=== PATIENT | male | born 1965 | race Caucasian/White ===

== ENCOUNTER → 2019-12-05 15:41 | Outpatient (BNVA) | payer OTHER, SELFPAY | PROVIDERS: Family Provider Family Medicine; PCP Family Medicine; Visit Provider Nurse Practitioner Psychiatric/Mental Health | DX: F33.1 Major depressive disorder, recurrent, moderate (principal); F41.1 Generalized anxiety disorder; F17.210 Nicotine dependence, cigarettes, uncomplicated | CPT/HCPCS: 99213 ==

== ENCOUNTER → 2020-03-27 08:19 | Outpatient (BNVA) | payer OTHER, SELFPAY | PROVIDERS: Family Provider Family Medicine; PCP Family Medicine; Visit Provider Nurse Practitioner Psychiatric/Mental Health | DX: F33.1 Major depressive disorder, recurrent, moderate (principal); F41.1 Generalized anxiety disorder; F17.210 Nicotine dependence, cigarettes, uncomplicated; F33.42 Major depressive disorder, recurrent, in full remission | CPT/HCPCS: 99213 ==

== ENCOUNTER 2020-12-08 23:12 | Emergency (ER) | payer MEDICARE, SELFPAY ==
[2020-12-08 23:14] VITALS: BP 204/105; PULSE 100; RESP 22; TEMP 36.8; O2SAT 95; BMI 35.9
--- NOTE | 2020-12-08 23:15 | XR_ITS ---
WS: [id number] Portable AP upright chest, 12/08/2020 Clinical Data: cp Comparison: PA and lateral chest, 07/13/2018. Findings: No nodules, masses or effusions are seen. The heart is normal. The pulmonary vascularity is not increased. No pneumonia or pneumothorax is seen. The aortic arch and descending aorta are minima lly tortuous. The left diaphragm is slightly elevated. Monitor leads are on the chest wall. XR/XR chest 1V portable [id number] Impression: Atherosclerosis.
--- NOTE | 2020-12-08 23:15 | ECG_ITS ---
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 Measurements Intervals [place] Rate: 97 P: 65 [place]: 211 QRS: -36 QRSD: 94 T: 63 QT: 353 QTc: 450 Interpretive Statements SINUS RHYTHM WITH FIRST DEGREE AV BLOCK LEFT AXIS DEVIATION [QRS AXIS < -30] POSSIBLE ANTERIOR MYOCARDIAL INFARCTION , OF INDETERMINATE AGE Compared to ECG 07/13/2018 10:16:34 First degree AV block now present Left-axis deviation now present Myocardial infarct finding now present Left anterior fascicular block no longer present Electronically Signed On 12-09-2020 19:20:18 PASSENGER LOCOMOTIVE ENGINEER by Liya Jaffe M.D. [id number]
--- NOTE | 2020-12-08 23:19 | W.ED.CHESTPA ---
HPI - Chest Pain General: Chief Complaint: Chest Pain Stated Complaint: CP Time Seen by Provider: 12/08/20 23:16 Source: patient Mode of arrival: ambulatory Limitations: no limitations History of Present Illness: HPI narrative: 55-year-old male has a history of coronary artery disease along with high blood pressure and high cholesterol is a smoker. States he started having a pressure type pain in the center of his chest at 930 tonight. He states it is been constant initially is an 8 and he took nitro at home and it did improve his pain to a 4 currently. He denies any worsening improving factors. Denies any shortness of breath. Denies any nausea or vomiting. MD complaint: chest pain Associated symptoms: Deny abdominal pain, dyspnea, fever(s), nausea or vomiting Review of Systems Const: Denies: fever(s), chills, body aches or change in appetite Eyes: Denies: blurry vision or eye discomfort ENMT: Denies: throat pain or dental pain Card: Reports: chest pain Resp: Denies: dyspnea GI: Denies: abdominal pain, nausea, vomiting or diarrhea : Denies: dysuria Musc: Denies: neck pain or back pain Skin/Breast: Denies: rash Neuro: Denies: headache(s) Psych: Denies: depression Mathieu/Lymph: Denies: easy bruising All/Imm: Denies: urticaria PFSH ED PFSH: Medical History ASHD (arteriosclerotic heart disease) Generalized anxiety disorder Major depressive disorder, recurrent episode, moderate with anxious distress Nicotine dependence, cigarettes, uncomplicated Family History Father Myocardial infarct Grandmother Myocardial infarct Family/Other Myocardial infarct Other CAD (coronary artery disease) Social History Smoking and tobacco status: current every day smoker cigarettes Packs smoked per day: 1 and smokeless tobacco Smokeless tobacco user: chewing tobacco Smokeless tobacco details: 1 can 2- 3 days Quit status (tobacco): considering quitting Second hand smoke exposure: Yes Smoking risk assessment/counseling performed?: No Physical Exam Const: COMMON NORMALS: no acute distress, patient oriented x3 and healthy appearing HENMT: COMMON NORMALS: normocephalic and atraumatic HEAD & SCALP: normocephalic and atraumatic Eye: COMMON NORMALS: Equal, round and reactive pupils present and EOMs intact bilaterally PUPIL: Yes Equal, round and reactive pupils present Neck/C-Spine: COMMON NORMALS: full ROM and supple Chest: COMMONS NORMALS: normal inspection of the chest and normal palpation of entire chest wall Resp: COMMON NORMALS: normal respiratory effort, No retractions, No use of accessory muscles and clear to auscultation bilaterally AUSCULTATION: clear to auscultation bilaterally Cardio: COMMON NORMALS: regular rate, regular rhythm and No murmurs present (Cardio) RATE: regular rate RHYTHM: regular rhythm GI: COMMON NORMALS: Normal to inspection, nondistended, normoactive bowel sounds present, Soft to palpation, non-tender and no masses PALPATION: Yes Soft to palpation Extremity: COMMON NORMALS: normal to inspection and full ROM Neuro: COMMON NORMALS: patient oriented x3, moves all extremities and no focal motor deficits Psych: COMMON NORMALS: mental status grossly normal, Normal thought process present and cooperative THOUGHT PROCESS: Normal thought process present Skin: COMMON NORMALS: no rashes or lesions noted and no wounds GENERAL SKIN EXAM: no rashes or lesions noted Course Vital Signs: Vital signs: Vital Signs Temperature 98.2 F 12/08/20 23:14 Pulse Rate 87 12/09/20 02:42 Respiratory Rate 16 12/09/20 02:42 Blood Pressure 146/71 12/09/20 02:42 Pulse Oximetry 96 12/09/20 02:42 MDM - Chest Pain MDM Narrative: Medical decision making narrative: Patient presents here with Carlos presents with chest pain. Patient's initial and repeat troponin are negative. I did offer him admission but he states he feels much improved and does not like staying hospitals and refused. He is to follow-up with Dr. Mendoza in 3 to 7 days and return to ER if he has any return of his pain. He understands agrees the plan. Has no signs of aortic dissection or pulmonary embolism Lab Data: Labs: Lab Results 12/08/20 12/08/20 12/08/20 Range/Units 23:20 23:20 23:20 WBC 5.8 (4.0-10.0) 10^3/ uL RBC 5.13 (4.1-5.3) 10^6/u L Hgb 16.2 (11.7-16.6) g/dL Hct 48.2 (42.0-52.0) % MCV 94.0 (80-94) fL MCH 31.6 (28.0-34.0) pg MCHC 33.6 (30.0-36.0) g/dL RDW 12.8 (12.1-15.1) % Plt Count 186 (130-400) 10^3/c mm MPV 10.3 (7.4-10.4) fL Neut % (Auto) 50.9 % Lymph % (Auto) 36.0 % [place] % (Auto) 6.7 % Eos % (Auto) 4.0 % Baso % (Auto) 1.7 % Neut # (Auto) 2.95 (1.8-7.7) 10^3/u L Lymph # (Auto) 2.1 (0.8-4.8) 10^3/u L [place] # (Auto) 0.4 (0.2-0.9) 10^3/u L Eos # (Auto) 0.2 (0.0-0.8) 10^3/u L Baso # (Auto) 0.1 (0.0-0.1) 10^3/u L Nucleated RBC % (a uto) 0 % Nucleated RBCs # 0.0 /100WBC Sodium 137 (136-145) mmol/L Potassium 4.5 (3.5-5.1) mmol/L Chloride 99 (98-107) mmol/L Carbon Dioxide 23 (22-29) mmol/L Anion Gap 19.5 H (5-19) BUN 5 L (6-20) mg/dL Creatinine 0.7 (0.7-1.2) mg/dL GFR Calculation 116.2 (90-130) mL/min Glucose 350 H (65-115) mg/dL Calculated Osmolal ity 295 (285-295) mOsm/k g Calcium 9.1 (8.5-10.5) mg/dL Total Bilirubin 0.2 (0.15-1.2) mg/dL AST 5 (0-40) U/L ALT < 5 (0-41) U/L Alkaline Phosphata se 109 (40-130) IU/L Troponin T Baselin e 11 (0-15) ng/L Troponin T 120 Min ely shoshone (0-15) ng/L Delta Troponin T (0-10) ABS# Total Protein 7.1 (6.6-8.7) g/dL Albumin 4.1 (3.5-5.2) g/dL Globulin 3.0 (1.3-4.6) g/dL 12/09/20 Range/Units 01:05 WBC (4.0-10.0) 10^3/ uL RBC (4.1-5.3) 10^6/u L Hgb (11.7-16.6) g/dL Hct (42.0-52.0) % MCV (80-94) fL MCH (28.0-34.0) pg MCHC (30.0-36.0) g/dL RDW (12.1-15.1) % Plt Count (130-400) 10^3/c mm MPV (7.4-10.4) fL Neut % (Auto) % Lymph % (Auto) % [place] % (Auto) % Eos % (Auto) % Baso % (Auto) % Neut # (Auto) (1.8-7.7) 10^3/u L Lymph # (Auto) (0.8-4.8) 10^3/u L [place] # (Auto) (0.2-0.9) 10^3/u L Eos # (Auto) (0.0-0.8) 10^3/u L Baso # (Auto) (0.0-0.1) 10^3/u L Nucleated RBC % (a uto) % Nucleated RBCs # /100WBC Sodium (136-145) mmol/L Potassium (3.5-5.1) mmol/L Chloride (98-107) mmol/L Carbon Dioxide (22-29) mmol/L Anion Gap (5-19) BUN (6-20) mg/dL Creatinine (0.7-1.2) mg/dL GFR Calculation (90-130) mL/min Glucose (65-115) mg/dL Calculated Osmolal ity (285-295) mOsm/k g Calcium (8.5-10.5) mg/dL Total Bilirubin (0.15-1.2) mg/dL AST (0-40) U/L ALT (0-41) U/L Alkaline Phosphata se (40-130) IU/L Troponin T Baselin e (0-15) ng/L Troponin T 120 Min ely [place] 20.22 H (0-15) ng/L Delta Troponin T 9.22 (0-10) ABS# Total Protein (6.6-8.7) g/dL Albumin (3.5-5.2) g/dL Globulin (1.3-4.6) g/dL Imaging Data^: CXR: Attestation: I personally reviewed and interpreted this imaging study as follows: My impression: no acute abnormality No acute abnormality EKG Data^: EKG 1: Attestation: I personally reviewed and interpreted this EKG as follows: EKG interpretation date: 12/08/20 EKG interpretation time: 23:17 Interpretation: nsr hr [address] or t wave abnormalities qrs 94 qtc 408 EKG 2: Attestation: I personally reviewed and interpreted this EKG as follows: EKG interpretation date: 12/09/20 EKG interpretation time: 01:56 Interpretation: nsr hr [address] or t wave abnormalities qrs 98 qtc 399 Discharge Plan Discharge Patient Disposition: Home Clinical Impression: Chest pain Qualifiers: Chest pain type: unspecified Qualified Code(s): R07.9 - Chest pain, unspecified Condition: Stable Prescriptions: No Action melatonin [Melatin] 3 mg tablet 3 mg PO .HS PRN (Reason: sleep) RF: 0 cyproheptadine 4 mg tablet 4 mg PO DAILY PRNRF: 0 metformin 1,000 mg tablet extended release 24hr 1,000 mg PO BID RF: 0 pantoprazole [Protonix] 40 mg tablet,delayed release (DR/EC) 40 mg PO QAM RF: 0 clopidogrel [Plavix] 75 mg tablet 75 mg PO DAILY RF: 0 omega-3 fatty acids [Fish Oil Concentrate] 1,000 mg capsule 1,000 mg PO DAILY RF: 0 pregabalin [Lyrica] 150 mg capsule 150 mg PO QID RF: 0 aspirin [Adult Aspirin Regimen] 81 mg tablet,delayed release (DR/EC) 81 mg PO .AM RF: 0 lisinopril [Zestril] 40 mg tablet 40 mg PO DAILY RF: 0 Antacid Calcium 215 mg calcium (500 mg) tablet,chewable 215 mg PO DAILY RF: 0 B complex with V-shelvuuyo-In Tablet PO DAILY RF: 0 celecoxib [Celebrex] 200 mg capsule 200 mg PO BID RF: 0 carvedilol 25 mg tablet 37.5 mg PO BID 90 Days Qty: 270 RF: 3 amlodipine [Norvasc] 5 mg tablet 5 mg PO BID 90 Days Qty: 180 RF: 3 ezetimibe [Zetia] 10 mg tablet 10 mg PO DAILY Qty: 90 RF: 3 nitroglycerin [Nitrostat] 0.4 mg tablet, sublingual 0.4 mg sublingual Q5M PRN (Reason: chest pain) Qty: 100 RF: 3 isosorbide mononitrate 30 mg tablet extended release 24 hr 30 mg PO DAILY Qty: 30 RF: 6 duloxetine [Cymbalta] 60 mg capsule,delayed release(DR/EC) 60 mg PO .AM Qty: 90 RF: 2 Discharge Orders: Discharge ED (Routine); Ordered 12/09/20 Ordered By: Judy Aggarwal Referrals: Paulina Webb MD [Physician] - 4-7 days Enrique Avila MD [Primary Care Provider] - Discharge Diet: Advance as tolerated Discharge Activity: Resume usual activity Patient Instructions: Chest Pain (ED) Coding Level of Care Code ED Mold Sander for Sarag Fwd Exam Comprehensive
[2020-12-08 23:28] LABS: Basophils # 0.1 10^3/uL (0.0-0.1); Basophils % 1.7 %; Eosinophils # 0.2 10^3/uL (0.0-0.8); Hematocrit 48.2 % (42.0-52.0); Hemoglobin 16.2 g/dL (11.7-16.6); Lymphocytes # 2.1 10^3/uL (0.8-4.8); Mean Corpuscular HGB Conc 33.6 g/dL (30.0-36.0); Mean Corpuscular Hemoglobin 31.6 pg (28.0-34.0); Mean Platelet Volume 10.3 fL (7.4-10.4); Monocytes # 0.4 10^3/uL (0.2-0.9); Monocytes % 6.7 %; Neutrophils # 2.95 10^3/uL (1.8-7.7); Neutrophils % 50.9 %; Nucleated Red Blood Cells % 0 %; Platelet Count 186 10^3/cmm (130-400); Red Blood Count 5.13 10^6/uL (4.1-5.3); Red Cell Distribution Width 12.8 % (12.1-15.1); White Blood Count 5.8 10^3/uL (4.0-10.0)
[2020-12-08] MEDS: aspirin 81 mg Chew Tablet 324 MG PO (23:31)
[2020-12-08] MEDS: nitroglycerin 0.4 mg sublingual Tablet SUBLINGUAL (23:31)
[2020-12-08 23:34] VITALS: BP 202/104; PULSE 101; RESP 18; O2SAT 93
[2020-12-08 23:49] LABS: Albumin Level 4.1 g/dL (3.5-5.2); Alkaline Phosphatase 109 IU/L (40-130); Blood Urea Nitrogen 5 mg/dL (6-20); Calcium 9.1 mg/dL (8.5-10.5); Carbon Dioxide 23 mmol/L (22-29); Chloride 99 mmol/L (98-107); Glomerular Filtration Rate 116.2 mL/min (90-130); Glucose 350 mg/dL (65-115); Osmolality Calculated 295 mOsm/kg (285-295); Sodium 137 mmol/L (136-145); Total Bilirubin 0.2 mg/dL (0.15-1.2); Total Protein 7.1 g/dL (6.6-8.7)
[2020-12-08 23:51] LABS: Troponin(5th) Baseline 11 ng/L (0-15)
[2020-12-09 00:03] LABS: Alanine Aminotransferase < 5 U/L (0-41); Aspartate Amino Transferase 5 U/L (0-40)
[2020-12-09 00:06] LABS: Anion Gap 19.5 (5-19); Potassium 4.5 mmol/L (3.5-5.1)
[2020-12-09] MEDS: ondansetron 2 mg/ML SDV 2 mL 4 MG IVP (00:49)
[2020-12-09] MEDS: morphine 4 mg/mL SDV 1 mL IVP (00:50)
--- NOTE | 2020-12-09 01:15 | ECG_ITS ---
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 Measurements Intervals [place] Rate: 90 P: 64 [place]: 217 QRS: -40 QRSD: 98 T: 60 QT: 351 QTc: 431 Interpretive Statements SINUS RHYTHM WITH FIRST DEGREE AV BLOCK LEFT AXIS DEVIATION [QRS AXIS < -30] POSSIBLE ANTERIOR MYOCARDIAL INFARCTION , OF INDETERMINATE AGE [30 ms Q WAVE IN V3/V4, OR R < 0.2 mV IN V4] Compared to ECG 12/08/2020 23:17:37 No significant changes Electronically Signed On 12-09-2020 19:23:43 PRECINCT CAPTAIN by Liya Jaffe M.D. [id number]
[2020-12-09 01:35] LABS: Troponin 5 2HR 20.22 ng/L (0-15); Troponin 5 2HR Delta 9.22 ABS# (0-10)
[2020-12-09 02:42] VITALS: BP 146/71; PULSE 87; RESP 16; O2SAT 96
--- NOTE | 2020-12-09 09:52 | DCPLANNER ---
software engineering project manager had message to schedule a follow up appointment for patient with [facility]. software engineering project manager called [facility], spoke with Nesha, gave clinic patients information. A follow up appointment was scheduled for Monday, December 09, 2020 at 2:[address] Webb, clinic will call patient with appointment information.
--- NOTE | 2020-12-18 14:43 | DCPLANNER ---
Patient had a follow up appointment scheduled for 12.09.20 with [facility] - patient did attend appointment.
== END 2020-12-09 02:43 | disposition home or self-care (01) ==
PROVIDERS: Emergency Provider Emergency Medicine; PCP Family Medicine
DX: R07.9 Chest pain, unspecified (principal); Z79.82 Long term (current) use of aspirin; Z79.02 Long term (current) use of antithrombotics/antiplatelets; Z79.84 Long term (current) use of oral hypoglycemic drugs; F17.210 Nicotine dependence, cigarettes, uncomplicated
CPT/HCPCS: 12345; 36415; 71045; 80053; 84484; 85025; 93005; 96374; 96375; 99282; 99284; J2270; J2405

== ENCOUNTER 2020-12-18 11:18 | Outpatient (CLI) | payer MEDICARE, SELFPAY ==
[2020-12-18 11:48] LABS: Basophils # 0.1 10^3/uL (0.0-0.1); Basophils % 1.3 %; Eosinophils # 0.2 10^3/uL (0.0-0.8); Eosinophils % 3.2 %; Hematocrit 44.7 % (42.0-52.0); Hemoglobin 14.8 g/dL (11.7-16.6); Lymphocytes # 2.2 10^3/uL (0.8-4.8); Lymphocytes % 31.5 %; Mean Corpuscular HGB Conc 33.1 g/dL (30.0-36.0); Mean Corpuscular Hemoglobin 30.9 pg (28.0-34.0); Mean Corpuscular Volume 93.3 fL (80-94); Monocytes # 0.3 10^3/uL (0.2-0.9); Monocytes % 4.5 %; Neutrophils # 4.19 10^3/uL (1.8-7.7); Neutrophils % 59.2 %; Nucleated Red Blood Cells % 0 %; Platelet Count 182 10^3/cmm (130-400); Red Blood Count 4.79 10^6/uL (4.1-5.3); Red Cell Distribution Width 12.4 % (12.1-15.1); White Blood Count 7.1 10^3/uL (4.0-10.0)
[2020-12-18 12:05] LABS: Blood Urea Nitrogen 14 mg/dL (6-20); Calcium 9.2 mg/dL (8.5-10.5); Carbon Dioxide 28 mmol/L (22-29); Chloride 95 mmol/L (98-107); Glucose 296 mg/dL (65-115); Osmolality Calculated 285 mOsm/kg (285-295); Sodium 132 mmol/L (136-145)
== END 2020-12-18 11:19 | disposition home or self-care (01) ==
PROVIDERS: PCP Family Medicine; Visit Provider Internal Medicine Cardiovascular Disease
DX: R07.9 Chest pain, unspecified (principal); I25.10 Atherosclerotic heart disease of native coronary artery without angina pectoris
CPT/HCPCS: 36415; 80048; 85025; 87635

== ENCOUNTER 2020-12-22 06:01 | Day surgery (SDC) | payer MEDICARE, SELFPAY ==
[2020-12-22] VITALS (29 sets, daily range): BP systolic 100–164; BP diastolic 59–84; PULSE 67–84; RESP 3–30; TEMP 36.3–36.7; O2SAT 90–96; BMI 35.9
--- NOTE | 2020-12-22 | XACV_ITS ---
Ht: 178 cm Wt: 113 kg BSA: 2.41 m2 Gender: Male : 1965 Any Known Allergies: Other Exam Priority: Routine Procedure(s): Procedure Description: Diagnostic procedure Procedure Description: Left Heart Catheterization Procedure Description: Left ventriculography Procedure Description: Coronary Angiography Diagnostic Findings * RCA has 0% stenosis. * LM: Severe 90% stenosis, KACI: 3 flow. * pLAD: Severe 80% stenosis, KACI: 3 flow. * dLAD: Mild 40% stenosis, KACI: 3 flow. * 1st Diag: Severe 90% stenosis, KACI: 3 flow. * 1st Diag: Severe 80% stenosis, KACI: 3 flow. * pCIRC: Severe 90% stenosis, KACI: 3 flow. * Coronary angiography shows right dominance. Conclusions 1. There is severe coronary artery disease with three vessel disease. 2. All abel are normal. 3. Normal left ventricular systolic function. Ejection fraction of 60%. 4. Indication for left heart cath: 5. Worsening of chest pain along with shortness of breath 6. highly suspicious for angina.. Recommendations * 1-Return to ICU for close monitoring and routine PCI care 2-Continue IV heparin drip as per ACS protocol 3-No Plavix for possible CABG 4-Statin with LDL goal of 70 mg/dl, aspirin 81 mg p.o. daily for life long 5-CT surgery consults for CABG 6-Optimal medical management for MT 7-Follow up with Dr. Webb in four weeks and establish care with primary care physician. Diagnostic RX Recommendation: CABG LV EDP: 6 mmHg Ventriculography Ejection Fraction: 60.0 % Left Ventriculography Findings: * Normal LV size and function, EF 60%. Pressures Phase:Rest AO : 185 / 108 ( 142 ) @ 1:45:00 AM 189 / 108 ( 146 ) @ 1:46:00 AM 212 / 135 ( 169 ) @ 1:53:00 AM 210 / 112 ( 155 ) @ 1:57:00 AM 257 / 115 ( 160 ) @ 2:13:00 AM 237 / 115 ( 137 ) @ 2:13:00 AM LV : 252 / -13 / @ 2:11:00 AM -139 / -139 / @ 2:13:00 AM 247 / 6 / @ 2:13:00 AM 249 / 1 / @ 2:13:00 AM Valves Phase:DefaultPhase AV : 0.0 @ 8:22:20 AM AV Mean Gradient: 0.0 @ 8:22:20 AM 0.0 @ 8:22:20 AM Clinical Evaluation EBL: 5mL-10mL Procedural Details Procedure Consent Obtained. Pre-Procedure Time Out. Identified patient by full name and date of as verbalized by the patient/guarantor. Does the consent match the physician's order: Yes. Accurate & Complete Informed Consent: Yes. Inpatient/Outpatient History & Physical on Chart: Yes. If H&P is completed, is and addenduem needed: N/A; If yes, is the addendum complete: N/A. Visualize and Verify Site with Patient/Guarantor: N/A. Relevant Radiology Images available: Yes. Pre-op teaching completed and patient verbalized understanding. The risks, benefits, and alternatives of sedation and/or procedure were discussed by physician. The patient agrees to continue. Procedure started. Correct patient, site and procedure confirmed by cath team. PERRLA. Strong, equal hand supervisor bindery bilaterally. Lungs clear x 5 lobes. IV Site on Arrival: 20 gauge in the right anticubital. IV Fluids: 0.9% NaCl at KVO. 0 mL infused prior to director of labor relations. Pre Procedural Pulses: bilateral dorsalis pedis was 1+. Pre Procedural Pulses: bilateral posterior tibial was 1+. Pre Procedural Pulses: bilateral radial was 3+. Oxygen started at 2liters/min via nasal canula. right groin was prepped with chloroprep then draped in the usual sterile fashion. right radial was prepped with chloroprep then draped in the usual sterile fashion. Physician notified. Baseline sample Acquired. HR: 70 BPM. Equipment: 6F - Radial. Cardiac Cath Pack. ACIST Manifold Kit Model BT 2000. Heparinized Saline (2 units/mL), 1000 mL bag. Physician arrived. Physician scrubbed in. Immediate Pre-Procedure Time Out. Correct Patient: Yes; Correct Procedure: Yes; Correct Site: Yes; Correct Patient Position: Yes; Correct Supplies: Yes; Dried Flammable Prep: Yes; Blood Products Available: No;. Lidocaine 1% infiltrated to the right radial. Arterial access obtained. A 5 sammarinese TIG catheter in over wire. Error in hemo. Using peripheral cuff pressure. Multiple views taken of left coronary artery. Catheter redirected to the RCA. Catheter out. A 5 sammarinese JR4 catheter in over wire. Multiple views taken of right coronary artery. Catheter out. A 5 sammarinese 3DRC catheter in over wire. Multiple views taken of right coronary artery. Catheter out. 6 sammarinese AL 0.75 guide catheter was inserted over the wire. Multiple views taken of right coronary artery. Guide catheter out. A 5 sammarinese Angled Pig catheter in over wire. EDP Sample taken: LV 252/-14,31; HR: 73 BPM; SpO2: 95%. LV gram performed in COLLINS @ 10 mL/second for a total of 30 mL. EDP Sample taken: LV 247/6,37; HR: 72 BPM; SpO2: 95%. Pullback taken: LV 249/1,34; AO 257/115(160); Mean: 0mmHg, Peak to Peak: 0mmHg, SEP: 20sec/min; HR: 76 BPM; SpO2: 95%. Catheter out. A TR Band was successful obtaining hemostatsis at the Right Radial artery insertion site. TR band placed. Hemostasis obtained. Post Procedure: Pulses reassessed and unchanged. PERRLA. Strong, equal hand supervisor bindery bilaterally. No VTE prophylaxis required. Fluoro: 14:06. Contrast type used: Omnipaque 300 mgI/mL, 500 mL bottle. [id number]. Complications: none. Estimated blood loss: 5mL-10mL. Procedure completed. Patient transferred by wheelchair to 1st floor. Medication's Wasted: Nitro = 29.8 mg. Medication's Wasted: Lidocaine 1% = 18 mL. Medication's Wasted: Heparin = 1000 units. Medication's Wasted: Other = fentanyl 50 mcg. Total IV fluids: 93.5 mL. Post-op diagnosis: severe multivessel CAD with left main. [facility] Clinical Fraility Score: 3: Managing Well. Optical Scientist Indications: Stable Known CAD. Optical Scientist Indications: New Onset Angina. Chest Pain Symptom Assessment: Typical Angina Symptoms. Cardiovascular Instability: No,. Vital chart was stopped. Access Site Site: Right Radial artery Sheath Size: 6 Fr Hemostasis Method: TR Band Hemostasis Success: Successful Procedure Medications Start: 7:11 AM Stop: 7:11 AM Medication: Fentanyl Amount: 50 mcg Route: I.V. Start: 7:33 AM Stop: 7:33 AM Medication: Versed Amount: 1 mg Start: 7:41 AM Stop: 7:41 AM Medication: Nitrogylcerin Amount: 200 mcg Route: I.A. Start: 7:42 AM Stop: 7:42 AM Medication: Versed Amount: 1 mg Route: I.V. Start: 7:43 AM Stop: 7:43 AM Medication: Heparin Amount: 5000 units Route: I.V. I, the attending physician, have reviewed and verified all procedure medications. Yes, all medications given per verbal order History/Risk Factors Hypertension: Yes Dyslipidemia: Yes Tobacco Use: Current/Recent(w/in 1 year) Prior Interventions PCI: Yes Report Signatures Finalized by Paulina Webb MD on 12/28/2020 12:50 PM
[2020-12-22] MEDS: diphenhydrAMINE 50 mg Capsule PO (06:33)
--- NOTE | 2020-12-22 07:06 | W.PM.OPSUD ---
Surgery/Procedure H&P Update DATE OF PROCEDURE: December 22, 2020 DATE H&P PERFORMED: 12/09/20 H&P UPDATE INFORMATION: I have reviewed H&P completed within last 30 days, I have examined patient prior to procedure and No changes to prior documentation PREOP DIAGNOSIS: Unstable angina, shortness of breath PLANNED PROCEDURE: Operation Date: 12/22/20 07:00 Proposed Procedures p left Cardiac Catheterization 77656 I25.10(Left) - Paulina Webb MD PATIENT REASSESSED PRIOR TO SEDATION, WITH NO CHANGE NOTED: Yes PHYSICAL EXAM: alert and clear to auscultation bilaterally AIRWAY EVAL/ANESTHESIA PLAN: ASA II, Risks, benefits & alternatives of sedation and/or procedure discussed and Patient agrees to continue as planned
--- NOTE | 2020-12-22 08:25 | USCV_ITS ---
Carlos Bender Age: 55 Gender: M : 1965 Exam Date: 12/22/2020 09:50 Ordering Phys: Paulina Webb MD Technologist: Jefferson Marcano Exam Location: [facility] – [place] Indication: CAD POST CATH BP: 122 / 71 HR: 64 Rhythm: Sinus Technical Quality: Fair MEASUREMENTS (Male / Female) Normal Values 2D ECHO LV Diastolic Diameter PLAX 4.7 cm 4.2 - 5.9 / 3.9 - 5.3 cm LV Systolic Diameter PLAX 3.5 cm IVS Diastolic Thickness 1.3 cm 0.6 - 1.0 / 0.6 - 0.9 cm IVS Systolic Thickness 1.8 cm LVPW Diastolic Thickness 1.4 cm 0.6 - 1.0 / 0.6 - 0.9 cm LVPW Systolic Thickness 1.8 cm LVOT Diameter 2.1 cm LV Ejection Fraction 2D Teich 40.7 % LV Ejection Fraction MOD 2C 71.4 % LV Ejection Fraction 2C AL 71.8 % LA Diameter 4.3 cm LA Width 3.7 cm LA Height 4.8 cm RA Width 4.1 cm RA Height 5.2 cm Aorta at Sinotubular Diameter 2.8 cm M-MODE LV Diastolic Diameter MM 5.3 cm 4.2 - 5.9 / 3.9 - 5.3 cm LV Systolic Diameter MM 3.6 cm LV Ejection Fraction MM Teich 61.4 % IVS Diastolic Thickness MM 1.3 cm 0.6 - 1.0 / 0.6 - 0.9 cm IVS Systolic Thickness MM 1.7 cm LVPW Diastolic Thickness MM 1.2 cm 0.6 - 1.0 / 0.6 - 0.9 cm LVPW Systolic Thickness MM 1.9 cm RV Diastolic Diameter MM 2.2 cm Aortic Annulus Diameter 3.6 cm LA Ao Ratio MM 1.2 MV E Point Septal Separation 0.5 cm DOPPLER AV Peak Velocity 155.3 cm/s LVOT Peak Velocity 89.0 cm/s AV Area Cont Eq vti 2.1 cm squared AV Area Cont Eq pk 2.0 cm squared MV Area PHT 5.0 cm squared Mitral E to A Ratio 1.4 MV E' Velocity 49.0 cm/s Mitral E to MV E' Ratio 14.7 Mitral E to LV E' Lateral Ratio 11.7 Mitral E to LV E' Septal Ratio 20.0 TR Peak Velocity 187.0 cm/s TR Peak Gradient 14.0 mmHg TV Peak E Velocity 111.0 cm/s Right Atrial Pressure 3.0 mmHg Pulmonary Artery Systolic Pressu 17.0 mmHg PV Peak Velocity 97.0 cm/s FINDINGS Left Ventricle Normal left ventricular cavity size. Normal left ventricular systolic function. No regional wall motion abnormalities. Left ventricular ejection fraction is estimated at 61 %. Normal diastolic function. Right Ventricle Right Atrium Moderately increased right atrial size. Left Atrium The left atrium is normal in size. Mitral Valve Mildly thickened mitral valve. No mitral valve stenosis. Mild mitral valve regurgitation. Aortic Valve Moderate aortic valve calcification. No aortic valve stenosis. Trace aortic valve regurgitation. Tricuspid Valve Structurally normal tricuspid valve without significant stenosis or regurgitation. Pulmonary artery systolic pressure is normal. Pulmonic Valve Structurally normal pulmonic valve without significant stenosis. There is no pulmonic regurgitation. Pericardium Normal pericardium without effusion. Aorta Normal ascending aorta dimension. CONCLUSIONS 1-Normal left ventricular cavity size. Normal left ventricular systolic function. No regional wall motion abnormalities. Left ventricular ejection fraction is estimated at 61 %. Normal diastolic function. 2-Moderately increased right atrial size. 3-Moderate aortic valve calcification. No aortic valve stenosis. Trace aortic valve regurgitation. 4-Mildly thickened mitral valve. No mitral valve stenosis. Mild mitral valve regurgitation. 5-There is no pericardial effusion. 6-Pulmonary artery systolic pressure is within normal limits. 7-When compared to the prior echocardiogram dated 15 January 2016 there appeared to be mild mitral valve regurgitation now. Paulina Webb MD (Electronically Signed) Final Date: 23 December 2020 19:05 S
--- NOTE | 2020-12-22 11:03 | PC.NURSE ---
Dr self at bedside for discussion of plan of care with patient and family
--- NOTE | 2020-12-22 14:55 | PC.NURSE ---
1400 TR band removed at this time per protocol patient tolerated well no bleeding or hematoma noted
== END 2020-12-22 15:55 | disposition home or self-care (01) ==
LOC: CCL 06:08 → CSU 08:31
PROVIDERS: PCP Family Medicine; Visit Provider Internal Medicine Cardiovascular Disease
DX: I25.110 Atherosclerotic heart disease of native coronary artery with unstable angina pectoris (principal); F41.9 Anxiety disorder, unspecified; F17.210 Nicotine dependence, cigarettes, uncomplicated; I10 Essential (primary) hypertension; Z79.82 Long term (current) use of aspirin
CPT/HCPCS: 12345; 36415; 93306; 93452; C1769; C1887; C1894; J1644; J2250; J3010; J3490; Q0163; Q9967

== ENCOUNTER → 2021-01-06 11:40 | Outpatient (BNVA) | payer MEDICARE, SELFPAY | PROVIDERS: PCP Family Medicine; Visit Provider Thoracic Surgery (Cardiothoracic Vascular Surgery) | DX: Z01.812 Encounter for preprocedural laboratory examination (principal); I25.10 Atherosclerotic heart disease of native coronary artery without angina pectoris | CPT/HCPCS: 87635 ==

== ENCOUNTER 2021-01-13 08:34 | Outpatient (CLI) | payer MEDICARE, SELFPAY ==
--- NOTE | 2021-01-13 09:31 | PFTS_ITS ---
Date of Study:01/13/21 Date of Dictation: 01/13/2021 MECHANICS: Forced vital capacity (FVC) is normal. Forced expiratory volume in one second (FEV1) is normal. Post BD FEV1 84% FEV1/FVC is normal. No significant response to bronchodilators noted.. FLOW VOLUME LOOP: Normal . LUNG VOLUMES: Total lung capacity (TLC) is normal. Residual volume (RV) is significantly increased suggestive of air trapping. DIFFUSING CAPACITY FOR CARBON MONOXIDE: Normal . INTERPRETATION: The pulmonary function tests are normal. Low normal FVC and FEV1 normalized after bronchodilator. Normal gas transfer. Lung volumes showing significant air trapping. Please correlate clinically. MTDD
--- NOTE | 2021-01-13 11:00 | USCV_ITS ---
Carlos Bender Age: 55 Gender: M : 1965 Exam Date: 01/13/2021 09:50 Ordering Phys: Graeme Juarez MD (And[email or web address] [place] Technologist: Fabiana Villanueva Exam Location: [facility] [place] Indication: ATHEROSCLEROTIC HEART DISEASE RIGHT LEFT LOWER EXTREMITY Diameter Diameter (cm) (cm) 0.49 High Thigh 0.40 0.32 Mid Thigh 0.35 0.31 Above Knee 0.34 0.33 Below Knee 0.31 0.33 Mid Calf 0.35 0.35 Ankle 0.41 RIGHT LEFT UPPER EXTREMITY The Upper Extremity section is not evaluated at this time Findings The veins are found to be easily compressible. No evidence of thrombosis Conclusions Normal caliber patent veins bilaterally with no evidence of thrombosis The venous segments measured 0.31 to 0.[address] Lily Manzano MD [facility] (Electronically Signed) Final Date: 13 January 2021 13:01 S
== END 2021-01-13 08:35 | disposition home or self-care (01) ==
LOC: RT 08:43
PROVIDERS: PCP Family Medicine; Visit Provider Thoracic Surgery (Cardiothoracic Vascular Surgery)
DX: I25.10 Atherosclerotic heart disease of native coronary artery without angina pectoris (principal)
CPT/HCPCS: 93970; 94060; 94726; 94729; J7611

== ENCOUNTER → 2021-01-27 12:39 | Outpatient (BNVA) | payer MEDICARE, SELFPAY | PROVIDERS: PCP Family Medicine; Visit Provider Thoracic Surgery (Cardiothoracic Vascular Surgery) | DX: I25.10 Atherosclerotic heart disease of native coronary artery without angina pectoris (principal) | CPT/HCPCS: 87635 ==

== ENCOUNTER 2021-02-01 09:00 | Outpatient (CLI) | payer MEDICARE, SELFPAY ==
--- NOTE | 2021-02-01 12:25 | SUR.PREOP ---
Case was canceled for 02/01/21 per Kendra (Dr Juarez's office).
== END 2021-02-01 09:01 | disposition home or self-care (01) ==
LOC: OPS 02-08 14:33
PROVIDERS: PCP Family Medicine; Visit Provider Thoracic Surgery (Cardiothoracic Vascular Surgery)
DX: Z53.9 Procedure and treatment not carried out, unspecified reason (principal)
CPT/HCPCS: 36415

== ENCOUNTER 2021-02-15 06:00 | Day surgery (SDC) | payer MEDICARE, SELFPAY ==
[2021-02-16 01:38] LABS: Glucose Point of Care 180 mg/dL (70-110)
== END 2021-02-15 06:01 | disposition home or self-care (01) ==
LOC: OR 01-27 10:09
PROVIDERS: PCP Family Medicine; Visit Provider Thoracic Surgery (Cardiothoracic Vascular Surgery)
DX: Z01.818 Encounter for other preprocedural examination (principal)
CPT/HCPCS: 36416; 82962

== ENCOUNTER 2021-02-15 17:22 | Inpatient (IN) | payer MEDICARE, SELFPAY ==
[2021-01-27 10:51] VITALS: BMI 35.9
[2021-01-27 11:45] LABS: Add Urine Microscopic? YES; Bilirubin Urine Neg (Negative); Blood Urine Neg (Negative); Glucose Urine UA 4+ (Normal); Ketones Urine Negative (Negative); Leukocyte Esterase Urine Negative (Negative); Nitrate Urine Negative (Negative); Protein Urine 2+ (Negative); Urine Appearance Clear (CLEAR); Urine Color Yellow (Yellow); Urobilinogen Urine Norm (Negative); pH Urine 6 (5-7)
--- NOTE | 2021-01-27 11:47 | ANES.PREANE2 ---
Pre-Anesthetic Assessment Pre-Anesthetic Assessment: Height/Weight: Height 1.78 m Weight 113.398 kg Preop Diagnosis: Severe coronary artery disease Proposed Procedure: Operation Date: 02/01/21 07:00 Proposed Procedures p CABG I25.10(Not Applicable) - Graeme Juarez MD Familial anesthetic complications: None Social: Social History: Alcohol (3 beers a day) and Tobacco Exam: Pre-Anes Outpt Exam: alert, oriented x 3, clear to auscultation bilaterally and regular rate & rhythm Airway: Cervical ROM: WNL MP: 3 Dentition: False CV/HEM: CV/HEM: Angina (Unstable), CAD and HTN Comments: CONCLUSIONS 1-Normal left ventricular cavity size. Normal left ventricular systolic function. No regional wall motion abnormalities. Left ventricular ejection fraction is estimated at 61 %. Normal diastolic function. 2-Moderately increased right atrial size. 3-Moderate aortic valve calcification. No aortic valve stenosis. Trace aortic valve regurgitation. 4-Mildly thickened mitral valve. No mitral valve stenosis. Mild mitral valve regurgitation. 5-There is no pericardial effusion. 6-Pulmonary artery systolic pressure is within normal limits. 7-When compared to the prior echocardiogram dated 15 January 2016 there appeared to be mild mitral valve regurgitation now. Cath Conclusions 1. There is severe coronary artery disease with three vessel disease. 2. All abel are normal. 3. Normal left ventricular systolic function. Ejection fraction of 60%. 4. Indication for left heart cath: 5. Worsening of chest pain along with shortness of breath 6. highly suspicious for angina.. Metabolic: Metabolic: DM Anesthetic Plan: ASA status: 4 Anesthesia: General Other: A line, central line, PAC, KADE Risk of > 500 ml blood loss (7ml/kg in children): Yes, adequate IV access and fluids planned PFS Anesthesia PFSH: Medical History (Updated 01/01/21 @ 14:05 by Graeme Juarez MD) ASHD (arteriosclerotic heart disease) Generalized anxiety disorder HTN (hypertension) with goal to be determined Left main coronary artery disease Major depressive disorder, recurrent episode, moderate with anxious distress Nicotine dependence, cigarettes, uncomplicated Family History Father Myocardial infarct Grandmother Myocardial infarct Family/Other Myocardial infarct Other CAD (coronary artery disease) Social History Smoking and tobacco status: current every day smoker cigarettes Packs smoked per day: 1 and smokeless tobacco Smokeless tobacco user: chewing tobacco Smokeless tobacco details: 1 can 2- 3 days Quit status (tobacco): considering quitting Second hand smoke exposure: Yes Smoking risk assessment/counseling performed?: No Alcohol intake: never Data Anesthesia Other Labs: Laboratory Results - last 48 hr 01/27/21 11:10 Urine Color Yellow Urine Appearance Clear Urine pH 6 Ur Specific [place] 1.010 Urine Protein 2+ H Urine Glucose (UA) 4+ H Urine Ketones Negative Urine Blood Neg Urine Nitrate Negative Urine Bilirubin Neg Urine Urobilinogen Norm Ur Leukocyte Esterase Negative Amorphous Sediment Not Reportable Cardiac Studies: No Data to Display
[2021-01-27 12:00] LABS: Add Urine Culture? No; Bacteria Urine TRACE /hpf; RBC Urine 0-4 /hpf (0-2)
[2021-01-27 12:30] LABS: Basophils # 0.1 10^3/uL (0.0-0.1); Basophils % 1.1 %; Eosinophils # 0.2 10^3/uL (0.0-0.8); Eosinophils % 3.4 %; Hematocrit 39.5 % (42.0-52.0); Hemoglobin 12.9 g/dL (11.7-16.6); Lymphocytes # 1.3 10^3/uL (0.8-4.8); Lymphocytes % 23.9 %; Mean Corpuscular HGB Conc 32.7 g/dL (30.0-36.0); Mean Corpuscular Hemoglobin 30.4 pg (28.0-34.0); Mean Corpuscular Volume 93.2 fL (80-94); Mean Platelet Volume 10.7 fL (7.4-10.4); Monocytes # 0.2 10^3/uL (0.2-0.9); Monocytes % 4.5 %; Neutrophils # 3.39 10^3/uL (1.8-7.7); Neutrophils % 64.3 %; Nucleated Red Blood Cells % 0 %; Platelet Count 181 10^3/cmm (130-400); Red Blood Count 4.24 10^6/uL (4.1-5.3); Red Cell Distribution Width 13.2 % (12.1-15.1); White Blood Count 5.3 10^3/uL (4.0-10.0)
[2021-01-27 12:32] LABS: INR 0.85 (0.8-1.2)
[2021-01-27 12:33] LABS: Partial Thromboplastin Time 26.1 SECONDS (23.9-36.7)
[2021-01-27 13:01] LABS: Alanine Aminotransferase 34 U/L (0-41); Albumin Level 3.8 g/dL (3.5-5.2); Alkaline Phosphatase 91 IU/L (40-130); Aspartate Amino Transferase 21 U/L (0-40); Blood Urea Nitrogen 12 mg/dL (6-20); Calcium 8.7 mg/dL (8.5-10.5); Carbon Dioxide 26 mmol/L (22-29); Chloride 97 mmol/L (98-107); Globulin 2.9 g/dL (1.3-4.6); Glucose 359 mg/dL (65-115); Osmolality Calculated 288 mOsm/kg (285-295); Sodium 132 mmol/L (136-145); Thyroid Stimulating Hormone 1.36 uIU/mL (0.27-4.20); Total Bilirubin 0.2 mg/dL (0.15-1.2); Total Protein 6.7 g/dL (6.6-8.7)
[2021-01-27 13:33] LABS: Anion Gap 14.4 (5-19); Potassium 5.4 mmol/L (3.5-5.1)
[2021-01-27 15:58] LABS: Free T4 Free Thyroxine 1.13 ng/dL (0.82-1.77)
[2021-02-10 10:38] LABS: Basophils # 0.1 10^3/uL (0.0-0.1); Basophils % 1.3 %; Eosinophils # 0.2 10^3/uL (0.0-0.8); Eosinophils % 3.4 %; Hematocrit 42.9 % (42.0-52.0); Hemoglobin 14.4 g/dL (11.7-16.6); Lymphocytes # 2.1 10^3/uL (0.8-4.8); Lymphocytes % 35.8 %; Mean Corpuscular HGB Conc 33.6 g/dL (30.0-36.0); Mean Corpuscular Hemoglobin 31.6 pg (28.0-34.0); Mean Corpuscular Volume 94.3 fL (80-94); Mean Platelet Volume 10.4 fL (7.4-10.4); Monocytes # 0.4 10^3/uL (0.2-0.9); Monocytes % 6.7 %; Neutrophils # 3.11 10^3/uL (1.8-7.7); Neutrophils % 52.5 %; Nucleated Red Blood Cells % 0 %; Platelet Count 177 10^3/cmm (130-400); Red Blood Count 4.55 10^6/uL (4.1-5.3); Red Cell Distribution Width 13.2 % (12.1-15.1); White Blood Count 5.9 10^3/uL (4.0-10.0)
[2021-02-10 10:50] LABS: INR 0.89 (0.8-1.2)
[2021-02-10 10:51] LABS: Partial Thromboplastin Time 27.9 SECONDS (23.9-36.7)
[2021-02-10 11:00] LABS: Albumin Level 3.8 g/dL (3.5-5.2); Alkaline Phosphatase 86 IU/L (40-130); Blood Urea Nitrogen 10 mg/dL (6-20); Carbon Dioxide 25 mmol/L (22-29); Free T4 Free Thyroxine 0.99 ng/dL (0.82-1.77); Globulin 3.1 g/dL (1.3-4.6); Glomerular Filtration Rate 99.6 mL/min (90-130); Total Bilirubin 0.2 mg/dL (0.15-1.2); Total Protein 6.9 g/dL (6.6-8.7)
[2021-02-10 11:17] LABS: Protein Urine 1+ (Negative); Specific Gravity, Urine 1.005 (1.005-1.030); Urine Appearance Clear (CLEAR); Urine Color Straw (Yellow); pH Urine 6 (5-7)
[2021-02-10 11:18] LABS: Add Urine Microscopic? YES; Bilirubin Urine Neg (Negative); Blood Urine Neg (Negative); Glucose Urine UA 4+ (Normal); Ketones Urine Negative (Negative); Leukocyte Esterase Urine Negative (Negative); Nitrate Urine Negative (Negative); Urobilinogen Urine Norm (Negative)
[2021-02-10 11:18] LABS: Chloride 93 mmol/L (98-107); Sodium 130 mmol/L (136-145)
[2021-02-10 11:21] LABS: Anion Gap 16.8 (5-19); Glucose 340 mg/dL (65-115); Osmolality Calculated 282 mOsm/kg (285-295); Potassium 4.8 mmol/L (3.5-5.1)
[2021-02-10 11:25] LABS: Add Urine Culture? No; Bacteria Urine TRACE /hpf; RBC Urine 0-4 /hpf (0-2)
[2021-02-10 11:31] LABS: Alanine Aminotransferase < 5 U/L (0-41); Aspartate Amino Transferase 5 U/L (0-40)
[2021-02-15] VITALS (42 sets, daily range): BP systolic 83–154; BP diastolic 39–76; PULSE 75–86; RESP 12–23; TEMP 36.2–38.7; O2SAT 91–933
[2021-02-15 05:37] LABS: Glucose Point of Care 371 mg/dL (70-110)
[2021-02-15] MEDS: insulin regular-human 100 units/1 mL 10 UNIT IVP (05:44)
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
[2021-02-15] MEDS: sodium chloride 0.9% 1,000 ML 30 ML IV (06:07)
[2021-02-15 06:14] LABS: Glucose Point of Care 336 mg/dL (70-110)
[2021-02-15 06:30] LABS: Glucose Point of Care 329 mg/dL (70-110)
[2021-02-15] MEDS: cefUROXime 1,500 MG in sodium chloride 0.9% (plus) 50 ML 100 MG IV ×2 (07:45→14:45)
[2021-02-15] MEDS: vancomycin 1,000 MG SDV 3000 MG IRRIGATION (08:13)
--- NOTE | 2021-02-15 10:06 | SUR.OPER ---
VEIN SOLUTION TO STERILE FIELD: IN 1000ML LACTATED RINGERS HEPARIN 1750 UNITS SODIUM BICARBONATE 0.7 MEQ VERAPAMIL 17.5 MG NITROGLYCERIN 10 MG NOTIFIED DEMETRIO OF START OF PROCEDURE AND PROGRESS
--- NOTE | 2021-02-15 11:33 | SUR.OPER ---
NOTIFIED ICU AND PATIENT'S SPOUSE OF ON BYPASS AT 1125
--- NOTE | 2021-02-15 15:01 | SUR.OPER ---
OFF BYPASS AT 1410. ICU AND SPOUSE NOTIFIED.
--- NOTE | 2021-02-15 16:27 | P.OP_ITS ---
Operative Report Date of procedure: February 15, 2021 Pre-op Diagnosis: Severe coronary artery disease, left main coronary artery stenosis Post-op diagnosis: same Procedure Done: 1. Coronary artery bypass grafting x3 (1 artery and 2 veins) ut ilizing in situ left internal mammary artery to left anterior descending artery, reverse saphenous vein graft aorta to the diagonal artery, reverse saphenous vein graft aorta to the obtuse marginal branch of circumflex artery. #2. Endoscopic saphenous vein harvesting of the greater saphenous vein from the right and left thighs Pathology: none sent Surgeon: Graeme Juarez Anesthesia: General Findings: Left internal mammary artery carried good flow. Saphenous vein was of average quality. OMB was a good target. LAD and diagonal arteries had diffuse disease throughout their courses. Condition: stable Disposition: ICU Brief History: Mr. Bender is a 55-year-old gentleman scheduled for elective admission and planned CABG today with a prior history of left heart catheterization in January [address] Webb revealing left main coronary artery stenosis distally of 90% along with 80% proximal LAD disease and 90% proximal circumflex artery disease. He has a prior history for known coronary artery disease and prior stenting to the LAD in 2016. He underwent careful outpatient preoperative evaluation. Details the risk of surgery carefully and frankly discussed. He has increased risk related to diabetes mellitus, obesity, and continued tobacco abuse of at least a pack a day. He also was noted to have rather diffuse disease distal to his proximal stenoses. He and his wish to proceed with plans for CABG. Procedure: Details and risks of the surgery were carefully and frankly explained to Mr. Bender and his . Particular risks of this surgery carefully reviewed with them included the possibility of , stroke, heart attack, major bleeding, infection, pneumonia, pain, organ failure, failure to benefit, early c losure of the bypass grafts, prolonged hospital stay and subsequent need for further procedures. Increased risks for complications secondary to diabetes mellitus, obesity, substantial tobacco use, and diffuse disease were carefully reviewed. Mr. Bender stated understanding of these increased risks. All questions were answered and appropriate consents were reviewed and signed. Preoperative education for the patient and the family included both written and video materials. He and his wished to proceed with plans for attempted surgical revascularization for severe coronary artery disease. PROCEDURE: Preoperative evaluation was obtained from our Anesthesia colleagues and adequate IVs were confirmed. The patient was then taken to the Operating Room Suite where general anesthesia was induced. Appropriate invasive monitoring lines were placed, including large bore peripheral IVs, central line, [place]-Michael catheter, Cyr catheter and associated monitoring leads. After careful positioning on the Operating Room table, the patient was subsequently sterilely prepped and draped. Saphenous vein was harvested by endoscopic technique from the right and left thighs. Branches were secured with ligature and clips and the vein was extracted from the tunnel without tension. It was then flushed with a Heparin and albumin solution and prepared for grafting. Vein harvest sites were irrigated, platelet poor plasma infused into the tunnel and port sites closed with 3-0 and 4-0 Vicryl Plus suture. Simultaneously with vein harvesting, a median sternotomy was created utilizing a #10 scalpel blade with hemostasis controlled with cautery. After reaching the sternal table, the sternum was divided with a reciprocating saw. Bleeding was controlled with cautery and judicious use of bone wax. Following this, the left chest wall was elevated with a Rultract retractor. The left internal mammary artery was dissected free with branches being secured with clips and cautery. The distal end was left intact. After harvesting of the mammary artery, a left pleural chest tube was then placed. The left chest wall was then lowered and moistened antibiotic-soaked laparotomy pads were placed in the wound, followed by an Ankeney retractor. The sternum was then and the pericardium opened and secured with stay sutures. After inspection, 2-0 pledgeted Ethibond sutures were placed at cannulation sites, at which time the patient was fully heparinized. Following this, the left internal mammary artery was taken down from its distal attachment, flushed with Papaverine solution, prepared for g rafting and brisk flow confirmed. A soft bulldog was applied distally. Next, the heart was cannulated with a 22-Kinyarwanda aortic cannula, two-stage venous cannula and aortic root vent. He was subsequently placed on cardiopulmonary bypass and cooled systemically to 34 degrees. Aortic cross-clamp was then carefully placed and 4 degree Celsius cold blood cardioplegia was administered through the aortic root in antegrade fashion. Prompt diastolic arrest was obtained. Left ventricular decompression was confirmed. The heart was cooled systemically with iced saline with an insulation pad in place to protect the phrenic nerve. Throughout the cross-clamp period, at 20-30 minute intervals, antegrade blood cardioplegia was administered to maintain asystole. We then inspected the cardiac surface and coronary anatomy. There was substantial adipose tissue across much of the epicardial surface. Inspection revealed the OMB being quite lateral. The specimen was opened up at 2 mm in size. Vein was anastomosed in a end-to-side fashion to this vessel with running 7-0 Prolene suture and 2 a 4 mm aortotomy with 5-0 Prolene suture. Next, a rather diffusely diseased diagonal vessel was isolated and opened up in its mid distal one third. This vessel was proximally 1.5 mm in size. Vein was anastomosed distally with running 7-0 Prolene suture and this vein was then anastomosed in a end-to-side fashion to the pedro of the OMB graft utilizing running 7-0 Prolene suture. This was performed to allow for appropriate lie of the proximal aspect of the graft given the substantial adipose tissue overla pping the proximal ascending aorta. With the rewarming phase of bypass continuing, the left internal mammary artery was brought through a left anterior pericardial window into the field. The LAD was opened up in its mid one-third and was approximately 1.5 mm in the proximal and mid body tapering down to 1 mm distally. This vessel had diffuse disease through most of its course. The MARVIN was then anastomosed to the LAD with a running 7-0 Prolene suture. It should be noted that all distal coronary anastomoses were performed over the appropriate size coronary shunt which was removed prior to securing the distal suture line. Following this, aortic cross- clamp was released and de-airing maneuvers were performed through the aortic root vent, as well as being confirmed by transesophageal echocardiography. Dobutamine at 3 mcg per kilogram per minute was administered with good chronotropic and inotropic affect. One episode of cardioversion was required with subsequent pacing in DDD mode. After adequate recovery from the cross- clamp period and confirmation of cardiac stability, Mr. Bender was weaned from bypass without difficulty. Venous cannula was removed. Heparin was reversed with Protamine and confirmed by measurement of activated clotting time. The heart was then decannulated and cannulation sites were oversewn as required. Pacing wires were placed and brought through the skin and secured. Radiopaque marker was placed on the vein grafts at the level of aorta. Two mediastinal drains were placed and connected to Pleur-evac suction. The wound was carefully irrigated and hemostasis was confirmed. Ankeney retractor was removed and sponge and needle count was correct. The sternum was then reapproximated very carefully with interrupted #7 stainless steel wire with Surgicel strips used beneath the sternal table. Fascia was closed with #1 Vicryl suture with the next layers being closed with 2-0 and 3-0 suture. The skin was reapproximated carefully in a subcuticular manner. Sterile dressings were applied, followed by a vacuum-assisted dressing. He was carefully removed from the operating room table and transferred to the Intensive Care Unit. His counseled as to the details of the procedure.
--- NOTE | 2021-02-15 16:34 | XR_ITS ---
WS: [id number] Exam: XR chest 1V portable [id number] Date/Time of Exam: 02/15/2021 4:35 PM Reason For Exam: POST OP OPEN HEART Comparison 12/08/2020. An endotracheal tube is in place ending about 4 cm above the gifty in good position. There is infilt rate in the left lung with volume loss. The right lung is generally clear. The heart is enlarged but unchanged in size. A right IJ catheter is noted and may extend into the right ventricle. Signs of med allan sternotomy and CABG surgery. No pneumothorax. Small left pleural effusion. An enteric tube enters the fundus of the stomach. The side-port of the tube is probably near the GE junction. XR/XR chest 1V portable [id number] IMPRESSION: 1. Diffuse infiltrate in the left lung with volume loss and probable small left pleural effusion. 2. ET tube in satisfactory position. 3. An enteric tube enters the fundus of the stomach. The side-port of the tube is probably near the GE junction. The tube could be advanced another 4 to 5 cm for optimal position. 4. Cardiac enlargement with signs of recent CABG surgery. Additional findings a s above.
--- NOTE | 2021-02-15 16:56 | ECG_ITS ---
[facility] Test Date: 2021-02-15 Pat Name: Carlos Bender Department: Room: ICU12 Gender: Male Steward/Stewardess Lounge: : 1965 Requested By: Graeme Juarez Order Number: [id number] Femi MD: Liya Jaffe M.D. Measurements Intervals [place] Rate: 82 P: 40 CO: 217 QRS: -43 QRSD: 101 T: 25 QT: 364 QTc: 428 Interpretive Statements SINUS RHYTHM WITH FIRST DEGREE AV BLOCK MARKED LEFT AXIS DEVIATION [QRS AXIS < -30] PATTERN CONSISTENT WITH PULMONARY DISEASE Compared to ECG 12/09/2020 01:56:09 Myocardial infarct finding no longer present Electronically Signed On 02-15-2021 19:14:11 CDT by Liya Jaffe M.D. [id number]
[2021-02-15] MEDS: fentaNYL 50 mcg/mL INJ 2mL IVP ×2 (17:26→20:01)
[2021-02-15] MEDS: propofol 1,000 MG/100 ML INJ 3.4 MG IV (17:27)
[2021-02-15 17:41] LABS: ABG PCO2 44.5 mmHg (35-45); ABG PH Result 7.36 (7.35-7.45); Alveolar-Arterial Oxygen Gradi 72.6 mmHg (5-10); Arterial Blood Gas Hematocrit 33.1 % (42-52); Base Excess ABG -0.8 mmol/L (-2.0-2.0); Blood Gas Allen Test Pos; Blood Gas Sample Site Radial, right; Blood Gas Sample Type Arterial; Blood Gas Tidal Volume 0.55; Carboxyhemoglobin 1.2 %THgb (0.4-20.1); HCO3 ABG 24.9 mmol/L (22-26); HGB O2 Sat 93.2 % (95-100); Ionized Calcium Level - ABG 1.1 mmol/L (1.1-1.4); Methemoglobin 1.5 % (0.4-1.5); Oxygen Device VENT; Oxygen Saturation ABG 95.8; PO2 ABG 95.9 mmHg (80.0-100.0); Potassium Level - ABG 5.2 mmol/L (3.5-5.0); Total Hemoglobin 10.8 g/dL (14-18)
[2021-02-15 17:49] LABS: Basophils # 0.1 10^3/uL (0.0-0.1); Basophils % 0.8 %; Eosinophils # 0.1 10^3/uL (0.0-0.8); Hematocrit 32.1 % (42.0-52.0); Hemoglobin 10.5 g/dL (11.7-16.6); Lymphocytes # 1.1 10^3/uL (0.8-4.8); Lymphocytes % 18.4 %; Mean Corpuscular HGB Conc 32.7 g/dL (30.0-36.0); Mean Corpuscular Hemoglobin 31.3 pg (28.0-34.0); Mean Corpuscular Volume 95.5 fL (80-94); Mean Platelet Volume 10.4 fL (7.4-10.4); Monocytes # 0.5 10^3/uL (0.2-0.9); Monocytes % 8.8 %; Nucleated Red Blood Cells % 0 %; Platelet Count 120 10^3/cmm (130-400); Red Blood Count 3.36 10^6/uL (4.1-5.3); Red Cell Distribution Width 13.9 % (12.1-15.1); White Blood Count 6.1 10^3/uL (4.0-10.0)
--- NOTE | 2021-02-15 18:00 | PC.NURSE ---
pt here from OR with OR team mchugh to gravity, chest tubes to anterior chest, wound vac noted to sternum, sophia noted to the right wrist, central line and cordis to right IJ, peripheral lines noted to left arm
[2021-02-15 18:05] LABS: INR 1.24 (0.8-1.2)
[2021-02-15 18:06] LABS: Partial Thromboplastin Time 28.5 SECONDS (23.9-36.7)
[2021-02-15 18:17] LABS: Anion Gap 9.3 (5-19); Blood Urea Nitrogen 11 mg/dL (6-20); Calcium 7.2 mg/dL (8.5-10.5); Carbon Dioxide 24 mmol/L (22-29); Chloride 109 mmol/L (98-107); Creatinine Clr Calc Pharmacy 102.7807; Glucose 170 mg/dL (65-115); Magnesium 2.7 mg/dL (1.7-2.3); Osmolality Calculated 287 mOsm/kg (285-295); Potassium 5.3 mmol/L (3.5-5.1); Sodium 137 mmol/L (136-145)
--- NOTE | 2021-02-15 18:58 | ANE.PACU2 ---
Inpatient post-anesthesia follow up: Airway intact: No Vital signs: Temperature 97.2 F Pulse Rate 82 Respiratory Rate 14 Blood Pressure 118/55 Pulse Oximetry 933 Oxygen Delivery Me thod Mechanical Ventila tion Oxygen Flow Rate Fraction of Inspir ed Oxygen 60 Hydration adequate: Yes Nausea and vomiting: No Pain level: 1 Mental status: Altered
[2021-02-15] MEDS: propofol 1,000 MG/100 ML INJ 34 MG IV ×2 (19:40→22:47)
[2021-02-15] MEDS: sodium chloride 0.9% 1,000 ML 75 ML IV (20:15)
[2021-02-15] MEDS: chlorhexidine gluconate 0.12% Btl 473 mL 15 ML MUCOUS MEM (20:16)
[2021-02-15] MEDS: mupirocin oint 22 gm 1 APPLIC NASAL (20:16)
[2021-02-15 20:18] LABS: Basophils # 0.1 10^3/uL (0.0-0.1); Basophils % 0.8 %; Eosinophils # 0.1 10^3/uL (0.0-0.8); Eosinophils % 1.3 %; Hematocrit 32.1 % (42.0-52.0); Hemoglobin 10.5 g/dL (11.7-16.6); Mean Corpuscular HGB Conc 32.7 g/dL (30.0-36.0); Mean Corpuscular Hemoglobin 31.3 pg (28.0-34.0); Mean Corpuscular Volume 95.5 fL (80-94); Mean Platelet Volume 10.5 fL (7.4-10.4); Monocytes # 0.4 10^3/uL (0.2-0.9); Neutrophils # 4.46 10^3/uL (1.8-7.7); Neutrophils % 73.1 %; Nucleated Red Blood Cells % 0 %; Platelet Count 122 10^3/cmm (130-400); Red Blood Count 3.36 10^6/uL (4.1-5.3); Red Cell Distribution Width 14.1 % (12.1-15.1); White Blood Count 6.1 10^3/uL (4.0-10.0)
[2021-02-15 20:46] LABS: Anion Gap 10.1 (5-19); Blood Urea Nitrogen 12 mg/dL (6-20); Calcium 7.1 mg/dL (8.5-10.5); Carbon Dioxide 24 mmol/L (22-29); Chloride 109 mmol/L (98-107); Glucose 175 mg/dL (65-115); Magnesium 2.8 mg/dL (1.7-2.3); Osmolality Calculated 290 mOsm/kg (285-295); Potassium 5.1 mmol/L (3.5-5.1); Sodium 138 mmol/L (136-145)
[2021-02-15] MEDS: aspirin 81 mg Chew Tablet PO (20:54)
--- NOTE | 2021-02-15 22:03 | P.CONIM_ITS ---
Providers/Reason For Consult Consulting Physican/Specialty*: Cardiology Reason for Consult*: Status post CABG Attending Physician: Graeme Juarez MD Primary Care Provider: Enrique Avila MD History of Present Illness History of Present Illness Carlos Bender is a 55 year old male past medical history significant for coronary artery disease with history of percutaneous intervention recently for worsening of shortness of breath and angina underwent left heart cath noted to have multivessel coronary artery disease. He was referred to Dr. Juarez, today he underwent coronary artery bypass surgery. Currently he is sedated on the vent and stable vital woods. Review of Systems Const: Denies: fever(s), chills, change in appetite, change in weight, fatigue or night sweats Eyes: Denies: change in vision or blurry vision ENMT: Denies: odynophagia or hoarseness Card: Reports: chest pain and dyspnea on exertion; Denies: palpitations, irregular heart rhythm or edema Resp: Reports: productive cough (Early in the morning which clears); Denies: dyspnea GI: Denies: abdominal pain, nausea, vomiting, dysphagia, heartburn or change in bowel habits : Denies: difficulty urinating, dysuria, urinary frequency, urinary urgency or urinary hesitancy Musc: Reports: back pain and joint pain; Denies: extremity pain or extremity swelling Skin/Breast: Denies: rash Neuro: Denies: headache(s), numbness in extremities, weakness in extremities or sensory changes Psych: Denies: anxiety, depression or change in appetite Endo: Denies: polyuria, polydipsia or cold intolerance Mathieu/Lymph: Denies: easy bruising, easy bleeding, petechiae or enlarged lymph nodes Meds/Allergies Home Medications and Allergies Home Medications Medication Instructions Recorded Confirmed Last Taken Type aspirin 81 mg tablet,delayed 81 mg PO .AM tab 12/05/19 01/27/21 02/09/21 History release calcium carbonate 215 mg calcium 215 mg PO DAILY tab 12/05/19 02/15/21 12/22/20 05:30 History (500 mg) chewable tablet celecoxib 200 mg capsule 200 mg PO BID 12/05/19 02/15/21 02/14/21 History melatonin 3 mg tablet 3 mg PO .HS PRN tab 12/05/19 02/15/21 02/14/21 History metformin 1,000 mg tablet,extended 1,000 mg PO BID 12/05/19 02/15/21 02/13/21 History release 24hr amlodipine 5 mg tablet 5 mg PO BID 90 Days #180 tab 03/16/20 02/15/21 02/15/21 Rx ezetimibe 10 mg tablet 10 mg PO DAILY #90 tab 04/13/20 02/15/21 02/14/21 Rx duloxetine 60 mg capsule,delayed 60 mg PO .AM #90 cap 10/26/20 02/15/21 02/14/21 Rx release nitroglycerin 0.4 mg sublingual 0.4 mg SUBLINGUAL Q5M PRN #100 each 12/09/20 02/10/21 02/01/21 Rx tablet pantoprazole 40 mg tablet,delayed 40 mg PO BID tab 12/09/20 02/15/21 02/14/21 History release pregabalin 150 mg capsule 300 mg PO BID cap 12/09/20 02/15/21 02/14/21 History Flomax 0.4 mg PO DAILY 12/21/20 02/15/21 02/14/21 History carvedilol 25 mg PO BID 12/21/20 02/15/21 02/15/21 04:30 History glyburide 2.5 mg PO DAILY 12/21/20 02/15/21 02/13/21 History clopidogrel 75 mg tablet 75 mg PO DAILY #90 tab 12/29/20 01/27/21 02/09/21 Rx isosorbide mononitrate 30 mg 30 mg PO DAILY #30 tab 02/09/21 02/15/21 02/15/21 04:30 Rx tablet,extended release 24 hr Allergies Allergy/AdvReac Type Severity Reaction Status Date / Time codeine Allergy Unknown Verified 02/10/21 09:32 gabapentin Allergy Unknown Verified 02/10/21 09:32 Current Medications Current Medications Generic Name Dose Route Start Last Admin Trade Name Freq PRN Reason Stop Dose Admin Chlorhexidine Gluconate 15 ml 01/27/21 18:00 02/15/21 20:16 Chlorhexidine Gluconate 0.12% Btl 473 Ml MUCOUS MEM 1 applic BID SOTO Administration Chlorhexidine Gluconate 15 ml 02/10/21 18:00 02/15/21 19:29 Chlorhexidine Gluconate 0.12% Btl 473 Ml MUCOUS MEM Not Given BID SOTO Chlorhexidine Gluconate 15 ml 02/15/21 18:00 02/15/21 20:17 Chlorhexidine Gluconate 0.12% Btl 473 Ml MUCOUS MEM Not Given BID SOTO Fentanyl 50 mcg 02/15/21 16:56 02/15/21 20:01 Fentanyl 50 Mcg/Ml Inj 2ml IVP 50 mcg Q1H PRN Administration SEVERE PAIN Sodium Chloride 1,000 mls @ 75 mls/hr 02/15/21 16:56 02/15/21 20:15 Sodium Chloride 0.9% IV 75 mls/hr .[id number] SOTO Administration Propofol 1,000 mg in 100 mls @ 0 mls/hr 02/15/21 16:56 02/15/21 19:40 Diprivan IV 50 mcg/kg/min .Q0M SOTO 34 mls/hr Administration Protocol Per Protocol Mupirocin 1 applic 01/27/21 18:00 02/15/21 20:16 Mupirocin Oint 22 Gm NASAL 1 applic BID SOTO Administration Mupirocin 1 applic 02/10/21 18:00 02/15/21 20:16 Mupirocin Oint 22 Gm NASAL Not Given BID SOTO PFSH Acute PFSH: Medical History ASHD (arteriosclerotic heart disease) Generalized anxiety disorder HTN (hypertension) with goal to be determined Left main coronary artery disease Major depressive disorder, recurrent episode, moderate with anxious distress Nicotine dependence, cigarettes, uncomplicated Family History Father Myocardial infarct Grandmother Myocardial infarct Family/Other Myocardial infarct Other CAD (coronary artery disease) Social History Smoking and tobacco status: current every day smoker cigarettes Packs smoked per day: 1 and smokeless tobacco Smokeless tobacco user: chewing tobacco Smokeless tobacco details: 1 can 2- 3 days Quit status (tobacco): considering quitting Second hand smoke exposure: Yes Smoking risk assessment/counseling performed?: No Alcohol intake: never Dietary Habits: Current diet type/program: regular Vitals/I&O/Wt Last Vital Signs Temp 97.2 F L 02/15/21 05:17 Pulse 84 02/15/21 21:30 Resp 16 02/15/21 21:30 BP 122/63 02/15/21 21:30 Pulse Ox 93 02/15/21 21:30 02/15/21 02/15/21 02/15/21 06:59 14:59 22:59 Intake Total 140 / 140 2132.527 / 2272.527 Output Total 2713 / 2713 Balance 140 / 140 -580.473 / -440.473 Physical Exam Narrative: EXAM NARRATIVE: GENERAL: Patient is intubated and sedated NECK: No jugular vein distension. HEENT: No cyanosis. No icterus. No pallor. HEART: Regular S1 and S2. No murmur, rub or gallop. LUNGS: Decreased breath sound bilaterally. ABDOMEN: Soft, nontender and nondistended. Positive bowel sounds. No guarding, rebound or tenderness. CENTRAL NERVOUS SYSTEM: Sedated therefore cannot assess EXTREMITIES: Lower extremities with 1+ edema bilaterally. Urinary Catheter Management^: Cyr: Cath Placed During This Visit: yes Urinary Catheter Date of Insertion: 02/15/21 Urinary Catheter Time of Insertion: 07:25 A&P Assessment and plan (1) Left main coronary artery disease: Status post CABG day 1. Continue as per surgery. Status: Acute (2) HTN (hypertension) with goal to be determined: Stable. Continue to monitor Status: Acute Consult Attestations Medical Necessity Statement: Patient require continuation hospitalization for above defined care Coding Level of Care Code New Pt Acute Veterinary Dentist for Chg Fwd Patient Type New Medical Decision Making Moderate Complexity Diagnoses Left main coronary artery disease I25.10 HTN (hypertension) with goal to be determined I10
[2021-02-16] VITALS (96 sets, daily range): BP systolic 90–152; BP diastolic 51–83; PULSE 74–91; RESP 13–34; TEMP 36.7–38.8; O2SAT 87–97
--- NOTE | 2021-02-16 00:22 | PC.NURSE ---
Temp Dr. Martin notified of temp 101.8. Orders received for blood culture, UA, IV vancomycin and zosyn pharmacy to dose. Received orders to administer 650mg tylenol.
[2021-02-16 00:48] LABS: Basophils # 0.1 10^3/uL (0.0-0.1); Eosinophils # 0.1 10^3/uL (0.0-0.8); Eosinophils % 1.2 %; Hematocrit 32.6 % (42.0-52.0); Hemoglobin 10.5 g/dL (11.7-16.6); Lymphocytes # 1.5 10^3/uL (0.8-4.8); Lymphocytes % 22.3 %; Mean Corpuscular HGB Conc 32.2 g/dL (30.0-36.0); Mean Corpuscular Hemoglobin 31.3 pg (28.0-34.0); Mean Platelet Volume 10.6 fL (7.4-10.4); Monocytes # 0.5 10^3/uL (0.2-0.9); Neutrophils # 4.53 10^3/uL (1.8-7.7); Neutrophils % 67.1 %; Nucleated Red Blood Cells % 0 %; Platelet Count 134 10^3/cmm (130-400); Red Blood Count 3.36 10^6/uL (4.1-5.3); Red Cell Distribution Width 14.4 % (12.1-15.1); White Blood Count 6.8 10^3/uL (4.0-10.0)
[2021-02-16] MEDS: acetaminophen 325 mg Tablet 650 MG PO (00:48)
[2021-02-16 01:05] LABS: Anion Gap 9.5 (5-19); Blood Urea Nitrogen 13 mg/dL (6-20); Calcium 7.1 mg/dL (8.5-10.5); Carbon Dioxide 24 mmol/L (22-29); Chloride 110 mmol/L (98-107); Glucose 127 mg/dL (65-115); Osmolality Calculated 290 mOsm/kg (285-295); Potassium 4.5 mmol/L (3.5-5.1); Sodium 139 mmol/L (136-145)
--- NOTE | 2021-02-16 01:06 | PC.PHAR ---
Pharmacokinetic dosing service Date: 02/16/21 Time: 99 Objective: Patient: Carlos Bender Floor: ICU-12 Age: 55 yo Serum creatinine: 0.9 mg/dL Height: 70.0 Inches Weight (kg): 113.398 Diagnosis: Relevant medical/social history: Cultures and sensitivities: Other labs: Assessment: IBW (kg): 73.00 Dosing wt(kg): 89.2 Estimated Creatinine clearance (ml/min): 93.5 CRCL method: Cockcroft and Gault using ibw(default). Drug selected: Vancomycin Loading dose (mg): 0 Vd (liters): 80.3 (factor used: 0.9 L/kg) Tyler (hr-1): 0.082 Half life (hrs): 8.45 Recommended dose: 1500 mg Interval: 12 hrs Infusion time (hrs): 1.5 Predicted peak (mcg/mL): 28.1 Predicted trough (mcg/mL): 11.88 Adjusted body weight was selected for vancomycin dosing. To switch back, select the total body weight option above. Renal function is stable [ ] /unstable [ ] Recommendations: Give Vancomycin 1500 mg q 12 hrs with an expected Cpeak of 28.1 mcg/ml and an expected Ctrough of 11.88 mcg/ml Renal dosing of other antibiotics (review renal dosing of other medications and list guidelines here): Thank you for the consult, will continue to follow. Signature: Leann Ibanez [facility]
[2021-02-16] MEDS: vancomycin 1,500 MG/300 ML PIGGYBACK 200 MG IV (01:11)
[2021-02-16 01:12] LABS: Add Urine Microscopic? YES; Bilirubin Urine Neg (Negative); Blood Urine 2+ (Negative); Glucose Urine UA Norm (Normal); Ketones Urine Negative (Negative); Leukocyte Esterase Urine Negative (Negative); Nitrate Urine Negative (Negative); Protein Urine 2+ (Negative); Urine Appearance Clear (CLEAR); Urine Color Yellow (Yellow); Urobilinogen Urine Norm (Negative); WBC Urine 0-4 /hpf (0-5); pH Urine 5 (5-7)
[2021-02-16 01:13] LABS: Amorphous Sediment Urine TRACE /hpf; Bacteria Urine TRACE /hpf; Mucus Urine 1+ /hpf; Squamous Epithelial Cell Urine 0-4 /hpf (0-5)
[2021-02-16 01:14] LABS: Add Urine Culture? No; Hyaline Casts Urine 0-4 /lpf
[2021-02-16] MEDS: propofol 1,000 MG/100 ML INJ 34 MG IV ×3 (01:21→07:32)
[2021-02-16 01:38] LABS: Glucose Point of Care 177 mg/dL (70-110)
[2021-02-16 01:38] LABS: Glucose Point of Care 125 mg/dL (70-110)
[2021-02-16 01:38] LABS: Glucose Point of Care 147 mg/dL (70-110)
[2021-02-16 01:38] LABS: Glucose Point of Care 174 mg/dL (70-110)
[2021-02-16 01:38] LABS: Glucose Point of Care 191 mg/dL (70-110)
[2021-02-16 01:38] LABS: Glucose Point of Care 130 mg/dL (70-110)
[2021-02-16 01:38] LABS: Glucose Point of Care 139 mg/dL (70-110)
[2021-02-16 01:38] LABS: Glucose Point of Care 182 mg/dL (70-110)
[2021-02-16 01:38] LABS: Glucose Point of Care 191 mg/dL (70-110)
[2021-02-16] MEDS: fentaNYL 50 mcg/mL INJ 2mL IVP ×3 (03:13→13:58)
[2021-02-16] MEDS: piperacillin-tazobactam 3.375 GM in sodium chloride 0.9% (plus) 50 ML IV ×3 (04:06→18:13)
[2021-02-16 04:20] LABS: Basophils # 0.1 10^3/uL (0.0-0.1); Basophils % 0.7 %; Eosinophils # 0.1 10^3/uL (0.0-0.8); Eosinophils % 1.6 %; Hematocrit 32.9 % (42.0-52.0); Hemoglobin 10.3 g/dL (11.7-16.6); Lymphocytes # 1.8 10^3/uL (0.8-4.8); Lymphocytes % 26.4 %; Mean Corpuscular HGB Conc 31.3 g/dL (30.0-36.0); Mean Corpuscular Volume 99.1 fL (80-94); Mean Platelet Volume 10.5 fL (7.4-10.4); Monocytes # 0.5 10^3/uL (0.2-0.9); Monocytes % 7.4 %; Neutrophils # 4.31 10^3/uL (1.8-7.7); Neutrophils % 63.5 %; Nucleated Red Blood Cells % 0 %; Platelet Count 122 10^3/cmm (130-400); Red Blood Count 3.32 10^6/uL (4.1-5.3); Red Cell Distribution Width 14.6 % (12.1-15.1); White Blood Count 6.8 10^3/uL (4.0-10.0)
[2021-02-16 04:26] LABS: Anion Gap 13.2 (5-19); Blood Urea Nitrogen 13 mg/dL (6-20); Calcium 6.8 mg/dL (8.5-10.5); Carbon Dioxide 21 mmol/L (22-29); Chloride 111 mmol/L (98-107); Creatinine Clr Calc Pharmacy 102.7807; Glucose 124 mg/dL (65-115); Glucose Fasting 124 mg/dL (74-109); Magnesium 2.6 mg/dL (1.7-2.3); Osmolality Calculated 294 mOsm/kg (285-295); Potassium 4.2 mmol/L (3.5-5.1); Sodium 141 mmol/L (136-145)
[2021-02-16] MEDS: oxyCODONE-APAP 5-325 mg Tablet PO ×3 (04:39→18:12)
[2021-02-16 05:02] LABS: ABG PCO2 39.3 mmHg (35-45); ABG PH Result 7.38 (7.35-7.45); Alveolar-Arterial Oxygen Gradi 21.2 mmHg (5-10); Arterial Blood Gas Hematocrit 33.2 % (42-52); Blood Gas Sample Type Arterial; Blood Gas Tidal Volume 0.55; Carboxyhemoglobin < 0.0 %THgb (0.4-20.1); HGB O2 Sat 92.1 % (95-100); Ionized Calcium Level - ABG 1.1 mmol/L (1.1-1.4); Methemoglobin 1.5 % (0.4-1.5); Oxygen Device VENT; Oxygen Saturation ABG 93.3; PO2 ABG 70.6 mmHg (80.0-100.0); Potassium Level - ABG 3.9 mmol/L (3.5-5.0); Total Hemoglobin 10.8 g/dL (14-18)
[2021-02-16 05:23] LABS: INR 1.13 (0.8-1.2)
[2021-02-16 05:24] LABS: Partial Thromboplastin Time 29.8 SECONDS (23.9-36.7)
--- NOTE | 2021-02-16 06:00 | XR_ITS ---
WS: [id number] Exam: XR chest 1V portable [id number] Date/Time of Exam: 02/16/2021 6:00 AM Reason For Exam: Postop day #1 status post CABG Comparison 02/15/2021. Atelectasis and volume loss of the left lung noted. There is also some plaque atelectatic change in t he mid and lower right lung. No pneumothorax is seen. The heart is enlarged but unchanged in size. ET tube remains in satisfactory position. An enteric tube extends below the diaphragm the tip is not vi sible. Right IJ cardiac catheter in place unchanged in position. XR/XR chest 1V portable [id number] IMPRESSION: 1. Atelectatic change in the left lung has increased somewhat since prior study . There is volume loss. There is also some areas of plaque atelectasis in the m id and lower right lung. 2. Cardiac enlargement unchanged. 3. ET tube remains in good position.
--- NOTE | 2021-02-16 06:00 | ECG_ITS ---
[facility] Test Date: 2021-02-16 Pat Name: Carlos Bender Department: Room: ICU12 Gender: Male Crop Scout: : 1965 Requested By: Graeme Juarez Order Number: [id number] Femi MD: Lily Manzano M.D. Measurements Intervals [place] Rate: 79 P: 33 RI: 213 QRS: -38 QRSD: 101 T: 2 QT: 367 QTc: 423 Interpretive Statements SINUS RHYTHM WITH FIRST DEGREE AV BLOCK MARKED LEFT AXIS DEVIATION [QRS AXIS < -30] PATTERN CONSISTENT WITH PULMONARY DISEASE INTERPRETATION BASED ON A DEFAULT AGE OF 40 YEARS Compared to ECG 02/15/2021 18:16:03 No significant changes Electronically Signed On 02-16-2021 20:21:46 CDT by Lily Manzano M.D. [id number] f
--- NOTE | 2021-02-16 06:02 | PC.NURSE ---
Shift Summary Pt remains intubated. Difficulty weaning on CPAP mode, RR in high 30's. Dr. Martin notified of trials when notified of Tmax of 101.9, orders received to hold off on wean to extubate order.Pt has not responded to nursing commands. Observed furrowing brow, wiggling toes. When weaned down from sedation pt was coughing and gagging against ET tube. This am nurse applied firm nailbed pressure bilaterally with no response by patient. Dobutmaine titrated off at midnight, Nipride titrated off around 3 am. Chest tube output totals mediastinal- 261ml, pleural 175ml. Urine output for shift 1050.
--- NOTE | 2021-02-16 06:16 | PC.NURSE ---
Target Glucose Dr. Martin at bedside. Notified of not following commands and glucose 120's-140's tonight. reports when glucose gets below 150 he acts weird and symptomatic. Pt has been diaphoretic since temp has been down, could be contributing from insulin gtt. Orders received to change low target glucose to 150 and target high to 200. Insulin gtt started over at this time using new target parameters. Plan to consult pulmonary today due to elevated left diaphragm and extubation.
--- NOTE | 2021-02-16 06:36 | P.PN_ITS ---
Subjective Subjective: Interval history: Uneventful night except patient developed fever up to 101.8. Was treated with acetaminophen and cool compresses. Temperature is now normalized. I did draw blood cultures and initiate Zosyn and vancomycin, though this is most probably an inflammatory response to cardiopulmonary bypass. He has been moving spontaneously but not following commands. He became tachypneic with vent weaning. He is noted to have a chronically elevated left hemidiaphragm. He does smoke heavily and smoked at least a pack of cigarettes the day before surgery. He has a long history of tobacco use. He is preop PFTs were adequate however. Chest tube output 575 cc since surgery. Chest x-ray reveals some congestion and elevation of left to be diaphragm. He is cardiac parameters are excellent with a cardiac index of 3.1. Vitals/I&O/Wt Last Vital Signs Temp 97.2 F L 02/15/21 05:17 Pulse 79 02/16/21 06:15 Resp 15 02/16/21 06:15 BP 111/63 02/16/21 06:15 Pulse Ox 93 02/16/21 06:15 02/15/21 02/15/21 02/16/21 14:59 22:59 06:59 Intake Total 140 / 140 2232.527 / 2372.527 609.068 / 2981.595 Output Total 2852 / 2852 979 / 3831 Balance 140 / 140 -619.473 / -479.473 -369.932 / -849.405 Weight last 48 hrs Weight 277 lb 6.4 oz Physical Exam Chest: COMMONS NORMALS: normal inspection of the chest OTHER: Surgical dressings and support lines are in position. Resp: AUSCULTATION: crackles and rales Cardio: COMMON NORMALS: regular rate, regular rhythm, S1 normal heart sound present and No rub (Cardio) RATE: regular rate RHYTHM: regular rhythm HEART SOUNDS: S1 normal heart sound present Extremity: OTHER: 1+ peripheral edema Urinary Catheter Management^: Cyr: Cath Placed During This Visit: yes Urinary Catheter Date of Insertion: 02/15/21 Urinary Catheter Time of Insertion: 07:25 Data : 02/16/21 03:38 02/16/21 03:38 Micro: Microbiology 02/16/21 00:39 Blood Culture - Preliminary Blood SPECIMEN COLLECTED 02/16/21 00:33 Blood Culture - Preliminary Blood SPECIMEN COLLECTED A&P Assessment and plan (1) Status post aorto-coronary artery bypass graft: POD #1. Postop fever now resolved. Poor ventilator weaning. Plan: CBC, BMP, chest x-ray in a.m. Resume tamsulosin. Aspirin 81 mg daily. Will initiate beta-blockade a bit later. I will allow serum glucose to rise up to 200 per recommendation of his who notes that when his serum glucose is less than 150 he becomes quite agitated and confused I will consult our pulmonary critical care colleagues to assist with his ventilator management and oversight of his critical care stay. Status: Acute Attestations Medical Necessity Statement*: POD #1 status post CABG Time Spent in Patient Care: 16 - 35 minutes Coding Level of Care Code Acute Impregnating Machine Operator for Mason Lipscomb Diagnoses Status post aorto-coronary artery bypass graft Z95.1
--- NOTE | 2021-02-16 08:32 | PC.NURSE ---
All lines recalibrated.
--- NOTE | 2021-02-16 08:46 | PC.NURSE ---
Versed and Fentanyl returned to [place] from Pharmacy
[2021-02-16 09:06] LABS: Glucose Point of Care 113 mg/dL (70-110)
[2021-02-16 09:06] LABS: Glucose Point of Care 129 mg/dL (70-110)
[2021-02-16 09:06] LABS: Glucose Point of Care 177 mg/dL (70-110)
[2021-02-16 09:06] LABS: Glucose Point of Care 125 mg/dL (70-110)
[2021-02-16 09:06] LABS: Glucose Point of Care 125 mg/dL (70-110)
[2021-02-16 09:06] LABS: Glucose Point of Care 129 mg/dL (70-110)
[2021-02-16 09:06] LABS: Glucose Point of Care 136 mg/dL (70-110)
[2021-02-16 09:06] LABS: Glucose Point of Care 120 mg/dL (70-110)
[2021-02-16 09:06] LABS: Glucose Point of Care 162 mg/dL (70-110)
[2021-02-16 09:13] LABS: ABG PCO2 38.7 mmHg (35-45); ABG PCO2 39.5 mmHg (35-45); ABG PCO2 41.4 mmHg (35-45); ABG PH Result 7.36 (7.35-7.45); ABG PH Result 7.39 (7.35-7.45); ABG PH Result 7.41 (7.35-7.45); Arterial Blood Gas Hematocrit 36.9 % (42-52); Arterial Blood Gas Hematocrit 37.5 % (42-52); Arterial Blood Gas Hematocrit 37.6 % (42-52); Base Excess ABG -0.3 mmol/L (-2.0-2.0); Base Excess ABG -0.8 mmol/L (-2.0-2.0); Base Excess ABG 0.2 mmol/L (-2.0-2.0); Blood Gas Sample Site Not specified; Blood Gas Sample Type Arterial; Carboxyhemoglobin 2.9 %THgb (0.4-20.1); Carboxyhemoglobin 3.3 %THgb (0.4-20.1); Carboxyhemoglobin 3.6 %THgb (0.4-20.1); Carboxyhemoglobin 4.3 %THgb (0.4-20.1); HCO3 ABG 24.3 mmol/L (22-26); HCO3 ABG 24.7 mmol/L (22-26); HCO3 ABG 24.8 mmol/L (22-26); HCO3 ABG 25.2 mmol/L (22-26); HGB O2 Sat 92.2 % (95-100); HGB O2 Sat 93.7 % (95-100); HGB O2 Sat 94.1 % (95-100); Ionized Calcium Level - ABG 1.1 mmol/L (1.1-1.4); Methemoglobin 0.6 % (0.4-1.5); Methemoglobin 0.7 % (0.4-1.5); Oxygen Saturation ABG 97.3; Oxygen Saturation ABG 97.5; Oxygen Saturation ABG 97.6; Potassium Level - ABG 3.6 mmol/L (3.5-5.0); Potassium Level - ABG 4.2 mmol/L (3.5-5.0); Potassium Level - ABG 4.3 mmol/L (3.5-5.0); Total Hemoglobin 12.2 g/dL (14-18); Total Hemoglobin 12.3 g/dL (14-18)
[2021-02-16] MEDS: aspirin 81 mg Chew Tablet PO (09:15)
[2021-02-16] MEDS: tamsulosin 0.4 mg Capsule PO (09:15)
[2021-02-16] MEDS: chlorhexidine gluconate 0.12% Btl 473 mL 15 ML MUCOUS MEM ×2 (09:16→18:14)
[2021-02-16] MEDS: mupirocin oint 22 gm 1 APPLIC NASAL ×3 (09:16→18:14)
[2021-02-16 09:20] LABS: ABG PCO2 48.2 mmHg (35-45); ABG PH Result 7.36 (7.35-7.45); Arterial Blood Gas Hematocrit 29.7 % (42-52); Blood Gas Sample Site Not specified; Blood Gas Sample Type Arterial; Carboxyhemoglobin 2.7 %THgb (0.4-20.1); HCO3 ABG 26.9 mmol/L (22-26); HGB O2 Sat 94.5 % (95-100); Methemoglobin 0.6 % (0.4-1.5); Oxygen Saturation ABG 97.7; Potassium Level - ABG 4.3 mmol/L (3.5-5.0); Total Hemoglobin 9.7 g/dL (14-18)
[2021-02-16 09:21] LABS: ABG PCO2 45.8 mmHg (35-45); ABG PH Result 7.38 (7.35-7.45); Arterial Blood Gas Hematocrit 29.3 % (42-52); Base Excess ABG 1.5 mmol/L (-2.0-2.0); Blood Gas Sample Site Not specified; Blood Gas Sample Type Arterial; Carboxyhemoglobin 2.8 %THgb (0.4-20.1); HGB O2 Sat 94.4 % (95-100); Methemoglobin 0.6 % (0.4-1.5); Oxygen Saturation ABG 97.8; Potassium Level - ABG 4.5 mmol/L (3.5-5.0); Total Hemoglobin 9.5 g/dL (14-18)
[2021-02-16 09:22] LABS: ABG PCO2 41.8 mmHg (35-45); ABG PH Result 7.41 (7.35-7.45); Arterial Blood Gas Hematocrit 28.7 % (42-52); Base Excess ABG 1.7 mmol/L (-2.0-2.0); Blood Gas Sample Site Not specified; Blood Gas Sample Type Arterial; Carboxyhemoglobin 2.9 %THgb (0.4-20.1); HCO3 ABG 26.5 mmol/L (22-26); HGB O2 Sat 94.3 % (95-100); Methemoglobin 0.9 % (0.4-1.5); Potassium Level - ABG 4.6 mmol/L (3.5-5.0); Total Hemoglobin 9.4 g/dL (14-18)
[2021-02-16 09:23] LABS: ABG PCO2 42.3 mmHg (35-45); ABG PH Result 7.39 (7.35-7.45); Arterial Blood Gas Hematocrit 27.6 % (42-52); Base Excess ABG 0.6 mmol/L (-2.0-2.0); Blood Gas Sample Site Not specified; Blood Gas Sample Type Arterial; Carboxyhemoglobin 2.8 %THgb (0.4-20.1); HCO3 ABG 25.7 mmol/L (22-26); HGB O2 Sat 94.1 % (95-100); Oxygen Saturation ABG 97.9; Potassium Level - ABG 5.5 mmol/L (3.5-5.0)
[2021-02-16 09:24] LABS: ABG PCO2 40.5 mmHg (35-45); Arterial Blood Gas Hematocrit 29.8 % (42-52); Base Excess ABG -0.1 mmol/L (-2.0-2.0); Blood Gas Sample Site Not specified; Blood Gas Sample Type Arterial; Carboxyhemoglobin 2.8 %THgb (0.4-20.1); HCO3 ABG 24.8 mmol/L (22-26); Ionized Calcium Level - ABG 1.2 mmol/L (1.1-1.4); Oxygen Saturation ABG 97.6; Potassium Level - ABG 4.8 mmol/L (3.5-5.0); Total Hemoglobin 9.7 g/dL (14-18)
[2021-02-16 09:25] LABS: ABG PCO2 42.1 mmHg (35-45); ABG PH Result 7.39 (7.35-7.45); Alveolar-Arterial Oxygen Gradi 3.8 mmHg (5-10); Arterial Blood Gas Hematocrit 32.8 % (42-52); Base Excess ABG 0.1 mmol/L (-2.0-2.0); Blood Gas Sample Site Not specified; Blood Gas Sample Type Arterial; Carboxyhemoglobin 2.4 %THgb (0.4-20.1); HCO3 ABG 25.3 mmol/L (22-26); HGB O2 Sat 90.3 % (95-100); Ionized Calcium Level - ABG 1.1 mmol/L (1.1-1.4); Methemoglobin 0.8 % (0.4-1.5); Oxygen Saturation ABG 93.3; PO2 ABG 67.6 mmHg (80.0-100.0); Potassium Level - ABG 4.7 mmol/L (3.5-5.0); Total Hemoglobin 10.7 g/dL (14-18)
--- NOTE | 2021-02-16 09:28 | PC.OT ---
OT NOTE: OT EVALUATION ORDERS RECEIVED. EVALUATION ATTEMPTED. PATIENT IS STILL ON VENT. WILL ATTEMPT AGAIN AT A LATER TIME.
[2021-02-16 09:31] LABS: ABG PCO2 53.4 mmHg (35-45); ABG PH Result 7.32 (7.35-7.45); Arterial Blood Gas Hematocrit 29.4 % (42-52); Base Excess ABG 0.9 mmol/L (-2.0-2.0); Blood Gas Sample Site Not specified; Blood Gas Sample Type Venous; Carboxyhemoglobin 3.7 %THgb (0.4-20.1); HCO3 ABG 27.5 mmol/L (22-26); HGB O2 Sat 72.2 % (95-100); Methemoglobin 0.7 % (0.4-1.5); Oxygen Saturation ABG 75.6; PO2 ABG 39.4 mmHg (80.0-100.0); Potassium Level - ABG 4.2 mmol/L (3.5-5.0); Total Hemoglobin 9.6 g/dL (14-18)
[2021-02-16 09:32] LABS: ABG PCO2 51.8 mmHg (35-45); ABG PH Result 7.32 (7.35-7.45); Arterial Blood Gas Hematocrit 28.9 % (42-52); Base Excess ABG 0.3 mmol/L (-2.0-2.0); Blood Gas Sample Site Not specified; Blood Gas Sample Type Arterial; HCO3 ABG 26.8 mmol/L (22-26); HGB O2 Sat 94.3 % (95-100); Methemoglobin 0.7 % (0.4-1.5); Oxygen Saturation ABG 97.9; Potassium Level - ABG 4.3 mmol/L (3.5-5.0); Total Hemoglobin 9.4 g/dL (14-18)
[2021-02-16] MEDS: sodium chloride 0.9% 1,000 ML 75 ML IV (09:47)
[2021-02-16] MEDS: propofol 1,000 MG/100 ML INJ 20.4 MG IV (10:31)
--- NOTE | 2021-02-16 10:43 | PC.CHAP ---
Pastoral Care Encounter/Spiritual Assessment Type of Contact [] Declined cmo & president visit [] Patient/Family/Request visit [] Outpatient visit [] Follow-up visit [] Physician referral [] Code/Alert [x] Routine visit [] Staff referral [] Actively dying [] Patient sleeping [] Family support [] [] Out of room [] Palliative care [] [x] Receiving care in room [] Pre-surgical visit [] Trauma [] Long length of stay [x] ICU visit [x] Other: heart surgery Relational/Emotional Strength [] Patient feels connected with others/family/visitors/staff [] Distress [] Loneliness/isolation [] Abandonment Spirituality of Patient [] Person of Yajaira [] Attends Hinduism of their Yajaira [] Believes in Prayer [] Reads Bible or Zoroastrian materials [] There are Spiritual issues to be addressed Regional Education Manager Interventions [x] Prayer [] Active listening [] Non-anxious presence [] Spiritual/emotional support [] Crisis/trauma care [] Spiritual counseling [] Bereavement support [] Provided bereavement packet [] Provided Bible/devotional materials [] Provided toy/stuffed animal, coloring book to patient or family member [] Provided Communion [] Anointing/[place] [] Salvation [x] Completed spiritual assessment [] Other: Impact on Illness or Injury [] Angry [] Fearful [] Anxious [] Often cries [] Exhaustion [] Unable to work [] Unable to attend rastafarian [] Unable to walk/stand [] Unable to read [] Unable to drive [] Unable to eat/drink [] Unable to sleep [] Unable to be with family [] Patient intubated [] Other: Summary Time spent with patient
[2021-02-16] MEDS: vancomycin 1,500 MG/300 ML PIGGYBACK 150 MG IV (13:12)
--- NOTE | 2021-02-16 13:27 | PC.NURSE ---
Pt extubated at 12:35
--- NOTE | 2021-02-16 16:36 | PC.NURSE ---
Called and spoke with Michaelle RN in the OR for Dr. Juarez. Pt is moving all extremities and able to follow all commands but has word salad at this time. Has had 100 mcg Fentanyl with in 2 hours, last dose approx 2.5 hours ago. No new orders at this time.
[2021-02-16] MEDS: ondansetron 2 mg/ML SDV 2 mL 4 MG IVP (16:51)
[2021-02-16] MEDS: docusate sodium 100 mg Capsule PO (17:45)
--- NOTE | 2021-02-16 17:57 | P.PN_ITS ---
Subjective Subjective: Interval history: Please note that I examined the patient this morning around 10 PM at that time he was stable and sedated over the vent Vitals/I&O/Wt Last Vital Signs Temp 98.4 F 02/16/21 16:00 Pulse 84 02/16/21 17:30 Resp 28 H 02/16/21 17:30 BP 129/70 02/16/21 17:30 Pulse Ox 92 02/16/21 17:30 02/16/21 02/16/21 02/16/21 06:59 14:59 22:59 Intake Total 609.068 / 2981.595 1253.700 / 1253.700 480 / 1733.700 Output Total 979 / 3831 865 / 865 125 / 990 Balance -369.932 / -849.405 388.700 / 388.700 355 / 743.700 Weight last 48 hrs Weight 277 lb 6.4 oz Physical Exam Narrative: EXAM NARRATIVE: GENERAL: Patient is intubated and sedated NECK: No jugular vein distension. HEENT: No cyanosis. No icterus. No pallor. HEART: Regular S1 and S2. No murmur, rub or gallop. LUNGS: Decreased breath sound bilaterally. ABDOMEN: Soft, nontender and nondistended. Positive bowel sounds. No guarding, rebound or tenderness. CENTRAL NERVOUS SYSTEM: Sedated therefore cannot assess EXTREMITIES: Lower extremities with 1+ edema bilaterally. Urinary Catheter Management^: Cyr: Cath Placed During This Visit: yes Urinary Catheter Date of Insertion: 02/15/21 Urinary Catheter Time of Insertion: 07:25 Data : 02/16/21 03:38 02/16/21 03:38 Micro: Microbiology 02/16/21 00:39 Blood Culture - Preliminary Blood SPECIMEN COLLECTED 02/16/21 00:33 Blood Culture - Preliminary Blood SPECIMEN COLLECTED A&P Assessment and plan (1) Left main coronary artery disease: Surgical day 2 remains sedated sedated intubated starting weaning off trials most likely this evening if remains successful may will be extubated. Continue treatment as per CT surgery Status: Acute (2) HTN (hypertension) with goal to be determined: Stable. Continue to monitor Status: Acute Attestations Medical Necessity Statement*: Patient require continuation hospitalization for above defined care Coding Level of Care Code Established Pt Acute Underwater Roboticist for Sarag Fwd Patient Type Established History Detailed Exam Detailed Medical Decision Making Moderate Complexity Diagnoses Left main coronary artery disease I25.10 HTN (hypertension) with goal to be determined I10
[2021-02-16 18:06] LABS: Glucose Point of Care 199 mg/dL (70-110)
[2021-02-16 18:06] LABS: Glucose Point of Care 211 mg/dL (70-110)
[2021-02-16 18:06] LABS: Glucose Point of Care 187 mg/dL (70-110)
[2021-02-16 18:06] LABS: Glucose Point of Care 269 mg/dL (70-110)
[2021-02-16 18:06] LABS: Glucose Point of Care 190 mg/dL (70-110)
[2021-02-16 18:06] LABS: Glucose Point of Care 191 mg/dL (70-110)
[2021-02-16 18:06] LABS: Glucose Point of Care 208 mg/dL (70-110)
--- NOTE | 2021-02-16 18:49 | PC.NURSE ---
NIHSS done. Pt able to move all extremeties, and read of the papers correctly. DR. Juarez feels that this is Fentanyl related.
[2021-02-16] MEDS: atorvastatin 40 mg Tablet PO (20:43)
[2021-02-16] MEDS: morphine 4 mg/mL SDV 1 mL 2 MG IVP (22:33)
[2021-02-17] VITALS (57 sets, daily range): BP systolic 113–180; BP diastolic 60–106; PULSE 78–96; RESP 16–33; TEMP 36.5–37.1; O2SAT 86–97
[2021-02-17] MEDS: oxyCODONE-APAP 5-325 mg Tablet PO ×4 (00:01→23:50)
[2021-02-17 01:22] LABS: Vancomycin Trough 9.3 ug/mL (10-15)
[2021-02-17] MEDS: vancomycin 1,500 MG/300 ML PIGGYBACK 150 MG IV (01:34)
[2021-02-17 02:37] LABS: Glucose Point of Care 260 mg/dL (70-110)
[2021-02-17 02:37] LABS: Glucose Point of Care 157 mg/dL (70-110)
[2021-02-17 02:37] LABS: Glucose Point of Care 123 mg/dL (70-110)
[2021-02-17 02:37] LABS: Glucose Point of Care 129 mg/dL (70-110)
[2021-02-17 02:37] LABS: Glucose Point of Care 111 mg/dL (70-110)
[2021-02-17 02:37] LABS: Glucose Point of Care 133 mg/dL (70-110)
[2021-02-17 02:37] LABS: Glucose Point of Care 222 mg/dL (70-110)
[2021-02-17 03:55] LABS: Basophils % 0.5 %; Eosinophils # 0.2 10^3/uL (0.0-0.8); Hematocrit 32.5 % (42.0-52.0); Hemoglobin 9.9 g/dL (11.7-16.6); Lymphocytes # 1.7 10^3/uL (0.8-4.8); Lymphocytes % 23.6 %; Mean Corpuscular HGB Conc 30.5 g/dL (30.0-36.0); Mean Corpuscular Hemoglobin 30.8 pg (28.0-34.0); Mean Corpuscular Volume 101.2 fL (80-94); Mean Platelet Volume 10.7 fL (7.4-10.4); Monocytes # 0.7 10^3/uL (0.2-0.9); Neutrophils # 4.61 10^3/uL (1.8-7.7); Neutrophils % 63.2 %; Nucleated Red Blood Cells % 0 %; Platelet Count 118 10^3/cmm (130-400); Red Blood Count 3.21 10^6/uL (4.1-5.3); Red Cell Distribution Width 14.6 % (12.1-15.1); White Blood Count 7.3 10^3/uL (4.0-10.0)
[2021-02-17 04:16] LABS: Anion Gap 10.4 (5-19); Blood Urea Nitrogen 13 mg/dL (6-20); Calcium 6.7 mg/dL (8.5-10.5); Carbon Dioxide 22 mmol/L (22-29); Chloride 108 mmol/L (98-107); Glomerular Filtration Rate 138.9 mL/min (90-130); Glucose 142 mg/dL (65-115); Osmolality Calculated 285 mOsm/kg (285-295); Potassium 4.4 mmol/L (3.5-5.1); Sodium 136 mmol/L (136-145)
[2021-02-17] MEDS: piperacillin-tazobactam 3.375 GM in sodium chloride 0.9% (plus) 50 ML IV (05:21)
--- NOTE | 2021-02-17 06:00 | XR_ITS ---
WS: [id number] Exam: XR chest 1V portable [id number] Date/Time of Exam: 02/17/2021 5:27 AM Reason For Exam: Postop day #2 status post CABG Comparison 02/16/2021. The endotracheal tube and enteric tube have been removed. A left-sided thoracostomy tube is noted. Th e heart is enlarged but unchanged in size. The lungs are fully expanded. Probable left pleural effusi on. Residual plaque atelectasis in the upper left lobe. The right lung is clear. A right IJ catheter is noted and appears to end in the lower one third of the SVC in good position. XR/XR chest 1V portable [id number] IMPRESSION: 1. Chest radiograph showing improvement since prior study with the last atelect asis. 2. A left-sided thoracostomy tube is in place ending in the upper left pleural cavity. ET tube and NG tube been removed.
[2021-02-17 06:49] LABS: Glucose Point of Care 145 mg/dL (70-110)
[2021-02-17 06:49] LABS: Glucose Point of Care 159 mg/dL (70-110)
[2021-02-17 06:49] LABS: Glucose Point of Care 141 mg/dL (70-110)
[2021-02-17 06:49] LABS: Glucose Point of Care 193 mg/dL (70-110)
--- NOTE | 2021-02-17 07:06 | CT_ITS ---
WS: [id number] CT HEAD WITH AND WITHOUT CONTRAST HISTORY: Status post CABG; expressive aphasia TECHNIQUE: Noncontrast 2.5 mm axial images obtained from the vertex to the skull base. Additional jacqueline ging performed at 2.5 mm axial images status post IV contrast. Bone and soft tissue windows are revie wed. All CT scans at [facility] use at least one of these dose optimization techniques: a utomated exposure control; mA and/or kV adjustment per patient size (includes targeted exams where do se is matched to clinical indication); or iterative reconstruction. CONTRAST: Omnipaque 300; 95 mL IV. DLP: 2687.05 mGy.cm COMPARISON: None available. No acute intracranial hemorrhage, edema or midline shift. No enhancing masses. There is mild atrophy but no definite loss of the burton-white matter differentiat ion. Dural venous sinuses are normally enhancing. Moderate atherosclerotic plaque through the intracranial carotid arteries extending into the supracli noid carotid arteries. LEFT MCA is smaller caliber than the RIGHT but no occluding thrombus is identi fied. Paranasal sinuses as visualized: Clear. Mastoid air cells: Clear. Calvarium and scalp: Intact. CT/CT head wo/w con [id number] IMPRESSION: 1. No acute intracranial hemorrhage or edema. 2. No focal area of sulcal effacement to suggest acute infarction at this time . 3. No enhancing masses. 4. Moderate calcified atherosclerotic plaque within the distal intracranial ca rotid arteries.
--- NOTE | 2021-02-17 07:12 | P.PN_ITS ---
Subjective Subjective: Interval history: Mr. Bender is up in chair on rounds this morning. He is responding appropriately with no focal deficits though he does have an intermittent expressive aphasia. Chest tube output approximately 200 cc overnight. Chest x-ray is clearly improved this morning though his left hemidiaphragm remains elevated, which it was preoperatively. No arrhythmias. Vital signs are otherwise stable. Surgical dressings are in place. He is cooperating well with the nurses. He appears to be in good spirits. Pain appears to be under good control. Initial blood cultures were negative to date. Vitals/I&O/Wt Last Vital Signs Temp 98.3 F 02/17/21 06:00 Pulse 85 02/17/21 07:00 Resp 24 H 02/17/21 07:00 BP 156/64 02/17/21 07:00 Pulse Ox 92 02/17/21 06:30 02/16/21 02/17/21 02/17/21 22:59 06:59 14:59 Intake Total 1300 / 2553.700 1400 / 3953.700 Output Total 820 / 1685 865 / 2550 Balance 480 / 868.700 535 / 1403.700 Weight last 48 hrs Weight 279 lb 11.2 oz Weight 277 lb 6.4 oz Physical Exam Chest: COMMONS NORMALS: normal inspection of the chest and normal palpation of entire chest wall OTHER: Surgical dressings and support lines are in place. Resp: COMMON NORMALS: normal respiratory effort, No retractions and No use of accessory muscles EFFORT & INSPECTION: Yes symmetric chest movement OTHER: Somewhat decreased breath sounds on the left, consistent with his elevated hemidiaphragm. Lung miles are clear by review of chest x-ray. Cardiac silhouette is stable. Cardio: COMMON NORMALS: regular rate, regular rhythm and S1 normal heart sound present RATE: regular rate RHYTHM: regular rhythm HEART SOUNDS: S1 normal heart sound present Extremity: OTHER: Still with some peripheral edema, though improving. Urinary Catheter Management^: Cyr: Cath Placed During This Visit: yes Urinary Catheter Date of Insertion: 02/15/21 Urinary Catheter Time of Insertion: 07:25 Data : 02/17/21 03:38 02/17/21 03:38 Micro: Microbiology 02/16/21 00:39 Blood Culture - Preliminary Blood NEGATIVE TO DATE 02/16/21 00:33 Blood Culture - Preliminary Blood NEGATIVE TO DATE A&P Assessment and plan (1) Status post aorto-coronary artery bypass graft: Postop day #2. Making satisfactory progress except some concerns for expressive aphasia Plan: I will DC Cyr catheter, arterial line, and central line. I will schedule for CT scan of the head with and without contrast. Will make appropriate referrals after review of this study, which may include neurology and speech therapy. Greatly appreciate oversight and rounds by Dr. Webb. CBC, BMP, chest x-ray in a.m. Status: Acute Attestations Medical Necessity Statement*: Postop day #2 status post CABG Time Spent in Patient Care: 16 - 35 minutes Coding Level of Care Code Acute Level Vial Grinder for Chg Fwd Diagnoses Status post aorto-coronary artery bypass graft Z95.1
[2021-02-17] MEDS: aspirin 81 mg Chew Tablet PO (08:52)
[2021-02-17] MEDS: tamsulosin 0.4 mg Capsule PO (08:52)
[2021-02-17] MEDS: mupirocin oint 22 gm 1 APPLIC NASAL ×3 (08:53→17:37)
[2021-02-17] MEDS: chlorhexidine gluconate 0.12% Btl 473 mL 15 ML MUCOUS MEM ×2 (08:54→17:37)
--- NOTE | 2021-02-17 09:33 | PC.CHAP ---
Pastoral Care Encounter/Spiritual Assessment Type of Contact [] Declined math coach visit [] Patient/Family/Request visit [] Outpatient visit [] Follow-up visit [] Physician referral [] Code/Alert [x] Routine visit [] Staff referral [] Actively dying [] Patient sleeping [] Family support [] [] Out of room [] Palliative care [] [] Receiving care in room [] Pre-surgical visit [] Trauma [] Long length of stay [x] ICU visit [] Other: Relational/Emotional Strength [] Patient feels connected with others/family/visitors/staff [] Distress [] Loneliness/isolation [] Abandonment Spirituality of Patient [] Person of Yajaira [] Attends Nondenominational of their Yajaira [] Believes in Prayer [] Reads Bible or Yazdanism materials [] There are Spiritual issues to be addressed Warehouse Analyst Interventions [x] Prayer [x] Active listening [x] Non-anxious presence [x] Spiritual/emotional support [] Crisis/trauma care [] Spiritual counseling [] Bereavement support [] Provided bereavement packet [] Provided Bible/devotional materials [] Provided toy/stuffed animal, coloring book to patient or family member [] Provided Communion [] Anointing/[place] [] Salvation [x] Completed spiritual assessment [] Other: Impact on Illness or Injury [] Angry [] Fearful [] Anxious [] Often cries [] Exhaustion [] Unable to work [] Unable to attend latter day [] Unable to walk/stand [] Unable to read [] Unable to drive [] Unable to eat/drink [] Unable to sleep [] Unable to be with family [] Patient intubated [] Other: Summary patient setting up in chair... still seems semi coherent.. Time spent with patient 5 min
[2021-02-17] MEDS: iohexol 300 mg/mL 100 mL Btl IV (09:37)
--- NOTE | 2021-02-17 11:05 | PM.MISC ---
Miscellaneous Note Note: CT scan of the head was completed earlier today. It was normal without any acute findings. I have conferred with my colleague from neurology, Dr. Persaud. No other specific therapies or diagnostic maneuvers are recommended. She would recommend continued expectant follow-up. She did request to see Mr. Bender 2 to 4 weeks after discharge.
[2021-02-17 11:16] LABS: Glucose Point of Care 244 mg/dL (70-110)
--- NOTE | 2021-02-17 16:28 | P.PN_ITS ---
Subjective Subjective: Interval history: Patient is doing well. Denies any complaints of chest pain, shortness of breath or palpitations. Patient is s/p CABG day 2. He had expressive aphasia and CT scan done per CT surgery recs not showing acute abnormalties. Vitals/I&O/Wt Last Vital Signs Temp 98.8 F 02/17/21 15:30 Pulse 85 02/17/21 16:00 Resp 17 02/17/21 16:00 BP 128/86 02/17/21 16:00 Pulse Ox 95 02/17/21 16:00 02/17/21 02/17/21 02/17/21 06:59 14:59 22:59 Intake Total 1400 / 3953.700 1000 / 1000 3250 / 4250 Output Total 865 / 2550 100 / 100 1407 / 1507 Balance 535 / 1403.700 900 / 900 1843 / 2743 Weight last 48 hrs Weight 279 lb 11.2 oz Weight 277 lb 6.4 oz Physical Exam Narrative: EXAM NARRATIVE: GENERAL: Patient is extubated now NECK: No jugular vein distension. HEENT: No cyanosis. No icterus. No pallor. HEART: Regular S1 and S2. No murmur, rub or gallop. LUNGS: Decreased breath sound bilaterally. ABDOMEN: Soft, nontender and nondistended. Positive bowel sounds. No guarding, rebound or tenderness. CENTRAL NERVOUS SYSTEM: Sedated therefore cannot assess EXTREMITIES: Lower extremities with 1+ edema bilaterally. Urinary Catheter Management^: Cyr: Cath Placed During This Visit: yes Urinary Catheter Date of Insertion: 02/15/21 Urinary Catheter Time of Insertion: 07:25 Data : 02/17/21 03:38 02/17/21 03:38 Micro: Microbiology 02/16/21 00:39 Blood Culture - Preliminary Blood NEGATIVE TO DATE 02/16/21 00:33 Blood Culture - Preliminary Blood NEGATIVE TO DATE A&P Assessment and plan (1) Left main coronary artery disease: Post CABGx3 day 2 (patient had MARVIN to LAD/SVG to OM/ SVG to Diagonal) . Extubated now. Patient had expressive aphasia, work up done per CT surgery recommendations. Continue current medications. We will start metorpolol 25mg BID today. Status: Acute (2) HTN (hypertension) with goal to be determined: Elevated today. Will initiate metoprolol 25mg BID today. Also starting Amlodipine 5 mg daily Status: Acute Attestations Medical Necessity Statement*: Care expected to cross 2 midnights Coding Level of Care Code Acute Medical Referral Coordinator for Chg Fwd Diagnoses Left main coronary artery disease I25.10 HTN (hypertension) with goal to be determined I10
[2021-02-17 16:46] LABS: Glucose Point of Care 274 mg/dL (70-110)
[2021-02-17] MEDS: docusate sodium 100 mg Capsule PO (17:36)
--- NOTE | 2021-02-17 17:43 | PC.NURSE ---
Shift summary Pt has done well this shift. Ambulated with PT. Up in chair most of the shift. Chest tubes in place with 95ml of output. Wound vac is in place; reinforced with bioclusive and change of island dressing by OR nurse, intermittent alarm for leak. Pt had Percocet at 1600. O2 is on 3L/NC. Pt still has had some word salad throughout the shift. Pt is able to pass all stroke scale assessment, his name, , where he is at and his 's name. Pt advanced to cardiac diet. Given one colace.
[2021-02-17 20:14] LABS: Glucose Point of Care 317 mg/dL (70-110)
[2021-02-17] MEDS: metoprolol tartrate 25 mg Tablet PO (20:20)
[2021-02-17] MEDS: atorvastatin 40 mg Tablet PO (20:20)
[2021-02-17] MEDS: amlodipine 5 mg Tablet PO (20:20)
[2021-02-18] VITALS (70 sets, daily range): BP systolic 115–207; BP diastolic 67–122; PULSE 68–98; RESP 14–30; TEMP 37.1–37.3; O2SAT 92–97
[2021-02-18] MEDS: fentaNYL 50 mcg/mL INJ 2mL IVP (05:22)
--- NOTE | 2021-02-18 05:32 | PC.NURSE ---
Patient restless at the beginning of shift and reported pain, pain medication given PRN per orders and patient was able to rest. Patient voiding and drinking regularly. Patient currently up in chair beside bed, PRN pain medication given after transferring to chair due to patients pain level. Continue care.
--- NOTE | 2021-02-18 06:10 | PC.NURSE ---
Dr. Juarez beside and assessing patient. Gave verbal orders to increase PRN pain medication Percocet to every 4 hours PRN instead of [address] Juarez also gave orders to consult speech therapy on case. Continue care.
--- NOTE | 2021-02-18 06:14 | PC.NURSE ---
Dr. Juarez also said he would pull chest tubes later this morning when patient lays back down in bed. Continue care.
--- NOTE | 2021-02-18 06:22 | PM.PN ---
Subjective Subjective: Interval history: Low chest tube output overnight.Up in chair on rounds. Nurses report Mr. Bender had an uneventful night. Appreciate oversight of Dr. Ag and review with Dr. Persaud. No swallowing difficulties. Vitals/I&O/Wt Last Vital Signs Temp 97.7 F 02/17/21 22:00 Pulse 91 02/18/21 06:00 Resp 25 H 02/18/21 06:00 BP 157/90 02/18/21 06:00 Pulse Ox 95 02/18/21 06:00 02/17/21 02/17/21 02/18/21 14:59 22:59 06:59 Intake Total 1000 / 1000 3657.76 / 4657.76 300 / 4957.76 Output Total 100 / 100 3027 / 3127 1160 / 4287 Balance 900 / 900 630.76 / 1530.76 -860 / 670.76 Weight last 48 hrs Weight 279 lb 11.2 oz Physical Exam Chest: COMMONS NORMALS: normal inspection of the chest OTHER: Wound VAC dressing in place. Support lines are in position. Resp: COMMON NORMALS: normal respiratory effort, No retractions, No use of accessory muscles and clear to auscultation bilaterally AUSCULTATION: clear to auscultation bilaterally Cardio: COMMON NORMALS: regular rate, regular rhythm, S1 normal heart sound present and No murmurs present (Cardio) RATE: regular rate RHYTHM: regular rhythm HEART SOUNDS: S1 normal heart sound present Extremity: OTHER: Normal lower extremity swelling. Urinary Catheter Management^: Cyr: Cath Placed During This Visit: yes Urinary Catheter Date of Insertion: 02/15/21 Urinary Catheter Time of Insertion: 07:25 Data : 02/17/21 03:38 02/17/21 03:38 A&P Assessment and plan (1) Status post aorto-coronary artery bypass graft: Postop day #3 status post CABG. Metoprolol and amlodipine have been initiated per Dr. Ag. Plan: Speech therapy to assist with evaluation recommendations concerning expressive aphasia I will discontinue his mediastinal and pleural drains once he is back in the bed. CBC, BMP, chest x-ray in a.m. Status: Acute Attestations Medical Necessity Statement*: POD #3 status post CABG Time Spent in Patient Care: less than 15 minutes Coding Level of Care Code Acute Commercial Construction Estimator for Chg Fwd Diagnoses Status post aorto-coronary artery bypass graft Z95.1
[2021-02-18] MEDS: oxyCODONE-APAP 5-325 mg Tablet PO (07:49)
[2021-02-18] MEDS: metoprolol tartrate 25 mg Tablet PO (07:50)
[2021-02-18] MEDS: aspirin 81 mg Chew Tablet PO (07:50)
[2021-02-18] MEDS: amlodipine 5 mg Tablet PO ×2 (07:50→16:52)
[2021-02-18 08:03] LABS: Glucose Point of Care 230 mg/dL (70-110)
[2021-02-18] MEDS: tamsulosin 0.4 mg Capsule PO (08:04)
[2021-02-18] MEDS: mupirocin oint 22 gm 1 APPLIC NASAL ×2 (08:38→17:52)
--- NOTE | 2021-02-18 09:24 | PC.SOCIAL ---
*IMM update* Curriculum Assistant gave patient IMM update. Provided patient with copy of pg 2 of IMM. 02/18/21 @ 0908 Initialed, dated, timed and placed in chart.
[2021-02-18 11:35] LABS: Glucose Point of Care 330 mg/dL (70-110)
[2021-02-18] MEDS: morphine 4 mg/mL SDV 1 mL 2 MG IVP (12:12)
[2021-02-18] MEDS: labetalol 5 mg/mL SDV 20mL 10 MG IVP (13:01)
[2021-02-18] MEDS: metoprolol tartrate 50 mg Tablet PO (14:52)
[2021-02-18] MEDS: hyDRALAzine 20 mg/mL INJ 1 mL 10 MG IVP (14:53)
--- NOTE | 2021-02-18 15:08 | PC.OT ---
OT note: Attempted x3 and pt with PT on first attempt, had BP 184/106 on second attempt, and BP 174/110 on third attempt. Will try again later as able.
--- NOTE | 2021-02-18 16:18 | PM.PN ---
Subjective Subjective: Interval history: Patient has been feeling well. Denies chest pain, shortness of breath or palpitations. Blood pressure is uncontrolled. Vitals/I&O/Wt Last Vital Signs Temp 98.8 F 02/18/21 11:00 Pulse 73 02/18/21 15:30 Resp 18 02/18/21 15:30 BP 154/82 02/18/21 15:30 Pulse Ox 92 02/18/21 15:30 02/18/21 02/18/21 02/18/21 06:59 14:59 22:59 Intake Total 300 / 4957.76 500 / 500 Output Total 1160 / 4287 1700 / 1700 900 / 2600 Balance -860 / 670.76 -1200 / -1200 -900 / -2100 Weight last 48 hrs Weight 279 lb 11.2 oz Physical Exam Narrative: EXAM NARRATIVE: GENERAL: Patient is extubated now NECK: No jugular vein distension. HEENT: No cyanosis. No icterus. No pallor. HEART: Regular S1 and S2. No murmur, rub or gallop. LUNGS: Decreased breath sound bilaterally. ABDOMEN: Soft, nontender and nondistended. Positive bowel sounds. No guarding, rebound or tenderness. CENTRAL NERVOUS SYSTEM: Sedated therefore cannot assess EXTREMITIES: Lower extremities with 1+ edema bilaterally. Urinary Catheter Management^: Cyr: Cath Placed During This Visit: yes Urinary Catheter Date of Insertion: 02/15/21 Urinary Catheter Time of Insertion: 07:25 Data : 02/17/21 03:38 02/17/21 03:38 A&P Assessment and plan (1) Left main coronary artery disease: Post CABGx3 day 3 (patient had MARVIN to LAD/SVG to OM/ SVG to Diagonal). Patient had expressive aphasia, work up done per CT surgery recommendations. Continue aspirin Status: Acute (2) HTN (hypertension) with goal to be determined: Blood pressure is uncontrolled. We have uptitrated amlodipine to 10mg daily, increased metoprolol to 75mg BID and will start Losartan 100mg daily. PRN IV hydralazine if needed Status: Acute Attestations Medical Necessity Statement*: Care expected to cross 2 midnights Coding Level of Care Code Acute Software Engineer Advisor for [facility] Diagnoses Left main coronary artery disease I25.10 HTN (hypertension) with goal to be determined I10
[2021-02-18] MEDS: nitroglycerin drip 50 MG/250 ML PREMIX IV ×2 (16:45→16:48)
[2021-02-18 16:59] LABS: Glucose Point of Care 305 mg/dL (70-110)
[2021-02-18] MEDS: losartan 50 mg Tablet 100 MG PO (17:51)
--- NOTE | 2021-02-18 19:17 | PC.NURSE ---
0845 Dr. Juarez at bedside to remove chest tubes. Discussed patient's blood sugar level and insulin coverage. Reported patient diaphoretic, possible side effect from Percocet. Orders for [place]. Orders to discontinue central line. [address] Juarez to report elevated blood pressure. [address] Juarez to report elevated blood pressure, orders to notify Flight Paramedic. Clarified orders for chest x ray post chest tube removal, states no CXR needed. 1300 PRN labetolol given. 1425 Reported elevated blood to Dr. Ag. Orders for IV hyralazine and po metoprolol. 1635 Dr. Ag at bedside. Orders for Nitro drip, PO Norvasc and losartan.
[2021-02-18 20:04] LABS: Glucose Point of Care 277 mg/dL (70-110)
[2021-02-18] MEDS: HYDROcodone-acetaminophen 5-325 mg Tablet PO (20:10)
[2021-02-18] MEDS: metoprolol tartrate 50 mg Tablet 75 MG PO (20:10)
[2021-02-18] MEDS: atorvastatin 40 mg Tablet PO (20:11)
[2021-02-19] VITALS (97 sets, daily range): BP systolic 100–188; BP diastolic 60–119; PULSE 63–106; RESP 13–30; TEMP 36.6–37.1; O2SAT 90–97; BMI 40.1
[2021-02-19] MEDS: HYDROcodone-acetaminophen 5-325 mg Tablet PO ×2 (00:13→05:57)
[2021-02-19 05:21] LABS: Basophils # 0.1 10^3/uL (0.0-0.1); Basophils % 0.9 %; Eosinophils # 0.3 10^3/uL (0.0-0.8); Hematocrit 34.5 % (42.0-52.0); Hemoglobin 10.7 g/dL (11.7-16.6); Lymphocytes # 1.8 10^3/uL (0.8-4.8); Lymphocytes % 27.2 %; Mean Corpuscular Hemoglobin 30.5 pg (28.0-34.0); Mean Corpuscular Volume 98.3 fL (80-94); Mean Platelet Volume 10.1 fL (7.4-10.4); Monocytes # 0.7 10^3/uL (0.2-0.9); Monocytes % 9.8 %; Neutrophils # 3.79 10^3/uL (1.8-7.7); Neutrophils % 56.1 %; Nucleated Red Blood Cells % 0 %; Platelet Count 174 10^3/cmm (130-400); Red Blood Count 3.51 10^6/uL (4.1-5.3); White Blood Count 6.8 10^3/uL (4.0-10.0)
[2021-02-19 05:37] LABS: Blood Urea Nitrogen 13 mg/dL (6-20); Calcium 8.2 mg/dL (8.5-10.5); Carbon Dioxide 29 mmol/L (22-29); Chloride 101 mmol/L (98-107); Glomerular Filtration Rate 116.2 mL/min (90-130); Glucose 218 mg/dL (65-115); Osmolality Calculated 295 mOsm/kg (285-295); Sodium 139 mmol/L (136-145)
--- NOTE | 2021-02-19 06:00 | XR_ITS ---
WS: [id number] Exam: XR chest 1V portable [id number] Date/Time of Exam: 02/19/2021 6:00 AM Reason For Exam: POD #4 status post CABG Comparison 02/17/2021. The heart is enlarged but unchanged in size. No acute infiltrates are seen. Plaque atelectasis in the upper left lobe. There there may be a left-sided pleural effusion. Signs of previous CABG surgery. L eft-sided chest tube is been removed. Right IJ catheter has also been removed. XR/XR chest 1V portable [id number] IMPRESSION: 1. Cardiac enlargement unchanged. 2. No acute infiltrates. 3. There may be small left pleural effusion
[2021-02-19] MEDS: ondansetron 2 mg/ML SDV 2 mL 4 MG IVP (07:40)
[2021-02-19 07:58] LABS: Glucose Point of Care 244 mg/dL (70-110)
[2021-02-19] MEDS: tamsulosin 0.4 mg Capsule PO (08:36)
[2021-02-19] MEDS: mupirocin oint 22 gm 1 APPLIC NASAL ×2 (08:36→17:23)
[2021-02-19] MEDS: aspirin 81 mg Chew Tablet PO (08:36)
[2021-02-19] MEDS: metoprolol tartrate 50 mg Tablet 75 MG PO (09:20)
[2021-02-19] MEDS: amlodipine 10 mg Tablet PO (09:20)
[2021-02-19] MEDS: losartan 50 mg Tablet 100 MG PO (09:21)
--- NOTE | 2021-02-19 09:54 | P.PN_ITS ---
Subjective Subjective: Interval history: Patient is feeling well. Denies any complaints of chest pain, shortness of breath or palpitations. Blood pressure has improved but still uncontrolled. Vitals/I&O/Wt Last Vital Signs Temp 97.9 F 02/19/21 07:00 Pulse 85 02/19/21 09:31 Resp 18 02/19/21 09:20 BP 131/92 02/19/21 09:21 Pulse Ox 95 02/19/21 09:20 02/18/21 02/19/21 02/19/21 22:59 06:59 14:59 Intake Total 203.325 / 703.325 750 / 1453.325 396.025 / 396.025 Output Total 1850 / 3550 1460 / 5010 Balance -1646.675 / -2846.675 -710 / -3556.675 396.025 / 396.025 Weight last 48 hrs Weight 279 lb 11.2 oz Physical Exam Narrative: EXAM NARRATIVE: GENERAL: Patient is extubated now NECK: No jugular vein distension. HEENT: No cyanosis. No icterus. No pallor. HEART: Regular S1 and S2. No murmur, rub or gallop. LUNGS: Decreased breath sound bilaterally. ABDOMEN: Soft, nontender and nondistended. Positive bowel sounds. No guarding, rebound or tenderness. CENTRAL NERVOUS SYSTEM: Sedated therefore cannot assess EXTREMITIES: Lower extremities with 1+ edema bilaterally. Urinary Catheter Management^: Cyr: Cath Placed During This Visit: yes Urinary Catheter Date of Insertion: 02/15/21 Urinary Catheter Time of Insertion: 07:25 Data : 02/19/21 05:05 02/19/21 05:05 A&P Assessment and plan (1) Left main coronary artery disease: Post CABGx3 day 4 (patient had MARVIN to LAD/SVG to OM/ SVG to Diagonal). Patient had expressive aphasia, work up done per CT surgery recommendations. Continue aspirin Status: Acute (2) HTN (hypertension) with goal to be determined: Blood pressure is still high. Currently on amlodipine 10mg daily, losartan 100mg daily and Metoprolol 75mg BID. We have uptitrated metoprolol to 100mg bid. Patient was put on nitro gtt yesterday and being weaned off now Status: Acute Attestations Medical Necessity Statement*: Care expected to cross 2 midnights. Coding Level of Care Code Acute Disk And Tape Machine Tender for Chg Fwd Diagnoses Left main coronary artery disease I25.10 HTN (hypertension) with goal to be determined I10
[2021-02-19 11:26] LABS: Glucose Point of Care 398 mg/dL (70-110)
[2021-02-19] MEDS: bisacodyl 5 mg Tablet PO (11:26)
--- NOTE | 2021-02-19 15:38 | PM.PN ---
Subjective Subjective: Interval history: Postop day #4 status post CABG x3. Mr. Bender looks very good. He is at baseline. No evidence for any type of expressive aphasia. Tolerating diet well. He is ambulating with ease with our physical therapy department. Vital signs are stable. No arrhythmias. Lab work is normal. Chest x-ray is clear with a slight bit of compressive atelectasis in the left base consistent with a chronically elevated left hemidiaphragm. Sternal wires are well aligned. Vitals/I&O/Wt Last Vital Signs Temp 97.8 F 02/19/21 11:00 Pulse 80 02/19/21 15:06 Resp 22 H 02/19/21 15:06 BP 168/88 02/19/21 14:45 Pulse Ox 94 02/19/21 15:06 02/19/21 02/19/21 02/19/21 06:59 14:59 22:59 Intake Total 750 / 1453.325 703.650 / 703.650 Output Total 1460 / 5010 950 / 950 Balance -710 / -3556.675 -246.350 / -246.350 Weight last 48 hrs Weight 279 lb 11.2 oz Physical Exam Chest: COMMONS NORMALS: normal inspection of the chest OTHER: Wound VAC dressing remains in place. Resp: COMMON NORMALS: normal respiratory effort, No retractions, No use of accessory muscles, clear to auscultation bilaterally and percussion normal AUSCULTATION: clear to auscultation bilaterally PERCUSSION: percussion normal Cardio: COMMON NORMALS: regular rate, regular rhythm, S1 normal heart sound present, No gallops present (Cardio), No murmurs present (Cardio) and No rub (Cardio) RATE: regular rate RHYTHM: regular rhythm HEART SOUNDS: S1 normal heart sound present Extremity: OTHER: Lower extremity edema is almost completely resolved. Urinary Catheter Management^: Cyr: Cath Placed During This Visit: yes Urinary Catheter Date of Insertion: 02/15/21 Urinary Catheter Time of Insertion: 07:25 Data : 02/19/21 05:05 02/19/21 05:05 A&P Assessment and plan (1) Status post aorto-coronary artery bypass graft: Postop day #4 status post CABG x3 Plan: We will write for transfer to intermediate care on the medical/surgical wright, pending appropriate and adequate nursing staff ratios to allow for intermediate care on that wright. Will remove wound VAC dressing tomorrow with plans for shower and discharge on Monday. Status: Acute Attestations Medical Necessity Statement*: Stop day #4 status post CABG Coding Level of Care Code Acute Repairer Maintenance Building for Mason Lipscomb Diagnoses Status post aorto-coronary artery bypass graft Z95.1
[2021-02-19 16:47] LABS: Glucose Point of Care 365 mg/dL (70-110)
[2021-02-19] MEDS: atorvastatin 40 mg Tablet PO (21:03)
[2021-02-19] MEDS: metoprolol tartrate 50 mg Tablet 100 MG PO (21:03)
[2021-02-19] MEDS: hyDRALAzine 20 mg/mL INJ 1 mL 5 MG IVP (21:04)
[2021-02-19 21:12] LABS: Glucose Point of Care 274 mg/dL (70-110)
[2021-02-20] VITALS (45 sets, daily range): BP systolic 121–180; BP diastolic 65–102; PULSE 63–98; RESP 16–30; TEMP 36.5–37.7; O2SAT 90–97
[2021-02-20] MEDS: oxyCODONE-APAP 5-325 mg Tablet PO (03:58)
[2021-02-20 08:43] LABS: Glucose Point of Care 252 mg/dL (70-110)
[2021-02-20] MEDS: metoprolol tartrate 50 mg Tablet 100 MG PO ×2 (08:57→20:47)
[2021-02-20] MEDS: losartan 50 mg Tablet 100 MG PO (08:57)
[2021-02-20] MEDS: amlodipine 10 mg Tablet PO (08:57)
[2021-02-20] MEDS: pantoprazole DR 40 mg Tablet PO (08:57)
[2021-02-20] MEDS: aspirin 81 mg Chew Tablet PO (08:58)
[2021-02-20] MEDS: tamsulosin 0.4 mg Capsule PO (08:58)
[2021-02-20] MEDS: HYDROcodone-acetaminophen 5-325 mg Tablet PO (08:59)
--- NOTE | 2021-02-20 09:11 | PM.PN ---
Subjective Subjective: Interval history: POD #5 status post CABG x3. No complaints. Neurologic status at baseline. Tolerating diet well. Transfer orders written yesterday, though bed availability is still pending. Vitals/I&O/Wt Last Vital Signs Temp 98.4 F 02/20/21 04:00 Pulse 69 02/20/21 06:15 Resp 25 H 02/20/21 06:15 BP 180/85 02/20/21 08:57 Pulse Ox 96 02/20/21 06:15 02/19/21 02/20/21 02/20/21 22:59 06:59 14:59 Intake Total 500 / 1203.650 60 / 1263.650 Output Total 1750 / 2700 600 / 600 Balance -1250 / -1496.350 60 / -1436.350 -600 / -600 Weight last 48 hrs Weight 279 lb 11.2 oz Physical Exam Chest: COMMONS NORMALS: normal inspection of the chest OTHER: Wound VAC dressing removed. Sternotomy incision clean and dry and intact. Sternum stable to palpation. Drain sites well approximated. New dressing applied. Resp: COMMON NORMALS: normal respiratory effort and clear to auscultation bilaterally EFFORT & INSPECTION: Yes able to speak in complete sentences and Yes symmetric chest movement AUSCULTATION: clear to auscultation bilaterally Cardio: COMMON NORMALS: regular rate, regular rhythm, S1 normal heart sound present, No gallops present (Cardio) and No rub (Cardio) RATE: regular rate RHYTHM: regular rhythm HEART SOUNDS: S1 normal heart sound present Extremity: OTHER: Resolving lower extremity edema. Upper extremity edema resolved Urinary Catheter Management^: Cyr: Cath Placed During This Visit: yes Urinary Catheter Date of Insertion: 02/15/21 Urinary Catheter Time of Insertion: 07:25 Data : 02/19/21 05:05 02/19/21 05:05 A&P Assessment and plan (1) Status post aorto-coronary artery bypass graft: Postop day #5 status post CABG x3. Recovering well. Will plan for shower tomorrow. Plan for discharge to home health services tomorrow. Status: Acute Attestations Medical Necessity Statement*: 5 days status post CABG Time Spent in Patient Care: 16 - 35 minutes Coding Level of Care Code Acute Supervisor Shaving And Splitting for Mason Lipscomb Diagnoses Status post aorto-coronary artery bypass graft Z95.1
[2021-02-20] MEDS: hydroCHLOROthiazide 25 mg Tablet PO (10:32)
--- NOTE | 2021-02-20 10:53 | PC.SOCIAL ---
*IMM update* Gave patient IMM update. Provided patient with copy of pg 2 of IMM. Initialed, dated, timed and placed in chart.
--- NOTE | 2021-02-20 11:50 | PC.NURSE ---
Pt and reported that pt has not had a BM since admit. Discussed stool softeners, had already had some er and pt. Will give some laxatives.
[2021-02-20 11:53] LABS: Glucose Point of Care 337 mg/dL (70-110)
--- NOTE | 2021-02-20 12:04 | PC.NURSE ---
Report faxed to [facility].
--- NOTE | 2021-02-20 12:11 | PC.NURSE ---
Report given to [facility]. Pt toget insulin and meds for constipation, and lunch then transfer.
--- NOTE | 2021-02-20 13:00 | PC.NURSE ---
Pt transferred to [facility] [place]. Pt ambulated to new room, 267. SOme shortness of breath noted. Pt stated it was the mask bothering him.. Update of BM, ambulating, lunch, given to [facility].
[2021-02-20 17:04] LABS: Glucose Point of Care 313 mg/dL (70-110)
[2021-02-20] MEDS: mupirocin oint 22 gm 1 APPLIC NASAL (17:33)
[2021-02-20] MEDS: atorvastatin 40 mg Tablet PO (20:48)
[2021-02-20 20:56] LABS: Glucose Point of Care 303 mg/dL (70-110)
[2021-02-21] VITALS (12 sets, daily range): BP systolic 90–182; BP diastolic 61–89; PULSE 73–96; RESP 18–20; TEMP 36.4–37.4; O2SAT 91–92
[2021-02-21 06:34] LABS: Glucose Point of Care 221 mg/dL (70-110)
--- NOTE | 2021-02-21 07:22 | PM.PN ---
Subjective Subjective: Interval history: Patient is overall doing well. However blood pressure has been uncontrolled. Currently on multiple antihypertensive medications including losartan 100mg, HCTZ 25 mg, amlodipine 10mg daily, metoprolol 100mg bid. Vitals/I&O/Wt Last Vital Signs Temp 98.4 F 02/21/21 07:15 Pulse 94 02/21/21 07:15 Resp 18 02/21/21 07:15 BP 182/89 02/21/21 07:15 Pulse Ox 91 02/21/21 07:15 02/20/21 02/21/21 02/21/21 22:59 06:59 14:59 Intake Total 180 / 580 Output Total 1500 / 2900 1100 / 4000 Balance -1500 / -2500 -920 / -3420 Weight last 48 hrs Weight 252 lb 4.8 oz Physical Exam Narrative: EXAM NARRATIVE: GENERAL: Patient is alert and oriented x3 NECK: No jugular vein distension. HEENT: No cyanosis. No icterus. No pallor. HEART: Regular S1 and S2. No murmur, rub or gallop. LUNGS: Decreased breath sound bilaterally. ABDOMEN: Soft, nontender and nondistended. Positive bowel sounds. No guarding, rebound or tenderness. CENTRAL NERVOUS SYSTEM: Sedated therefore cannot assess EXTREMITIES: Lower extremities with 1+ edema bilaterally. Urinary Catheter Management^: Cyr: Cath Placed During This Visit: yes Urinary Catheter Date of Insertion: 02/15/21 Urinary Catheter Time of Insertion: 07:25 Data : 02/19/21 05:05 02/19/21 05:05 Micro: Microbiology 02/16/21 00:39 Blood Culture - Final Blood NO GROWTH AFTER 5 DAYS 02/16/21 00:33 Blood Culture - Final Blood NO GROWTH AFTER 5 DAYS A&P Assessment and plan (1) Left main coronary artery disease: Post CABGx3 day 4 (patient had MARVIN to LAD/SVG to OM/ SVG to Diagonal). Continue aspirin and statin Status: Acute (2) HTN (hypertension) with goal to be determined: Blood pressure is still high. Currently on amlodipine 10mg daily, losartan 100mg daily and Metoprolol 75mg BID. We added HCTZ 25 mg daily yesterday. Will add hydralazine 50mg TID. Will recommend keeping patient in hosptial for 1 more day his blood pressure transiently dropped today Status: Acute Attestations Medical Necessity Statement*: Care expected to cross 2 midnight Coding Level of Care Code Acute Gumming Machine Operator for Chg Fwd Diagnoses Left main coronary artery disease I25.10 HTN (hypertension) with goal to be determined I10
[2021-02-21] MEDS: aspirin 81 mg Chew Tablet PO (07:28)
[2021-02-21] MEDS: tamsulosin 0.4 mg Capsule PO (07:28)
[2021-02-21] MEDS: pantoprazole DR 40 mg Tablet PO (07:28)
[2021-02-21] MEDS: metoprolol tartrate 50 mg Tablet 100 MG PO ×2 (07:29→21:10)
[2021-02-21] MEDS: chlorhexidine gluconate 4% Btl 118 mL 1 APPLIC TOPICAL (07:29)
[2021-02-21] MEDS: losartan 50 mg Tablet 100 MG PO (07:29)
[2021-02-21] MEDS: hydroCHLOROthiazide 25 mg Tablet PO (07:29)
[2021-02-21] MEDS: amlodipine 10 mg Tablet PO (07:29)
[2021-02-21] MEDS: mupirocin oint 22 gm 1 APPLIC NASAL ×2 (07:36→17:34)
[2021-02-21] MEDS: hyDRALAzine 50 mg Tablet PO ×3 (07:36→21:10)
--- NOTE | 2021-02-21 08:40 | PC.NURSE ---
Pt blood pressure 182/89 on morning vital signs. Morning medications given shortly after along with new medication hydralazine. Patient sat up in chair and ate breakfast. About 45 minutes later patient became clammy, felt hot but cool to the touch. Temp was 97.7 axillary HR 74, BP 90/61. Patient stated he felt fine other than being hot. This nurse assisted patient back to bed where he layed down, blood pressure was then 114/71 supine. patient resting in bed at this time, states he feels better call light within reach. will continue to monitor.
--- NOTE | 2021-02-21 09:26 | PM.PN ---
Subjective Subjective: Interval history: Postop day #7 status post CABG x3. Making good progress. Patient known to be hypertensive and hydralazine was added by Dr. Ag. He has recommended patient be observed for 1 more day for medication adjustments for optimization of his blood pressure. There appears to be no other concerns. Vitals/I&O/Wt Last Vital Signs Temp 98.4 F 02/21/21 07:15 Pulse 94 02/21/21 07:15 Resp 18 02/21/21 07:15 BP 120/73 02/21/21 09:13 Pulse Ox 91 02/21/21 07:15 02/20/21 02/21/21 02/21/21 22:59 06:59 14:59 Intake Total 180 / 580 Output Total 1500 / 2900 1100 / 4000 450 / 450 Balance -1500 / -2500 -920 / -3420 -450 / -450 Weight last 48 hrs Weight 252 lb 4.8 oz Physical Exam Resp: COMMON NORMALS: normal respiratory effort, No retractions, No use of accessory muscles, clear to auscultation bilaterally and percussion normal AUSCULTATION: clear to auscultation bilaterally PERCUSSION: percussion normal Cardio: COMMON NORMALS: regular rate, regular rhythm, S1 normal heart sound present and No gallops present (Cardio) RATE: regular rate RHYTHM: regular rhythm HEART SOUNDS: S1 normal heart sound present PERIPHERAL PULSES: radial pulses present positive bilateral 2+ Extremity: COMMON NORMALS: no clubbing, cyanosis or edema Urinary Catheter Management^: Cyr: Cath Placed During This Visit: yes Urinary Catheter Date of Insertion: 02/15/21 Urinary Catheter Time of Insertion: 07:25 Data : 02/19/21 05:05 02/19/21 05:05 Micro: Microbiology 02/16/21 00:39 Blood Culture - Final Blood NO GROWTH AFTER 5 DAYS 02/16/21 00:33 Blood Culture - Final Blood NO GROWTH AFTER 5 DAYS A&P Assessment and plan (1) Status post aorto-coronary artery bypass graft: We will observe Mr. Bender for 1 more day as antihypertensive medication adjustments are underway. Will initiate Betasept shower today. Wounds to be redressed following shower. If confirmed by Dr. Ag, we will tentatively plan for discharge tomorrow. Greatly appreciate his expertise and oversight. Status: Acute Attestations Medical Necessity Statement*: Postop day #7 status post CABG. Hypertension. Time Spent in Patient Care: less than 15 minutes Coding Level of Care Code Acute Candy Supervisor for g Fwd Diagnoses Status post aorto-coronary artery bypass graft Z95.1
[2021-02-21 10:40] LABS: Glucose Point of Care 280 mg/dL (70-110)
[2021-02-21 17:12] LABS: Glucose Point of Care 383 mg/dL (70-110)
[2021-02-21 20:58] LABS: Glucose Point of Care 286 mg/dL (70-110)
[2021-02-21] MEDS: diphenhydrAMINE 25 mg Capsule PO (21:10)
[2021-02-21] MEDS: atorvastatin 40 mg Tablet PO (21:26)
[2021-02-22] VITALS (8 sets, daily range): BP systolic 115–147; BP diastolic 75–83; PULSE 67–87; RESP 17–18; TEMP 36.8–37.1; O2SAT 92–93
[2021-02-22] MEDS: HYDROcodone-acetaminophen 5-325 mg Tablet PO (00:30)
[2021-02-22 06:48] LABS: Glucose Point of Care 288 mg/dL (70-110)
[2021-02-22] MEDS: aspirin 81 mg Chew Tablet PO (08:26)
[2021-02-22] MEDS: tamsulosin 0.4 mg Capsule PO (08:26)
[2021-02-22] MEDS: hyDRALAzine 50 mg Tablet PO (08:26)
[2021-02-22] MEDS: hydroCHLOROthiazide 25 mg Tablet PO (08:26)
[2021-02-22] MEDS: amlodipine 10 mg Tablet PO (08:27)
[2021-02-22] MEDS: metoprolol tartrate 50 mg Tablet 100 MG PO (08:27)
[2021-02-22] MEDS: mupirocin oint 22 gm 1 APPLIC NASAL (08:27)
[2021-02-22] MEDS: losartan 50 mg Tablet 100 MG PO (08:27)
[2021-02-22] MEDS: pantoprazole DR 40 mg Tablet PO (08:27)
[2021-02-22] MEDS: chlorhexidine gluconate 4% Btl 118 mL 1 APPLIC TOPICAL (08:30)
--- NOTE | 2021-02-22 09:33 | P.DS_ITS ---
Discharge Providers Date of Admission: 02/15/21 17:22 Date of Discharge: February 22, 2021 Attending Provider at Admission: Graeme Juarez MD Attending Provider at Discharge: Graeme Juarez MD Primary Care Provider: Enrique Avila MD Diagnoses at Discharge Discharge Diagnosis (1) Left main coronary artery disease: Status: Acute (2) HTN (hypertension) with goal to be determined: Status: Acute Reason for Visit Reason for Visit: cabg Hospital Course Hospital Course Mr. Bender was electively admitted for planned CABG with prior diagnosis of coronary artery disease and severe disease involving an 90% stenosis of the left main, along with significant disease of the LAD and circumflex arteries. He underwent CABG x3 on February 15. Postoperatively he did well without any major occurrences. No substantial arrhythmias. Vital signs remained stable. Chest tube output continue to decrease over 3 days. Extubation was a little delayed several hours related to initial support weaning parameters and now chronically elevated left hemidiaphragm. Once extubated, however, he did quite well and made rapid progress. Incisions remain clean and dry. Sternum is stable. Normal bowel and bladder function have returned. Tolerating diet well. Antihypertensives have been adjusted by Dr. Ag related to some modest hypertension postoperatively. Home health arrangements have been completed. He will be discharged home today in stable condition with scheduled follow-up in my clinic in 1 week. Home health services will be through [facility]. Physical Exam Urinary Catheter Management^: Cyr: Cath Placed During This Visit: yes Urinary Catheter Date of Insertion: 02/15/21 Urinary Catheter Time of Insertion: 07:25 Discharge Data Data Completed and Pending: Completed Studies During Hospitalization Category Date Time Status CT head wo/w con 10570 Routine Cat Scan 02/17/21 07:06 Completed XR chest 1V lydia ble [id number] Routine Exams 02/15/21 16:34 Completed XR chest 1V lydia ble [id number] Routine Exams 02/16/21 06:00 Completed XR chest 1V lydia ble [id number] Routine Exams 02/17/21 06:00 Completed XR chest 1V lydia ble [id number] Routine Exams 02/19/21 06:00 Completed Pending at discharge Category Date Time Status Complete Crossmat ch Routine Lab 02/10/21 09:18 Results Leukocyte Reduced RBC Routine Lab 02/10/21 09:18 Results Type and Screen - Cardiac Routine Lab 01/27/21 11:35 Results Type and Screen - Cardiac Routine Lab 02/10/21 09:18 Results Labs from last 24 hours 02/22/21 02/21/21 02/21/21 06:31 20:56 17:00 POC Glucose 288 H 286 H 383 H 02/21/21 10:24 POC Glucose 280 H Vitals: Last Vital Signs Temp 98.3 F 02/22/21 07:27 Pulse 87 02/22/21 07:27 Resp 17 02/22/21 07:27 BP 137/83 02/22/21 08:27 Pulse Ox 93 02/22/21 07:27 Discharge Plan Discharge Patient Disposition: Home Condition: Stable Prescriptions: New hydrocodone-acetaminophen 5-325 mg Tablet 1 tab PO Q4H PRN (Reason: Moderate To Severe Pain) 14 Days Qty: 30 RF: 0 atorvastatin 40 mg Tablet 40 mg PO BEDTIME Qty: 30 RF: 5 losartan 50 mg Tablet 100 mg PO DAILY Qty: 30 RF: 5 metoprolol tartrate 50 mg Tablet 100 mg PO BID@0900,2100 Qty: 60 RF: 5 hydrochlorothiazide 25 mg Tablet 25 mg PO DAILY Qty: 30 RF: 5 amlodipine 10 mg Tablet 10 mg PO DAILY Qty: 30 RF: 5 hydralazine 50 mg Tablet 50 mg PO TID Qty: 90 RF: 5 Continued melatonin [Melatin] 3 mg tablet 3 mg PO .HS PRN (Reason: sleep) RF: 0 metformin 1,000 mg tablet extended release 24hr 1,000 mg PO BID RF: 0 aspirin [Adult Aspirin Regimen] 81 mg tablet,delayed release (DR/EC) 81 mg PO .AM RF: 0 Antacid Calcium 215 mg calcium (500 mg) tablet,chewable 215 mg PO DAILY RF: 0 celecoxib [Celebrex] 200 mg capsule 200 mg PO BID RF: 0 pantoprazole [Protonix] 40 mg tablet,delayed release (DR/EC) 40 mg PO BID RF: 0 pregabalin [Lyrica] 150 mg capsule 300 mg PO BID RF: 0 nitroglycerin [Nitrostat] 0.4 mg tablet, sublingual 0.4 mg sublingual Q5M PRN (Reason: chest pain) Qty: 100 RF: 3 ezetimibe [Zetia] 10 mg tablet 10 mg PO DAILY Qty: 90 RF: 3 duloxetine [Cymbalta] 60 mg capsule,delayed release(DR/EC) 60 mg PO .AM Qty: 90 RF: 2 clopidogrel [Plavix] 75 mg tablet 75 mg PO DAILY Qty: 90 RF: 3 isosorbide mononitrate 30 mg tablet extended release 24 hr 30 mg PO DAILY Qty: 30 RF: 6 Flomax 0.4 mg tablet 0.4 mg PO DAILY RF: 0 glyburide 2.5 mg tablet 2.5 mg PO DAILY RF: 0 carvedilol 25 mg tablet 25 mg PO BID RF: 0 Discontinued amlodipine [Norvasc] 5 mg tablet 5 mg PO BID 90 Days Qty: 180 RF: 3 Discharge Orders: Discharge Order (Routine); Ordered 02/22/21 Ordered By: Graeme Juarez Referrals: [facility] [Outside] Graeme Juarez MD [Physician] - 1 week Discharge Diet: Diabetic Discharge Activity: Limit activity as instructed Patient Instructions: Coronary Artery Bypass Graft (DC), Left Heart Catheterization (DC), Chronic Hypertension (DC) Activity Restrictions/Additional Instructions: No swimming or tub baths x2 weeks May shower daily with incisions open. Dry thoroughly afterwards. No lifting, pulling, or pushing greater than 5 pounds for the next 6 weeks Use heart pillow with coughing or sneezing Report any increasing pain, redness, swelling, or drainage from incision. Report any fever. Please contact us for any concerns. Discharge Attestations Time Spent in Discharge Care*: less than 30 min Specific Discharge Activities: educating patient, discussing with case mgr/social workers/dc planners, documenting/other paperwork and evaluating patient/reviewing data Status at Discharge: Cognitive status at discharge: cognitively intact , Behavioral status at discharge: cooperative and dependent in ADL's , Overall status at discharge: patient is progressing back to baseline Quality Metrics Clinical Quality Measures During this hospital stay, did patient experience: None Coding Level of Care Code Acute Chg FW DC note Diagnoses Left main coronary artery disease I25.10 HTN (hypertension) with goal to be determined I10
--- NOTE | 2021-02-22 09:50 | PC.SOCIAL ---
IMM Updated Updated pt on Pg 2 IMM. No questions voiced. Provided pt a copy. Signed, dated, & timed copy in chart.
--- NOTE | 2021-02-22 10:14 | P.PN_ITS ---
Subjective Subjective: Interval history: Patient is doing well. No complaints of chest pain, shortness of breath or palpitations. Blood pressure is well controlled Vitals/I&O/Wt Last Vital Signs Temp 98.3 F 02/22/21 07:27 Pulse 87 02/22/21 07:27 Resp 17 02/22/21 07:27 BP 137/83 02/22/21 08:27 Pulse Ox 93 02/22/21 07:27 02/21/21 02/22/21 02/22/21 22:59 06:59 14:59 Intake Total 240 / 480 160 / 640 480 / 480 Output Total 2040 / 2490 425 / 2915 Balance -1800 / -2010 -265 / -2275 480 / 480 Weight last 48 hrs Weight 248 lb 6.4 oz Weight 252 lb 4.8 oz Physical Exam Narrative: EXAM NARRATIVE: GENERAL: Patient is alert and oriented x3 NECK: No jugular vein distension. HEENT: No cyanosis. No icterus. No pallor. HEART: Regular S1 and S2. No murmur, rub or gallop. LUNGS: Decreased breath sound bilaterally. ABDOMEN: Soft, nontender and nondistended. Positive bowel sounds. No guarding, rebound or tenderness. CENTRAL NERVOUS SYSTEM: Sedated therefore cannot assess EXTREMITIES: Lower extremities with 1+ edema bilaterally. Urinary Catheter Management^: Cyr: Cath Placed During This Visit: yes Urinary Catheter Date of Insertion: 02/15/21 Urinary Catheter Time of Insertion: 07:25 Data : 02/19/21 05:05 02/19/21 05:05 A&P Assessment and plan (1) Left main coronary artery disease: Post CABGx3 day 4 (patient had MARVIN to LAD/SVG to OM/ SVG to Diagonal). Continue aspirin and statin Status: Acute (2) HTN (hypertension) with goal to be determined: Blood pressure is controlled now. Currently on amlodipine 10mg daily, losartan 100mg daily, Metoprolol 100 mg BID,HCTZ 25 mg and hydralazine 50mg TID.Patient is stable to be discharged from our standpoint. Patient told to monitor blood pressure 3 times everyday for the first 10 days and send log to Dr Marvin office Status: Acute Attestations Medical Necessity Statement*: Care expected to cross 2 midnights Coding Level of Care Code Acute Mental Health Social Worker for [facility] Fwd Diagnoses Left main coronary artery disease I25.10 HTN (hypertension) with goal to be determined I10
[2021-02-22 11:05] LABS: Glucose Point of Care 380 mg/dL (70-110)
== END 2021-02-22 12:00 | disposition home health service (06) | DRG 236 ==
LOC: ICU 17:23 → MEDSURG 02-20 12:43
PROVIDERS: Admitting Provider Thoracic Surgery (Cardiothoracic Vascular Surgery); PCP Family Medicine; Visit Provider Thoracic Surgery (Cardiothoracic Vascular Surgery)
DX: I25.10 Atherosclerotic heart disease of native coronary artery without angina pectoris (principal); R47.01 Aphasia; I10 Essential (primary) hypertension; R93.89 Abnormal findings on diagnostic imaging of other specified body structures; E11.9 Type 2 diabetes mellitus without complications; I34.0 Nonrheumatic mitral (valve) insufficiency; F17.210 Nicotine dependence, cigarettes, uncomplicated; F17.220 Nicotine dependence, chewing tobacco, uncomplicated; E66.9 Obesity, unspecified; Z68.35 Body mass index [BMI] 35.0-35.9, adult; Z79.82 Long term (current) use of aspirin; Z79.02 Long term (current) use of antithrombotics/antiplatelets; Z79.1 Long term (current) use of non-steroidal anti-inflammatories (NSAID); Z79.84 Long term (current) use of oral hypoglycemic drugs; Z95.5 Presence of coronary angioplasty implant and graft; Z82.49 Family history of ischemic heart disease and other diseases of the circulatory system
CPT/HCPCS: 36415; 36416; 70470; 71045; 80048; 80051; 80076; 80202; 81001; 82330; 82805; 82947; 82962; 83735; 84439; 84443; 85025; 85347; 85610; 85730; 86850; 86900; 86920; 87040; 92523; 92526; 92610; 93005; 94002; 94003; 94640; 94799; 96372; 97110; 97116; 97163; 97167; 97530; 97535; J0171; J0360; J0697; J1250; J1644; J1815; J1940; J2001; J2150; J2250; J2270; J2370; J2405; J2440; J2543; J2704; J2720; J3010; J3370; J3475; J3480; J3490; J7030; J7040; J7050; P9047; Q9967

== ENCOUNTER 2021-03-11 08:22 | Inpatient (IN) | payer MEDICARE, SELFPAY ==
[2021-03-11] VITALS (15 sets, daily range): BP systolic 139–173; BP diastolic 71–103; PULSE 68–84; RESP 18–22; TEMP 36.6–37.2; O2SAT 87–97; BMI 33.7
--- NOTE | 2021-03-11 08:31 | ECG_ITS ---
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
--- NOTE | 2021-03-11 08:31 | XR_ITS ---
WS: [id number] Portable AP upright chest, 03/11/2021 Clinical Data: dyspnea/cough Comparison: Portable chest, 02/19/2021. Findings: There is a patchy opacity over the left diaphragm which may represent consolidation, atelec tasis or effusion. The right lung is clear. The heart is probably enlarged. There are midline sternot rosita sutures and mediastinal clips.. No pneumothorax is present. XR/XR chest 1V portable [id number] Impression: 1. No change in patchy opacity over surface of the left diaphragm. 2. Cardiomegaly.
--- NOTE | 2021-03-11 09:03 | ED_ITS ---
HPI - SOB/Dyspnea General: Chief Complaint: Shortness of Breath/Dyspnea Stated Complaint: LOW O2 LEVELS POST SURGERY Time Seen by Provider: 03/11/21 08:30 History of Present Illness: HPI Narrative: 55-year-old male presents emergency room complaining of shortness of breath. He is approximately 3-1/2 weeks status post coronary artery bypass graft. This was done by Dr. Juarez at our facility. 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 Arrival here he is 87% on room air with a respiratory rate of 22 and he is conversationally dyspneic denies any chest pain he does have orthopnea but has had that ever since the surgery he has slept in an upright position. He denies fever sweats chills no leg swelling or pain. MD elicited complaint: shortness of breath and cough Pertinent past history: congestive heart failure Onset (ago): day(s) Timing: constant Severity: mild Exacerbating factors: lying flat and exertion Relieving factors: oxygen and rest Associated symptoms: Reports chest congestion and cough; Deny abdominal pain, chest pain, diaphoresis, dizziness, extremity pain, fever(s), hemoptysis, lightheadedness, myalgias, nausea, orthopnea, palpitations, paresthesias, polydipsia, polyuria, rash, sense of impending doom, syncope or vomiting Treatment prior to arrival: none Review of Systems Const: Denies: fever(s) or diaphoresis ENMT: Denies: throat pain, ear or mastoid pain, nasal discharge or nasal congestion Card: Denies: chest pain, palpitations, lightheadedness, syncope or orthopnea Resp: Reports: chest congestion; Denies: hemoptysis GI: Denies: abdominal pain, nausea or vomiting : Denies: flank pain, dysuria, urinary frequency or urinary urgency Musc: Denies: extremity pain Skin/Breast: Denies: rash or pruritus Neuro: Denies: dizziness Endo: Denies: polyuria or polydipsia PFS ED PFSH: Medical History ASHD (arteriosclerotic heart disease) Generalized anxiety disorder HTN (hypertension) with goal to be determined Left main coronary artery disease Major depressive disorder, recurrent episode, moderate with anxious distress Nicotine dependence, cigarettes, uncomplicated Surgical History Status post aorto-coronary artery bypass graft Family History Father Myocardial infarct Grandmother Myocardial infarct Family/Other Myocardial infarct Other CAD (coronary artery disease) Social History Smoking and tobacco status: current every day smoker cigarettes Packs smoked per day: 1 and smokeless tobacco Smokeless tobacco user: chewing tobacco Smokeless tobacco details: 1 can 2- 3 days Quit status (tobacco): considering quitting Second hand smoke exposure: Yes Smoking risk assessment/counseling performed?: No Alcohol intake: never Physical Exam Const: GENERAL APPEARANCE: cooperative ORIENTATION/CONSCIOUSNESS: Yes awake, Yes oriented to person, Yes oriented to place and Yes oriented to time HENMT: COMMON NORMALS: normocephalic, atraumatic and hearing grossly normal bilaterally HEAD & SCALP: normocephalic and atraumatic Neck/C-Spine: COMMON NORMALS: no JVD Resp: COMMON NORMALS: normal respiratory effort, No retractions, No use of accessory muscles and clear to auscultation bilaterally AUSCULTATION: clear to auscultation bilaterally Cardio: COMMON NORMALS: no JVD, regular rate, regular rhythm and No murmurs present (Cardio) RATE: regular rate RHYTHM: regular rhythm GI: COMMON NORMALS: Soft to palpation and No hepatosplenomegaly present AUSCULTATION: Yes normoactive bowel sounds PALPATION: Yes Soft to palpation, No Tenderness to palpation present (GI), No Guarding due to palpation present (GI) and Yes No hepatosplenomegaly present Neuro: SENSORIUM/ORIENTATION: Yes oriented to person, Yes oriented to place and Yes oriented to time Skin: COMMON NORMALS: no rashes or lesions noted GENERAL SKIN EXAM: no rashes or lesions noted Course Vital Signs: Vital signs: Vital Signs Temperature 98.1 F 03/12/21 07:19 Pulse Rate 75 03/12/21 07:19 Respiratory Rate 16 03/12/21 07:19 Blood Pressure 145/82 03/12/21 07:19 Pulse Oximetry 94 03/12/21 07:19 MDM - SOB/Dyspnea MDM Narrative: Medical decision making narrative: Hypoxic but easily supported by 2 L nasal cannula. Given Lasix in the ER is also noted of hyper kalemia which we verified by redraw. Was initially treated here. I contacted Dr. Juarez who seen the patient did his surgery 3 weeks ago the patient has a pleural effusion with some compression of the left lower lobe however the effusion is rather small Dr. Hernández did not think it was something that would necessarily need to be tapped Dr. Juarez will follow up on that. Discussed the hospitalist patient's been admitted he is aware that Dr. Juarez has been contacted as well. Lab Data: Labs: Lab Results 03/11/21 03/11/21 03/11/21 Range/Units 08:50 08:50 08:50 WBC 7.9 (4.0-10.0) 10^3/ uL RBC 3.90 L (4.1-5.3) 10^6/u L Hgb 11.9 (11.7-16.6) g/dL Hct 39.4 L (42.0-52.0) % MCV 101.0 H (80-94) fL MCH 30.5 (28.0-34.0) pg MCHC 30.2 (30.0-36.0) g/dL RDW 14.3 (12.1-15.1) % Plt Count 190 (130-400) 10^3/c mm MPV 10.7 H (7.4-10.4) fL Neut % (Auto) 69.6 % Lymph % (Auto) 19.4 % Tift % (Auto) 5.3 % Eos % (Auto) 3.8 % Baso % (Auto) 0.9 % Neut # (Auto) 5.47 (1.8-7.7) 10^3/u L Lymph # (Auto) 1.5 (0.8-4.8) 10^3/u L Tift # (Auto) 0.4 (0.2-0.9) 10^3/u L Eos # (Auto) 0.3 (0.0-0.8) 10^3/u L Baso # (Auto) 0.1 (0.0-0.1) 10^3/u L Nucleated RBC % (a uto) 0 % Nucleated RBCs # 0.0 /100WBC Specimen Type Sample Site ABG pH (7.35-7.45) ABG pCO2 (35-45) mmHg ABG pO2 (80.0-100.0) mmH g ABG HCO3 (22-26) mmol/L ABG O2 Saturation ABG Base Excess (-2.0-2.0) mmol/ L Guicho Test A-a O2 Gradient (5-10) mmHg Hematocrit (42-52) % Hgb O2 Saturation (95-100) % Carboxyhemoglobin (0.4-20.1) %THgb Methemoglobin (0.4-1.5) % Total Hemoglobin (14-18) g/dL Ionized Calcium (1.1-1.4) mmol/L O2 Delivery Device O2 Liters/Min % FiO2 % Social Media Marketing Manager ID Sodium 136 (136-145) mmol/L Potassium 7.0 H* (3.5-5.1) mmol/L Chloride 102 (98-107) mmol/L Carbon Dioxide 24 (22-29) mmol/L Anion Gap 17.0 (5-19) BUN 16 (6-20) mg/dL Creatinine 0.9 (0.7-1.2) mg/dL GFR Calculation 87.0 L (90-130) mL/min Glucose 255 H (65-115) mg/dL Calculated Osmolal ity 292 (285-295) mOsm/k g Calcium 9.0 (8.5-10.5) mg/dL Total Bilirubin 0.4 (0.15-1.2) mg/dL AST 14 (0-40) U/L ALT 14 (0-41) U/L Alkaline Phosphata se 160 H (40-130) IU/L NT-Pro-B Natriuret Pep 2184 H (0-125) pg/mL Total Protein 7.4 (6.6-8.7) g/dL Albumin 3.9 (3.5-5.2) g/dL Globulin 3.5 (1.3-4.6) g/dL Urine Color (Yellow) Urine Appearance (CLEAR) Urine pH (5-7) Ur Specific Gravit y (1.005-1.030) Urine Protein (Negative) Urine Glucose (UA) (Normal) Urine Ketones (Negative) Urine Blood (Negative) Urine Nitrate (Negative) Urine Bilirubin (Negative) Urine Urobilinogen (Negative) mg/dL Ur Leukocyte Rani ase (Negative) Urine RBC (0-2) /hpf Urine WBC (0-5) /hpf Ur Squamous Epith Cells (0-5) /hpf Amorphous Sediment Urine Bacteria (NONE) /hpf Urine Mucus /hpf 03/11/21 03/11/21 03/11/21 Range/Units 09:06 09:24 10:02 WBC (4.0-10.0) 10^3/ uL RBC (4.1-5.3) 10^6/u L Hgb (11.7-16.6) g/dL Hct (42.0-52.0) % MCV (80-94) fL MCH (28.0-34.0) pg MCHC (30.0-36.0) g/dL RDW (12.1-15.1) % Plt Count (130-400) 10^3/c mm MPV (7.4-10.4) fL Neut % (Auto) % Lymph % (Auto) % Tift % (Auto) % Eos % (Auto) % Baso % (Auto) % Neut # (Auto) (1.8-7.7) 10^3/u L Lymph # (Auto) (0.8-4.8) 10^3/u L Tift # (Auto) (0.2-0.9) 10^3/u L Eos # (Auto) (0.0-0.8) 10^3/u L Baso # (Auto) (0.0-0.1) 10^3/u L Nucleated RBC % (a uto) % Nucleated RBCs # /100WBC Specimen Type Arterial Sample Site Radial, left ABG pH 7.36 (7.35-7.45) ABG pCO2 44.1 (35-45) mmHg ABG pO2 65.6 L (80.0-100.0) mmH g ABG HCO3 25.0 (22-26) mmol/L ABG O2 Saturation 92.0 ABG Base Excess -0.6 (-2.0-2.0) mmol/ L Guicho Test Pos A-a O2 Gradient 10.5 H (5-10) mmHg Hematocrit 35.9 L (42-52) % Hgb O2 Saturation 88.3 L (95-100) % Carboxyhemoglobin 3.1 (0.4-20.1) %THgb Methemoglobin 1.0 (0.4-1.5) % Total Hemoglobin 11.7 L (14-18) g/dL Ionized Calcium 1.2 (1.1-1.4) mmol/L O2 Delivery Device Nc O2 Liters/Min 2.0 % FiO2 28.0 % Social Media Marketing Manager ID Cak Sodium 136.0 (136-145) mmol/L Potassium 6.4 H 7.0 H* (3.5-5.1) mmol/L Chloride (98-107) mmol/L Carbon Dioxide (22-29) mmol/L Anion Gap (5-19) BUN (6-20) mg/dL Creatinine (0.7-1.2) mg/dL GFR Calculation (90-130) mL/min Glucose 255.0 H (65-115) mg/dL Calculated Osmolal ity (285-295) mOsm/k g Calcium (8.5-10.5) mg/dL Total Bilirubin (0.15-1.2) mg/dL AST (0-40) U/L ALT (0-41) U/L Alkaline Phosphata se (40-130) IU/L NT-Pro-B Natriuret Pep (0-125) pg/mL Total Protein (6.6-8.7) g/dL Albumin (3.5-5.2) g/dL Globulin (1.3-4.6) g/dL Urine Color Yellow (Yellow) Urine Appearance Clear (CLEAR) Urine pH 6.5 (5-7) Ur Specific Gravit y 1.005 (1.005-1.030) Urine Protein 3+ H (Negative) Urine Glucose (UA) 4+ H (Normal) Urine Ketones 1+ H (Negative) Urine Blood 2+ H (Negative) Urine Nitrate Negative (Negative) Urine Bilirubin Neg (Negative) Urine Urobilinogen Norm (Negative) mg/dL Ur Leukocyte Rani ase Negative (Negative) Urine RBC 0-4 H (0-2) /hpf Urine WBC None (0-5) /hpf Ur Squamous Epith Cells 0-4 H (0-5) /hpf Amorphous Sediment Not Reportable Urine Bacteria Trace (NONE) /hpf Urine Mucus 1+ /hpf Discharge Plan Discharge Patient Disposition: Admitted As Inpatient Admit Provider: Cesario Delarosa Clinical Impression: Hyperkalemia, Congestive heart failure, ASHD (arteriosclerotic heart disease), Status post aorto-coronary artery bypass graft, HTN (hypertension) with goal to be determined, Diabetes Condition: Stable Coding Level of Care Code ED Lighting Fixtures Decorator for Mason Lipscomb
[2021-03-11 09:07] LABS: Basophils # 0.1 10^3/uL (0.0-0.1); Basophils % 0.9 %; Eosinophils # 0.3 10^3/uL (0.0-0.8); Eosinophils % 3.8 %; Hematocrit 39.4 % (42.0-52.0); Hemoglobin 11.9 g/dL (11.7-16.6); Lymphocytes # 1.5 10^3/uL (0.8-4.8); Lymphocytes % 19.4 %; Mean Corpuscular HGB Conc 30.2 g/dL (30.0-36.0); Mean Corpuscular Hemoglobin 30.5 pg (28.0-34.0); Mean Platelet Volume 10.7 fL (7.4-10.4); Monocytes # 0.4 10^3/uL (0.2-0.9); Monocytes % 5.3 %; Neutrophils # 5.47 10^3/uL (1.8-7.7); Neutrophils % 69.6 %; Nucleated Red Blood Cells % 0 %; Platelet Count 190 10^3/cmm (130-400); Red Cell Distribution Width 14.3 % (12.1-15.1); White Blood Count 7.9 10^3/uL (4.0-10.0)
[2021-03-11 09:18] LABS: ABG PCO2 44.1 mmHg (35-45); ABG PH Result 7.36 (7.35-7.45); Alveolar-Arterial Oxygen Gradi 10.5 mmHg (5-10); Arterial Blood Gas Hematocrit 35.9 % (42-52); Base Excess ABG -0.6 mmol/L (-2.0-2.0); Blood Gas Allen Test Pos; Blood Gas Operator Identificat CAK; Blood Gas Sample Site Radial, left; Blood Gas Sample Type Arterial; Carboxyhemoglobin 3.1 %THgb (0.4-20.1); HGB O2 Sat 88.3 % (95-100); Ionized Calcium Level - ABG 1.2 mmol/L (1.1-1.4); Oxygen Device NC; PO2 ABG 65.6 mmHg (80.0-100.0); Potassium Level - ABG 6.4 mmol/L (3.5-5.0); Total Hemoglobin 11.7 g/dL (14-18)
[2021-03-11 09:28] LABS: Alanine Aminotransferase 14 U/L (0-41); Albumin Level 3.9 g/dL (3.5-5.2); Alkaline Phosphatase 160 IU/L (40-130); Aspartate Amino Transferase 14 U/L (0-40); Blood Urea Nitrogen 16 mg/dL (6-20); Carbon Dioxide 24 mmol/L (22-29); Chloride 102 mmol/L (98-107); Globulin 3.5 g/dL (1.3-4.6); Glucose 255 mg/dL (65-115); Osmolality Calculated 292 mOsm/kg (285-295); Sodium 136 mmol/L (136-145); Total Bilirubin 0.4 mg/dL (0.15-1.2); Total Protein 7.4 g/dL (6.6-8.7)
[2021-03-11] MEDS: FUROsemide 10 mg/mL SDV 4mL 40 MG IVP ×2 (09:31→18:28)
[2021-03-11] MEDS: ondansetron 2 mg/ML SDV 2 mL 4 MG IVP (09:31)
[2021-03-11] MEDS: morphine 4 mg/mL SDV 1 mL IVP (09:31)
[2021-03-11 09:33] LABS: NT Pro B Type Natriuretic Pept 2184 pg/mL (0-125)
[2021-03-11 10:02] LABS: Add Urine Culture? No; Add Urine Microscopic? YES; Bacteria Urine TRACE /hpf; Bilirubin Urine Neg (Negative); Blood Urine 2+ (Negative); Glucose Urine UA 4+ (Normal); Ketones Urine 1+ (Negative); Leukocyte Esterase Urine Negative (Negative); Mucus Urine 1+ /hpf; Nitrate Urine Negative (Negative); Protein Urine 3+ (Negative); RBC Urine 0-4 /hpf (0-2); Specific Gravity, Urine 1.005 (1.005-1.030); Squamous Epithelial Cell Urine 0-4 /hpf (0-5); Urine Appearance Clear (CLEAR); Urine Color Yellow (Yellow); Urobilinogen Urine Norm (Negative); pH Urine 6.5 (5-7)
--- NOTE | 2021-03-11 10:18 | CT_ITS ---
WS: [id number] CT CHEST ANGIOGRAPHY WITH REFORMATS HISTORY: dyspnea TECHNIQUE: Contiguous axial images are obtained through the chest during arterial injection of intrav enous contrast. Images are reconstructed to evaluate the pulmonary arteries. MIP imaging also reviewe d. All CT scans at [facility] use at least one of these dose optimization techniques: aut omated exposure control; mA and/or kV adjustment per patient size (includes targeted exams where dose is matched to clinical indication); or iterative reconstruction. CONTRAST: Omnipaque 350; 95 mL IV. DLP: 904.83 mGy.cm COMPARISON: None available. Study is limited by recent surgery. Patient was unable to elevate his arms above his head. Significan t artifact through the thorax. Adequate opacification of the proximal pulmonary arteries. No pulmonary emboli are identified to the lobar and portions of the subsegmental branches. Normal size aorta with mild atherosclerosis. Recent changes of CABG. There is a small amount of soft tissue thickening in the anterior mediastinum which is probably all postsurgical. No collection or abscess. There is a small layering LEFT pleural effusion with LEFT lower lobe atelectasis. Small mediastinal a nd hilar lymph nodes. Some these lymph nodes measure up to 1 cm which are probably reactive. Area of groundglass attenuation in the anterior RIGHT upper lobe is probably an area of pneumonitis. There ar e a few additional scattered opacities throughout the RIGHT lung. No adrenal mass. Stomach is moderately distended with food and air. Increased thoracic kyphosis. CT/CT angio chest PE protcl [id number] IMPRESSION: 1. No pulmonary embolism. 2. Small LEFT pleural effusion with LEFT lower lobe compressive atelectasis. 3. There are a few scattered pulmonary opacifications predominantly throughout the RIGHT lung which may be due to pneumonitis. Recommend follow-up chest CT i n 2-3 months to ensure resolution. 4. Recent CABG. No postsurgical complications are apparent.
[2021-03-11] MEDS: iohexol 350 mg/mL 100 mL Btl IV (10:30)
[2021-03-11] MEDS: insulin regular-human 100 units/1 mL 10 UNIT IVP (10:40)
[2021-03-11] MEDS: sodium polystyrene sulfonate 15 gm/60 mL Btl PO (10:42)
--- NOTE | 2021-03-11 14:24 | PM.HP ---
Providers/Chief Complaint Admitting Physician: Cesario Delarosa MD Primary Care Provider: Enrique Avila MD Chief Complaint: LOW O2 LEVELS POST SURGERY History of Present Illness Carlos Bender is a 55 year old male with past medical history of hypertension diabetes coronary artery disease ( 90% stenosis of the left main, along with significant disease of the LAD and circumflex arteries. status post CABG ( 02/15/21) Coronary artery bypass grafting x3 (1 artery and 2 veins) utilizing in situ left internal mammary artery to left anterior descending artery, reverse saphenous vein graft aorta to the diagonal artery, reverse saphenous vein graft aorta to the obtuse marginal branch of circumflex artery. Came in today with chief complaint of worsening shortness of breath post CABG.shortness of breath is worse on lying down, denies any PND, shortness of breath was worse last night he was desaturating to 80s on room air, apart from the shortness of breath he denies any other complaint, denies any chest pain, palpitation, diaphoresis, nausea , vomiting, headache, fever, cough, sick contacts. Upon arrival in the ER he was worked up for above-mentioned complaint. Pertinent imaging studies: C.T Angio chest with contrast: No pulmonary embolism.Small LEFT pleural effusion with LEFT lower lobe compressive atelectasis. X-ray chest: patchy opacity over the left diaphragm which may represent consolidation, atelectasis or effusion. The right lung is clear. EKG: Sinus rhythm, no ST-T changes. Pertinent labs: WBC:7.9, H&H: 11.9/39, PLT : 190, serum sodium:136, serum potassium:7 , AST:14, ALT:14, ALP: 160, proBNP:2184 troponin: Currently pending Urinalysis: Clean, ABG: pH: 7.36, PCO2:44, PO2: 65, FiO2:28 % ECA medication: Hyperkalemia cocktail: (Kayexalate: 15 GM PO ONCE , calcium gluconate: 2 GM, regular insulin 10 unit, 40 mg IV x1 dose) Review of Systems Const: Denies: fever(s), chills, body aches, change in appetite or diaphoresis Card: Denies: leg pain with exertion Resp: Denies: productive cough, wheezing or pain on inspiration GI: Denies: abdominal pain, nausea, vomiting or diarrhea : Denies: flank pain or difficulty urinating Musc: Denies: back pain, extremity pain or extremity swelling Neuro: Denies: headache(s), difficulty walking or confusion Medications/Allergies Home Medications Medication Instructions Recorded Confirmed Last Taken Type aspirin 81 mg tablet,delayed 81 mg PO DAILY@08 tab 12/05/19 03/11/21 03/10/21 History release celecoxib 200 mg capsule 200 mg PO BID@08,12/05/19 03/11/21 03/10/21 History melatonin 3 mg tablet 3 mg PO BEDTIME PRN tab 12/05/19 03/11/21 02/14/21 History metformin 1,000 mg tablet,extended 1,000 mg PO BID@,12/05/19 03/11/21 03/10/21 History release 24hr nitroglycerin 0.4 mg sublingual 0.4 mg SUBLINGUAL Q5M PRN #100 each 12/09/20 03/11/21 02/01/21 Rx tablet pantoprazole 40 mg tablet,delayed 40 mg PO BID@, tab 12/09/20 03/11/21 03/10/21 History release pregabalin 150 mg capsule 300 mg PO BID@, cap 12/09/20 03/11/21 03/10/21 History glyburide 2.5 mg PO DAILY@08 #0 12/21/20 03/11/21 03/10/21 History tamsulosin 0.4 mg PO DAILY@2200 #0 12/21/20 03/11/21 03/10/21 History hydralazine 50 mg tablet 50 mg PO BID@, tab 03/04/21 03/11/21 03/10/21 History sulfamethoxazole 800 1 tab PO BID #14 tab 03/04/21 03/11/21 03/10/21 Rx mg-trimethoprim 160 mg tablet finishing 03/11/21 Cymbalta 60 mg PO DAILY@03/11/21 03/11/21 03/10/21 History Plavix 75 mg PO DAILY@03/11/21 03/11/21 03/10/21 History Zetia 10 mg PO DAILY@03/11/21 03/11/21 03/10/21 History amlodipine 10 mg PO DAILY@03/11/21 03/11/21 03/10/21 History atorvastatin 40 mg PO BEDTIME@2200 03/11/21 03/11/21 03/10/21 History dulaglutide [Trulicity] 1.5 mg SUBCUT Q7D 03/11/21 03/11/21 03/10/21 History hydrochlorothiazide 25 mg PO DAILY@08 03/11/21 03/11/21 03/10/21 History isosorbide mononitrate 30 mg PO DAILY 03/11/21 03/11/21 Unknown History losartan 100 mg PO DAILY@03/11/21 03/11/21 03/10/21 History metoprolol tartrate 100 mg PO BID@,03/11/21 03/11/21 03/10/21 History Allergies Allergy/AdvReac Type Severity Reaction Status Date / Time codeine Allergy Unknown Verified 03/04/21 11:05 gabapentin Allergy Unknown Verified 03/04/21 11:05 PFSH Acute PFSH: Medical History (Updated 03/11/21 @ 14:54 by Cesario Delarosa MD) ASHD (arteriosclerotic heart disease) Generalized anxiety disorder HTN (hypertension) with goal to be determined Left main coronary artery disease Major depressive disorder, recurrent episode, moderate with anxious distress Nicotine dependence, cigarettes, uncomplicated Surgical History (Updated 03/04/21 @ 11:42 by Graeme Juarez MD) Status post aorto-coronary artery bypass graft Family History Father Myocardial infarct Grandmother Myocardial infarct Family/Other Myocardial infarct Other CAD (coronary artery disease) Social History Smoking and tobacco status: current every day smoker cigarettes Packs smoked per day: 1 and smokeless tobacco Smokeless tobacco user: chewing tobacco Smokeless tobacco details: 1 can 2- 3 days Quit status (tobacco): considering quitting Second hand smoke exposure: Yes Smoking risk assessment/counseling performed?: No Alcohol intake: never Vitals/I&O/Wt Last Vital Signs Temp 98.9 F 03/11/21 14:19 Pulse 80 03/11/21 14:19 Resp 18 03/11/21 14:19 BP 158/86 03/11/21 14:19 Pulse Ox 95 03/11/21 14:19 03/10/21 03/11/21 03/11/21 22:59 06:59 14:59 Intake Total 70 / 70 Balance 70 / 70 Weight last 48 hrs Weight 106.594 kg Physical Exam Const: COMMON NORMALS: patient oriented x3 HENMT: COMMON NORMALS: normocephalic and atraumatic HEAD & SCALP: normocephalic and atraumatic Chest: CHEST: Yes Symmetrical chest wall rise Resp: EFFORT & INSPECTION: Yes symmetric chest movement OTHER: Diminished air entry over left lung field, right-sided air entry is normal, no wheezing, rhonchi or crackles appreciated. Cardio: COMMON NORMALS: regular rate, regular rhythm, S1 normal heart sound present, S2 normal heart sound present, No gallops present (Cardio), No murmurs present (Cardio), No rub (Cardio) and Peripheral pulses 2+ throughout RATE: regular rate RHYTHM: regular rhythm HEART SOUNDS: S1 normal heart sound present and S2 normal heart sound present PERIPHERAL PULSES: Peripheral pulses 2+ throughout GI: COMMON NORMALS: Normal to inspection, nondistended, normoactive bowel sounds present, Soft to palpation, non-tender, No hepatosplenomegaly present and no masses AUSCULTATION: Yes normoactive bowel sounds PALPATION: Yes Soft to palpation and Yes No hepatosplenomegaly present RECTAL EXAM: Yes deferred OTHER: Obese abdomen Extremity: COMMON NORMALS: no clubbing, cyanosis or edema and no pedal edema Neuro: COMMON NORMALS: patient oriented x3 Data : 03/11/21 08:50 03/11/21 10:02 A&P Assessment and plan (1) Heart failure: Decompensated HFpEF Patient presented with worsening shortness of breath, orthopnea, elevated Pro BNP, pleural effusion. Lasix 40 IV q12 h daily Intake output charting Daily weight k>4 ,mg > 2 Status: Acute (2) Hyperkalemia: Likely secondary to medication: Patient is on Bactrim at home, dietary contributions cannot be ruled out. Monitor BMP Status: Acute (3) Status post aorto-coronary artery bypass graft: Status: Acute (4) HTN (hypertension) with goal to be determined: Status: Acute (5) Diabetes: Lantus 10u sc at night LDSSI Monitor fingerstick glucose Status: Acute (6) CAD (coronary artery disease): Status: Acute Additional A&P Information Code Status :Full code DVT PPX: Lovenox [address] [facility] Necessity Statement*: Patient needs to be in hospital for management of decompensated heart failure. Anticipated length of stay greater than 2 midnights. Coding Level of Care Code Acute Chief Human Resources Officer for Mason Lipscomb Diagnoses Heart failure I50.9 Hyperkalemia E87.5 Status post aorto-coronary artery bypass graft Z95.1 HTN (hypertension) with goal to be determined I10 Diabetes E11.9 CAD (coronary artery disease) I25.10
[2021-03-11 15:37] LABS: Troponin(5th) Baseline 28 ng/L (0-15)
[2021-03-11] MEDS: enoxaparin 40 mg/0.4 mL Syringe SUBCUT (15:48)
[2021-03-11] MEDS: sodium chloride 0.9% 1,000 ML 100 ML IV (15:49)
[2021-03-11 16:57] LABS: Glucose Point of Care 161 mg/dL (70-110)
[2021-03-11 17:25] LABS: Troponin 5 2HR 28.83 ng/L (0-15); Troponin 5 2HR Delta 0.83 ABS# (0-10)
[2021-03-11] MEDS: docusate sodium 100 mg Capsule PO (17:39)
--- NOTE | 2021-03-11 18:41 | PC.NURSE ---
Telephone order from Dr. Delarosa for strict I&O. IV fluids discontinued.
[2021-03-11 20:11] LABS: Blood Urea Nitrogen 15 mg/dL (6-20); Calcium 8.8 mg/dL (8.5-10.5); Carbon Dioxide 23 mmol/L (22-29); Chloride 100 mmol/L (98-107); Glucose 182 mg/dL (65-115); Osmolality Calculated 285 mOsm/kg (285-295); Sodium 135 mmol/L (136-145)
[2021-03-11 20:13] LABS: Anion Gap 17.3 (5-19); Potassium 5.3 mmol/L (3.5-5.1); Troponin 5 6HR 28.66 ng/L (0-15); Troponin 5 6HR Delta 0.66 ng/L (0-12)
[2021-03-11 20:28] LABS: Glucose Point of Care 212 mg/dL (70-110)
--- NOTE | 2021-03-11 20:35 | PM.CONSULT ---
Providers/Reason For Consult Consulting Physican/Specialty*: Cardiology Reason for Consult*: Decompensated systolic heart failure Attending Physician: Cesario Delarosa MD Primary Care Provider: Enrique Avila MD History of Present Illness History of Present Illness Carlos Bender is a 55 year old male past medical history significant for recent CABG for multivessel coronary disease, systolic heart failure with moderately depressed LV function was admitted with worsening of shortness of breath PND orthopnea found to be in decompensated systolic heart failure. He was also noted to have pleural effusion mostly secondary to post CABG. Patient was started on IV Lasix upon admission 40 mg twice a day. Since his admission he has put out a fair amount of -1 L of fluid. Overall he is feeling much better and improved. He still is breathing on oxygen and has not been able to lay flat but think that he is progressing and getting better. He denies any chest pain. He denies fever chills nausea vomiting diarrhea. Review of Systems Const: Denies: fever(s), chills, body aches, change in appetite or diaphoresis ENMT: Denies: throat pain, ear or mastoid pain, nasal discharge or nasal congestion Card: Denies: leg pain with exertion Resp: Denies: productive cough, wheezing or pain on inspiration GI: Denies: abdominal pain, nausea, vomiting or diarrhea : Denies: flank pain or difficulty urinating Musc: Denies: back pain, extremity pain or extremity swelling Skin/Breast: Denies: rash or pruritus Neuro: Denies: headache(s), difficulty walking or confusion Endo: Denies: polyuria or polydipsia Meds/Allergies Home Medications and Allergies Home Medications Medication Instructions Recorded Confirmed Last Taken Type aspirin 81 mg tablet,delayed 81 mg PO DAILY@08 tab 12/05/19 03/11/21 03/10/21 History release celecoxib 200 mg capsule 200 mg PO BID@12/05/19 03/11/21 03/10/21 History melatonin 3 mg tablet 3 mg PO BEDTIME PRN tab 12/05/19 03/11/21 02/14/21 History metformin 1,000 mg tablet,extended 1,000 mg PO BID@,12/05/19 03/11/21 03/10/21 History release 24hr nitroglycerin 0.4 mg sublingual 0.4 mg SUBLINGUAL Q5M PRN #100 each 12/09/20 03/11/21 02/01/21 Rx tablet pantoprazole 40 mg tablet,delayed 40 mg PO BID@, tab 12/09/20 03/11/21 03/10/21 History release pregabalin 150 mg capsule 300 mg PO BID@08, cap 12/09/20 03/11/21 03/10/21 History glyburide 2.5 mg PO DAILY@08 #0 12/21/20 03/11/21 03/10/21 History tamsulosin 0.4 mg PO DAILY@2200 #0 12/21/20 03/11/21 03/10/21 History hydralazine 50 mg tablet 50 mg PO BID@, tab 03/04/21 03/11/21 03/10/21 History sulfamethoxazole 800 1 tab PO BID #14 tab 03/04/21 03/11/21 03/10/21 Rx mg-trimethoprim 160 mg tablet finishing 03/11/21 Cymbalta 60 mg PO DAILY@03/11/21 03/11/21 03/10/21 History Plavix 75 mg PO DAILY@03/11/21 03/11/21 03/10/21 History Zetia 10 mg PO DAILY@03/11/21 03/11/21 03/10/21 History amlodipine 10 mg PO DAILY@03/11/21 03/11/21 03/10/21 History atorvastatin 40 mg PO BEDTIME@2200 03/11/21 03/11/21 03/10/21 History dulaglutide [Trulicity] 1.5 mg SUBCUT Q7D 03/11/21 03/11/21 03/10/21 History hydrochlorothiazide 25 mg PO DAILY@03/11/21 03/11/21 03/10/21 History isosorbide mononitrate 30 mg PO DAILY 03/11/21 03/11/21 Unknown History losartan 100 mg PO DAILY@03/11/21 03/11/21 03/10/21 History metoprolol tartrate 100 mg PO BID@,03/11/21 03/11/21 03/10/21 History Allergies Allergy/AdvReac Type Severity Reaction Status Date / Time codeine Allergy Unknown Verified 03/04/21 11:05 gabapentin Allergy Unknown Verified 03/04/21 11:05 Current Medications Current Medications Generic Name Dose Route Start Last Admin Trade Name David PRN Reason Stop Dose Admin Docusate Sodium 100 mg 03/11/21 18:00 03/11/21 17:39 Docusate Sodium 100 Mg Capsule PO 100 mg BID SOTO Administration Enoxaparin Sodium 40 mg 03/11/21 14:15 03/11/21 15:48 Enoxaparin 40 Mg/0.4 Ml Syringe SUBCUT 40 mg Q24H SOTO Administration Furosemide 40 mg 03/11/21 19:00 03/11/21 18:28 Furosemide 10 Mg/Ml Sdv 4ml IVP 40 mg Q12H SOTO Administration Insulin Aspart 0 unit 03/11/21 18:00 03/11/21 17:40 Insulin Aspart 100 Unit/1 Ml SUBCUT 2 unit WM&BEDTIME SOTO Administration Protocol PFSH Acute PFSH: Medical History ASHD (arteriosclerotic heart disease) Generalized anxiety disorder HTN (hypertension) with goal to be determined Left main coronary artery disease Major depressive disorder, recurrent episode, moderate with anxious distress Nicotine dependence, cigarettes, uncomplicated Surgical History Status post aorto-coronary artery bypass graft Family History Father Myocardial infarct Grandmother Myocardial infarct Family/Other Myocardial infarct Other CAD (coronary artery disease) Social History Smoking and tobacco status: current every day smoker cigarettes Packs smoked per day: 1 and smokeless tobacco Smokeless tobacco user: chewing tobacco Smokeless tobacco details: 1 can 2- 3 days Quit status (tobacco): considering quitting Second hand smoke exposure: Yes Smoking risk assessment/counseling performed?: No Alcohol intake: never Dietary Habits: Current diet type/program: regular Vitals/I&O/Wt Last Vital Signs Temp 98.6 F 03/11/21 19:40 Pulse 84 03/11/21 19:40 Resp 18 03/11/21 19:40 BP 149/76 03/11/21 19:40 Pulse Ox 91 03/11/21 19:40 04/03/11/21 03/11/21 06:59 14:59 22:59 Intake Total 769 / 839 Output Total 820 / 820 Balance - Weight last 48 hrs Weight 235 lb Physical Exam Narrative: EXAM NARRATIVE: GENERAL: Patient is alert, awake and oriented x3. NECK: No jugular vein distension. HEENT: No cyanosis. No icterus. No pallor. HEART: Regular S1 and S2. No murmur, rub or gallop. LUNGS: Decreased breath sound on auscultation CENTRAL NERVOUS SYSTEM: Grossly nonfocal. EXTREMITIES: Lower extremities without edema bilaterally. A&P Assessment and plan (1) CAD (coronary artery disease): Stable from a coronary disease perspective. Continue current regimen Status: Acute Qualifiers: Coronary Disease-Associated Artery/Lesion type: [place] artery [place] vs. transplanted heart: [place] heart Associated angina: without angina Qualified Code(s): I25.10 - Atherosclerotic heart disease of [place] coronary artery without angina pectoris (2) HTN (hypertension) with goal to be determined: Well-controlled continue medicine. Status: Acute (3) Congestive heart failure: Continue IV diuresis with 40 mg twice a day of Lasix along with potassium replacement as suggested by medicine. Once euvolemic may be by Monday consider switching patient to 40 mg p.o. Lasix and 20 mg p.o. of potassium chloride before discharge. Patient will be provided heart failure education. Patient has decompensated systolic heart failure. Status: Acute Qualifiers: Heart failure type: systolic Heart failure chronicity: acute on chronic Qualified Code(s): I50.23 - Acute on chronic systolic (congestive) heart failure Consult Attestations Medical Necessity Statement: Patient require continuation hospitalization for above defined care. Coding Level of Care Code New Pt Acute Cnc Machinist for Chg Fwd Patient Type New History Detailed Exam Detailed Medical Decision Making Moderate Complexity Diagnoses CAD (coronary artery disease) I25.10 Coronary Disease-Associated Artery/Lesion type: [place] artery [place] vs. transplanted heart: [place] heart Associated angina: without angina HTN (hypertension) with goal to be determined I10 Congestive heart failure I50.23 Heart failure type: systolic Heart failure chronicity: acute on chronic
[2021-03-11] MEDS: hyDRALAzine 50 mg Tablet PO (21:33)
[2021-03-11] MEDS: tamsulosin 0.4 mg Capsule PO (21:33)
[2021-03-11] MEDS: CELEcoxib 200 mg Capsule PO (21:33)
[2021-03-11] MEDS: pregabalin 150 mg Capsule 300 MG PO (21:33)
[2021-03-11] MEDS: pantoprazole DR 40 mg Tablet PO (21:33)
[2021-03-11] MEDS: atorvastatin 40 mg Tablet PO (21:33)
[2021-03-11] MEDS: metoprolol tartrate 50 mg Tablet 100 MG PO (21:33)
[2021-03-11] MEDS: insulin glargine 100 units/1 mL 10 UNIT SUBCUT (21:34)
[2021-03-12] VITALS (11 sets, daily range): BP systolic 119–151; BP diastolic 71–82; PULSE 69–83; RESP 16–18; TEMP 36.7–37.2; O2SAT 93–96
[2021-03-12] MEDS: FUROsemide 10 mg/mL SDV 4mL 40 MG IVP ×2 (06:02→17:54)
[2021-03-12 06:04] LABS: Basophils # 0.1 10^3/uL (0.0-0.1); Basophils % 1.2 %; Eosinophils # 0.6 10^3/uL (0.0-0.8); Hematocrit 37.8 % (42.0-52.0); Hemoglobin 11.5 g/dL (11.7-16.6); Lymphocytes # 2.2 10^3/uL (0.8-4.8); Lymphocytes % 34.6 %; Mean Corpuscular HGB Conc 30.4 g/dL (30.0-36.0); Mean Corpuscular Hemoglobin 30.4 pg (28.0-34.0); Mean Platelet Volume 10.8 fL (7.4-10.4); Monocytes # 0.4 10^3/uL (0.2-0.9); Monocytes % 6.8 %; Neutrophils % 47.9 %; Nucleated Red Blood Cells % 0 %; Platelet Count 175 10^3/cmm (130-400); Red Blood Count 3.78 10^6/uL (4.1-5.3); White Blood Count 6.5 10^3/uL (4.0-10.0)
[2021-03-12 06:29] LABS: Alanine Aminotransferase 13 U/L (0-41); Albumin Level 3.5 g/dL (3.5-5.2); Alkaline Phosphatase 134 IU/L (40-130); Anion Gap 15.8 (5-19); Aspartate Amino Transferase 12 U/L (0-40); Blood Urea Nitrogen 15 mg/dL (6-20); Calcium 8.7 mg/dL (8.5-10.5); Carbon Dioxide 29 mmol/L (22-29); Chloride 100 mmol/L (98-107); Globulin 3.2 g/dL (1.3-4.6); Glucose 214 mg/dL (65-115); Magnesium 1.8 mg/dL (1.7-2.3); Osmolality Calculated 297 mOsm/kg (285-295); Potassium 4.8 mmol/L (3.5-5.1); Sodium 140 mmol/L (136-145); Total Bilirubin 0.4 mg/dL (0.15-1.2); Total Protein 6.7 g/dL (6.6-8.7)
[2021-03-12 06:29] LABS: Glucose Point of Care 294 mg/dL (70-110)
[2021-03-12] MEDS: losartan 50 mg Tablet 100 MG PO (09:33)
[2021-03-12] MEDS: hydroCHLOROthiazide 25 mg Tablet PO (09:33)
[2021-03-12] MEDS: hyDRALAzine 50 mg Tablet PO ×2 (09:33→21:50)
[2021-03-12] MEDS: aspirin 81 mg EC Tablet PO (09:33)
[2021-03-12] MEDS: ezetimibe 10 mg Tablet PO (09:33)
[2021-03-12] MEDS: metoprolol tartrate 50 mg Tablet 100 MG PO ×2 (09:33→21:50)
[2021-03-12] MEDS: duloxetine 60 mg Capsule PO (09:33)
[2021-03-12] MEDS: pregabalin 150 mg Capsule 300 MG PO ×2 (09:33→21:50)
[2021-03-12] MEDS: clopidogrel 75 mg Tablet PO (09:34)
[2021-03-12] MEDS: CELEcoxib 200 mg Capsule PO ×2 (09:34→21:50)
[2021-03-12] MEDS: pantoprazole DR 40 mg Tablet PO ×2 (09:34→21:50)
[2021-03-12] MEDS: docusate sodium 100 mg Capsule PO ×2 (09:34→17:53)
[2021-03-12] MEDS: amlodipine 10 mg Tablet PO (09:34)
[2021-03-12] MEDS: isosorbide mononitrate ER 30 mg Tablet PO (09:34)
--- NOTE | 2021-03-12 10:41 | PM.PN ---
Vitals/I&O/Wt Last Vital Signs Temp 98.1 F 03/12/21 07:19 Pulse 75 03/12/21 07:19 Resp 16 03/12/21 07:19 BP 145/82 03/12/21 09:33 Pulse Ox 94 03/12/21 07:19 03/11/21 03/12/21 03/12/21 22:59 06:59 14:59 Intake Total 769 / 839 140 / 140 Output Total 1320 / 1320 1425 / 2745 475 / 475 Balance -551 / -481 -1425 / -1906 -335 / -335 Weight last 48 hrs Weight 107.411 kg Weight 106.594 kg Physical Exam Const: COMMON NORMALS: patient oriented x3 HENMT: COMMON NORMALS: normocephalic and atraumatic HEAD & SCALP: normocephalic and atraumatic Chest: CHEST: Yes Symmetrical chest wall rise Resp: EFFORT & INSPECTION: Yes symmetric chest movement OTHER: Diminished air entry over left lung field, right-sided air entry is normal, no wheezing, rhonchi or crackles appreciated. Cardio: COMMON NORMALS: regular rate, regular rhythm, S1 normal heart sound present, S2 normal heart sound present, No gallops present (Cardio), No murmurs present (Cardio), No rub (Cardio) and Peripheral pulses 2+ throughout RATE: regular rate RHYTHM: regular rhythm HEART SOUNDS: S1 normal heart sound present and S2 normal heart sound present PERIPHERAL PULSES: Peripheral pulses 2+ throughout GI: COMMON NORMALS: Normal to inspection, nondistended, normoactive bowel sounds present, Soft to palpation, non-tender, No hepatosplenomegaly present and no masses AUSCULTATION: Yes normoactive bowel sounds PALPATION: Yes Soft to palpation and Yes No hepatosplenomegaly present RECTAL EXAM: Yes deferred OTHER: Obese abdomen Extremity: COMMON NORMALS: no clubbing, cyanosis or edema and no pedal edema Neuro: COMMON NORMALS: patient oriented x3 Data : 03/12/21 05:06 03/12/21 05:06 A&P Assessment and plan (1) Heart failure: Decompensated HFpEF Patient presented with worsening shortness of breath, orthopnea, elevated Pro BNP, pleural effusion. Lasix 40 IV q12 h daily Losartan 100 mg po daily MT 100 MG Q12 H DAILY Intake output charting Daily weight k>4 ,mg > 2 Appreciate Cardiology Rec Status: Acute (2) Hyperkalemia: Resolved Likely secondary to medication: Patient is on Bactrim at home, dietary contributions cannot be ruled out. Monitor BMP Status: Acute (3) Status post aorto-coronary artery bypass graft: Aspirin 81 mg po daily Plavix 75 mg po daily Lipitor 40 mg po daily Imdur 30 mg po daily Status: Acute (4) HTN (hypertension) with goal to be determined: Status: Acute (5) Diabetes: Lantus 15u sc at night LDSSI Monitor fingerstick glucose Status: Acute (6) CAD (coronary artery disease): Status: Acute Additional A&P Information Code Status :Full code DVT PPX: Lovenox 40 mg sc daily Attestations Medical Necessity Statement*: Patient needs to be in hospital for the mangament of heart failure. sob, pleural effusion. Coding Level of Care Code Acute Vice President Talent Management for [employer] Fwd Diagnoses Heart failure I50.9 Hyperkalemia E87.5 Status post aorto-coronary artery bypass graft Z95.1 HTN (hypertension) with goal to be determined I10 Diabetes E11.9 CAD (coronary artery disease) I25.10
[2021-03-12 10:53] LABS: Glucose Point of Care 291 mg/dL (70-110)
--- NOTE | 2021-03-12 11:11 | PC.RESP ---
Smoking Cessation information sent to patient
--- NOTE | 2021-03-12 13:42 | PC.CHAP ---
Pastoral Care Encounter/Spiritual Assessment Type of Contact [] Declined adult and pediatric neurologist visit [] Patient/Family/Request visit [] Outpatient visit [] Follow-up visit [] Physician referral [] Code/Alert [] Routine visit [] Staff referral [] Actively dying [xx] Patient sleeping [] Family support [] [] Out of room [] Palliative care [] [] Receiving care in room [] Pre-surgical visit [] Trauma [] Long length of stay [] ICU visit [] Other: Relational/Emotional Strength [] Patient feels connected with others/family/visitors/staff [] Distress [] Loneliness/isolation [] Abandonment Spirituality of Patient [] Person of Yajaira [] Attends Sikhism of their Yajaira [] Believes in Prayer [] Reads Bible or Jehovah'S Witness materials [] There are Spiritual issues to be addressed Product Builder Interventions [] Prayer [] Active listening [] Non-anxious presence [] Spiritual/emotional support [] Crisis/trauma care [] Spiritual counseling [] Bereavement support [] Provided bereavement packet [] Provided Bible/devotional materials [] Provided toy/stuffed animal, coloring book to patient or family member [] Provided Communion [] Anointing/[place] [] Salvation [] Completed spiritual assessment [] Other: Impact on Illness or Injury [] Angry [] Fearful [] Anxious [] Often cries [] Exhaustion [] Unable to work [] Unable to attend baptist [] Unable to walk/stand [] Unable to read [] Unable to drive [] Unable to eat/drink [] Unable to sleep [] Unable to be with family [] Patient intubated [] Other: Summary Follow up needed Time spent with patient
[2021-03-12] MEDS: enoxaparin 40 mg/0.4 mL Syringe SUBCUT (14:45)
[2021-03-12 16:32] LABS: Glucose Point of Care 220 mg/dL (70-110)
[2021-03-12 21:15] LABS: Glucose Point of Care 337 mg/dL (70-110)
[2021-03-12] MEDS: tamsulosin 0.4 mg Capsule PO (21:49)
[2021-03-12] MEDS: atorvastatin 40 mg Tablet PO (21:50)
[2021-03-12] MEDS: insulin glargine 100 units/1 mL 15 UNIT SUBCUT (21:51)
[2021-03-13] VITALS (8 sets, daily range): BP systolic 103–144; BP diastolic 65–83; PULSE 70–78; RESP 16–18; TEMP 36.5–37.1; O2SAT 86–96; BMI 34.2
[2021-03-13] MEDS: FUROsemide 10 mg/mL SDV 4mL 40 MG IVP (06:18)
[2021-03-13 06:33] LABS: Glucose Point of Care 277 mg/dL (70-110)
[2021-03-13 06:57] LABS: Basophils # 0.1 10^3/uL (0.0-0.1); Basophils % 1.1 %; Eosinophils # 0.6 10^3/uL (0.0-0.8); Eosinophils % 8.9 %; Hematocrit 39.8 % (42.0-52.0); Hemoglobin 12.3 g/dL (11.7-16.6); Lymphocytes # 2.3 10^3/uL (0.8-4.8); Mean Corpuscular HGB Conc 30.9 g/dL (30.0-36.0); Mean Corpuscular Hemoglobin 29.7 pg (28.0-34.0); Mean Corpuscular Volume 96.1 fL (80-94); Mean Platelet Volume 10.5 fL (7.4-10.4); Monocytes # 0.4 10^3/uL (0.2-0.9); Monocytes % 6.5 %; Neutrophils # 3.27 10^3/uL (1.8-7.7); Nucleated Red Blood Cells % 0 %; Platelet Count 203 10^3/cmm (130-400); Red Blood Count 4.14 10^6/uL (4.1-5.3); Red Cell Distribution Width 13.7 % (12.1-15.1); White Blood Count 6.7 10^3/uL (4.0-10.0)
[2021-03-13 07:36] LABS: Alanine Aminotransferase 14 U/L (0-41); Albumin Level 3.5 g/dL (3.5-5.2); Alkaline Phosphatase 128 IU/L (40-130); Anion Gap 12.6 (5-19); Aspartate Amino Transferase 14 U/L (0-40); Blood Urea Nitrogen 23 mg/dL (6-20); Calcium 8.7 mg/dL (8.5-10.5); Carbon Dioxide 30 mmol/L (22-29); Chloride 98 mmol/L (98-107); Glucose 277 mg/dL (65-115); Magnesium 2.1 mg/dL (1.7-2.3); Osmolality Calculated 296 mOsm/kg (285-295); Potassium 4.6 mmol/L (3.5-5.1); Sodium 136 mmol/L (136-145); Total Bilirubin 0.4 mg/dL (0.15-1.2); Total Protein 6.5 g/dL (6.6-8.7)
[2021-03-13] MEDS: hyDRALAzine 50 mg Tablet PO (08:02)
[2021-03-13] MEDS: amlodipine 10 mg Tablet PO (08:02)
[2021-03-13] MEDS: hydroCHLOROthiazide 25 mg Tablet PO (08:03)
[2021-03-13] MEDS: clopidogrel 75 mg Tablet PO (08:04)
[2021-03-13] MEDS: metoprolol tartrate 50 mg Tablet 100 MG PO (08:04)
[2021-03-13] MEDS: aspirin 81 mg EC Tablet PO (08:04)
[2021-03-13] MEDS: CELEcoxib 200 mg Capsule PO (08:04)
[2021-03-13] MEDS: docusate sodium 100 mg Capsule PO (08:04)
[2021-03-13] MEDS: duloxetine 60 mg Capsule PO (08:04)
[2021-03-13] MEDS: isosorbide mononitrate ER 30 mg Tablet PO (08:04)
[2021-03-13] MEDS: pregabalin 150 mg Capsule 300 MG PO (08:04)
[2021-03-13] MEDS: losartan 50 mg Tablet 100 MG PO (08:05)
[2021-03-13] MEDS: ezetimibe 10 mg Tablet PO (08:08)
[2021-03-13] MEDS: pantoprazole DR 40 mg Tablet PO (08:09)
--- NOTE | 2021-03-13 10:15 | PC.CHAP ---
Pastoral Care Encounter/Spiritual Assessment Type of Contact [] Declined data entry processor visit [] Patient/Family/Request visit [] Outpatient visit [x] Follow-up visit [] Physician referral [] Code/Alert [] Routine visit [] Staff referral [] Actively dying [] Patient sleeping [] Family support [] [] Out of room [] Palliative care [] [] Receiving care in room [] Pre-surgical visit [] Trauma [] Long length of stay [] ICU visit [] Other: Relational/Emotional Strength [x] Patient feels connected with others/family/visitors/staff [] Distress [] Loneliness/isolation [] Abandonment Spirituality of Patient [] Person of Yajaira [] Attends Methodist of their Yajaira [] Believes in Prayer [] Reads Bible or Worship materials [x] There are Spiritual issues to be addressed Med Spa Manager Interventions [] Prayer [x] Active listening [x] Non-anxious presence [x] Spiritual/emotional support [] Crisis/trauma care [] Spiritual counseling [] Bereavement support [] Provided bereavement packet [] Provided Bible/devotional materials [] Provided toy/stuffed animal, coloring book to patient or family member [] Provided Communion [] Anointing/[place] [] Salvation [x] Completed spiritual assessment [] Other: Impact on Illness or Injury [] Angry [] Fearful [] Anxious [] Often cries [] Exhaustion [] Unable to work [] Unable to attend temple [] Unable to walk/stand [] Unable to read [] Unable to drive [] Unable to eat/drink [] Unable to sleep [] Unable to be with family [] Patient intubated [] Other: Summary Pt focused on being discharged today. Plans to go visit parents whom he has not seen for awhile. Pt in hospital and Dad has also been in another hospital so Pt plans to reconnect upon discharge. Expecting his son shortly to tack picker to leave hospital. Time spent with patient 5m
[2021-03-13 10:47] LABS: Glucose Point of Care 269 mg/dL (70-110)
--- NOTE | 2021-03-13 11:34 | PM.DCS ---
Discharge Providers Date of Admission: 03/11/21 13:29 Date of Discharge: March 13, 2021 Attending Provider at Admission: Cesario Delarosa MD Attending Provider at Discharge: Cesario Delarosa MD Primary Care Provider: Enrique Avila MD Diagnoses at Discharge Discharge Diagnosis (1) Congestive heart failure: Status: Resolved Qualifiers: Heart failure chronicity: acute on chronic Heart failure type: systolic Qualified Code(s): I50.23 - Acute on chronic systolic (congestive) heart failure (2) CAD (coronary artery disease): Status: Chronic Qualifiers: Associated angina: without angina Coronary Disease-Associated Artery/Lesion type: [place] artery [place] vs. transplanted heart: grindstone heart Qualified Code(s): I25.10 - Atherosclerotic heart disease of [place] coronary artery without angina pectoris (3) HTN (hypertension) with goal to be determined: Status: Chronic Reason for Visit Reason for Visit: LOW O2 LEVELS POST SURGERY Hospital Course Hospital Course Carlos Bender is a 55 year old male with past medical history of hypertension diabetes coronary artery disease ( 90% stenosis of the left main, along with significant disease of the LAD and circumflex arteries. status post CABG ( 02/15/21) Coronary artery bypass grafting x3 (1 artery and 2 veins) utilizing in situ left internal mammary artery to left anterior descending artery, reverse saphenous vein graft aorta to the diagonal artery, reverse saphenous vein graft aorta to the obtuse marginal branch of circumflex artery. Came in today with chief complaint of worsening shortness of breath post CABG.shortness of breath is worse on lying down, denies any PND, shortness of breath was worse last night he was desaturating to 80s on room air, apart from the shortness of breath he denies any other complaint, denies any chest pain, palpitation, diaphoresis, nausea , vomiting, headache, fever, cough, sick contacts. Upon arrival in the ER he was worked up for above-mentioned complaint. Pertinent imaging studies: C.T Angio chest with contrast: No pulmonary embolism.Small LEFT pleural effusion with LEFT lower lobe compressive atelectasis. X-ray chest: patchy opacity over the left diaphragm which may represent consolidation, atelectasis or effusion. The right lung is clear. EKG: Sinus rhythm, no ST-T changes. Pertinent labs: WBC:7.9, H&H: 11.9/39, PLT : 190, serum sodium:136, serum potassium:7 , AST:14, ALT:14, ALP: 160, proBNP:2184 troponin: Currently pending Urinalysis: Clean, ABG: pH: 7.36, PCO2:44, PO2: 65, FiO2:28 % ECA medication: Hyperkalemia cocktail: (Kayexalate: 15 GM PO ONCE , calcium gluconate: 2 GM, regular insulin 10 unit, 40 mg IV x1 dose). He was admitted for the management of Decompensated HFpEF,he was kept on Lasix 40 IV q12 h daily with daily Intake output charting and Daily weight, he responded well to i.v diuresis and at the time of discharge his SOB has resolved.He was discharged on lasix 40 mg po q12 h daily as well as oral pottasium. His hyperkalemia likely 2/2 to medication use was also resolved. He qualified for 3 Ls home oxygen on discharge likely 2/2 to underlying COPD. Patient responded well to the above medical management and is being discharge in stable condition. Bactrim was discontinued. He will follow cardiology as outpatient in a week time. Physical Exam Const: COMMON NORMALS: patient oriented x3 HENMT: COMMON NORMALS: normocephalic and atraumatic HEAD & SCALP: normocephalic and atraumatic Chest: CHEST: Yes Symmetrical chest wall rise Resp: EFFORT & INSPECTION: Yes symmetric chest movement OTHER: Diminished air entry over left lung field, right-sided air entry is normal, no wheezing, rhonchi or crackles appreciated. Cardio: COMMON NORMALS: regular rate, regular rhythm, S1 normal heart sound present, S2 normal heart sound present, No gallops present (Cardio), No murmurs present (Cardio), No rub (Cardio) and Peripheral pulses 2+ throughout RATE: regular rate RHYTHM: regular rhythm HEART SOUNDS: S1 normal heart sound present and S2 normal heart sound present PERIPHERAL PULSES: Peripheral pulses 2+ throughout GI: COMMON NORMALS: Normal to inspection, nondistended, normoactive bowel sounds present, Soft to palpation, non-tender, No hepatosplenomegaly present and no masses AUSCULTATION: Yes normoactive bowel sounds PALPATION: Yes Soft to palpation and Yes No hepatosplenomegaly present RECTAL EXAM: Yes deferred OTHER: Obese abdomen Extremity: COMMON NORMALS: no clubbing, cyanosis or edema and no pedal edema Neuro: COMMON NORMALS: patient oriented x3 Discharge Data Data Completed and Pending: Completed Studies During Hospitalization Category Date Time Status CT angio chest PE protcl [id number] Stat Cat Scan 03/11/21 10:18 Completed XR chest 1V lydia ble [id number] Stat Exams 03/11/21 08:31 Completed Pending at discharge Category Date Time Status Complete Blood Co unt w/Auto AM LABS Lab 03/14/21 04:00 Ordered Comprehensive Met abolic Panel AM LA BS Lab 03/14/21 04:00 Ordered Magnesium AM LABS Lab 03/14/21 04:00 Ordered Labs from last 24 hours 03/13/21 03/13/21 03/13/21 10:24 06:30 06:30 WBC RBC Hgb Hct MCV MCH MCHC RDW Plt Count MPV Neut % (Auto) Lymph % (Auto) [place] % (Auto) Eos % (Auto) Baso % (Auto) Neut # (Auto) Lymph # (Auto) [place] # (Auto) Eos # (Auto) Baso # (Auto) Nucleated RBC % (a uto) Nucleated RBCs # Sodium 136 Potassium 4.6 Chloride 98 Carbon Dioxide 30 H Anion Gap 12.6 BUN 23 H Creatinine 1.1 GFR Calculation 69.0 L Glucose 277 H POC Glucose 269 H 277 H Calculated Osmolal ity 296 H Calcium 8.7 Magnesium 2.1 Total Bilirubin 0.4 AST 14 ALT 14 Alkaline Phosphata se 128 Total Protein 6.5 L Albumin 3.5 Globulin 3.0 03/13/21 03/12/21 03/12/21 06:30 21:13 16:30 WBC 6.7 RBC 4.14 Hgb 12.3 Hct 39.8 L MCV 96.1 H MCH 29.7 MCHC 30.9 RDW 13.7 Plt Count 203 MPV 10.5 H Neut % (Auto) 49.0 Lymph % (Auto) 34.0 [place] % (Auto) 6.5 Eos % (Auto) 8.9 Baso % (Auto) 1.1 Neut # (Auto) 3.27 Lymph # (Auto) 2.3 [place] # (Auto) 0.4 Eos # (Auto) 0.6 Baso # (Auto) 0.1 Nucleated RBC % (a uto) 0 Nucleated RBCs # 0.0 Sodium Potassium Chloride Carbon Dioxide Anion Gap BUN Creatinine GFR Calculation Glucose POC Glucose 337 H 220 H Calculated Osmolal ity Calcium Magnesium Total Bilirubin AST ALT Alkaline Phosphata se Total Protein Albumin Globulin Vitals: Last Vital Signs Temp 97.7 F 03/13/21 08:00 Pulse 75 03/13/21 08:00 Resp 16 03/13/21 08:00 BP 144/82 03/13/21 08:05 Pulse Ox 96 03/13/21 08:00 Discharge Plan Discharge Patient Disposition: Home Condition: Stable Prescriptions: New Lasix 40 mg tablet 40 mg PO BID Qty: 60 RF: 1 potassium chloride 10 mEq capsule, extended release 10 meq PO DAILY Qty: 30 RF: 2 Continued melatonin [Melatin] 3 mg tablet 3 mg PO BEDTIME PRN (Reason: sleep) RF: 0 metformin 1,000 mg tablet extended release 24hr 1,000 mg PO BID@ RF: 0 aspirin [Adult Aspirin Regimen] 81 mg tablet,delayed release (DR/EC) 81 mg PO DAILY@ RF: 0 celecoxib [Celebrex] 200 mg capsule 200 mg PO BID@ RF: 0 pantoprazole [Protonix] 40 mg tablet,delayed release (DR/EC) 40 mg PO BID@ RF: 0 pregabalin [Lyrica] 150 mg capsule 300 mg PO BID@ RF: 0 nitroglycerin [Nitrostat] 0.4 mg tablet, sublingual 0.4 mg sublingual Q5M PRN (Reason: chest pain) Qty: 100 RF: 3 hydralazine 50 mg tablet 50 mg PO BID@ RF: 0 glyburide 2.5 mg Tablet 2.5 mg PO DAILY@ Qty: 0 RF: 0 tamsulosin 0.4 mg Capsule 0.4 mg PO DAILY@2199 Qty: 0 RF: 0 isosorbide mononitrate 30 mg Tablet Extended Release 24 Hr 30 mg PO DAILY RF: 0 Trulicity 1.5 mg/0.5 mL Pen Injector 1.5 mg SUBCUT Q7D RF: 0 losartan 50 mg tablet 100 mg PO DAILY@ RF: 0 atorvastatin 40 mg tablet 40 mg PO BEDTIME@2199 RF: 0 Plavix 75 mg tablet 75 mg PO DAILY@08 RF: 0 amlodipine 10 mg tablet 10 mg PO DAILY@08 RF: 0 metoprolol tartrate 50 mg tablet 100 mg PO BID@08,22 RF: 0 hydrochlorothiazide 25 mg tablet 25 mg PO DAILY@08 RF: 0 Zetia 10 mg tablet 10 mg PO DAILY@08 RF: 0 Cymbalta 60 mg capsule,delayed release(DR/EC) 60 mg PO DAILY@08 RF: 0 Discontinued sulfamethoxazole-trimethoprim [Bactrim DS] 800-160 mg tablet 1 tab PO BID Qty: 14 RF: 0 Discharge Orders: Discharge Order (Routine); Ordered 03/13/21 Ordered By: Liya Jaffe Other Ambulatory Orders: Basic Metabolic Panel (Routine) Timeframe: 1 Week Facility: [facility] - Location: Lab - Main Lab Ordered By: Liya Jaffe DME: Oxygen (Order) Location: None Selected Ordered By: Cesario Delarosa Referrals: [facility] [Outside] Paulina Webb MD [Physician] - 1 week (Please call [facility] Monday to make a follow up appointment with Dr. Webb for 1 week. ) Enrique Avila MD [Primary Care Provider] - 1 month (Please contact Dr. Avila's office Monday morning to make a follow-up appointment for 1 month. ) Discharge Diet: Diabetic Discharge Activity: Resume usual activity Patient Instructions: Furosemide (By mouth), Potassium Chloride (By mouth), Opioid Safety Activity Restrictions/Additional Instructions: Start potassium chloride 10 meq on 03/16/21 Discharge Attestations Time Spent in Discharge Care*: less than 30 min Specific Discharge Activities: educating patient, educating and/or supporting family/caregiver, discussing with pcp/other providers, discussing with case mgr/social workers/dc planners, documenting/other paperwork and evaluating patient/reviewing data Time Spent in Smoking Cessation: 3 to 10 minutes Status at Discharge: Cognitive status at discharge: cognitively intact, Behavioral status at discharge: cooperative and dependent in ADL's, Quality Metrics Clinical Quality Measures During this hospital stay, did patient experience: None Coding Level of Care Code Acute Chg FW DC note Diagnoses Congestive heart failure I50.23 Heart failure chronicity: acute on chronic Heart failure type: systolic CAD (coronary artery disease) I25.10 Associated angina: without angina Coronary Disease-Associated Artery/Lesion type: [place] artery [facility] [place] vs. transplanted heart: grindstone heart HTN (hypertension) with goal to be determined I10
--- NOTE | 2021-03-13 12:12 | PM.PN ---
Subjective Subjective: Interval history: Status post CABG x3 on February 15 secondary to severe CAD including 90% left main stenosis mild disease of the LAD and circumflex. Admitted with decompensated congestive heart failure and was started on 40 mg of Lasix IV twice daily. Length of stay -4.4 L. He would like to be discharged today. Medications: Reviewed: Yes Medication Review Details: Current Medications Acetaminophen (Acetaminophen 325 Mg Tablet) 650 mg PO Q6H PRN PRN Reason: Mild/Mod Pain Or Temp >/= 101 Acetaminophen (Acetaminophen 325 Mg Tablet) 650 mg PO Q6H PRN PRN Reason: Mild/Mod Pain Or Temp >/= 101 Amlodipine Besylate (Amlodipine 10 Mg Tablet) 10 mg PO DAILY@08 [facility] Last Admin: 03/13/21 08:02 Dose: 10 mg Documented by: Aspirin (Aspirin 81 Mg Ec Tablet) 81 mg PO DAILY@ [facility] Last Admin: 03/13/21 08:04 Dose: 81 mg Documented by: Atorvastatin Calcium (Atorvastatin 40 Mg Tablet) 40 mg PO BEDTIME@2199 [facility] Last Admin: 03/12/21 21:50 Dose: 40 mg Documented by: Celecoxib (Celecoxib 200 Mg Capsule) 200 mg PO BID@ [facility] Last Admin: 03/13/21 08:04 Dose: 200 mg Documented by: Clopidogrel Bisulfate (Clopidogrel 75 Mg Tablet) 75 mg PO DAILY@ [facility] Last Admin: 03/13/21 08:04 Dose: 75 mg Documented by: Dextrose (Dextrose 50% Syringe 50 Ml) 25 ml IVP ONCE PRN; Protocol PRN Reason: hypoglycemia protocol Dextrose (Dextrose 50% Syringe 50 Ml) 50 ml IVP PRN PRN; Protocol PRN Reason: hypoglycemia protocol Docusate Sodium (Docusate Sodium 100 Mg Capsule) 100 mg PO BID [facility] Last Admin: 03/13/21 08:04 Dose: 100 mg Documented by: Duloxetine HCl (Duloxetine 60 Mg Capsule) 60 mg PO DAILY@ [facility] Last Admin: 03/13/21 08:04 Dose: 60 mg Documented by: Ezetimibe (Ezetimibe 10 Mg Tablet) 10 mg PO DAILY@08 [facility] Last Admin: 03/13/21 08:08 Dose: 10 mg Documented by: Enoxaparin Sodium (Enoxaparin 40 Mg/0.4 Ml Syringe) 40 mg SUBCUT Q24H [facility] Last Admin: 03/12/21 14:45 Dose: 40 mg Documented by: Furosemide (Furosemide 10 Mg/Ml Sdv 4ml) 40 mg IVP Q12H [facility] Last Admin: 03/13/21 06:18 Dose: 40 mg Documented by: Glucagon (Glucagon 1 Mg/Ml Inj 1 Ml) 1 mg IM ONCE PRN; Protocol PRN Reason: Adult Acute Hypoglycemia Prot. Hydralazine HCl (Hydralazine 50 Mg Tablet) 50 mg PO BID@ [facility] Last Admin: 03/13/21 08:02 Dose: 50 mg Documented by: Hydrochlorothiazide (Hydrochlorothiazide 25 Mg Tablet) 25 mg PO DAILY@08 [facility] Last Admin: 03/13/21 08:03 Dose: 25 mg Documented by: Dextrose (D5w) 500 mls @ 100 mls/hr IV ONCE PRN; Protocol PRN Reason: Adult Acute Hypoglycemia Prot Insulin Aspart (Insulin Aspart 100 Unit/1 Ml) 0 unit SUBCUT WM&BEDTIME [facility]; Protocol Last Admin: 03/13/21 08:01 Dose: 8 unit Documented by: Insulin Glargine (Insulin Glargine 100 Units/1 Ml) 15 unit SUBCUT BEDTIME [facility] Last Admin: 03/12/21 21:51 Dose: 15 unit Documented by: Isosorbide Mononitrate (Isosorbide Mononitrate Er 30 Mg Tablet) 30 mg PO DAILY [facility] Last Admin: 03/13/21 08:04 Dose: 30 mg Documented by: Losartan Potassium (Losartan 50 Mg Tablet) 100 mg PO DAILY@08 [facility] Last Admin: 03/13/21 08:05 Dose: 100 mg Documented by: Metoprolol Tartrate (Metoprolol Tartrate 50 Mg Tablet) 100 mg PO BID@ [facility] Last Admin: 03/13/21 08:04 Dose: 100 mg Documented by: Morphine Sulfate (Morphine 4 Mg/Ml Sdv 1 Ml) 2 mg IVP Q4H PRN PRN Reason: SEVERE PAIN Nitroglycerin (Nitroglycerin 0.4 Mg Sublingual Tablet) 0.4 mg SUBLINGUAL Q5M PRN PRN Reason: chest pain Non-Formulary Medication (Melatonin [Melatin]) 3 mg PO BEDTIME PRN PRN Reason: sleep Ondansetron HCl (Ondansetron 2 Mg/Ml Sdv 2 Ml) 4 mg IVP Q8H PRN PRN Reason: vomiting, or N/V if npo Ondansetron HCl (Ondansetron 2 Mg/Ml Sdv 2 Ml) 4 mg IVP Q6H PRN PRN Reason: NAUSEA AND VOMITING Pantoprazole Sodium (Pantoprazole Dr 40 Mg Tablet) 40 mg PO BID@ [facility] Last Admin: 03/13/21 08:09 Dose: 40 mg Documented by: Pregabalin (Pregabalin 150 Mg Capsule) 300 mg PO BID@ [facility] Last Admin: 03/13/21 08:04 Dose: 300 mg Documented by: Tamsulosin HCl (Tamsulosin 0.4 Mg Capsule) 0.4 mg PO DAILY@2199 [facility] Last Admin: 03/12/21 21:49 Dose: 0.4 mg Documented by: Vitals/I&O/Wt Last Vital Signs Temp 97.7 F 03/13/21 08:00 Pulse 75 03/13/21 08:00 Resp 16 03/13/21 08:00 BP 144/82 03/13/21 08:05 Pulse Ox 96 03/13/21 08:00 03/12/21 03/13/21 03/13/21 22:59 06:59 14:59 Intake Total 860 / 1240 360 / 360 Output Total 500 / 1800 1500 / 3300 800 / 800 Balance 360 / -560 -1500 / -2060 -440 / -440 Weight last 48 hrs Weight 238 lb 6 oz Weight 236 lb 12.8 oz Physical Exam Narrative: EXAM NARRATIVE: GENERAL: Obese man lying in bed in no acute distress HEENT: Pupils equal round reactive to light. No pallor or icterus. NECK: central trachea, No JVD. No carotid bruit. CARDIOVASCULAR SYSTEM: S1-S2 regular. No S3 or S4 present. No murmur rubs or gallops. RESPIRATORY SYSTEM: Decreased breath sound mid to basal lung field. Midline sternotomy incision well approximated. no wheezes rhonchi or rubs heard. No use of accessory muscles. ABDOMEN: Soft, nontender and nondistended. Normal bowel sounds present. EXTREMITIES: No cyanosis or clubbing. No edema. 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 No focal neurological deficits. SKIN: Normal turgor and temperature. No breakdown, rash or nail changes noted. PSYCH: Normal insight and judgment. No suicidal or homicidal ideations. Data : 03/13/21 06:30 04/17/21 06:30 A&P Assessment and plan (1) Congestive heart failure: Patient is eager to go home. May be discharged home -Lasix 40 mg p.o. twice a day and potassium 10 meq daily on discharge. -f/u in 1 week at [facility] with Dr. Webb and BMP in 1 week. - Patient will be provided heart failure education. Status: Acute Qualifiers: Heart failure chronicity: acute on chronic Heart failure type: systolic Qualified Code(s): I50.23 - Acute on chronic systolic (congestive) heart failure (2) CAD (coronary artery disease): S/p CABG x3 in January 2021. -stable from a coronary disease perspective. -Continue current regimen Status: Acute Qualifiers: Coronary Disease-Associated Artery/Lesion type: [place] artery [place] vs. transplanted heart: [place] heart Associated angina: without angina Qualified Code(s): I25.10 - Atherosclerotic heart disease of [place] coronary artery without angina pectoris (3) HTN (hypertension) with goal to be determined: Well-controlled continue medicine. Status: Acute Additional A&P Information Diabetes mellitus type 2 Gastroesophageal reflux disease Dyslipidemia Diabetic neuropathy BPH Attestations Medical Necessity Statement*: Stable to be discharged home from cardiac standpoint Coding Level of Care Code Acute Emergency Management Program Specialist for Chg Fwd Diagnoses Congestive heart failure I50.23 Heart failure chronicity: acute on chronic Heart failure type: systolic CAD (coronary artery disease) I25.10 Coronary Disease-Associated Artery/Lesion type: [place] artery [place] vs. transplanted heart: [place] heart Associated angina: without angina HTN (hypertension) with goal to be determined I10
[2021-03-13] MEDS: enoxaparin 40 mg/0.4 mL Syringe SUBCUT (14:34)
--- NOTE | 2021-03-13 16:03 | PC.NURSE ---
discharge instructions were discussed with the patient with at his side, both verbalized understanding of the instructions. IV was removed tip intact. patient was taken by wheelchair with oxygen accompanied by his to private vehicle.
== END 2021-03-13 16:06 | disposition home or self-care (01) | DRG 292 ==
LOC: ER 13:38 → MEDSURG 13:44
PROVIDERS: Admitting Provider Internal Medicine; Emergency Provider Family Medicine; PCP Family Medicine; Visit Provider Internal Medicine
DX: I11.0 Hypertensive heart disease with heart failure (principal); J98.11 Atelectasis; F33.9 Major depressive disorder, recurrent, unspecified; I50.23 Acute on chronic systolic (congestive) heart failure; E11.42 Type 2 diabetes mellitus with diabetic polyneuropathy; I25.10 Atherosclerotic heart disease of native coronary artery without angina pectoris; Z95.1 Presence of aortocoronary bypass graft; F41.1 Generalized anxiety disorder; F17.210 Nicotine dependence, cigarettes, uncomplicated; F17.220 Nicotine dependence, chewing tobacco, uncomplicated; E87.5 Hyperkalemia; K21.9 Gastro-esophageal reflux disease without esophagitis; E78.5 Hyperlipidemia, unspecified; N40.0 Benign prostatic hyperplasia without lower urinary tract symptoms; Z79.4 Long term (current) use of insulin; Z79.02 Long term (current) use of antithrombotics/antiplatelets
CPT/HCPCS: 36415; 36416; 36600; 71045; 71275; 80048; 80051; 80053; 81001; 82330; 82805; 82962; 83735; 83880; 84132; 84484; 85025; 93005; 96365; 96372; 96375; 99285; J0610; J1650; J1815 ×2; J1940; J2270; J2405; J7030; Q9967

== ENCOUNTER → 2021-06-14 11:03 | Outpatient (BNVA) | payer MEDICARE, SELFPAY | PROVIDERS: PCP Family Medicine; Visit Provider Internal Medicine Cardiovascular Disease | DX: I50.31 Acute diastolic (congestive) heart failure (principal); Z51.81 Encounter for therapeutic drug level monitoring; Z79.899 Other long term (current) drug therapy | CPT/HCPCS: 80048; 80162 ==

== ENCOUNTER → 2021-07-29 15:31 | Outpatient (BNVA) | payer MEDICARE, SELFPAY | PROVIDERS: PCP Family Medicine; Visit Provider Nurse Practitioner Family | DX: I25.10 Atherosclerotic heart disease of native coronary artery without angina pectoris (principal); I50.31 Acute diastolic (congestive) heart failure; R55 Syncope and collapse; R42 Dizziness and giddiness; F17.200 Nicotine dependence, unspecified, uncomplicated | CPT/HCPCS: 80048; 80162 ==

== ENCOUNTER → 2021-08-03 11:42 | Outpatient (BNVA) | payer MEDICARE, SELFPAY | PROVIDERS: PCP Family Medicine; Visit Provider Internal Medicine Cardiovascular Disease | DX: I50.31 Acute diastolic (congestive) heart failure (principal); E87.5 Hyperkalemia; I25.10 Atherosclerotic heart disease of native coronary artery without angina pectoris | CPT/HCPCS: 80048 ==

== ENCOUNTER 2021-08-16 10:49 | Outpatient (CLI) | payer MEDICARE, SELFPAY ==
--- NOTE | 2021-08-16 11:00 | CT_ITS ---
WS: [id number] CT CHEST WITH INTRAVENOUS CONTRAST HISTORY: Follow-up pulmonary opacifications identified on 03/11/2021. TECHNIQUE: Contiguous 5 mm axial imaging performed on the thorax. Coronal and sagittal reformats are submitted. All CT scans at [facility] use at least one of these dose optimization techniques: automated exposure control; mA and/or kV adjustment per patient size (includes targeted exams where dose is matched to clinical indication); or iterative reconstruction. CONTRAST: Omnipaque 300; 95 mL IV. DLP: 1011.33 mGycm COMPARISON: 03/11/2021 Lungs and central airway: Significant improvement in the appearance of both lungs since the prior lulú dy. There is less edema in the opacifications have significantly improved. Persistent atelectasis at the LEFT lung base and a granuloma at the LEFT lung base. There are a few small nodules which are pro bably intrapulmonary lymph nodes along the RIGHT minor fissure. Very vague 6 mm low-attenuation nodul e at the RIGHT lung base. Bronchial wall thickening at the LEFT lower lobe. Pleura: Resolved LEFT pleural effusion. Heart and pericardium: Prior CABG. Heart size remains slightly enlarged. No pericardial effusion. Mediastinum and maulik: Multiple indeterminate lymph nodes seen on the prior study have nearly complete ly resolved. There are a few lymph nodes remaining which are normal size. Vessels: Normal size pulmonary artery. Mild atherosclerosis aorta. Chest wall and lower neck: No soft tissue masses. Upper abdomen: Mild hepatic steatosis. No adrenal mass. Osseous structures: No destructive process. CT/CT chest w con* [id number] IMPRESSION: 1. Significant improvement in the appearance of both lungs since the prior lulú dy. No residual pneumonia. 2. Subsegmental atelectasis persists in the LEFT lower lobe with bronchial wal l thickening. No endobronchial lesions identified. 3. Resolved LEFT pleural effusion. 4. Status post CABG. 5. Improved mediastinal and hilar lymph node burden.
[2021-08-16] MEDS: iohexol 300 mg/mL 100 mL Btl IV (11:30)
== END 2021-08-16 10:50 | disposition home or self-care (01) ==
PROVIDERS: PCP Family Medicine; Visit Provider Thoracic Surgery (Cardiothoracic Vascular Surgery)
DX: R91.8 Other nonspecific abnormal finding of lung field (principal); Z95.1 Presence of aortocoronary bypass graft; J98.11 Atelectasis
CPT/HCPCS: 71260; Q9967

== ENCOUNTER 2022-01-11 14:51 | Outpatient (CLI) | payer MEDICARE, SELFPAY ==
--- NOTE | 2022-01-11 15:02 | CTR_ITS ---
PROCEDURE INFORMATION: Exam: CT Abdomen And Pelvis With Contrast Exam date and time: 01/11/2022 3:02 PM Age: 56 years old Clinical indication: Abdominal pain; Localized; Right upper quadrant (ruq); Prior surgery; Surgery type: Open heart. ; Additional info: Ruq pain TECHNIQUE: Imaging protocol: Computed tomography of the abdomen and pelvis with contrast. The patient was administered oral contrast. Sagittal and coronal reformatted images were created and reviewed. Radiation optimization: All CT scans at this facility use at least one of these dose optimization techniques: automated exposure control; mA and/or kV adjustment per patient size (includes targeted exams where dose is matched to clinical indication); or iterative reconstruction. Contrast material: OMNI 300; Contrast volume: 95 ml; Contrast route: INTRAVENOUS (IV); COMPARISON: 1. US abdomen limited [id number] 08/18/2021 8:[address] chest w con* [id number] 08/16/2021 11:20 AM RADIATION DOSE METRICS: Total DLP (mGy-cm): 1988.14 FINDINGS: Lungs: Visualized lungs are clear. Stable calcified granuloma in the left lower lobe. Pleural spaces: No pleural effusion. Heart: Stable moderate enlargement of the visualized portions of the heart. Stable moderate atherosclerotic calcification in the coronary arteries. Liver: The liver is unremarkable. Gallbladder and bile ducts: The gallbladder is unremarkable. No biliary ductal dilatation. Pancreas: The pancreas is unremarkable. No pancreatic ductal dilatation. Spleen: The spleen is unremarkable. Adrenal glands: The right and left adrenal glands are unremarkable. Kidneys and ureters: The right and left kidneys are unremarkable. The right and left ureters are unremarkable. Stomach and bowel: Increased fecal content in the colon. No acute abnormality in the small bowel. Ingested contents in the stomach. Appendix: Appendix not definitely visualized. No inflammatory changes in the pericecal region however. Intraperitoneal space: No free intraperitoneal air. No ascites. No loculated fluid collections to suggest an abscess. Vasculature: Moderate atherosclerotic changes in the visualized arteries. No evidence for aortic aneurysm or aortic dissection. Hepatic veins, portal veins, splenic vein, and SMV are patent. Lymph nodes: Stable partially calcified mediastinal and left hilar lymph nodes. No lymphadenopathy. No lymphadenopathy. Urinary bladder: Unremarkable as visualized. Reproductive: Unremarkable as visualized. Bones/joints: Stable poststernotomy changes in the chest. Degenerative changes in the spine and hips. Bilateral pars defects at L5. Grade I anterolisthesis of L5 on S1. Mild spinal canal stenosis at L3-L4, L4-L5, and L5-S1. Multilevel foraminal stenosis of varying severity in the visualized spine. Soft tissues: No acute abnormality in the extra-abdominal soft tissues. CT/CT abdomen pelvis w con* [id number] IMPRESSION: 1. Increased fecal content in the colon. 2. Incidental/nonacute findings are listed in the report.
[2022-01-11] MEDS: iohexol 300 mg/mL 100 mL Btl IV (16:51)
[2022-01-11] MEDS: iohexol 300 mg/mL 50 mL Btl PO (16:52)
== END 2022-01-11 14:52 | disposition home or self-care (01) ==
LOC: RAD 14:54
PROVIDERS: PCP Family Medicine; Visit Provider Surgery
DX: R10.11 Right upper quadrant pain (principal)
CPT/HCPCS: 74177

== ENCOUNTER 2022-02-03 06:53 | Day surgery (SDC) | payer MEDICARE, SELFPAY ==
[2022-02-02 15:02] VITALS: BMI 33.7
[2022-02-03] VITALS (8 sets, daily range): BP systolic 137–162; BP diastolic 67–83; PULSE 63–70; RESP 18; TEMP 36.2–37.1; O2SAT 91–98
[2022-02-03 07:47] LABS: Glucose Point of Care 442 mg/dL (70-110)
[2022-02-03] MEDS: insulin regular-human 100 units/1 mL 10 UNIT IVP (07:50)
[2022-02-03] MEDS: sodium chloride 0.9% 1,000 ML 30 ML IV (07:53)
[2022-02-03 08:08] LABS: Alanine Aminotransferase 14 U/L (0-41); Albumin Level 3.9 g/dL (3.5-5.2); Alkaline Phosphatase 96 IU/L (40-130); Anion Gap 16.8 (5-19); Aspartate Amino Transferase 14 U/L (0-40); Blood Urea Nitrogen 20 mg/dL (6-20); Calcium 9.7 mg/dL (8.5-10.5); Carbon Dioxide 25 mmol/L (22-29); Chloride 101 mmol/L (98-107); Globulin 3.2 g/dL (1.3-4.6); Glomerular Filtration Rate 86.7 mL/min (90-130); Glucose 489 mg/dL (65-115); Osmolality Calculated 310 mOsm/kg (285-295); Potassium 4.8 mmol/L (3.5-5.1); Sodium 138 mmol/L (136-145); Total Bilirubin 0.2 mg/dL (0.15-1.2); Total Protein 7.1 g/dL (6.6-8.7)
[2022-02-03 08:16] LABS: Glucose Point of Care 391 mg/dL (70-110)
--- NOTE | 2022-02-03 08:17 | PC.NURSE ---
patient bs 442. notified dr. stephenson an order for 10units of regular insulin ordered and given and 0750. rechecked bs [id number] stephenson no new orders given.
--- NOTE | 2022-02-03 08:28 | ANES.PREANE2 ---
Pre-Anesthetic Assessment Height/Weight: Height 1.78 m Weight 106.594 kg Temp Pulse Resp BP Pulse Ox 98.1 F 70 18 162/83 93 02/03/22 07:27 02/03/22 07:27 02/03/22 07:27 02/03/22 07:27 02/03/22 07:27 Preop Diagnosis: Severe coronary artery disease, left main coronary artery stenosis Operation Date: 02/03/22 08:20 Proposed Procedures p Laparoscopic Cholecystectomy/38024/k80.10/R10.11(Not Applicable) - Martin Foster MD Familial anesthetic complications: None Was Beta Ralph taken within 24 hours: Yes Was Clonidine taken within 24 hours: N/A Last intake: Intake Last Liquid Date 02/03/22 Last Liquid Time 06:00 Last Solid Date 02/02/22 Last Solid Time 21:00 Social Tobacco and No alcohol Exam alert, oriented x 3, clear to auscultation bilaterally and regular rate & rhythm Airway Submandibular: within normal limits Cervical ROM: within normal limits Mallampati: Class II Dentition: false Pulmonary Chronic Obstructive Pulmonary Disease CV/HEM Coronary Artery Disease, Congestive Heart Failure and Hypertension Date of Service: 12/22/20 Procedure(s): CV echo complete* [id number] ?CONCLUSIONS ?1-Normal left ventricular cavity size. Normal left ventricular ?systolic function. No regional wall motion abnormalities. Left ?ventricular ejection fraction is estimated at 61 %. Normal diastolic function. ?2-Moderately increased right atrial size. ?3-Moderate aortic valve calcification. No aortic valve stenosis. Trace aortic valve regurgitation. ?4-Mildly thickened mitral valve. No mitral valve stenosis. Mild mitral valve regurgitation. ?5-There is no pericardial effusion. ?6-Pulmonary artery systolic pressure is within normal limits. ?7-When compared to the prior echocardiogram dated 15 January ?2015 there appeared to be mild mitral valve regurgitation now. ?Paulina Webb MD ? (Electronically Signed) Metabolic Diabetes Mellitus (Very poorly controlled) and Morbid Obesity Hyperkalemia Anesthetic Plan ASA status: 3 Anesthesia: General Risk of > 500 ml blood loss (7ml/kg in children): No Medications/Allergies Home Medications Medication Instructions Recorded Confirmed Last Taken Type aspirin 81 mg tablet,delayed 81 mg PO DAILY@08 tab 12/05/19 02/02/22 02/02/22 History release (Adult Aspirin Regimen) celecoxib 200 mg capsule (Celebrex) 200 mg PO BID@12/05/19 02/03/22 02/03/22 History melatonin 3 mg tablet (Melatin) 3 mg PO BEDTIME PRN tab 12/05/19 02/03/22 02/02/22 History metformin 1,000 mg tablet,extended 1,000 mg PO BID@12/05/19 02/03/22 02/02/22 History release 24hr nitroglycerin 0.4 mg sublingual 0.4 mg SUBLINGUAL Q5M PRN #100 each 12/09/20 02/03/22 02/02/22 Rx tablet (Nitrostat) pantoprazole 40 mg tablet,delayed 40 mg PO BID@ tab 12/09/20 02/03/22 02/02/22 History release (Protonix) pregabalin 150 mg capsule (Lyrica) 300 mg PO BID@ cap 12/09/20 02/03/22 02/02/22 History glyburide 2.5 mg tablet 2.5 mg PO DAILY@08 #0 12/21/20 02/03/22 02/02/22 History tamsulosin 0.4 mg capsule 0.4 mg PO DAILY@2200 #0 12/21/20 02/03/22 02/02/22 History atorvastatin 40 mg tablet 40 mg PO BEDTIME@2200 03/11/21 02/03/22 02/02/22 History clopidogrel 75 mg tablet (Plavix) 75 mg PO DAILY@08 03/11/21 02/02/22 01/31/22 History dulaglutide 1.5 mg/0.5 mL 1.5 mg SUBCUT Q7D 03/11/21 02/03/22 02/02/22 History subcutaneous pen injector (Trulicity) duloxetine 60 mg capsule,delayed 60 mg PO DAILY@08 03/11/21 02/03/22 02/02/22 History release (Cymbalta) ezetimibe 10 mg tablet (Zetia) 10 mg PO DAILY@08 #90 tab 06/17/21 02/03/22 02/02/22 Rx amlodipine 10 mg tablet 10 mg PO DAILY@08 #30 tab 08/09/21 02/03/22 02/02/22 Rx dapagliflozin 5 mg tablet (Farxiga) 5 mg PO DAILY 09/23/21 02/03/22 02/02/22 History omega-3 fatty acids 1,000 mg 1,000 mg PO .HS cap 09/23/21 02/03/22 02/02/22 History capsule (Fish Oil Concentrate) metoprolol tartrate 50 mg tablet 100 mg PO BID@ #120 tab 10/06/21 02/03/22 02/02/22 Rx digoxin 125 mcg (0.125 mg) tablet 125 mcg PO DAILY #30 tab 01/06/22 02/03/22 02/02/22 Rx polyethylene glycol 3350 17 gram 17 g PO BID 02/02/22 02/03/22 02/02/22 History oral powder packet (Miralax) Allergies Allergy/AdvReac Type Severity Reaction Status Date / Time codeine Allergy Unknown Verified 02/03/22 07:10 gabapentin Allergy Unknown Verified 02/03/22 07:10 Current Medications Generic Name Dose Route Start Last Admin Trade Name Freq PRN Reason Stop Dose Admin Sodium Chloride 1,000 mls @ 30 mls/hr 02/03/22 07:15 02/03/22 07:53 Sodium Chloride 0.9% IV 02/04/22 07:14 30 mls/hr .Q24H SOTO Administration PFSH Anesthesia Medical History ASHD (arteriosclerotic heart disease) CAD (coronary artery disease) CHF (congestive heart failure) Congestive heart failure Diabetes Generalized anxiety disorder Heart failure HTN (hypertension) with goal to be determined Hyperkalemia Left main coronary artery disease Major depressive disorder, recurrent episode, moderate with anxious distress Nicotine dependence, cigarettes, uncomplicated Surgical History Status post aorto-coronary artery bypass graft Family History Father Myocardial infarct Grandmother Myocardial infarct Family/Other Myocardial infarct Other CAD (coronary artery disease) Social History Quit status (tobacco): considering quitting Second hand smoke exposure: Yes Smoking risk assessment/counseling performed?: No Alcohol intake: never Data Anesthesia : 02/03/22 07:35 BMP 02/03/22 07:35 Sodium 138 Potassium 4.8 Chloride 101 Carbon Dioxide 25 BUN 20 Creatinine 0.9 Glucose 489 H Calcium 9.7 Liver Function 02/03/22 Range/Units 07:35 Total Bilirubin 0.2 (0.15-1.2) mg/dL Direct Bilirubin 0.20 (0.00-0.30) mg/dL AST 14 (0-40) U/L ALT 14 (0-41) U/L Alkaline Phosphatase 96 (40-130) IU/L Albumin 3.9 (3.5-5.2) g/dL Cardiac Studies: Echocardiogram Ultrasound 12/22/20 Cardiac Event Monitor 07/29/21
--- NOTE | 2022-02-03 09:15 | PM.OP ---
Operative Report Date of procedure: February 03, 2022 Pre-op diagnosis: Preop Diagnosis: Symptomatic cholelithiasis. Post-op diagnosis: Same. Procedure done: Laparoscopic cholecystectomy. Specimens removed/disposition: Gallbladder. Surgeon: General Surgery Martin Foster MD Estimated blood loss: Less than 10 mL. Complications: None. Procedure: The patient was brought to the Operating Room and was placed in a supine position on the Operating Room table. General endotracheal anesthesia was induced. The abdomen was prepped and draped in a sterile fashion. A small vertical incision was carried out in the superior aspect of the umbilicus. Blunt dissection was carried out down to the fascia, which was grasped with a Antwon clamp. A stay suture of 0 Vicryl was placed on either side of the midline and the midline fascia was incised. The underlying peritoneum was opened bluntly and the Moises port was placed directly into the peritoneal cavity and was held in place with the inflatable balloon. The peritoneal cavity was insufflated with carbon dioxide. The laparoscope was used to inspect the abdominal cavity. Other than for some colonic distention, no gross abnormalities were noted. A 5 millimeter port was placed in the epigastrium under direct vision. Two 5-millimeter ports were placed on the right side of the abdomen under direct vision. The gallbladder was grasped and was elevated. Blunt dissection and hydrodissection were carried out in the infundibular region of the gallbladder and the cystic duct and cystic artery were identified. The gallbladder was partially removed from the liver bed using cautery and the spatula to confirm the anatomy before the structures were clipped and divided. The gallbladder was then removed from the liver bed using cautery and the spatula. After the gallbladder had been removed from the liver bed, the laparoscope was moved to the epigastric port and the gallbladder was removed from the peritoneal cavity through the umbilical port site. The stay sutures of Vicryl were tied to each other at the umbilicus, closing the defect so that it was airtight. The perihepatic spaces were irrigated with saline and the liver bed was reinspected. No ongoing problems were seen. The remaining ports were removed from the abdominal wall and the pneumoperitoneum was evacuated. All skin incisions were closed using inverted interrupted sutures of 4-0 Vicryl. Benzoin and Steri-Strips were placed over the incisions and Band-Aids followed. The patient was taken to the Recovery Area in stable condition postoperatively.
[2022-02-03 09:35] LABS: Glucose Point of Care 346 mg/dL (70-110)
--- NOTE | 2022-02-03 14:48 | ANE.PACU2 ---
Inpatient post-anesthesia follow up: Airway intact: Yes Vital signs: Temperature 98.7 F Pulse Rate 68 Respiratory Rate 18 Blood Pressure 144/73 Pulse Oximetry 94 Oxygen Delivery Me thod Room Air Oxygen Flow Rate 1 Fraction of Inspir ed Oxygen Hydration adequate: Yes Nausea and vomiting: No Pain level: 2 Mental status: Baseline
--- NOTE | 2022-02-08 12:50 | W.PM.OPSUD ---
Surgery/Procedure H&P Update DATE OF PROCEDURE: February 03, 2022 DATE H&P PERFORMED: 01/18/22 H&P UPDATE INFORMATION: No changes to prior documentation PREOP DIAGNOSIS: Symptomatic cholelithiasis. PLANNED PROCEDURE: Operation Date: 02/03/22 08:20 Proposed Procedures p Laparoscopic Cholecystectomy/74474/k80.10/R10.11(Not Applicable) - Martin Foster MD
== END 2022-02-03 10:43 | disposition home or self-care (01) ==
PROVIDERS: PCP Family Medicine; Visit Provider Surgery
PROC: 0FT44ZZ Resection of Gallbladder, Percutaneous Endoscopic Approach (ICD-10-PCS; CPT 47562; principal; 2022-02-03 08:10)
DX: K80.10 Calculus of gallbladder with chronic cholecystitis without obstruction (principal); I25.10 Atherosclerotic heart disease of native coronary artery without angina pectoris; I11.0 Hypertensive heart disease with heart failure; I50.9 Heart failure, unspecified; Z79.82 Long term (current) use of aspirin; Z79.84 Long term (current) use of oral hypoglycemic drugs; F17.210 Nicotine dependence, cigarettes, uncomplicated
CPT/HCPCS: 47562; 36415; 36416; 80048; 80076; 82962; 88304; J0690; J1815; J2370; J2405; J2704; J3010; J3490; J7030

== ENCOUNTER → 2022-03-31 14:25 | Outpatient (BNVA) | payer MEDICARE, SELFPAY | PROVIDERS: PCP Family Medicine; Visit Provider Internal Medicine Cardiovascular Disease | DX: I25.10 Atherosclerotic heart disease of native coronary artery without angina pectoris (principal); I11.0 Hypertensive heart disease with heart failure; I50.31 Acute diastolic (congestive) heart failure; Z95.1 Presence of aortocoronary bypass graft; F17.210 Nicotine dependence, cigarettes, uncomplicated | CPT/HCPCS: 99214 ==

== ENCOUNTER → 2022-09-29 13:44 | Outpatient (BNVA) | payer MEDICARE, SELFPAY | PROVIDERS: PCP Family Medicine; Visit Provider Internal Medicine Cardiovascular Disease | DX: R07.9 Chest pain, unspecified (principal); K21.9 Gastro-esophageal reflux disease without esophagitis; I25.10 Atherosclerotic heart disease of native coronary artery without angina pectoris; I73.9 Peripheral vascular disease, unspecified; I11.0 Hypertensive heart disease with heart failure; I50.31 Acute diastolic (congestive) heart failure; Z95.1 Presence of aortocoronary bypass graft; F17.210 Nicotine dependence, cigarettes, uncomplicated | CPT/HCPCS: 99214 ==

== ENCOUNTER 2022-11-09 07:01 | Outpatient (CLI) | payer MEDICARE, SELFPAY ==
--- NOTE | 2022-11-09 07:05 | USCV_ITS ---
Carlos Bender Age: 57 Gender: M : 1965 Exam Date: 11/09/2022 08:08 Ordering Phys: Liya Jaffe MD ([email or web address]) Technologist: Fabiana Villanueva Exam Location: [facility] Indication: LEG PAIN RIGHT LEFT Brachial 171.00 mmHg Brachial 1611.00 mmHg Pressure (mmHg) Waveform Pressure (mmHg) Waveform 111.00 LIQUID LOADER 206.00 105.00 DPA 157.00 0.75 Ankle/Brachial Index 1.20 0.58 Post-Exercise Ankle Brachial Index 0.73 105.00 Pre-Exercise Toe Pressure 152.00 0.61 Pre-Exercise Toe/Brachial Index 0.89 FINDINGS The RICHARD of 0.75 on the right side and 1.2 on the left side. Post exercise RICHARD of 0.58 on the right and 0.73 on the left. The post exercise RICHARD on the right was 0.58 at 3 minutes and 0.37 at 6 minutes. It became 0.64 at 9 minutes. Resting TBI of 0.61 on the right and 0.89 on the left CONCLUSIONS 1. Features suggestive of moderately severe peripheral artery disease on the right side 2. Features suggest of mild to moderate peripheral artery disease on the left side Dr Lily Manzano MD [facility] (Electronically Signed) Final Date: 10 November 2022 08:57 S
== END 2022-11-09 07:02 | disposition home or self-care (01) ==
LOC: RAD 07:01
PROVIDERS: PCP Family Medicine; Visit Provider Internal Medicine Cardiovascular Disease
DX: I73.9 Peripheral vascular disease, unspecified (principal); M79.604 Pain in right leg
CPT/HCPCS: 93922

== ENCOUNTER 2022-11-29 15:07 | Outpatient (RCR) | payer SELFPAY | END 2022-12-27 23:59 | disposition home or self-care (01) | LOC: CR 15:07 | PROVIDERS: PCP Family Medicine; Referring Provider Internal Medicine Cardiovascular Disease; Visit Provider Internal Medicine Cardiovascular Disease | DX: I73.9 Peripheral vascular disease, unspecified (principal) ==

== ENCOUNTER → 2023-06-29 14:03 | Outpatient (BNVA) | payer MEDICARE, SELFPAY | PROVIDERS: PCP Family Medicine; Visit Provider Internal Medicine Cardiovascular Disease | DX: R07.9 Chest pain, unspecified (principal); K21.9 Gastro-esophageal reflux disease without esophagitis; I25.10 Atherosclerotic heart disease of native coronary artery without angina pectoris; I11.0 Hypertensive heart disease with heart failure; I50.31 Acute diastolic (congestive) heart failure; Z95.1 Presence of aortocoronary bypass graft; F17.210 Nicotine dependence, cigarettes, uncomplicated; I73.9 Peripheral vascular disease, unspecified | CPT/HCPCS: 99214 ==

== ENCOUNTER 2023-12-12 19:38 | Inpatient (IN) | payer MEDICARE, SELFPAY ==
[2023-12-12 19:39] VITALS: BP 128/52; PULSE 45; RESP 26; TEMP 36.7; O2SAT 90; BMI 34.4
--- NOTE | 2023-12-12 19:40 | XRR_ITS ---
PROCEDURE INFORMATION: Exam: XR Chest Exam date and time: 12/12/2023 7:45 PM Age: 58 years old Clinical indication: Shortness of breath; Prior surgery; Surgery date: 6+ months; Surgery type: Open heart; Additional info: SOB TECHNIQUE: Imaging protocol: Radiologic exam of the chest. Views: 1 view. COMPARISON: CT chest w con* [id number] 08/16/2021 11:20 AM FINDINGS: Lungs: Septal lines noted throughout both lungs, most prominent at the right base. Pleural spaces: No pleural effusion. No pneumothorax. Heart/Mediastinum: Enlarged cardiac silhouette. Vasculature: Azygos arch measures 2.0 cm. Mediastinal surgical clips and vascular markers suggest prior myocardial revascularization. Bones/joints: Prior median sternotomy. XR/XR chest 1V portable [id number] IMPRESSION: There is distension of the azygos arch compatible with elevated right heart pressures. Heart is enlarged and there are features of pulmonary edema suggesting left heart failure as well.
[2023-12-12 19:55] LABS: Glucose Point of Care 248 mg/dL (70-110)
--- NOTE | 2023-12-12 20:00 | CTR_ITS ---
PROCEDURE INFORMATION: Exam: CTA Chest With Contrast Exam date and time: 12/12/2023 9:01 PM Age: 58 years old Clinical indication: Shortness of breath; Prior surgery; Surgery date: 6+ months; Surgery type: Open heart; Additional info: SOB TECHNIQUE: Imaging protocol: Computed tomographic angiography of the chest with contrast. Exam focused on the arteries. 3D rendering (Not supervised by radiologist): MIP and/or 3D reconstructed images were created by the technologist. Radiation optimization: All CT scans at this facility use at least one of these dose optimization techniques: automated exposure control; mA and/or kV adjustment per patient size (includes targeted exams where dose is matched to clinical indication); or iterative reconstruction. Contrast material: OMNI 350; Contrast volume: 80 ml; Contrast route: INTRAVENOUS (IV); COMPARISON: CT angio chest PE protcl [id number] 03/11/2021 10:43 AM RADIATION DOSE METRICS: Total DLP (mGy-cm): 520.22 FINDINGS: Pulmonary arteries: Normal caliber. No pulmonary emboli. Aorta: Ectatic ascending thoracic aorta measures up to 4.4 cm transverse dimension. Insufficient contrast in the thoracic aorta to exclude penetrating ulcer. There is no displaced calcium to suggest acute dissection. Veins: Atrial caval reflux. Lungs: Paraseptal emphysema. Diffuse interlobular septal thickening. Compressive atelectasis noted at each lung base. Diffuse bronchial wall thickening with bronchial luminal narrowing. Calcified pulmonary granulomata. Patchy peripheral airspace opacities are essentially stable from prior exam in 2020, etiology unclear. Pleural spaces: There are bilateral pleural effusions without evidence of loculation. No pneumothorax on either side. Heart: Mild aortic valve leaflet calcifications are noted. There is four-chamber cardiac enlargement. Mediastinal surgical clips and vascular markers suggest prior myocardial revascularization. Coronary arteries: Extensive coronary artery hyperdensity could be calcification and/or stent material. Lymph nodes: Scattered reactive sized mediastinal lymph nodes are noted. Calcified mediastinal lymph nodes. Bones/joints: Incompletely healed median sternotomy. No bony destructive change. Soft tissues: Unremarkable. CT/CT angio chest PE protcl [id number] IMPRESSION: 1. No findings of acute pulmonary embolism. 2. Ectatic/aneurysmal ascending thoracic aorta with aortic valve leaflet calcifications. Correlate with any clinical findings of aortic stenosis. There is minimal contrast in the thoracic aorta, but no displaced calcium to suggest aortic dissection. 3. Bilateral pleural effusions, cardiomegaly, interlobular septal thickening, and atrial caval reflux are compelling for heart failure or fluid overload. Patchy airspace opacities in the periphery of each lung are stable from prior exam in 2020. COMMENTS: The presence of pulmonary emphysema on CT is an independent risk factor for lung cancer. In the absence of a history or active diagnosis of lung cancer, it is recommended that this patient with emphysema be evaluated for enrollment in a low dose CT lung cancer screening program.
[2023-12-12 20:01] LABS: Basophils # 0.1 10^3/uL (0.0-0.1); Basophils % 0.9 %; Eosinophils # 0.2 10^3/uL (0.0-0.8); Eosinophils % 1.5 %; Lymphocytes # 1.9 10^3/uL (0.8-4.8); Lymphocytes % 16.7 %; Mean Corpuscular HGB Conc 31.7 g/dL (30-55); Mean Corpuscular Hemoglobin 29.9 pg (27-33); Mean Corpuscular Volume 94.3 fl (82-101); Monocytes # 0.8 10^3/uL (0.2-0.9); Monocytes % 6.5 %; Neutrophils # 8.56 10^3/uL (1.8-7.7); Nucleated Red Blood Cells % 0 %; Platelet Count 175 10^3/cmm (157-399); Red Blood Count 4.35 10^6/uL (3.85-5.65); Red Cell Distribution Width 13.7 % (12.1-15.1); White Blood Count 11.56 10^3/uL (3.29-11.43)
--- NOTE | 2023-12-12 20:01 | W.ED.CHESTPA ---
HPI - Chest Pain General: Chief Complaint: Chest Pain Stated Complaint: CP/SOB Time Seen by Provider: 12/12/23 19:40 Source: patient and EMS Mode of arrival: EMS Limitations: no limitations History of Present Illness: 58-year-old male who states has been having chest pains been ongoing over the last few weeks he states he has been told they believe it may be esophageal spasm states that he started having worsening shortness of breath over the last 2 days ago. Patient states he wears oxygen as needed at home he is currently on 4 L here. He is got chest pain as well he states that sharp in nature rates it a 1 out of 10 currently denies any cough denies any fevers Associated symptoms: Reports dyspnea; Deny abdominal pain, fever(s), nausea or vomiting Review of Systems Const: Denies: fever(s), chills, body aches or change in appetite ENMT: Denies: throat pain or dental pain Card: Reports: chest pain Resp: Reports: dyspnea GI: Denies: abdominal pain, nausea, vomiting or diarrhea : Denies: dysuria Musc: Denies: neck pain or back pain Skin/Breast: Denies: rash Neuro: Denies: headache(s) PFSH ED PFSH: Medical History CHF (congestive heart failure) Congestive heart failure Heart failure Hyperkalemia CAD (coronary artery disease) Diabetes Left main coronary artery disease HTN (hypertension) with goal to be determined ASHD (arteriosclerotic heart disease) Nicotine dependence, cigarettes, uncomplicated Generalized anxiety disorder Major depressive disorder, recurrent episode, moderate with anxious distress Surgical History S/P laminectomy S/P vasectomy History of heart artery stent S/P knee surgery S/P cholecystectomy Status post aorto-coronary artery bypass graft Family History Father Myocardial infarct Grandmother Myocardial infarct Family/Other Myocardial infarct Other CAD (coronary artery disease) Social History Smoking and tobacco/nicotine status: current every day tobacco/nicotine user cigarettes Packs smoked per day: 1 and smokeless tobacco Smokeless tobacco user: chewing tobacco Smokeless tobacco details: 1 can 2- 3 days Quit status (tobacco/nicotine): considering quitting Second hand smoke exposure: Yes Alcohol intake: never Substance/Drug Use: never Physical Exam Const: COMMON NORMALS: no acute distress, patient oriented x3 and healthy appearing HENMT: COMMON NORMALS: normocephalic and atraumatic HEAD & SCALP: normocephalic and atraumatic Neck/C-Spine: COMMON NORMALS: full ROM and supple Chest: COMMONS NORMALS: normal inspection of the chest Resp: COMMON NORMALS: normal respiratory effort, No retractions, No use of accessory muscles and clear to auscultation bilaterally AUSCULTATION: clear to auscultation bilaterally Cardio: COMMON NORMALS: regular rhythm and No murmurs present (Cardio) RATE: bradycardic RHYTHM: regular rhythm GI: COMMON NORMALS: Normal to inspection, nondistended, normoactive bowel sounds present, Soft to palpation, non-tender and no masses PALPATION: Yes Soft to palpation Extremity: COMMON NORMALS: normal to inspection and full ROM Neuro: COMMON NORMALS: patient oriented x3, moves all extremities and no focal motor deficits Psych: COMMON NORMALS: mental status grossly normal, Normal thought process present and cooperative THOUGHT PROCESS: Normal thought process present Skin: COMMON NORMALS: no rashes or lesions noted and no wounds GENERAL SKIN EXAM: no rashes or lesions noted Course Vital Signs: Vital signs: Vital Signs Temperature 98.1 F 12/12/23 19:39 Pulse Rate 63 12/12/23 21:59 Respiratory Rate 21 H 12/12/23 20:47 Blood Pressure 131/72 12/12/23 21:59 Pulse Oximetry 90 12/12/23 21:59 Oxygen Delivery Me thod Nasal Cannula 12/12/23 21:59 Oxygen Flow Rate 3 12/12/23 19:39 MDM - Chest Pain Medical Decision Making Patient presents here with shortness of breath and hypoxia requiring oxygen here likely from CHF exacerbation CTA showed no signs of PE 2-hour troponin was unchanged we will admit at this time for diuresis. Medical Records I reviewed the patient's medical records. Lab Data I reviewed the patient's lab results. 12/12/23 19:16 12/12/23 19:16 Radiology Impressions Chest X-Ray 12/12/23 19:40 IMPRESSION: There is distension of the azygos arch compatible with elevated right heart pressures. Heart is enlarged and there are features of pulmonary edema suggesting left heart failure as well. Chest CTA 12/12/23 20:00 IMPRESSION: 1. No findings of acute pulmonary embolism. 2. Ectatic/aneurysmal ascending thoracic aorta with aortic valve leaflet calcifications. Correlate with any clinical findings of aortic stenosis. There is minimal contrast in the thoracic aorta, but no displaced calcium to suggest aortic dissection. 3. Bilateral pleural effusions, cardiomegaly, interlobular septal thickening, and atrial caval reflux are compelling for heart failure or fluid overload. Patchy airspace opacities in the periphery of each lung are stable from prior exam in 2020. COMMENTS: The presence of pulmonary emphysema on CT is an independent risk factor for lung cancer. In the absence of a history or active diagnosis of lung cancer, it is recommended that this patient with emphysema be evaluated for enrollment in a low dose CT lung cancer screening program. Laboratory Results WBC 11.56 10^3/uL (3.29-11.43) H 12/12/23 19:16 RBC 4.35 10^6/uL (3.85-5.65) 12/12/23 19:16 Hgb 13.00 g/dL (11.27-16.99) 12/12/23 19:16 Hct 41.0 % (37-53) 12/12/23 19:16 MCV 94.3 fl (82-101) 12/12/23 19:16 MCH 29.9 pg (27-33) 12/12/23 19:16 MCHC 31.7 g/dL (30-55) 12/12/23 19:16 RDW 13.7 % (12.1-15.1) 12/12/23 19:16 Plt Count 175 10^3/cmm (157-399) 12/12/23 19:16 MPV 11.0 fL (7.4-10.4) H 12/12/23 19:16 Neut % (Auto) 74.0 % 12/12/23 19:16 Lymph % (Auto) 16.7 % 12/12/23 19:16 [place] % (Auto) 6.5 % 12/12/23 19:16 Eos % (Auto) 1.5 % 12/12/23 19:16 Baso % (Auto) 0.9 % 12/12/23 19:16 Neut # (Auto) 8.56 10^3/uL (1.8-7.7) H 12/12/23 19:16 Lymph # (Auto) 1.9 10^3/uL (0.8-4.8) 12/12/23 19:16 [place] # (Auto) 0.8 10^3/uL (0.2-0.9) 12/12/23 19:16 Eos # (Auto) 0.2 10^3/uL (0.0-0.8) 12/12/23 19:16 Baso # (Auto) 0.1 10^3/uL (0.0-0.1) 12/12/23 19:16 Nucleated RBC % (auto) 0 % 12/12/23 19:16 Nucleated RBCs # 0.0 /100WBC 12/12/23 19:16 PT 13.20 SECONDS (12.1-14.9) 12/12/23 19:16 INR 0.98 (0.8-1.2) 12/12/23 19:16 Sodium 135 mmol/L (136-145) L 12/12/23 19:16 Potassium 5.5 mmol/L (3.5-5.1) H 12/12/23 19:16 Chloride 99 mmol/L (98-107) 12/12/23 19:16 Carbon Dioxide 23 mmol/L (22-29) 12/12/23 19:16 Anion Gap 18.5 (5-19) 12/12/23 19:16 BUN 24 mg/dL (8-23) H 12/12/23 19:16 Creatinine 1.8 mg/dL (0.7-1.2) H 12/12/23 19:16 GFR Calculation 38.7 mL/min (90-130) L 12/12/23 19:16 Glucose 272 mg/dL (65-115) H 12/12/23 19:16 POC Glucose 248 mg/dL (70-110) H 12/12/23 19:51 Calculated Osmolality 294 mOsm/kg (285-295) 12/12/23 19:16 Calcium 8.2 mg/dL (8.5-10.5) L 12/12/23 19:16 Magnesium 2.0 mg/dL (1.7-2.3) 12/12/23 19:16 Total Bilirubin 0.3 mg/dL (0.15-1.2) 12/12/23 19:16 AST 14 U/L (0-40) 12/12/23 19:16 ALT 11 U/L (0-41) 12/12/23 19:16 Alkaline Phosphatase 102 U/L (40-130) 12/12/23 19:16 Troponin T Baseline 69 ng/L (0-15) H 12/12/23 19:16 Troponin T 120 Minute 70.48 ng/L (0-15) H 12/12/23 21:23 Delta Troponin T 1.48 ABS# (0-10) 12/12/23 21:23 NT-Pro-B Natriuret Pep 5653 pg/mL (0-125) H 12/12/23 19:16 Total Protein 6.4 g/dL (6.6-8.7) L 12/12/23 19:16 Albumin 3.5 g/dL (3.5-5.2) 12/12/23 19:16 Globulin 2.9 g/dL (1.3-4.6) 12/12/23 19:16 Influenza Type A Ag negative (Negative) 12/12/23 20:05 Influenza Type B Ag negative (Negative) 12/12/23 20:05 SARS-CoV-2 Ag (Rapid) negative (Negative) 12/12/23 20:05 All radiology interpretation(s) finalized by discharge EKG Data EKG 1: I personally reviewed and interpreted this EKG as follows: EKG interpretation date: 12/12/23 EKG interpretation time: 19:37 Interpretation: bradycardia hr [address] elevation qrs 146 qtc 450 Discharge Plan Discharge Patient Disposition: Admitted As Inpatient Clinical Impression: CHF (congestive heart failure), Acute respiratory failure with hypoxia Condition: Stable Prescriptions: No Action melatonin [Melatin] 3 mg tablet 3 mg PO BEDTIME PRN (Reason: sleep) celecoxib [Celebrex] 200 mg capsule 200 mg PO BID@08,22 pantoprazole [Protonix] 40 mg tablet,delayed release (DR/EC) 40 mg PO BID@08,22 pregabalin [Lyrica] 150 mg capsule 300 mg PO BID@08,22 omega-3 fatty acids [Fish Oil Concentrate] 1,000 mg capsule 1,000 mg PO .HS multivitamin Tablet 1 tab PO DAILY metformin 1,000 mg tablet 1,000 mg PO BID Farxiga 10 mg tablet 10 mg PO QAM Qty: 30 11RF nitroglycerin [Nitrostat] 0.4 mg tablet, sublingual 0.4 mg sublingual Q5M PRN (Reason: chest pain) Qty: 25 1RF metoprolol tartrate 100 mg tablet 100 mg PO BID@08,22 Qty: 180 3RF amlodipine 10 mg tablet 10 mg PO DAILY@08 Qty: 90 3RF Lasix 40 mg tablet 40 mg PO DAILY PRN (Reason: edema) Qty: 90 1RF Zetia 10 mg tablet 10 mg PO DAILY@08 Qty: 90 3RF cilostazol 50 mg tablet 50 mg PO BID Qty: 180 1RF clopidogrel 75 mg tablet See Rx Instructions .ROUTE .COMPLEX Qty: 90 3RF Dose Instruction: TAKE 1 TABLET BY MOUTH EVERY DAY at 8am Rx Instructions: TAKE 1 TABLET BY MOUTH EVERY DAY at 8am tamsulosin 0.4 mg Capsule 0.4 mg PO DAILY@2200 Qty: 0 glyburide 2.5 mg tablet 2.5 mg PO BID Qty: 0 Trulicity 1.5 mg/0.5 mL Pen Injector 1.5 mg SUBCUT Q7D Rx Instructions: (on Wednesdays) atorvastatin 40 mg tablet 40 mg PO BEDTIME@2200 duloxetine [Cymbalta] 60 mg capsule,delayed release(DR/EC) 60 mg PO DAILY@08 Rx Instructions: Take one capsule every morning Zofran 4 mg tablet 4 mg PO Q6H PRN (Reason: nausea and vomiting) Qty: 20 0RF Referrals: Enrique Avila MD [Primary Care Provider] - Coding Level of Care Code ED Plywood Patcher for Mason Lipscomb
[2023-12-12 20:32] LABS: Influenza A by IFA negative (Negative); Influenza B by IFA negative (Negative)
[2023-12-12 20:33] LABS: Troponin(5th) Baseline 69 ng/L (0-15)
[2023-12-12 20:34] LABS: SARS Covid-2 Antigen negative (Negative)
[2023-12-12 20:42] LABS: INR 0.98 (0.8-1.2)
[2023-12-12 20:43] LABS: Alanine Aminotransferase 11 U/L (0-41); Albumin Level 3.5 g/dL (3.5-5.2); Alkaline Phosphatase 102 U/L (40-130); Anion Gap 18.5 (5-19); Aspartate Amino Transferase 14 U/L (0-40); Blood Urea Nitrogen 24 mg/dL (8-23); Calcium 8.2 mg/dL (8.5-10.5); Carbon Dioxide 23 mmol/L (22-29); Chloride 99 mmol/L (98-107); Globulin 2.9 g/dL (1.3-4.6); Glomerular Filtration Rate 38.7 mL/min (90-130); Glucose 272 mg/dL (65-115); NT Pro B Type Natriuretic Pept 5653 pg/mL (0-125); Osmolality Calculated 294 mOsm/kg (285-295); Potassium 5.5 mmol/L (3.5-5.1); Sodium 135 mmol/L (136-145); Total Bilirubin 0.3 mg/dL (0.15-1.2); Total Protein 6.4 g/dL (6.6-8.7)
[2023-12-12 20:47] VITALS: BP 114/53; PULSE 54; RESP 21; O2SAT 91
[2023-12-12] MEDS: iohexol 350 mg/mL 500 mL Btl (per mL) IV (21:07)
[2023-12-12 21:54] LABS: Troponin 5 2HR 70.48 ng/L (0-15); Troponin 5 2HR Delta 1.48 ABS# (0-10)
[2023-12-12] MEDS: FUROsemide 10 mg/mL SDV 10mL 60 MG IVP (21:54)
[2023-12-12 21:59] VITALS: BP 131/72; PULSE 63; O2SAT 90
[2023-12-12 22:50] VITALS: BP 121/63; PULSE 55; O2SAT 95
--- NOTE | 2023-12-12 23:16 | PC.NURSE ---
REPORT CALLED TO AVA PATEL IN CSU. ALL QUESTIONS AND CONCERNS ADDRESSED AT TIME OF REPORT.
--- NOTE | 2023-12-12 23:27 | USCV_ITS ---
Carlos Bender Age: 58 Gender: M : 1965 Exam Date: 12/12/2023 23:44 Ordering Phys: Shekhar Matt MD Technologist: LAYTON [place] [facility] [place]: SOB. History of CABG 202. two cardiac stents. BP: 121 / 63 HR: 55 Rhythm: irregular, sinus rhythm, bradicardic w/strings of Afib Technical Quality: Poor [employer] used MEASUREMENTS (Male / Female) Normal Values 2D ECHO LV Diastolic Diameter PLAX 5.4 cm 4.2 - 5.9 / 3.9 - 5.3 cm LV Systolic Diameter PLAX 4.0 cm IVS Diastolic Thickness 1.7 cm 0.6 - 1.0 / 0.6 - 0.9 cm IVS Systolic Thickness 2.1 cm LVPW Diastolic Thickness 0.8 cm 0.6 - 1.0 / 0.6 - 0.9 cm LVPW Systolic Thickness 1.2 cm LVOT Diameter 2.1 cm LV Ejection Fraction 2D Teich 48.9 % LV Ejection Fraction MOD 2C 45.3 % LV Ejection Fraction 2C AL 45.8 % LA Diameter 6.0 cm LA Width 5.8 cm LA Height 6.5 cm RA Width 4.6 cm RA Height 6.0 cm Aorta at Sinotubular Diameter 2.9 cm IVC Diameter 2.0 cm M-MODE Aortic Annulus Diameter 3.3 cm LA Ao Ratio MM 1.9 MV E Point Septal Separation 1.0 cm DOPPLER AV Peak Velocity 139.0 cm/s LVOT Peak Velocity 95.0 cm/s AV Area Cont Eq vti 2.2 cm squared AV Area Cont Eq pk 2.4 cm squared MV Peak Velocity 203.0 cm/s MV Area PHT 4.3 cm squared MV E' Velocity 97.5 cm/s Mitral E to MV E' Ratio 19.8 Mitral E to LV E' Lateral Ratio 27.2 Mitral E to LV E' Septal Ratio 15.5 TR Peak Velocity 280.0 cm/s TR Peak Gradient 31.4 mmHg TV Peak E Velocity 95.0 cm/s Right Atrial Pressure 10.0 mmHg Pulmonary Artery Systolic Pressu 41.4 mmHg PV Peak Velocity 151.0 cm/s RV Acceleration Time 0.1 s RV Ejection Time 0.4 s RV AcT/ET 0.3 FINDINGS Left Ventricle Poor quality study. Echo contrast used. Probably normal LV function ejection fraction about 60%. Diastolic function cannot be determined due to the irregular rhythm. No regional wall motion disturbances. Right Ventricle Normal right ventricular size and systolic function. Mild pulmonary hypertension, RVSP 41.4 mmHg. Right Atrium Mildly increased right atrial size. Left Atrium Mildly increased left atrial size. Mitral Valve Structurally normal mitral valve. Mild-moderate mitral valve regurgitation. Aortic Valve Structurally normal aortic valve without significant sclerosis or stenosis. There is no aortic regurgitation. Tricuspid Valve Structurally normal tricuspid valve. Mild tricuspid valve regurgitation. Pulmonic Valve Pulmonic valve not well visualized. Pericardium Trivial pericardial effusion. Aorta Ascending aorta 3.4 cm IVC The inferior vena cava appears normal. CONCLUSIONS Poor quality study. Echo contrast used. Probably normal LV function ejection fraction about 60%. Diastolic function cannot be determined due to the irregular rhythm. No regional wall motion disturbances. Normal right ventricular size and systolic function. Mild pulmonary hypertension, RVSP 41.4 mmHg. Mildly increased right atrial size. Mildly increased left atrial size. Structurally normal mitral valve. Mild-moderate mitral valve regurgitation. Trivial pericardial effusion. Ascending aorta 3.4 cm. Previous study done December 23, 2020. Atrial fibrillation is new. The trivial pericardial effusion is new. The dilated ascending aorta is new. Dr. Joni Cruz MD (Electronically Signed) Final Date: 13 December 2023 08:34 S
[2023-12-12 23:28] VITALS: BMI 35.9
--- NOTE | 2023-12-12 23:46 | PM.HP ---
Providers/Chief Complaint Admitting Physician: Shekhar Matt MD Primary Care Provider: Enrique Avila MD Chief Complaint: CP/SOB History of Present Illness Carlos Bender is a 58 year old male with a past medical history of triple vessel bypass, insulin-dependent type 2 diabetes mellitus, hyperlipidemia, history of esophageal spasms, who presents to [facility] due to shortness of breath. Patient tells me that he chronically gets esophageal spasms and/or chest pain, and typically deals with it with nitroglycerin recently nitroglycerin has not been helping, he has been having intermittent chest discomfort, which he attributes to esophageal spasms. Today he started to feel short of breath, with exertion short of breath progressing to rest, orthopnea, with paroxysmal nocturnal dyspnea, he woke up short of breath this morning, because of progressive shortness of breath, he had oxygen at home, which he uses as needed after his triple-vessel bypass, he put himself on 3 to 4 L and he felt better, but still short of breath he came to [facility] for evaluation, no calf pain, calf swelling he, he continues to smoke, he has been smoking since he is a child he tells me, no history of's COPD or any formal diagnosis of it, no fevers, no chills, no sick contacts, his did give him 60 mg of Lasix this morning Review of Systems Const: Denies: fever(s) Card: Reports: chest pain Resp: Reports: dyspnea GI: Denies: abdominal pain : Denies: flank pain Medications/Allergies Home Medications Medication Instructions Recorded Confirmed Last Taken Type celecoxib 200 mg capsule (Celebrex) 200 mg PO BID@12/05/19 10/26/22 02/03/22 History melatonin 3 mg tablet (Melatin) 3 mg PO BEDTIME PRN sleep 12/05/19 10/26/22 02/02/22 History pantoprazole 40 mg tablet,delayed 40 mg PO BID@12/09/20 10/26/22 02/02/22 History release (Protonix) pregabalin 150 mg capsule (Lyrica) 300 mg PO BID@12/09/20 10/26/22 02/02/22 History tamsulosin 0.4 mg capsule 0.4 mg PO DAILY@2200 ##0 12/21/20 10/26/22 02/02/22 History atorvastatin 40 mg tablet 40 mg PO BEDTIME@2200 03/11/21 10/26/22 02/02/22 History dulaglutide 1.5 mg/0.5 mL 1.5 mg SUBCUT Q7D 03/11/21 10/26/22 02/02/22 History subcutaneous pen injector (Trulicity) duloxetine 60 mg capsule,delayed 60 mg PO DAILY@08 03/11/21 10/26/22 02/02/22 History release (Cymbalta) omega-3 fatty acids 1,000 mg 1,000 mg PO .HS 09/23/21 10/26/22 02/02/22 History capsule (Fish Oil Concentrate) ondansetron HCl 4 mg tablet 4 mg PO Q6H PRN nausea and 02/03/22 10/26/22 Unknown Rx (Zofran) vomiting #20 tabs multivitamin 1 tab PO DAILY 09/29/22 10/26/22 Unknown History dapagliflozin propanediol 10 mg 10 mg PO QAM #30 tabs 10/19/22 10/26/22 Unknown Rx tablet (Farxiga) metformin 1,000 mg tablet 1,000 mg PO BID 10/26/22 10/26/22 Unknown History nitroglycerin 0.4 mg sublingual 0.4 mg sublingual Q5M PRN chest 03/13/23 Unknown Rx tablet (Nitrostat) pain #25 ea metoprolol tartrate 100 mg tablet 100 mg PO BID@, #180 tabs 05/05/23 Unknown Rx amlodipine 10 mg tablet 10 mg PO DAILY@08 #90 tabs 05/22/23 Unknown Rx furosemide 40 mg tablet (Lasix) 40 mg PO DAILY PRN edema #90 tabs 06/01/23 Unknown Rx ezetimibe 10 mg tablet (Zetia) 10 mg PO DAILY@08 #90 tabs 06/21/23 Unknown Rx glyburide 2.5 mg tablet 2.5 mg PO BID #0 tabs 06/29/23 Unknown History cilostazol 50 mg tablet 50 mg PO BID #180 tabs 11/24/23 Unknown Rx clopidogrel 75 mg tablet See Rx Instructions .Route 11/24/23 Unknown Rx .COMPLEX #90 tabs Allergies Allergy/AdvReac Type Severity Reaction Status Date / Time codeine Allergy Unknown Verified 12/12/23 19:43 gabapentin Allergy Unknown Verified 12/12/23 19:43 PFSH Acute PFSH: Medical History (Updated 12/12/23 @ 23:50 by Shekhar Matt MD) CHF (congestive heart failure) Congestive heart failure Heart failure Hyperkalemia CAD (coronary artery disease) Diabetes Left main coronary artery disease HTN (hypertension) with goal to be determined ASHD (arteriosclerotic heart disease) Nicotine dependence, cigarettes, uncomplicated Generalized anxiety disorder Major depressive disorder, recurrent episode, moderate with anxious distress Surgical History S/P laminectomy S/P vasectomy History of heart artery stent S/P knee surgery S/P cholecystectomy Status post aorto-coronary artery bypass graft Family History Father Myocardial infarct Grandmother Myocardial infarct Family/Other Myocardial infarct Other CAD (coronary artery disease) Social History Smoking and tobacco/nicotine status: current every day tobacco/nicotine user cigarettes Packs smoked per day: 1 and smokeless tobacco Smokeless tobacco user: chewing tobacco Smokeless tobacco details: 1 can 2- 3 days Quit status (tobacco/nicotine): considering quitting Second hand smoke exposure: Yes Alcohol intake: never Substance/Drug Use: never Vitals/I&O/Wt Last Vital Signs Temp 98.1 F 12/12/23 19:39 Pulse 55 L 12/12/23 22:50 Resp 21 H 12/12/23 20:47 BP 121/63 12/12/23 22:50 Pulse Ox 95 12/12/23 22:50 O2 Del Method Nasal Cannula 12/12/23 22:50 O2 Flow Rate 3 12/12/23 22:50 Weight last 48 hrs Weight 108.862 kg Physical Exam Const: COMMON NORMALS: no acute distress and patient oriented x3 HENMT: COMMON NORMALS: normocephalic HEAD & SCALP: normocephalic Eye: COMMON NORMALS: Equal, round and reactive pupils present and EOMs intact bilaterally Neck/C-Spine: COMMON NORMALS: no JVD Resp: COMMON NORMALS: normal respiratory effort, No retractions, No use of accessory muscles and clear to auscultation bilaterally AUSCULTATION: crackles Cardio: COMMON NORMALS: regular rate, regular rhythm, S1 normal heart sound present and S2 normal heart sound present RATE: regular rate RHYTHM: regular rhythm HEART SOUNDS: S1 normal heart sound present and S2 normal heart sound present GI: COMMON NORMALS: Normal to inspection, nondistended, normoactive bowel sounds present, Soft to palpation and non-tender Extremity: COMMON NORMALS: no calf tenderness and no pedal edema Neuro: COMMON NORMALS: patient oriented x3, CN's II-XII intact bilaterally, moves all extremities and no focal motor deficits Psych: COMMON NORMALS: mental status grossly normal Data 12/12/23 19:16 12/12/23 19:16 A&P Assessment and plan (1) Acute respiratory failure with hypoxia: (2) Chest pain: Qualifiers: Chest pain type: unspecified Qualified Code(s): R07.9 - Chest pain, unspecified (3) Smoker: (4) HTN (hypertension) with goal to be determined: (5) Acute exacerbation of CHF (congestive heart failure): (6) Diabetes: Plan Acute hypoxic respiratory failure, ? Likely secondary to CHF exacerbation, ? Elevated BNP, CT angiogram of the chest showing evidence of pulmonary edema ? Plan Celeste ? Fluid restrictions 1 L, ? Follow creatinine, potassium, magnesium ? Lasix 40 mg IV twice daily ? Place C[place] catheter ? Cardiac echo ? Full code ? Lovenox for DVT prophylaxis Chest pain ? Serial EKGs, serial troponins, telemetry monitoring, ? Cardiac echo Active smoker, no formal diagnosis of COPD, no wheezing on examination Obesity CAD status post CABG HERRERA, monitor with diuresis Type 2 diabetes mellitus, [id number], check A1c, patient declines insulin he tells me that when his blood sugar drops below 100 or so he becomes hypoglycemic, and he does not want to use insulin here, he wants to use his home medications including Trulicity which his is Josué bring tomorrow, advised that we will get hold metformin for now as he received a CT angiogram and there might be future plans for further imaging Attestations Medical Necessity Statement*: Patient requires hospitalization, inpatient, greater than 2 midnights, for acute CHF exacerbation, acute hypoxic respiratory failure, HERRERA, chest pain Diagnoses Acute respiratory failure with hypoxia J96.01 Chest pain R07.9 Chest pain type: unspecified Smoker F17.200 HTN (hypertension) with goal to be determined I10 Acute exacerbation of CHF (congestive heart failure) I50.9 Diabetes E11.9
[2023-12-12 23:54] LABS: Chol HDL Ratio 2.83 mg/dL (1.0-5.00); Cholesterol 68 mg/dL (0-200); HDL Cholesterol 24 mg/dL (60-100); LDL Cholesterol Calculated 1 mg/dL (50-129); LDL HDL Ratio 0.04 RATIO (0.00-3.22); Triglycerides 217 mg/dL (0-150)
[2023-12-12 23:55] VITALS: BP 135/70; PULSE 56; RESP 30; O2SAT 92
[2023-12-13] VITALS (14 sets, daily range): BP systolic 121–143; BP diastolic 64–96; PULSE 50–98; RESP 20–30; TEMP 36.7–37.2; O2SAT 91–95; BMI 35.9
[2023-12-13] LABS: Estmated Average Glucose 235; Hemoglobin A1C 9.8 % (4.0-6.0)
[2023-12-13 00:16] LABS: Thyroid Stimulating Hormone 2.31 uIU/mL (0.27-4.20)
[2023-12-13] MEDS: enoxaparin 40 mg/0.4 mL Syringe SUBCUT (00:59)
[2023-12-13 01:20] LABS: Basophils # 0.1 10^3/uL (0.0-0.1); Basophils % 0.6 %; Eosinophils # 0.2 10^3/uL (0.0-0.8); Eosinophils % 1.6 %; Hematocrit 43.9 % (37-53); Lymphocytes % 21.2 %; Mean Corpuscular HGB Conc 31.4 g/dL (30-55); Mean Corpuscular Hemoglobin 29.7 pg (27-33); Mean Corpuscular Volume 94.4 fl (82-101); Mean Platelet Volume 10.6 fL (7.4-10.4); Monocytes # 0.6 10^3/uL (0.2-0.9); Monocytes % 6.1 %; Neutrophils # 6.63 10^3/uL (1.8-7.7); Neutrophils % 70.2 %; Nucleated Red Blood Cells % 0 %; Platelet Count 179 10^3/cmm (157-399); Red Blood Count 4.65 10^6/uL (3.85-5.65); Red Cell Distribution Width 13.8 % (12.1-15.1); White Blood Count 9.45 10^3/uL (3.29-11.43)
[2023-12-13 01:39] LABS: Troponin 5 6HR 75.84 ng/L (0-15); Troponin 5 6HR Delta 6.84 ng/L (0-12)
--- NOTE | 2023-12-13 01:40 | ECG_ITS ---
[facility] Test Date: 2023-12-13 Pat Name: Carlos Bender Department: Room: 104 Gender: Male [employer] Supervisor: : 1965 Requested By: Judy Aggarwal Order Number: [id number] Femi MD: Joni Cruz M.D. Measurements Intervals [place] Rate: 53 P: 0 CA: 0 QRS: 37 QRSD: 146 T: -27 QT: 471 QTc: 445 Interpretive Statements Possible high degree AV block Left bundle branch block Compared to ECG 03/11/2021 08:38:56 Sinus rhythm no longer present Clinical correlation recommended Electronically Signed On 12-13-2023 14:26:34 WIRE CHIEF by Joni Cruz M.D. [id number]
[2023-12-13 01:43] LABS: Alanine Aminotransferase 11 U/L (0-41); Albumin Level 3.6 g/dL (3.5-5.2); Alkaline Phosphatase 105 U/L (40-130); Aspartate Amino Transferase 10 U/L (0-40); Blood Urea Nitrogen 26 mg/dL (8-23); Calcium 8.7 mg/dL (8.5-10.5); Carbon Dioxide 25 mmol/L (22-29); Chloride 99 mmol/L (98-107); Globulin 2.4 g/dL (1.3-4.6); Glomerular Filtration Rate 41.3 mL/min (90-130); Glucose 228 mg/dL (65-115); Osmolality Calculated 294 mOsm/kg (285-295); Phosphorus 4.5 mg/dL (2.5-4.5); Sodium 136 mmol/L (136-145); Total Bilirubin 0.4 mg/dL (0.15-1.2)
--- NOTE | 2023-12-13 02:09 | PC.NURSE ---
Patient O2 was @ 83, Dr Matt was notified and RT placed patient on Bipap.
[2023-12-13 02:25] LABS: NT Pro B Type Natriuretic Pept 5707 pg/mL (0-125)
--- NOTE | 2023-12-13 05:08 | ECG_ITS ---
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 Measurements Intervals [place] Rate: 51 P: 0 ID: 0 QRS: 8 QRSD: 146 T: 86 QT: 472 QTc: 438 Interpretive Statements ATRIAL FIBRILLATION WITH SLOW VENTRICULAR RESPONSE LEFT BUNDLE BRANCH BLOCK [120+ ms QRS DURATION, 80+ ms Q/S IN V1/V2, 85+ ms R IN I/aVL/V5/V6] Compared to ECG 03/11/2021 08:38:56 Left bundle-branch block now present Sinus rhythm no longer present Electronically Signed On 12-13-2023 14:18:15 ESTHETIC DERMATOLOGIST by Joni Cruz M.D. [id number]
[2023-12-13 06:34] LABS: Glucose Point of Care 178 mg/dL (70-110)
[2023-12-13] MEDS: clopidogrel 75 mg Tablet PO (09:19)
[2023-12-13] MEDS: duloxetine 60 mg Capsule PO (09:19)
[2023-12-13] MEDS: cilostazol 100 mg Tablet 50 MG PO ×2 (09:19→17:57)
[2023-12-13] MEDS: pregabalin 150 mg Capsule 300 MG PO ×2 (09:19→20:13)
[2023-12-13] MEDS: FUROsemide 10 mg/mL SDV 4mL 40 MG IVP ×2 (09:20→18:53)
[2023-12-13] MEDS: ezetimibe 10 mg Tablet PO (09:20)
[2023-12-13] MEDS: pantoprazole DR 40 mg Tablet PO ×2 (09:23→20:14)
--- NOTE | 2023-12-13 12:02 | P.PN_ITS ---
Subjective 2 Subjective: He is feeling slightly better compared to admission. He is not coughing. Denies chest pain or pressure. No hemoptysis. No nausea vomiting or diarrhea. No headache. Vitals/I&O/Wt Last Vital Signs Temp 99.0 F 12/13/23 04:31 Pulse 62 12/13/23 06:00 Resp 28 H 12/13/23 04:31 BP 121/68 12/13/23 04:31 Pulse Ox 95 12/13/23 05:19 O2 Del Method BiPAP 12/13/23 05:19 O2 Flow Rate 3 12/12/23 22:50 FiO2 50 12/13/23 05:19 12/12/23 12/13/23 12/13/23 22:59 06:59 14:59 Intake Total 150 / 150 Output Total 750 / 750 Balance -600 / -600 Weight last 48 hrs Weight 113.483 kg Weight 113.54 kg Weight 108.862 kg Physical Exam 2 Const: COMMON NORMALS: patient oriented x3 and alert GENERAL APPEARANCE: c ooperative ORIENTATION/CONSCIOUSNESS: Yes awake HENMT: COMMON NORMALS: oropharynx normal Neck/C-Spine: COMMON NORMALS: no JVD Resp: COMMON NORMALS: normal respiratory effort AUSCULTATION: diminished lung sounds bilateral Cardio: COMMON NORMALS: no JVD, regular rhythm, S1 normal heart sound present, S2 normal heart sound present and No murmurs present (Cardio) RHYTHM: regular rhythm HEART SOUNDS: S1 normal heart sound present and S2 normal heart sound present GI: COMMON NORMALS: Normal to inspection, nondistended, normoactive bowel sounds present, Soft to palpation and non-tender PALPATION: Yes Soft to palpation Extremity: COMMON NORMALS: no joint enlargement and no pedal edema Neuro: COMMON NORMALS: patient oriented x3 and moves all extremities S ENSORIUM/ORIENTATION: Yes alert Skin: COMMON NORMALS: no rashes or lesions noted GENERAL SKIN EXAM: no rashes or lesions noted Data 12/13/23 01:14 12/13/23 01:14 A&P Assessment and plan (1) Acute respiratory failure with hypoxia: (2) Chest pain: Qualifiers: Chest pain type: unspecified Qualified Code(s): R07.9 - Chest pain, unspecified (3) Smoker: (4) HTN (hypertension) with goal to be determined: (5) Acute exacerbation of CHF (congestive heart failure): (6) Diabetes: Plan Acute hypoxic respiratory failure, not normally on oxygen Seems to be combination of congestive heart failure but also component of bronchitis, diminished air entry bilaterally. Will request respiratory viral panel. Reviewed CBC, WBC WNL. Reviewed echocardiogram results, mild pulmonary hypertension. Mild to moderate mitral valve regurgitation. Continue Lasix for now for suspected decompensated congestive heart failure, pulmonary congestion, at risk of renal dysfunction, electrolyte deficiency. Reviewed potassium, hyperkalemia on presentation, today slightly better at 5. Reassess kidney function. Reviewed BUN, creatinine, HERRERA on presentation, discussed with him and his . Creatinine slightly better today down to 1.7. Reviewed albumin, WNL. Does not have known diagnosis of sleep apnea. Would benefit from sleep study. ? Full code ? Lovenox for DVT prophylaxis Chest pain. Currently no chest pain. Serial troponins reviewed. Moderate elevation of troponin. Echocardiogram with normal ejection fraction, no regional wall motion abnormalities. Diastolic function could not be assessed. Telemetry monitoring, At some point would benefit from further risk stratification with stress testing. HERRERA: Hold NSAIDs. Creatinine slightly better down to 1.7. Prior baseline around 0.9. Obtain UA. Obtain kidney bladder ultrasound. Urine creatinine, urine urea Active smoker, discussed with him for 4 minutes would benefit from smoking cessation but he becomes visibly uncomfortable. Declines nicotine supplementation. No formal diagnosis of COPD, no wheezing on examination Would benefit from pulmonary function test referral Obesity CAD status post CABG Type 2 diabetes mellitus, noted uncontrolled diabetes, A1c is 9.8. Per review of labile diabetes with hypoglycemia. Declined insulin. Change to consistent carbohydrate diet. Attestations 2 Medical Necessity Statement*: Continue admission for assessment management of hypoxic respiratory failure, congestive heart failure, acute bronchitis, possible undiagnosed COPD, and gentleman with active smoking, suboptimal control diabetes. and High MDM includes amount and/or complexity of data reviewed/ordered [ resulted lab(s)/test(s), ordered lab(s)/test(s) and other healthcare professional discussion] and described risk of complication, morbidity or mortality of management as documented Diagnoses Acute respiratory failure with hypoxia J96.01 Chest pain R07.9 Chest pain type: unspecified Smoker F17.200 HTN (hypertension) with goal to be determined I10 Acute exacerbation of CHF (congestive heart failure) I50.9 Diabetes E11.9
--- NOTE | 2023-12-13 12:15 | US_ITS ---
WS: [id number] RENAL ULTRASOUND URINARY BLADDER ULTRASOUND HISTORY: ethan COMPARISON: None available. TECHNIQUE: 2-D and color Doppler imaging of the kidney submitted. Right kidney: 13.8 cm x 8.1 cm x 4.5 cm. Normal echogenicity with no hydronephrosis or mass. Left kidney: 12.4 cm x 5.8 cm x 6.6 cm. Normal echogenicity with no hydronephrosis or mass. Aorta: Normal. Urinary Bladder: Minimally distended urinary bladder. There is moderate residual post void at 165 cc. IMPRESSION: 1. No renal obstruction or mass. 2. Moderate post void residual.
[2023-12-13 13:31] LABS: Urine Creatinine 44 mg/dL (39-259)
[2023-12-13] MEDS: ipratropium-albuterol 3 mL Neb INHALATION ×2 (14:17→20:02)
[2023-12-13 14:30] LABS: Add Urine Microscopic? YES; Bilirubin Urine Neg (Negative); Blood Urine 2+ (Negative); Glucose Urine UA 2+ (Normal); Ketones Urine 1+ (Negative); Leukocyte Esterase Urine Negative (Negative); Nitrate Urine Negative (Negative); Protein Urine 2+ (Negative); Urine Appearance Clear (CLEAR); Urine Color Yellow (Yellow); Urobilinogen Urine Norm (Negative); pH Urine 5 (5-7)
[2023-12-13 14:33] LABS: Add Urine Culture? No; Amorphous Sediment Urine TRACE /hpf; Bacteria Urine TRACE /hpf; Mucus Urine TRACE /hpf; RBC Urine 0-4 /hpf (0-2); Squamous Epithelial Cell Urine 0-4 /hpf (0-5)
[2023-12-13 14:50] LABS: Urea Nitrogen,Urine Random 252 mg/dL
[2023-12-13 14:57] LABS: Adenovirus Not Detected (NOT DETECT); Chlamydia Pneumoniae Not Detected (NOT DETECT); Coronavirus 229E,HKU1,NL63,OC4 Not Detected (NOT DETECT); Human Metapneumovirus Not Detected (NOT DETECT); Human Rhinovirus/Enterovirus Not Detected (NOT DETECT); Influenza A Not Detected (NOT DETECT); Influenza A H1 Not Detected (NOT DETECT); Influenza A H1-2009 Not Detected (NOT DETECT); Influenza A H3 Not Detected (NOT DETECT); Influenza B Not Detected (NOT DETECT); Mycoplasma Pneumoniae Not Detected (NOT DETECT); Parainfluenza Virus Type 1 Not Detected (NOT DETECT); Parainfluenza Virus Type 2 Not Detected (NOT DETECT); Parainfluenza Virus Type 3 Not Detected (NOT DETECT); Parainfluenza Virus Type 4 Not Detected (NOT DETECT); Respiratory Syncytial Virus A Not Detected (NOT DETECT); Respiratory Syncytial Virus B Not Detected (NOT DETECT); SARS-COV-2 Not Detected (NOT DETECT)
[2023-12-13] MEDS: insulin glargine 100 units/1 mL 10 UNIT SUBCUT (20:13)
[2023-12-13] MEDS: atorvastatin 40 mg Tablet PO (20:13)
[2023-12-13] MEDS: tamsulosin 0.4 mg Capsule PO (20:14)
[2023-12-13 20:47] LABS: Glucose Point of Care 350 mg/dL (70-110)
[2023-12-13] MEDS: insulin lispro 100 unit/1 mL SUBCUT (21:14)
[2023-12-14] VITALS (17 sets, daily range): BP systolic 139–165; BP diastolic 67–89; PULSE 60–117; RESP 16–27; TEMP 36.5–37.4; O2SAT 93–99; BMI 35.7
[2023-12-14] MEDS: enoxaparin 40 mg/0.4 mL Syringe SUBCUT ×2 (00:12→23:39)
[2023-12-14 04:13] LABS: Basophils # 0.1 10^3/uL (0.0-0.1); Basophils % 0.9 %; Eosinophils # 0.1 10^3/uL (0.0-0.8); Eosinophils % 1.1 %; Hematocrit 38.7 % (37-53); Lymphocytes # 1.8 10^3/uL (0.8-4.8); Lymphocytes % 21.4 %; Mean Corpuscular Hemoglobin 29.9 pg (27-33); Mean Corpuscular Volume 93.3 fl (82-101); Mean Platelet Volume 10.6 fL (7.4-10.4); Monocytes # 0.6 10^3/uL (0.2-0.9); Monocytes % 7.6 %; Neutrophils # 5.61 10^3/uL (1.8-7.7); Neutrophils % 68.6 %; Nucleated Red Blood Cells % 0 %; Platelet Count 163 10^3/cmm (157-399); Red Blood Count 4.15 10^6/uL (3.85-5.65); Red Cell Distribution Width 13.9 % (12.1-15.1); White Blood Count 8.17 10^3/uL (3.29-11.43)
[2023-12-14 04:31] LABS: Anion Gap 14.3 (5-19); Blood Urea Nitrogen 22 mg/dL (8-23); Calcium 8.8 mg/dL (8.5-10.5); Carbon Dioxide 27 mmol/L (22-29); Chloride 100 mmol/L (98-107); Glomerular Filtration Rate 56.3 mL/min (90-130); Glucose 247 mg/dL (65-115); Osmolality Calculated 296 mOsm/kg (285-295); Potassium 4.3 mmol/L (3.5-5.1); Sodium 137 mmol/L (136-145)
--- NOTE | 2023-12-14 06:05 | PC.NURSE ---
patient BG was 350 @ 2000 on 12/13/23. Patient did not have sliding scale order. Dr Matt was notified and gave verbal orders for low dose sliding scale protocol. Patient was given 10 units of humalog
[2023-12-14 06:18] LABS: Glucose Point of Care 234 mg/dL (70-110)
[2023-12-14] MEDS: ipratropium-albuterol 3 mL Neb INHALATION ×3 (07:45→19:55)
[2023-12-14 07:53] LABS: Glucose Point of Care 231 mg/dL (70-110)
[2023-12-14] MEDS: FUROsemide 10 mg/mL SDV 4mL 40 MG IVP ×2 (08:14→21:06)
[2023-12-14] MEDS: duloxetine 60 mg Capsule PO (08:15)
[2023-12-14] MEDS: ezetimibe 10 mg Tablet PO (08:15)
[2023-12-14] MEDS: cilostazol 100 mg Tablet 50 MG PO ×2 (08:15→17:54)
[2023-12-14] MEDS: insulin lispro 100 unit/1 mL SUBCUT ×4 (08:15→21:06)
[2023-12-14] MEDS: clopidogrel 75 mg Tablet PO (08:15)
[2023-12-14] MEDS: pantoprazole DR 40 mg Tablet PO ×2 (08:15→21:18)
[2023-12-14] MEDS: pregabalin 150 mg Capsule 300 MG PO ×2 (08:23→21:18)
[2023-12-14 11:40] LABS: Glucose Point of Care 282 mg/dL (70-110)
[2023-12-14 16:56] LABS: Glucose Point of Care 295 mg/dL (70-110)
--- NOTE | 2023-12-14 18:23 | PM.PN ---
Subjective Subjective: Today he is feeling slightly better. He request to loosen his fluid restriction somewhat, currently on 1000 mL/day. He is breathing somewhat easier. Denies chest pain or pressure. Vitals/I&O/Wt Last Vital Signs Temp 98.6 F 12/14/23 16:00 Pulse 88 12/14/23 16:00 Resp 19 H 12/14/23 16:00 BP 139/67 12/14/23 16:00 Pulse Ox 99 12/14/23 16:00 O2 Del Method Nasal Cannula 12/14/23 16:00 O2 Flow Rate 3 12/14/23 14:10 FiO2 50 12/13/23 05:19 12/14/23 12/14/23 12/14/23 06:59 14:59 22:59 Intake Total 400 / 1000 840 / 840 1240 / 2080 Output Total 600 / 3560 700 / 700 Balance -200 / -2560 840 / 840 540 / 1380 Weight last 48 hrs Weight 113.001 kg Weight 113.483 kg Weight 113.54 kg Weight 108.862 kg Physical Exam Narrative: Visited by family. Const: COMMON NORMALS: patient oriented x3 and alert GENERAL APPEARANCE: cooperative ORIENTATION/CONSCIOUSNESS: Yes awake HENMT: COMMON NORMALS: oropharynx normal Neck/C-Spine: COMMON NORMALS: no JVD Resp: COMMON NORMALS: normal respiratory effort AUSCULTATION: diminished lung sounds (Slightly better air entry.) bilateral Cardio: COMMON NORMALS: no JVD, regular rhythm, S1 normal heart sound present, S2 normal heart sound present and No murmurs present (Cardio) RHYTHM: regular rhythm HEART SOUNDS: S1 normal heart sound present and S2 normal heart sound present GI: COMMON NORMALS: Normal to inspection, nondistended, normoactive bowel sounds present, Soft to palpation and non-tender PALPATION: Yes Soft to palpation Extremity: COMMON NORMALS: no joint enlargement and no pedal edema Neuro: COMMON NORMALS: patient oriented x3 and moves all extremities SENSORIUM/ORIENTATION: Yes alert Skin: COMMON NORMALS: no rashes or lesions noted GENERAL SKIN EXAM: no rashes or lesions noted Data 12/14/23 03:52 12/14/23 03:52 A&P Assessment and plan (1) Acute respiratory failure with hypoxia: (2) Chest pain: Qualifiers: Chest pain type: unspecified Qualified Code(s): R07.9 - Chest pain, unspecified (3) Smoker: (4) HTN (hypertension) with goal to be determined: (5) Acute exacerbation of CHF (congestive heart failure): (6) Diabetes: Plan Acute hypoxic respiratory failure, not normally on oxygen. Continue treatment of decompensated congestive heart failure, with pleural effusions, congestive changes, new oxygen requirement. Continue treatment of bronchitis. Added budesonide. Slight improvement. Weaning down on oxygen requirement down to 3 L this afternoon. Somewhat better air entry on exam. Feels slightly better. Does request to liberalize his oral intake somewhat, discussed with him increasing lemon slightly to 500 mL. Discussed with him utility of fluid restriction, all risk of fluid overload and need for diuretics/decompensation of congestive heart failure. If continues to improve we will switch over to oral diuretics tomorrow. Continue treatment of bronchitis, possible undiagnosed COPD with exacerbation, continue breathing treatments. Budesonide. Reviewed vitals, CBC, BMP. Echocardiogram results, mild pulmonary hypertension. Mild to moderate mitral valve regurgitation. Monitor with IV diuretics, at risk of renal dysfunction, electrolyte deficiency. Hyperkalemia resolved. HERRERA has been improving. Discussed with mattress spring encaser. Does not have known diagnosis of sleep apnea. Would benefit from sleep study. ? Full code ? Lovenox for DVT prophylaxis Chest pain. Has not had any recurrence of chest pain. Cardiac studies not suggestive of acute NC, but discussed with him would benefit from additional cardiac risk stratification. Telemetry monitoring, At some point would benefit from further risk stratification with stress testing. HERRERA: Improving. Creatinine is 1.3. Discussed with him to avoid NSAIDs. Reviewed kidney bladder ultrasound. Active smoker, continue to revisit consideration of cessation if he will be ready. No formal diagnosis of COPD, no wheezing on examination Would benefit from pulmonary function test referral Obesity CAD status post CABG Type 2 diabetes mellitus, noted uncontrolled diabetes, A1c is 9.8. Per review of labile diabetes with hypoglycemia. Declined insulin. Consistent carbohydrate diet. Attestations Medical Necessity Statement*: Continue admission for optimization of decompensated congestive heart failure, treatment of bronchitis, reassessment of HERRERA. and High MDM includes described risk of complication, morbidity or mortality of management as documented Diagnoses Acute respiratory failure with hypoxia J96.01 Chest pain R07.9 Chest pain type: unspecified Smoker F17.200 HTN (hypertension) with goal to be determined I10 Acute exacerbation of CHF (congestive heart failure) I50.9 Diabetes E11.9
[2023-12-14] MEDS: budesonide 0.5 mg/2 mL Neb INHALATION (19:55)
--- NOTE | 2023-12-14 20:41 | ECG_ITS ---
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 Measurements Intervals [place] Rate: 100 P: -1 CA: 300 QRS: -14 QRSD: 154 T: 177 QT: 370 QTc: 478 Interpretive Statements ATRIAL FIBRILLATION POSSIBLE LEFT ATRIAL ENLARGEMENT [-0.1mV P-WAVE IN V1/V2] LEFT BUNDLE BRANCH BLOCK [120+ ms QRS DURATION, 80+ ms Q/S IN V1/V2, 85+ ms R IN I/aVL/V5/V6] Electronically Signed On 12-15-2023 12:20:11 WEDDING DECORATOR by Krishan Ag M.D. [id number]
[2023-12-14 20:53] LABS: Glucose Point of Care 294 mg/dL (70-110)
[2023-12-14] MEDS: insulin glargine 100 units/1 mL 10 UNIT SUBCUT (21:06)
[2023-12-14] MEDS: atorvastatin 40 mg Tablet PO (21:18)
[2023-12-14] MEDS: tamsulosin 0.4 mg Capsule PO (21:18)
[2023-12-14] MEDS: metoprolol tartrate 25 mg Tablet 12.5 MG PO (21:31)
[2023-12-14 21:35] LABS: Troponin(5th) Baseline 93 ng/L (0-15)
--- NOTE | 2023-12-14 22:41 | ECG_ITS ---
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 Measurements Intervals [place] Rate: 86 P: 20 AL: 326 QRS: -16 QRSD: 149 T: 181 QT: 399 QTc: 478 Interpretive Statements SINUS RHYTHM WITH FIRST DEGREE AV BLOCK WITH FREQUENT SUPRAVENTRICULAR PREMATURE COMPLEXES POSSIBLE LEFT ATRIAL ENLARGEMENT [-0.1mV P-WAVE IN V1/V2] LEFT BUNDLE BRANCH BLOCK [120+ ms QRS DURATION, 80+ ms Q/S IN V1/V2, 85+ ms R IN I/aVL/V5/V6] Compared to ECG 12/14/2023 20:48:00 Sinus tachycardia no longer present Electronically Signed On 12-15-2023 12:27:55 PODIATRIST ORTHOPEDIC by Krishan Ag M.D. [id number]
[2023-12-14 23:32] LABS: Troponin 5 2HR 89.43 ng/L (0-15)
[2023-12-14 23:34] LABS: Troponin 5 2HR Delta -3.57 ABS# (0-10)
[2023-12-15] VITALS (13 sets, daily range): BP systolic 103–139; BP diastolic 71–94; PULSE 87–130; RESP 18–22; TEMP 36.5–37.1; O2SAT 87–96
[2023-12-15 02:15] LABS: Basophils # 0.1 10^3/uL (0.0-0.1); Basophils % 0.7 %; Eosinophils # 0.2 10^3/uL (0.0-0.8); Eosinophils % 2.5 %; Hematocrit 39.2 % (37-53); Lymphocytes # 1.6 10^3/uL (0.8-4.8); Mean Corpuscular HGB Conc 32.1 g/dL (30-55); Mean Corpuscular Hemoglobin 29.6 pg (27-33); Mean Corpuscular Volume 92.2 fl (82-101); Mean Platelet Volume 10.1 fL (7.4-10.4); Monocytes # 0.5 10^3/uL (0.2-0.9); Monocytes % 7.2 %; Neutrophils # 4.74 10^3/uL (1.8-7.7); Neutrophils % 67.2 %; Nucleated Red Blood Cells % 0 %; Platelet Count 188 10^3/cmm (157-399); Red Blood Count 4.25 10^6/uL (3.85-5.65); Red Cell Distribution Width 13.7 % (12.1-15.1); White Blood Count 7.06 10^3/uL (3.29-11.43)
[2023-12-15 02:35] LABS: Troponin 5 6HR Delta 8.1 ng/L (0-12)
[2023-12-15 02:41] LABS: Troponin 5 6HR 101.1 ng/L (0-15)
--- NOTE | 2023-12-15 02:41 | ECG_ITS ---
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 Measurements Intervals [place] Rate: 91 P: -7 WI: 313 QRS: -53 QRSD: 138 T: 171 QT: 414 QTc: 511 Interpretive Statements SINUS RHYTHM WITH FIRST DEGREE AV BLOCK WITH FREQUENT SUPRAVENTRICULAR PREMATURE COMPLEXES POSSIBLE LEFT ATRIAL ENLARGEMENT [-0.1mV P-WAVE IN V1/V2] INTRAVENTRICULAR CONDUCTION DELAY [130+ ms QRS DURATION] ANTEROSEPTAL MYOCARDIAL INFARCTION , AGE INDETERMINATE Compared to ECG 12/14/2023 23:20:41 Intraventricular conduction delay now present Myocardial infarct finding now present Left bundle-branch block no longer present Electronically Signed On 12-15-2023 12:22:23 ASSEMBLER FINAL by Krishan Ag M.D. [id number]
[2023-12-15] MEDS: ipratropium-albuterol 3 mL Neb INHALATION ×3 (02:45→20:30)
[2023-12-15 03:05] LABS: Blood Urea Nitrogen 18 mg/dL (8-23); Calcium 8.9 mg/dL (8.5-10.5); Carbon Dioxide 29 mmol/L (22-29); Chloride 97 mmol/L (98-107); Glomerular Filtration Rate 56.3 mL/min (90-130); Glucose 255 mg/dL (65-115); Osmolality Calculated 297 mOsm/kg (285-295); Sodium 138 mmol/L (136-145)
[2023-12-15 03:12] LABS: Anion Gap 16.6 (5-19); Potassium 4.6 mmol/L (3.5-5.1)
--- NOTE | 2023-12-15 04:57 | PC.NURSE ---
Henry Carlisleaway room 104 HR is elevated into the upper 90 to 110 and it looks like he is in A-Fib. He takes metoprolol at home but it is currently not in his MAR. DR Matt notified. EKG ordered and trop series. Metoprolol 12.5mg TID order per Dr matt.
[2023-12-15 06:20] LABS: Glucose Point of Care 244 mg/dL (70-110)
[2023-12-15] MEDS: budesonide 0.5 mg/2 mL Neb INHALATION ×2 (07:37→20:30)
[2023-12-15] MEDS: FUROsemide 10 mg/mL SDV 4mL 40 MG IVP (08:15)
[2023-12-15] MEDS: ezetimibe 10 mg Tablet PO (08:16)
[2023-12-15] MEDS: pregabalin 150 mg Capsule 300 MG PO ×2 (08:16→22:35)
[2023-12-15] MEDS: metoprolol tartrate 25 mg Tablet 12.5 MG PO ×2 (08:17→22:35)
[2023-12-15] MEDS: pantoprazole DR 40 mg Tablet PO ×2 (08:17→22:35)
[2023-12-15] MEDS: cilostazol 100 mg Tablet 50 MG PO ×2 (08:17→17:30)
[2023-12-15] MEDS: clopidogrel 75 mg Tablet PO (08:17)
[2023-12-15] MEDS: duloxetine 60 mg Capsule PO (08:19)
[2023-12-15] MEDS: insulin lispro 100 unit/1 mL SUBCUT ×4 (08:19→22:34)
--- NOTE | 2023-12-15 09:57 | PC.CHAP ---
Pastoral Care Encounter/Spiritual Assessment Type of Contact [] Declined merchandise flow team member visit [] Patient/Family/Request visit [] Outpatient visit [] Follow-up visit [] Physician referral [] Code/Alert [x] Routine visit [] Staff referral [] Actively dying [] Patient sleeping [] Family support [] [] Out of room [] Palliative care [] [] Receiving care in room [] Pre-surgical visit [] Trauma [] Long length of stay [] ICU visit [] Other: Relational/Emotional Strength [x] Patient feels connected with others/family/visitors/staff [] Distress [] Loneliness/isolation [] Abandonment Spirituality of Patient [x] Person of Yajaira [] Attends Synagogue of their Yajaira [x] Believes in Prayer [] Reads Bible or Buddhism materials [] There are Spiritual issues to be addressed Solvent Station Attendant Interventions [x] Prayer [x] Active listening [] Non-anxious presence [x] Spiritual/emotional support [] Crisis/trauma care [] Spiritual counseling [] Bereavement support [] Provided bereavement packet [] Provided Bible/devotional materials [] Provided toy/stuffed animal, coloring book to patient or family member [] Provided Communion [] Anointing/Kennan [] Salvation [x] Completed spiritual assessment [] Other: Impact on Illness or Injury [] Angry [] Fearful [] Anxious [] Often cries [] Exhaustion [] Unable to work [] Unable to attend uatsdin [] Unable to walk/stand [] Unable to read [] Unable to drive [] Unable to eat/drink [] Unable to sleep [] Unable to be with family [] Patient intubated [] Other: Summary Time spent with patient 5 min
[2023-12-15 10:29] LABS: Glucose Point of Care 311 mg/dL (70-110)
[2023-12-15] MEDS: FUROsemide 10 mg/mL SDV 4mL 60 MG IVP (16:11)
[2023-12-15 16:58] LABS: Glucose Point of Care 364 mg/dL (70-110)
[2023-12-15 20:55] LABS: Glucose Point of Care 245 mg/dL (70-110)
--- NOTE | 2023-12-15 21:20 | PM.PN ---
Subjective Subjective: He is feeling about the same today. No chest pain. Vitals/I&O/Wt Last Vital Signs Temp 97.8 F 12/15/23 20:00 Pulse 111 H 12/15/23 20:33 Resp 18 12/15/23 20:33 BP 126/71 12/15/23 20:00 Pulse Ox 95 12/15/23 20:33 O2 Del Method Nasal Cannula 12/15/23 20:33 O2 Flow Rate 3 12/15/23 20:33 FiO2 50 12/13/23 05:19 12/15/23 12/15/23 12/15/23 06:59 14:59 22:59 Intake Total 660 / 2860 Output Total 650 / 2150 400 / 400 1800 / 2200 Balance -400 / -400 -1800 / -2200 Weight last 48 hrs Weight 111.13 kg Weight 113.001 kg Physical Exam Const: COMMON NORMALS: patient oriented x3 and alert GENERAL APPEARANCE: cooperative ORIENTATION/CONSCIOUSNESS: Yes awake HENMT: COMMON NORMALS: oropharynx normal Neck/C-Spine: COMMON NORMALS: no JVD Resp: COMMON NORMALS: normal respiratory effort AUSCULTATION: diminished lung sounds (Slightly better air entry.) bilateral Cardio: COMMON NORMALS: no JVD, regular rhythm, S1 normal heart sound present, S2 normal heart sound present and No murmurs present (Cardio) RHYTHM: regular rhythm HEART SOUNDS: S1 normal heart sound present and S2 normal heart sound present GI: COMMON NORMALS: Normal to inspection, nondistended, normoactive bowel sounds present, Soft to palpation and non-tender PALPATION: Yes Soft to palpation Extremity: COMMON NORMALS: no joint enlargement and no pedal edema Neuro: COMMON NORMALS: patient oriented x3 and moves all extremities SENSORIUM/ORIENTATION: Yes alert Skin: COMMON NORMALS: no rashes or lesions noted GENERAL SKIN EXAM: no rashes or lesions noted Data 12/15/23 02:07 12/15/23 02:07 A&P Assessment and plan (1) Acute respiratory failure with hypoxia: (2) Chest pain: Qualifiers: Chest pain type: unspecified Qualified Code(s): R07.9 - Chest pain, unspecified (3) Smoker: (4) HTN (hypertension) with goal to be determined: (5) Acute exacerbation of CHF (congestive heart failure): (6) Diabetes: Plan Reviewed vitals, YONATAN, CBC, BMP. Unimproved hypoxia so far, requiring 2 L of nasal cannula oxygen. Not normally on oxygen. On review of final today roughly neutral balance, at 2500 recorded intake. Discussed with him limiting intake. He states he feels for the most part he has but has been having some ice. Discussed increasing Lasix dose to 60 mg. Will reassess YONATAN, condition. At risk of electrolyte deficiency, renal dysfunction with IV diuretic. Reassess. Monitor on telemetry due to risk of arrhythmia. Continue treatment of decompensated congestive heart failure, with pleural effusions, congestive changes, new oxygen requirement. Discussed with telephonic nurse case manager. Continue treatment of bronchitis. Continue breathing treatments, budesonide. Possible undiagnosed COPD with exacerbation. Echocardiogram results, mild pulmonary hypertension. Mild to moderate mitral valve regurgitation. Hyperkalemia resolved. HERRERA has been improving. Discussed with telephonic nurse case manager. Does not have known diagnosis of sleep apnea. Would benefit from sleep study. ? Full code ? Lovenox for DVT prophylaxis Chest pain. Has not had any recurrence of chest pain. Reviewed overnight troponin series. Moderate elevation. Cardiac studies not suggestive of acute MS, but discussed with him would benefit from additional cardiac risk stratification. Telemetry monitoring, At some point would benefit from further risk stratification with stress testing. HERRERA: And showed improvement, reviewed BUN, creatinine creatinine today plateaued at 1.3.Reassess kidney function. Discussed with him to avoid NSAIDs. No hydronephrosis on kidney bladder ultrasound. Active smoker, continue to revisit consideration of cessation if he will be ready. No formal diagnosis of COPD, no wheezing on examination Would benefit from pulmonary function test referral Obesity CAD status post CABG Type 2 diabetes mellitus, noted uncontrolled diabetes, A1c is 9.8. Per review of labile diabetes with hypoglycemia. Declined insulin. Consistent carbohydrate diet. Attestations Medical Necessity Statement*: Continue admission for optimization of decompensated congestive heart failure, treatment of bronchitis, reassessment of HERRERA. and High MDM includes amount and/or complexity of data reviewed/ordered [ resulted lab(s)/test(s), ordered lab(s)/test(s) and other healthcare professional discussion] and described risk of complication, morbidity or mortality of management as documented Diagnoses Acute respiratory failure with hypoxia J96.01 Chest pain R07.9 Chest pain type: unspecified Smoker F17.200 HTN (hypertension) with goal to be determined I10 Acute exacerbation of CHF (congestive heart failure) I50.9 Diabetes E11.9
[2023-12-15] MEDS: insulin glargine 100 units/1 mL 10 UNIT SUBCUT (22:34)
[2023-12-15] MEDS: enoxaparin 40 mg/0.4 mL Syringe SUBCUT (22:34)
[2023-12-15] MEDS: tamsulosin 0.4 mg Capsule PO (22:35)
[2023-12-15] MEDS: atorvastatin 40 mg Tablet PO (22:35)
[2023-12-16] VITALS (10 sets, daily range): BP systolic 107–144; BP diastolic 68–91; PULSE 80–125; RESP 18–20; TEMP 36.4–37.1; O2SAT 92–96
[2023-12-16 04:54] LABS: Basophils # 0.1 10^3/uL (0.0-0.1); Basophils % 1.1 %; Eosinophils # 0.3 10^3/uL (0.0-0.8); Eosinophils % 4.8 %; Lymphocytes # 1.9 10^3/uL (0.8-4.8); Lymphocytes % 30.1 %; Mean Corpuscular HGB Conc 31.5 g/dL (30-55); Mean Corpuscular Hemoglobin 29.1 pg (27-33); Mean Corpuscular Volume 92.4 fl (82-101); Mean Platelet Volume 10.6 fL (7.4-10.4); Monocytes # 0.6 10^3/uL (0.2-0.9); Monocytes % 9.9 %; Neutrophils # 3.35 10^3/uL (1.8-7.7); Neutrophils % 53.8 %; Nucleated Red Blood Cells % 0 %; Platelet Count 205 10^3/cmm (157-399); Red Blood Count 4.33 10^6/uL (3.85-5.65); Red Cell Distribution Width 13.3 % (12.1-15.1); White Blood Count 6.24 10^3/uL (3.29-11.43)
[2023-12-16 05:15] LABS: Anion Gap 13.9 (5-19); Blood Urea Nitrogen 17 mg/dL (8-23); Calcium 8.6 mg/dL (8.5-10.5); Carbon Dioxide 32 mmol/L (22-29); Chloride 97 mmol/L (98-107); Glomerular Filtration Rate 61.8 mL/min (90-130); Glucose 302 mg/dL (65-115); Osmolality Calculated 301 mOsm/kg (285-295); Potassium 3.9 mmol/L (3.5-5.1); Sodium 139 mmol/L (136-145)
[2023-12-16 06:34] LABS: Glucose Point of Care 263 mg/dL (70-110)
[2023-12-16] MEDS: budesonide 0.5 mg/2 mL Neb INHALATION (07:33)
[2023-12-16] MEDS: ipratropium-albuterol 3 mL Neb INHALATION (07:33)
[2023-12-16] MEDS: insulin lispro 100 unit/1 mL SUBCUT ×3 (08:10→17:36)
[2023-12-16] MEDS: FUROsemide 10 mg/mL SDV 10mL 60 MG IVP (08:55)
[2023-12-16] MEDS: pantoprazole DR 40 mg Tablet PO (08:57)
[2023-12-16] MEDS: pregabalin 150 mg Capsule 300 MG PO (08:57)
[2023-12-16] MEDS: clopidogrel 75 mg Tablet PO (08:57)
[2023-12-16] MEDS: ezetimibe 10 mg Tablet PO (08:57)
[2023-12-16] MEDS: cilostazol 100 mg Tablet 50 MG PO ×2 (08:58→17:35)
[2023-12-16] MEDS: duloxetine 60 mg Capsule PO (09:07)
[2023-12-16] MEDS: metoprolol tartrate 25 mg Tablet 12.5 MG PO (09:09)
--- NOTE | 2023-12-16 09:39 | ECG_ITS ---
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 Measurements Intervals [place] Rate: 105 P: 241 PA: 180 QRS: -44 QRSD: 157 T: 87 QT: 409 QTc: 541 Interpretive Statements SINUS TACHYCARDIA with long first-degree AV block LEFT AXIS DEVIATION [QRS AXIS < -30] LEFT BUNDLE BRANCH BLOCK [120+ ms QRS DURATION, 80+ ms Q/S IN V1/V2, 85+ ms R IN I/aVL/V5/V6] Compared to ECG 12/15/2023 02:49:16 Left-axis deviation now present Left bundle-branch block now present Sinus rhythm no longer present Electronically Signed On 12-17-2023 8:35:58 AUTO VINYL TOP INSTALLER by Joni Cruz M.D. [id number]
--- NOTE | 2023-12-16 09:41 | XRR_ITS ---
PROCEDURE INFORMATION: Exam: XR Chest Exam date and time: 12/16/2023 2:25 PM Age: 58 years old Clinical indication: Shortness of breath; Prior surgery; Surgery date: 6+ months; Surgery type: Heart; Additional info: Hypoxia TECHNIQUE: Imaging protocol: Radiologic exam of the chest. Views: 1 view. COMPARISON: CT angio chest PE protcl [id number] 12/12/2023 9:01 PM FINDINGS: Lungs: Left basilar hazy opacities compatible with atelectasis versus developing pneumonia in the proper clinical setting. No lobar consolidation. Pleural spaces: No evidence of pneumothorax or pleural effusion. Heart/Mediastinum: Postsurgical changes of the mediastinum compatible with prior CABG. Cardiomediastinal silhouette is otherwise within normal limits. Bones/joints: No evidence of acute osseous abnormality. XR/XR chest 1V portable [id number] IMPRESSION: 1. Left basilar hazy opacities compatible with atelectasis versus developing pneumonia in the proper clinical setting.
[2023-12-16] MEDS: metoprolol tartrate 50 mg Tablet PO (10:14)
[2023-12-16 11:41] LABS: Glucose Point of Care 316 mg/dL (70-110)
[2023-12-16 16:52] LABS: Glucose Point of Care 318 mg/dL (70-110)
--- NOTE | 2023-12-16 17:25 | PM.DCS ---
Discharge Providers Date of Admission: 12/12/23 23:27 Date of Discharge: December 16, 2023 Attending Provider at Admission: Shekhar Matt MD Attending Provider at Discharge: Rosalino Quijano Primary Care Provider: Enrique Avila MD Diagnoses at Discharge Discharge Diagnosis (1) Acute respiratory failure with hypoxia: Status: Acute (2) Chest pain: Status: Inactive Qualifiers: Chest pain type: unspecified Qualified Code(s): R07.9 - Chest pain, unspecified (3) Smoker: Status: Acute (4) HTN (hypertension) with goal to be determined: Status: Acute (5) Acute exacerbation of CHF (congestive heart failure): Status: Acute (6) Diabetes: Status: Acute Reason for Visit Reason for Visit: CP/SOB Brief History: Carlos Bender is a 58 year old male with a past medical history of triple vessel bypass, insulin-dependent type 2 diabetes mellitus, hyperlipidemia, history of esophageal spasms, who presents to [facility] due to shortness of breath. Patient tells me that he chronically gets esophageal spasms and/or chest pain, and typically deals with it with nitroglycerin recently nitroglycerin has not been helping, he has been having intermittent chest discomfort, which he attributes to esophageal spasms. Today he started to feel short of breath, with exertion short of breath progressing to rest, orthopnea, with paroxysmal nocturnal dyspnea, he woke up short of breath this morning, because of progressive shortness of breath, he had oxygen at home, which he uses as needed after his triple-vessel bypass, he put himself on 3 to 4 L and he felt better, but still short of breath he came to [facility] for evaluation, no calf pain, calf swelling he, he continues to smoke, he has been smoking since he is a child he tells me, no history of's COPD or any formal diagnosis of it, no fevers, no chills, no sick contacts, his did give him 60 mg of Lasix Hospital Course Hospital Course During hospitalization he was treated for multifactorial respiratory failure with hypoxia including diastolic CHF exacerbation with pleural effusions, treated with IV diuretic, fluid restriction, with HERRERA renal function and electrolytes were monitored. NSAID was discontinued, would avoid in the future given cardiac risk, as well as HERRERA on presentation. Renal function was gradually improving without NSAIDs, with diuresis. Did not have any peripheral edema. Oxygenation with some improvement, but some persistence of oxygen requirement. Additionally with finding of bronchitis, treated with breathing treatments, DuoNebs, inhaled steroid. With gradual improvement in symptoms, air entry, although still some persistent oxygen requirement. CT angiogram on presentation negative for PE, But with finding of emphysema, diffuse interlobular septal thickening, atelectasis, diffuse bronchial wall thickening with bronchial lumen narrowing. Patchy peripheral airspace opacities essentially stable from 2020. Viral PCR panel unremarkable. On review of EKGs noted had developed left bundle branch block found on presentation, discussed with him, discussed also a couple of the EKGs obtained overnight showing atrial fibrillation. Concern for progression of CAD. With elevation of risk of stroke with his underlying comorbidities discussed with him anticoagulation, including risks, to which she is agreeable, and is started on Eliquis. Discussed with him concern for possible progression of coronary disease and encouraged follow-up assessment with stress test. Follow up with cardiology for consideration of additional assessment with improving pulmonary and renal conditions. Echocardiogram with normal ejection fraction, no regional wall motion disturbances. Mild pulmonary hypertension. Mild to moderate MVR. Trivial pericardial effusion. Ascending aorta 3.4 cm. He has remained free of chest pain. Follow-up chest x-ray with some atelectasis, improvement in pleural effusions. Provided with incentive spirometer at discharge for atelectasis. Still requiring oxygen, which is set up for him. Concern for some developed underlying chronic lung disease with continued active smoking, emphysema, he is additionally referred for assessment by PFT, as well as with congestive heart failure presentation, hypoxia, refer additionally, assessment with sleep study. Encouraged to quit smoking, although has not been ready so far. Please continue to revisit and encourage, assist when he is ready. He is referred for additional risk stratification with stress test given history of coronary disease, some moderate troponin elevation trend. Prior presentation also with episode of chest pain which he attributed to esophageal spasm with prior history of the same, although this has not recurred, discussed with him additional cardiac assessment would be of benefit. Reassess renal function, electrolytes given acute kidney injury. He is continuing on daily diuretic for the next 3 days, then switch to as needed. Please reassess volume status. He is asked to follow-up with cardiology. During hospitalization also found to have suboptimally controlled diabetes, A1c is 9.8. Declined insulin. Please reassess with him, continues on other diabetes medications. Encouraged and discussed consistent carbohydrate diet. Please revisit in case he reconsiders starting insulin as discussed with him with additional cardiovascular risk with suboptimally controlled diabetes in addition to other potential complications. Continue follow-up with regards to other chronic conditions. Physical Exam Narrative: Seen twice today. Reports he is doing better this morning. On revisit reports he is doing well, ambulated in the hallway. Tachycardia resolved. He is doing better, would like to return home. Const: COMMON NORMALS: patient oriented x3 and alert GENERAL APPEARANCE: cooperative ORIENTATION/CONSCIOUSNESS: Yes awake HENMT: COMMON NORMALS: oropharynx normal Neck/C-Spine: COMMON NORMALS: no JVD Resp: COMMON NORMALS: normal respiratory effort AUSCULTATION: diminished lung sounds (Slightly better air entry.) bilateral Cardio: COMMON NORMALS: no JVD, regular rhythm, S1 normal heart sound present, S2 normal heart sound present and No murmurs present (Cardio) RHYTHM: regular rhythm HEART SOUNDS: S1 normal heart sound present and S2 normal heart sound present GI: COMMON NORMALS: Normal to inspection, nondistended, normoactive bowel sounds present, Soft to palpation and non-tender PALPATION: Yes Soft to palpation Extremity: COMMON NORMALS: no joint enlargement and no pedal edema Neuro: COMMON NORMALS: patient oriented x3 and moves all extremities SENSORIUM/ORIENTATION: Yes alert Skin: COMMON NORMALS: no rashes or lesions noted GENERAL SKIN EXAM: no rashes or lesions noted Discharge Data Studies Completed and Pending Completed Studies During Hospitalization Category Date Time Status CTA chest [CT angio chest PE protcl 11025] Stat Cat Scan 12/12/23 20:00 Completed CXRP [XR chest 1V portable [id number]] Routine Exams 12/16/23 09:41 Completed XR chest 1V portable [id number] Stat Exams 12/12/23 19:40 Completed CV. echo wo/w contrast [id number] Routine Ultrasound 12/12/23 23:27 Completed US kidney bilateral with bladder [US renal BI with PV Ultrasound 12/13/23 12:15 Completed bladder] Routine Radiology Impressions Chest CTA 12/12/23 20:00 IMPRESSION: 1. No findings of acute pulmonary embolism. 2. Ectatic/aneurysmal ascending thoracic aorta with aortic valve leaflet calcifications. Correlate with any clinical findings of aortic stenosis. There is minimal contrast in the thoracic aorta, but no displaced calcium to suggest aortic dissection. 3. Bilateral pleural effusions, cardiomegaly, interlobular septal thickening, and atrial caval reflux are compelling for heart failure or fluid overload. Patchy airspace opacities in the periphery of each lung are stable from prior exam in 2020. COMMENTS: The presence of pulmonary emphysema on CT is an independent risk factor for lung cancer. In the absence of a history or active diagnosis of lung cancer, it is recommended that this patient with emphysema be evaluated for enrollment in a low dose CT lung cancer screening program. Chest X-Ray 12/16/23 09:41 IMPRESSION: 1. Left basilar hazy opacities compatible with atelectasis versus developing pneumonia in the proper clinical setting. Laboratory Results WBC 6.24 10^3/uL (3.29-11.43) 12/16/23 04:38 RBC 4.33 10^6/uL (3.85-5.65) 12/16/23 04:38 Hgb 12.60 g/dL (11.27-16.99) 12/16/23 04:38 Hct 40.0 % (37-53) 12/16/23 04:38 MCV 92.4 fl (82-101) 12/16/23 04:38 MCH 29.1 pg (27-33) 12/16/23 04:38 MCHC 31.5 g/dL (30-55) 12/16/23 04:38 RDW 13.3 % (12.1-15.1) 12/16/23 04:38 Plt Count 205 10^3/cmm (157-399) 12/16/23 04:38 MPV 10.6 fL (7.4-10.4) H 12/16/23 04:38 Neut % (Auto) 53.8 % 12/16/23 04:38 Lymph % (Auto) 30.1 % 12/16/23 04:38 Hudson % (Auto) 9.9 % 12/16/23 04:38 Eos % (Auto) 4.8 % 12/16/23 04:38 Baso % (Auto) 1.1 % 12/16/23 04:38 Neut # (Auto) 3.35 10^3/uL (1.8-7.7) 12/16/23 04:38 Lymph # (Auto) 1.9 10^3/uL (0.8-4.8) 12/16/23 04:38 Hudson # (Auto) 0.6 10^3/uL (0.2-0.9) 12/16/23 04:38 Eos # (Auto) 0.3 10^3/uL (0.0-0.8) 12/16/23 04:38 Baso # (Auto) 0.1 10^3/uL (0.0-0.1) 12/16/23 04:38 Nucleated RBC % (auto) 0 % 12/16/23 04:38 Nucleated RBCs # 0.0 /100WBC 12/16/23 04:38 PT 13.20 SECONDS (12.1-14.9) 12/12/23 19:16 INR 0.98 (0.8-1.2) 12/12/23 19:16 Sodium 139 mmol/L (136-145) 12/16/23 04:38 Potassium 3.9 mmol/L (3.5-5.1) 12/16/23 04:38 Chloride 97 mmol/L (98-107) L 12/16/23 04:38 Carbon Dioxide 32 mmol/L (22-29) H 12/16/23 04:38 Anion Gap 13.9 (5-19) 12/16/23 04:38 BUN 17 mg/dL (8-23) 12/16/23 04:38 Creatinine 1.2 mg/dL (0.7-1.2) 12/16/23 04:38 GFR Calculation 61.8 mL/min (90-130) L 12/16/23 04:38 Glucose 302 mg/dL (65-115) H 12/16/23 04:38 POC Glucose 318 mg/dL (70-110) H 12/16/23 16:37 Estimat Average Glucose 235 12/12/23 19:16 Hemoglobin A1c 9.8 % (4.0-6.0) H 12/12/23 19:16 Calculated Osmolality 301 mOsm/kg (285-295) H 12/16/23 04:38 Calcium 8.6 mg/dL (8.5-10.5) 12/16/23 04:38 Phosphorus 4.5 mg/dL (2.5-4.5) 12/13/23 01:14 Magnesium 2.0 mg/dL (1.7-2.3) 12/13/23 01:14 Total Bilirubin 0.4 mg/dL (0.15-1.2) 12/13/23 01:14 AST 10 U/L (0-40) 12/13/23 01:14 ALT 11 U/L (0-41) 12/13/23 01:14 Alkaline Phosphatase 105 U/L (40-130) 12/13/23 01:14 Troponin T Baseline 93 ng/L (0-15) H 12/14/23 20:57 Troponin T 120 Minute 89.43 ng/L (0-15) H 12/14/23 23:01 Delta Troponin T -3.57 ABS# (0-10) L 12/14/23 23:01 Troponin T Hi Sens 6Hr 101.1 ng/L (0-15) H 12/15/23 02:07 Troponin T Hi Sens 6Hr Delta 8.1 ng/L (0-12) 12/15/23 02:07 NT-Pro-B Natriuret Pep 5707 pg/mL (0-125) H 12/13/23 01:14 Total Protein 6.0 g/dL (6.6-8.7) L 12/13/23 01:14 Albumin 3.6 g/dL (3.5-5.2) 12/13/23 01:14 Globulin 2.4 g/dL (1.3-4.6) 12/13/23 01:14 Triglycerides 217 mg/dL (0-150) H 12/12/23 19:16 Cholesterol 68 mg/dL (0-200) 12/12/23 19:16 LDL Cholesterol, Calc 1 mg/dL (50-129) L 12/12/23 19:16 HDL Cholesterol 24 mg/dL (60-100) L 12/12/23 19:16 LDL/HDL Ratio 0.04 RATIO (0.00-3.22) 12/12/23 19:16 Cholesterol/HDL Ratio 2.83 mg/dL (1.0-5.00) 12/12/23 19:16 Procalcitonin 0.10 ng/mL (0-0.5) 12/12/23 19:16 TSH 2.31 uIU/mL (0.27-4.20) 12/12/23 19:16 Urine Color Yellow (Yellow) 12/13/23 12:58 Urine Appearance Clear (CLEAR) 12/13/23 12:58 Urine pH 5 (5-7) 12/13/23 12:58 Ur Specific Sarita 1.010 (1.005-1.030) 12/13/23 12:58 Urine Protein 2+ (Negative) H 12/13/23 12:58 Urine Glucose (UA) 2+ (Normal) H 12/13/23 12:58 Urine Ketones 1+ (Negative) H 12/13/23 12:58 Urine Blood 2+ (Negative) H 12/13/23 12:58 Urine Nitrate Negative (Negative) 12/13/23 12:58 Urine Bilirubin Neg (Negative) 12/13/23 12:58 Urine Urobilinogen Norm mg/dL (Negative) 12/13/23 12:58 Ur Leukocyte Esterase Negative (Negative) 12/13/23 12:58 Urine RBC 0-4 /hpf (0-2) H 12/13/23 12:58 Urine WBC None /hpf (0-5) 12/13/23 12:58 Ur Squamous Epith Cells 0-4 /hpf (0-5) H 12/13/23 12:58 Amorphous Sediment Trace /hpf 12/13/23 12:58 Urine Bacteria Trace /hpf (NONE) 12/13/23 12:58 Urine Mucus Trace /hpf 12/13/23 12:58 Ur Random Urea Nitrogn 252 mg/dL 12/13/23 12:58 Urine Creatinine 44 mg/dL (39-259) 12/13/23 12:58 Adenovirus (PCR) Not detected (NOT DETECT) 12/13/23 12:25 C. pneumoniae DNA (PCR) Not detected (NOT DETECT) 12/13/23 12:25 Coronavirus 229E (PCR) Not detected (NOT DETECT) 12/13/23 12:25 Human Metapneumovir PCR Not detected (NOT DETECT) 12/13/23 12:25 Influenza A (H1) PCR Not detected (NOT DETECT) 12/13/23 12:25 Influ A (H1/09) PCR Not detected (NOT DETECT) 12/13/23 12:25 Influenza A (H3) PCR Not detected (NOT DETECT) 12/13/23 12:25 Influenza Type A Ag negative (Negative) 12/12/23 20:05 Influenza Type A (PCR) Not detected (NOT DETECT) 12/13/23 12:25 Influenza Type B Ag negative (Negative) 12/12/23 20:05 Influenza Type B (PCR) Not detected (NOT DETECT) 12/13/23 12:25 M. pneumoniae (PCR) Not detected (NOT DETECT) 12/13/23 12:25 Parainfluenza 1 (PCR) Not detected (NOT DETECT) 12/13/23 12:25 Parainfluenza 2 (PCR) Not detected (NOT DETECT) 12/13/23 12:25 Parainfluenza 3 (PCR) Not detected (NOT DETECT) 12/13/23 12:25 Parainfluenza 4 (PCR) Not detected (NOT DETECT) 12/13/23 12:25 RSV Type A (PCR) Not detected (NOT DETECT) 12/13/23 12:25 RSV Type B (PCR) Not detected (NOT DETECT) 12/13/23 12:25 Entero/Rhino (PCR) Not detected (NOT DETECT) 12/13/23 12:25 SARS-CoV-2 (PCR) Not detected (NOT DETECT) 12/13/23 12:25 SARS-CoV-2 Ag (Rapid) negative (Negative) 12/12/23 20:05 Vitals Last Vital Signs Temp 97.5 F L 12/16/23 16:00 Pulse 91 12/16/23 16:19 Resp 20 H 12/16/23 16:19 BP 137/75 12/16/23 16:00 Pulse Ox 93 12/16/23 16:19 O2 Del Method Nasal Cannula 12/16/23 16:19 O2 Flow Rate 3 12/16/23 16:19 FiO2 50 12/13/23 05:19 Discharge Plan Discharge Patient Disposition: Home Condition: Stable Prescriptions: New albuterol sulfate 90 mcg/actuation HFA aerosol inhaler 2 inh inhalation 6XD PRN (Reason: shortness of breath or wheezing) Qty: 8.5 0RF Eliquis 5 mg tablet 5 mg PO BID Qty: 180 0RF Continued pantoprazole [Protonix] 40 mg tablet,delayed release (DR/EC) 40 mg PO BID@ pregabalin [Lyrica] 150 mg capsule 300 mg PO BID@ metformin 1,000 mg tablet 1,000 mg PO BID nitroglycerin [Nitrostat] 0.4 mg tablet, sublingual 0.4 mg sublingual Q5M PRN (Reason: chest pain) Qty: 25 1RF metoprolol tartrate 100 mg tablet 100 mg PO BID@ Qty: 180 3RF amlodipine 10 mg tablet 10 mg PO DAILY@08 Qty: 90 3RF Lasix 40 mg tablet 40 mg PO DAILY PRN (Reason: edema) Qty: 90 1RF Zetia 10 mg tablet 10 mg PO DAILY@08 Qty: 90 3RF cilostazol 50 mg tablet 50 mg PO BID Qty: 180 1RF clopidogrel 75 mg tablet See Rx Instructions .ROUTE .COMPLEX Qty: 90 3RF Dose Instruction: TAKE 1 TABLET BY MOUTH EVERY DAY at 8am Rx Instructions: TAKE 1 TABLET BY MOUTH EVERY DAY at 8am tamsulosin 0.4 mg Capsule 0.4 mg PO DAILY@2200 Qty: 0 glyburide 2.5 mg tablet 2.5 mg PO BID Qty: 0 Trulicity 1.5 mg/0.5 mL Pen Injector 3 mg SUBCUT Q7D Rx Instructions: (on Wednesdays) atorvastatin 40 mg tablet 40 mg PO BEDTIME@2200 duloxetine [Cymbalta] 60 mg capsule,delayed release(DR/EC) 60 mg PO DAILY@08 Rx Instructions: Take one capsule every morning ondansetron HCl [Zofran] 4 mg tablet 4 mg PO Q6H PRN (Reason: nausea and vomiting) Qty: 20 0RF isosorbide mononitrate 30 mg tablet extended release 24 hr 30 mg PO 1XD Discontinued celecoxib [Celebrex] 200 mg capsule 200 mg PO BID@ Discharge Orders: Discharge Order (Routine); Ordered 12/16/23 Ordered By: Rosalino Quijano Other Ambulatory Orders: DME: Oxygen (Order) Location: None Selected Ordered By: Rosalino Quijano Pulmonary Function Screen with Bronchodilator (Routine) Timeframe: 2 Weeks Facility: [facility] - Location: Respiratory Therapy Ordered By: Rosalino Mendeznvcadence Stress Test Request (Routine) Timeframe: 1 Week Facility: [facility] - Location: Cardiac Diagnostic Laboratory Ordered By: Rosalino Quijano Sleep Study/Titration (Routine) Timeframe: 1 Week Facility: [facility] - Location: [facility] Ordered By: Rosalino Quijano Referrals: Enrique Avila MD [Primary Care Provider] - 4-7 days (please call dr avila s office on monday to ellie a post hospital appointment.[phone]) Heather Frankel FNP [Nurse Practitioner] - 1 week ([facility].[phone].Also...if [facility] has not [facility] you by monday regarding the sleep study,the lung study,and the cardiac stress test..call them at [phone]) Discharge Diet: Cardiac and Diabetic Discharge Activity: Increase activity as tolerated and Oxygen as instructed Patient Instructions: Diabetes and Diet, Heart Failure (DC), How to Stop Smoking (GEN), Acute Kidney Injury (GEN), Cigarette Smoking and Your Health (GEN), Acute Bronchitis (GEN), Pulmonary Function Tests (GEN), Nuclear Stress Test (GEN), Sleep Study (GEN), CHF Stoplight, Opioid Safety Activity Restrictions/Additional Instructions: Follow-up with your primary doctor as well as with cardiology for reassessment of congestive heart failure. Follow-up for assessment with stress test. Return to the hospital immediately in case of any concerning or persistent chest pain. Please stop celecoxib as it may increase risk of heart attack, stroke. Please stop smoking as smoking increases risk of heart attack, stroke, lung disease and cancer. Your diabetes is not optimally controlled, A1c is 9.8, please consider again about starting on insulin. Maintain consistent carbohydrate diet. Continue furosemide daily for the next 3 days, then switch to as needed for fluid overload. Take in case of rapid weight gain more than 3 pounds in 2 days, shortness of breath when laying flat or edema. Maintain fluid restriction of 1200 mL/day to avoid additional congestive heart failure exacerbation, fluid overload. Follow-up for pulmonary function testing due to concern for underlying developing lung disease. Again please work on quitting smoking. Follow-up with a sleep study for additional assessment for sleep apnea which can also trigger pulmonary edema, congestive heart failure among other complications. Avoid any medications that may contribute to kidney injury. Stop celecoxib which can cause kidney injury. Your kidney function has been improving in the hospital. Please have your primary doctor reassess your kidney function. Continue oxygen as instructed. Monitor your oxygen levels, target saturation 92%. Wean down as tolerating. Never smoked anywhere in your oxygen due to risk of fire and airway [place]. Return to the hospital in case of any worsening or new concerning symptoms. use incentive spirometer every hour while awake to prevent pneumonia Discharge Attestations Time Spent in Discharge Care*: greater than 30 min Status at Discharge: Cognitive status at discharge: cognitively intact, Behavioral status at discharge: cooperative and dependent in ADL's, Quality Metrics Clinical Quality Measures [ No reported AMI, CVA or VTE this stay] Coding Level of Care Code 06324 Total time (in minutes) for Discharge: 50 Diagnoses Acute respiratory failure with hypoxia J96.01 Chest pain R07.9 Chest pain type: unspecified Smoker F17.200 HTN (hypertension) with goal to be determined I10 Acute exacerbation of CHF (congestive heart failure) I50.9 Diabetes E11.9
--- NOTE | 2023-12-16 18:32 | PC.NURSE ---
discharge instructions given and explained.pt and spouse verb understanding of instructions.discharged via w/c to exit.spouse to drive pt home
== END 2023-12-16 19:04 | disposition home or self-care (01) | DRG 682 ==
LOC: ER 22:19 → CSU 12-13 00:29
PROVIDERS: Admitting Provider Family Medicine; Emergency Provider Emergency Medicine; PCP Family Medicine; Visit Provider Internal Medicine
DX: N17.9 Acute kidney failure, unspecified (principal); I50.33 Acute on chronic diastolic (congestive) heart failure; J96.01 Acute respiratory failure with hypoxia; F33.1 Major depressive disorder, recurrent, moderate; I11.0 Hypertensive heart disease with heart failure; E11.65 Type 2 diabetes mellitus with hyperglycemia; I25.10 Atherosclerotic heart disease of native coronary artery without angina pectoris; E78.5 Hyperlipidemia, unspecified; K22.4 Dyskinesia of esophagus; F17.210 Nicotine dependence, cigarettes, uncomplicated; F17.220 Nicotine dependence, chewing tobacco, uncomplicated; F41.1 Generalized anxiety disorder; E66.9 Obesity, unspecified; J43.9 Emphysema, unspecified; I44.7 Left bundle-branch block, unspecified; E87.5 Hyperkalemia; I34.0 Nonrheumatic mitral (valve) insufficiency; Z11.52 Encounter for screening for COVID-19; Z95.1 Presence of aortocoronary bypass graft; Z99.81 Dependence on supplemental oxygen; Z79.02 Long term (current) use of antithrombotics/antiplatelets; Z79.84 Long term (current) use of oral hypoglycemic drugs; Z68.37 Body mass index [BMI] 37.0-37.9, adult; Z79.85 Long-term (current) use of injectable non-insulin antidiabetic drugs; Z82.49 Family history of ischemic heart disease and other diseases of the circulatory system
CPT/HCPCS: 36415; 36416; 71045; 71275; 76770; 76857; 80048; 80053; 80061; 81001; 82570; 82962; 83036; 83735; 83880; 84100; 84145; 84443; 84484; 84540; 85025; 85610; 87426; 87486; 87581; 87633; 87804; 93005; 94640; 94660; 94664; 94760; 96372; 96374; 96376; 99285; C8929; J1650; J1815; J1940; J7626; Q9967

== ENCOUNTER 2023-12-26 08:10 | Outpatient (CLI) | payer MEDICARE, SELFPAY ==
--- NOTE | 2023-12-26 | ECG_ITS ---
[facility] Test Date: 2023-12-26 Pat Name: Carlos Bender Department: Room: Gender: Male Hedis Registered Nurse Rn: : 1965 Requested By: Rosalino Quijano Order Number: [id number] Femi MD: Krishan Ag M.D. Interpretive Statements NAME OF STUDY: LEXISCAN SESTAMIBI STRESS TEST INDICATION: [CAD; CHF; TROPONIN ELEVATION] Procedure: At the baseline, the blood pressure was 144/75 mmHg with a heart rate of 77 bpm. The electrocardiogram showed normal sinus rhythm, left bundle branch block. The Lexiscan was infused over a period of 20 seconds. A total of 0.4 mg of Lexiscan was infused. The stress phase was continued for a total of 5 minutes. Heart rate was at the end of stress phase was 83 bpm and a blood pressure of 110/63 mmHg. The EKG at the peak infusion revealed normal sinus rhythm with no significant ST-T wave changes. Sestamibi was injected 20 seconds after the Lexiscan infusion. Blood pressure at the end of recovery phase was 113/84 mmHg with a heart rate of 78 bpm. Conclusion: 1. Normal EKG response to Lexiscan infusion 2. No Lexiscan induced chest pain or cardiac arrhythmia. 3. Normal blood pressure and heart rate response. 4. Sestamibi/sestamibi perfusion scan pending; see separate report. Electronically Signed On 12-31-2023 12:09:41 TILE SHADER by Krishan Ag M.D. [id number]
[2023-12-26 08:26] VITALS: BMI 32.8
--- NOTE | 2023-12-26 08:43 | NMCV_ITS ---
NM indy perf SPECT r/s* [id number] Carlos Bender Age: 58 Gender: M : 1965 Exam Date: 12/26/2023 08:43 Ordering Phys: Rosalino Quijano MD Technologist: LUZ MARIA Moreno Exam Location: [facility] Indications: HEART FAILURE STRESS TEST Please see separate stress [facility] for full findings IMAGE PROTOCOL Rest/Stress 1 Lexiscan Day Radiopharmaceutical Dose (mCi) Administration Site Administered by Rest: Tc-99m 10.9 IV LUZ MARIA Moreno Sestamibi Stress:Tc-99m 32.5 IV LUZ MARIA Le Sestamibi Rest: 26-Dec-2023 60 Discovery 630 Stress: 26-Dec-2023 30 Discovery 630 0.4mg Lexiscan. Images obtained in supine and prone position. SPECT RESULTS Technical Quality: Excellent Raw Data Analysis: Image Corrections: No attenuation or motion correction applied Summed Stress Score: 15 Summed Rest Score: 7 Summed Difference Score: 8 PERFUSION FINDINGS There is a medium sized area of mostly reversible perfusion defect seen in inferolateral and inferior abel. This is consistent with medium sized area of prior infarct with large areas of nikhil-infarct ischemia in both RCA and left circumflex artery territories. FUNCTIONAL RESULTS (calculated via Gated SPECT) Stress Image LV EF (%): 58 Stress EDV (mL):195 TID: 1.06 Stress ESV (mL):82 FUNCTIONAL FINDINGS: There is normal left ventricular systolic function. IMPRESSIONS 1. Abnormal myocardial perfusion imaging with medium sized areas of prior infarct with large areas of nikhil-infarct ischemia in both RCA and left circumflex artery territories. 2. LV systolic function is normal. Krishan Ag MD (Electronically Signed) Final Date: 30 December 2023 13:26 S
[2023-12-26] MEDS: regadenoson 0.4 Mg/5 ml Syringe IVP (09:44)
[2023-12-26 10:15] VITALS: BP 138/84; PULSE 72
== END 2023-12-26 08:11 | disposition home or self-care (01) ==
LOC: CDL 08:12
PROVIDERS: PCP Family Medicine; Visit Provider Internal Medicine
DX: I25.10 Atherosclerotic heart disease of native coronary artery without angina pectoris (principal); I50.9 Heart failure, unspecified; R94.39 Abnormal result of other cardiovascular function study; R79.89 Other specified abnormal findings of blood chemistry; I25.2 Old myocardial infarction
CPT/HCPCS: 36415; 78452; 93017; 96374; A9500; J2785

== ENCOUNTER → 2024-01-02 12:02 | Outpatient (BNVA) | payer MEDICARE, SELFPAY | PROVIDERS: PCP Family Medicine; Visit Provider Internal Medicine | DX: I25.118 Atherosclerotic heart disease of native coronary artery with other forms of angina pectoris (principal); I11.0 Hypertensive heart disease with heart failure; I50.31 Acute diastolic (congestive) heart failure; Z95.1 Presence of aortocoronary bypass graft; F17.210 Nicotine dependence, cigarettes, uncomplicated; F17.220 Nicotine dependence, chewing tobacco, uncomplicated | CPT/HCPCS: 99214 ==

== ENCOUNTER 2024-01-02 16:26 | Observation (INO) | payer MEDICARE, SELFPAY ==
[2024-01-02] VITALS (79 sets, daily range): BP systolic 127–130; BP diastolic 62–66; PULSE 70–87; RESP 12–26; TEMP 36.5; O2SAT 89–96
--- NOTE | 2024-01-02 17:04 | PM.HP ---
Providers/Chief Complaint Admitting Physician: Krishan Ag M.D Primary Care Provider: Enrique Avila MD Chief Complaint: Unstable angina History of Present Illness Carlos Bender is a 58 year old male with past medical history of CAD s/p CABG in 2020, diabetes, current smoker who was directly admitted from office secondary to worsening shortness of breath and chest discomfort. Recent outpatient stress test test showed an abnormality on it. He is taking nitros every day. They help relieve the symptoms. He has atrial fibrillation on Eliquis. Review of Systems Const: Denies: fever(s) or chills Card: Reports: chest pain, palpitations, lightheadedness and dyspnea on exertion; Denies: irregular heart rhythm, swelling of feet/ankles, pre-syncope, orthopnea or leg pain with exertion Resp: Reports: dyspnea; Denies: productive cough or non-productive cough Musc: Reports: back pain (chronic); Denies: neck pain Neuro: Reports: headache(s) and dizziness Psych: Denies: anxiety, depression, suicidal ideation or homicidal ideation Mathieu/Lymph: Reports: easy bruising and easy bleeding Medications/Allergies Home Medications Medication Instructions Recorded Confirmed Last Taken Type pantoprazole 40 mg tablet,delayed 40 mg PO BID@12/09/20 01/02/24 01/01/24 History release (Protonix) pregabalin 150 mg capsule (Lyrica) 300 mg PO BID@12/09/20 01/02/24 01/01/24 History tamsulosin 0.4 mg capsule 0.4 mg PO DAILY@2199 ##0 12/21/20 01/02/24 01/01/24 History atorvastatin 40 mg tablet 40 mg PO BEDTIME@2200 03/11/21 01/02/24 01/01/24 History dulaglutide 1.5 mg/0.5 mL 3 mg SUBCUT Q7D 03/11/21 01/02/24 01/01/24 History subcutaneous pen injector (Trulicity) duloxetine 60 mg capsule,delayed 60 mg PO DAILY@08 03/11/21 01/02/24 01/01/24 History release (Cymbalta) ondansetron HCl 4 mg tablet 4 mg PO Q6H PRN nausea and 02/03/22 01/02/24 01/01/24 Rx (Zofran) vomiting #20 tabs metformin 1,000 mg tablet 1,000 mg PO BID 10/26/22 01/02/24 01/01/24 History nitroglycerin 0.4 mg sublingual 0.4 mg sublingual Q5M PRN chest 03/13/23 01/02/24 01/01/24 Rx tablet (Nitrostat) pain #25 ea metoprolol tartrate 100 mg tablet 100 mg PO BID@08,22 #180 tabs 05/05/23 01/02/24 01/01/24 Rx amlodipine 10 mg tablet 10 mg PO DAILY@08 #90 tabs 05/22/23 01/02/24 01/01/24 Rx ezetimibe 10 mg tablet (Zetia) 10 mg PO DAILY@08 #90 tabs 06/21/23 01/02/24 01/01/24 Rx glyburide 2.5 mg tablet 2.5 mg PO BID #0 tabs 06/29/23 01/02/24 01/01/24 History cilostazol 50 mg tablet 50 mg PO BID #180 tabs 11/24/23 01/02/24 01/01/24 Rx clopidogrel 75 mg tablet See Rx Instructions .Route 11/24/23 01/02/24 01/01/24 Rx .COMPLEX #90 tabs isosorbide mononitrate 30 mg 30 mg PO 1XD 12/13/23 01/02/24 01/01/24 History tablet,extended release 24 hr albuterol sulfate 90 mcg/actuation 2 inh inhalation 6XD PRN shortness 12/16/23 01/02/24 01/01/24 Rx aerosol inhaler of breath or wheezing #8.5 grams apixaban 5 mg tablet (Eliquis) 5 mg PO BID #180 tabs 12/16/23 01/02/24 01/01/24 Rx furosemide 40 mg tablet (Lasix) 40 mg PO DAILY PRN edema #90 tabs 12/20/23 01/02/24 01/01/24 Rx Allergies Allergy/AdvReac Type Severity Reaction Status Date / Time codeine Allergy Unknown Verified 01/02/24 12:22 gabapentin Allergy Unknown Verified 01/02/24 12:22 PFSH Acute PFSH: Medical History Congestive heart failure Heart failure Hyperkalemia CAD (coronary artery disease) Diabetes Left main coronary artery disease HTN (hypertension) with goal to be determined ASHD (arteriosclerotic heart disease) Nicotine dependence, cigarettes, uncomplicated Generalized anxiety disorder Major depressive disorder, recurrent episode, moderate with anxious distress Surgical History S/P laminectomy S/P vasectomy History of heart artery stent S/P knee surgery S/P cholecystectomy Status post aorto-coronary artery bypass graft Family History Father Myocardial infarct Grandmother Myocardial infarct Family/Other Myocardial infarct Other CAD (coronary artery disease) Social History Smoking and tobacco/nicotine status: current every day tobacco/nicotine user cigarettes Packs smoked per day: 1 and smokeless tobacco Smokeless tobacco user: chewing tobacco Smokeless tobacco details: 1 can 2- 3 days Quit status (tobacco/nicotine): considering quitting Second hand smoke exposure: Yes Alcohol intake: never Substance/Drug Use: never Physical Exam Narrative: GENERAL: Patient is alert, awake and oriented x3. [] NECK: No jugular vein distension. [] HEENT: No cyanosis. No icterus. No pallor. [] HEART: Regular S1 and S2. No murmur, rub or gallop. [] LUNGS: Diminished air entry bilaterally CENTRAL NERVOUS SYSTEM: Grossly nonfocal. [] EXTREMITIES: Lower extremities with 1+ edema bilaterally Data 01/02/24 17:56 01/03/24 03:04 A&P Assessment and plan (1) Worsening angina: (2) CAD (coronary artery disease): Qualifiers: Coronary Disease-Associated Artery/Lesion type: [place] artery [place] vs. transplanted heart: [place] heart Associated angina: without angina Qualified Code(s): I25.10 - Atherosclerotic heart disease of [place] coronary artery without angina pectoris (3) CHF (congestive heart failure): Qualifiers: Heart failure type: diastolic Heart failure chronicity: acute Qualified Code(s): I50.31 - Acute diastolic (congestive) heart failure (4) Status post aorto-coronary artery bypass graft: (5) HTN (hypertension) with goal to be determined: (6) Diabetes: Plan Patient has been having worsening chest pain symptoms and requiring nitros. He has abnormal stress test done recently. We will proceed with coronary angiogram with possible percutaneous coronary intervention. Risks and benefits of the procedure been discussed with him. He understands the risks and benefits and wants to proceed. N.p.o. after midnight. Will continue IV fluids. Monitor renal function. Trending troponins. EKG done showing left bundle branch block Attestations Medical Necessity Statement*: Care expected to cross 2 midnights. Coding Level of Care Code Acute Code for Chg Fwd Diagnoses Worsening angina I20.0 Coronary artery disease involving [place] coronary artery of [place] heart without angina pectoris I25.10 Coronary Disease-Associated Artery/Lesion type: [place] artery [place] vs. transplanted heart: [place] heart Associated angina: without angina Acute diastolic congestive heart failure I50.31 Heart failure type: diastolic Heart failure chronicity: acute Status post aorto-coronary artery bypass graft Z95.1 HTN (hypertension) with goal to be determined I10 Diabetes E11.9
--- NOTE | 2024-01-02 17:14 | ECG_ITS ---
[facility] Test Date: 2024-01-02 Pat Name: Carlos Bender Department: Room: 101 Gender: Male Transcribing Operator Head: : 1965 Requested By: Krishan Ag Order Number: [id number] Femi MD: Krishan Ag M.D. Measurements Intervals [place] Rate: 79 P: 43 VT: 281 QRS: -14 QRSD: 149 T: -76 QT: 411 QTc: 473 Interpretive Statements SINUS RHYTHM WITH FIRST DEGREE AV BLOCK LEFT BUNDLE BRANCH BLOCK [120+ ms QRS DURATION, 80+ ms Q/S IN V1/V2, 85+ ms R IN I/aVL/V5/V6] Compared to ECG 12/16/2023 11:02:44 First degree AV block now present Sinus tachycardia no longer present Left-axis deviation no longer present Electronically Signed On 01-03-2024 7:18:45 ARTIFICIAL LIMB MAKER by Krishan Ag M.D. [id number]
[2024-01-02 17:32] LABS: Glucose Point of Care 371 mg/dL (70-110)
[2024-01-02 18:19] LABS: Basophils # 0.1 10^3/uL (0.0-0.1); Basophils % 1.1 %; Eosinophils # 0.3 10^3/uL (0.0-0.8); Eosinophils % 3.5 %; Hematocrit 36.1 % (37-53); Lymphocytes # 2.3 10^3/uL (0.8-4.8); Lymphocytes % 30.9 %; Mean Corpuscular HGB Conc 33.2 g/dL (30-55); Mean Corpuscular Hemoglobin 30.2 pg (27-33); Mean Corpuscular Volume 90.7 fl (82-101); Mean Platelet Volume 10.6 fL (7.4-10.4); Monocytes # 0.3 10^3/uL (0.2-0.9); Monocytes % 4.2 %; Neutrophils # 4.41 10^3/uL (1.8-7.7); Neutrophils % 59.9 %; Nucleated Red Blood Cells % 0 %; Platelet Count 212 10^3/cmm (157-399); Red Blood Count 3.98 10^6/uL (3.85-5.65); Red Cell Distribution Width 13.7 % (12.1-15.1); White Blood Count 7.37 10^3/uL (3.29-11.43)
[2024-01-02 18:41] LABS: Troponin(5th) Baseline 34 ng/L (0-15)
[2024-01-02 19:03] LABS: Alanine Aminotransferase 8 U/L (0-41); Albumin Level 3.7 g/dL (3.5-5.2); Alkaline Phosphatase 102 U/L (40-130); Anion Gap 17.5 (5-19); Aspartate Amino Transferase 9 U/L (0-40); Blood Urea Nitrogen 18 mg/dL (8-23); Calcium 8.8 mg/dL (8.5-10.5); Carbon Dioxide 26 mmol/L (22-29); Chloride 94 mmol/L (98-107); Globulin 2.6 g/dL (1.3-4.6); Glomerular Filtration Rate 56.3 mL/min (90-130); Glucose 402 mg/dL (65-115); Osmolality Calculated 295 mOsm/kg (285-295); Potassium 4.5 mmol/L (3.5-5.1); Sodium 133 mmol/L (136-145); Total Bilirubin 0.3 mg/dL (0.15-1.2); Total Protein 6.3 g/dL (6.6-8.7)
[2024-01-02] MEDS: insulin lispro 100 unit/1 mL SUBCUT ×2 (19:15→22:41)
[2024-01-02] MEDS: sodium chloride 0.9% 1,000 ML 75 ML IV (19:36)
[2024-01-02 20:20] LABS: Troponin 5 2HR 30.88 ng/L (0-15)
[2024-01-02 20:24] LABS: Troponin 5 2HR Delta -3.12 ABS# (0-10)
[2024-01-02] MEDS: metoprolol tartrate 50 mg Tablet 100 MG PO (22:34)
[2024-01-02] MEDS: atorvastatin 40 mg Tablet PO (22:34)
[2024-01-02] MEDS: pregabalin 150 mg Capsule 300 MG PO (22:34)
[2024-01-02 22:40] LABS: Glucose Point of Care 339 mg/dL (70-110)
[2024-01-03] VITALS (70 sets, daily range): BP systolic 127–157; BP diastolic 62–84; PULSE 70–96; RESP 12–30; TEMP 36.6–37.3; O2SAT 86–98; BMI 33.6
[2024-01-03 00:05] LABS: Troponin 5 6HR 28.99 ng/L (0-15)
[2024-01-03 00:13] LABS: Troponin 5 6HR Delta -5.01 ng/L (0-12)
[2024-01-03 04:17] LABS: Anion Gap 13.3 (5-19); Blood Urea Nitrogen 18 mg/dL (8-23); Calcium 8.4 mg/dL (8.5-10.5); Carbon Dioxide 28 mmol/L (22-29); Chloride 98 mmol/L (98-107); Glomerular Filtration Rate 61.8 mL/min (90-130); Glucose 272 mg/dL (65-115); Osmolality Calculated 292 mOsm/kg (285-295); Potassium 4.3 mmol/L (3.5-5.1); Sodium 135 mmol/L (136-145)
[2024-01-03 05:48] LABS: Glucose Point of Care 231 mg/dL (70-110)
--- NOTE | 2024-01-03 05:59 | XACV_ITS ---
Exam Room: [facility] Ht: 180 cm Wt: 108 kg BSA: 2.36 m2 Gender: Male : 1965 Any Known Allergies: Other Exam Priority: Routine Procedure(s): Procedure Description: Diagnostic procedure Procedure Description: PCI procedure Procedure Description: Venous Graft Catheterization Procedure Description: MARVIN Graft Catheterization Procedure Description: Drug Eluting Coronary Stent Procedure Description: PTCA Procedure Description: Miscellaneous Procedure Description: ACT Procedure Description: Coronary Angiography Diagnostic Cath Status: Urgent Diagnostic Findings * INDICATION: 58 year old male with past medical history of CAD s/p CABG in 2020, diabetes, current smoker who was directly admitted from office secondary to worsening shortness of breath and chest discomfort. Recent outpatient stress test test showed an abnormality on it. He is taking nitros every day. They help relieve the symptoms. He has atrial fibrillation on Eliquis. * Left Main has distal moderate disease. * Mid Right Coronary Artery: critical 95% stenosis, KACI: 3 flow. RCA was not grafted at time of CABG. * Bypass grafts: MARVIN to LAD is patent. In attempting to engage MARVIN, with catheter manipulation patient had brief vagal response with significant drop in heart rate and blood pressure. However it lasted only few seconds. Slow flow was noted in MARVIN at that time. Once it resolved, patient had normal flow in MARVIN to LAD. Jump SVG graft from aorta to OM 1 and diagonal arteries are patent. After touchdown and [place] diagonal artery which is smaller sized vessel, there is mild to moderate diffuse disease.. * Proximal Left Anterior Descending: subtotal occlusion, KACI: 1 flow. * Proximal Left Anterior Descending: total occlusion, KACI: 0 flow. * Proximal Circumflex: total occlusion, KACI: 0 flow. * Coronary angiography shows right dominance. PCI Status: Urgent PCI Indication: Other Interventional Findings * Procedure details: We engaged RCA with JR4 guide catheter. IV heparin was administered to maintain anticoagulation. 0.014 run-through guidewire was used to cross the stenosis and was put in distal vessel. We predilated the stenosis with 2.5 x 12 mm semicompliant balloon. This was followed by placement of 2.75 x 30 mm resolute [place] drug-eluting stent. We then postdilated the proximal part of stent with 3.0 x 15 mm NC balloon. At this time final angiogram was performed that showed excellent stent expansion, minimal residual stenosis and KACI-3 flow. Guidewire and guide catheter were removed. Patient left the Manager Cost in a stable condition.. * Mid Right Coronary Artery: 95% stenosis treated with a AB TREK 2.50X12 RX BALLOON, MADDY CHILDRESS EUPHORA RX [id number] BALLOON, MADDY Rios SARAH 2.75X30 NICOLA, and MDT [place] EUPHORA RX [id number] BALLOON. 0% residual stenosis, KACI: 3 flow. Conclusions 1. Severe multivessel [place] coronary artery disease. Patent MARVIN to LAD and SVG to Diagonal and OM. Critical stenosis of non-grafted mid RCA s/p successful revascularization with 1 stent.. 2. Patient has prior CABG. 3. Mid Right Coronary Artery was treated with a Balloon, Balloon, Drug Eluting Stent, and Balloon. Recommendations * Continue plavix and eliquis. * Aggressive risk factor modification. * Outpatient cardiology follow up in 2-4 weeks. Pressures Phase:Rest AO : 134 / 64 ( 90 ) @ 7:49:00 AM 91 / 38 ( 57 ) @ 7:58:00 AM 145 / 78 ( 107 ) @ 8:00:00 AM 144 / 72 ( 99 ) @ 8:02:00 AM 127 / 67 ( 92 ) @ 8:07:00 AM 144 / 76 ( 103 ) @ 8:23:00 AM Clinical Evaluation EBL: 5mL-10mL Procedural Details Procedure Consent Obtained. Admit Source: In Patient. Pre-Procedure Time Out. Identified patient by full name and date of as verbalized by the patient/guarantor. Does the consent match the physician's order: Yes. Accurate & Complete Informed Consent: Yes. Inpatient/Outpatient History & Physical on Chart: Yes. If H&P is completed, is and addenduem needed: No; If yes, is the addendum complete: N/A. Visualize and Verify Site with Patient/Guarantor: N/A. Relevant Radiology Images available: Yes. Pre-op teaching completed and patient verbalized understanding. The risks, benefits, and alternatives of sedation and/or procedure were discussed by physician. The patient agrees to continue. Procedure started. [facility] Clinical Fraility Score: 5: Mildly Frail. Manager Cost Indications: Worsening Angina. Chest Pain Symptom Assessment: Typical Angina Symptoms. Correct patient, site and procedure confirmed by cath team. Current diagnosis: Chest Pain, Abnormal stress test. PERRLA. Strong, equal hand clinical programmer bilaterally. Lungs clear x 5 lobes. IV Site on Arrival: 20 gauge in the right wrist. IV Fluids: 0.9% NaCl at KVO. 600 mL infused prior to rags laborer. Pre Procedural Pulses: bilateral dorsalis pedis was 2+. Pre Procedural Pulses: bilateral posterior tibial was 1+. Oxygen started at 2liters/min via nasal canula. bilateral groins was prepped with chloroprep then draped in the usual sterile fashion. Physician notified. Physician arrived. Baseline sample Acquired. HR: 94 BPM. Physician scrubbed in. Immediate Pre-Procedure Time Out. Correct Patient: Yes; Correct Procedure: Yes; Correct Site: Yes; Correct Patient Position: Yes; Correct Supplies: Yes; Dried Flammable Prep: Yes; Blood Products Available: No;. Lidocaine 1% infiltrated to the right groin. Arterial access obtained with micropuncture set. A 6 qatari JL4 catheter in over wire. Multiple views taken of left coronary artery. Catheter removed over the standard wire. A 6 qatari JR4 catheter in over wire. Multiple views taken of right coronary artery. SVG jump graft to Diaganol and OM visualized and patent. MARVIN to LAD visualized. Vagal respsons occured , HR declined 20-31 bmp. Catheter removed over the standard wire. A 5 qatari JR4 catheter in over wire. MARVIN to LAD visualized. Catheter removed over the standard wire. 6 qatari JR 4 guide catheter was inserted over the wire. Runthrough guidewire was advanced through the guide catheter to lesion in the mid RCA. Balloon inserted to lesion in the mid RCA. Inflation number : 1 A AB TREK 2.50X12 RX BALLOON was prepped and advanced across the Mid RCA , then inflated to 8 MARISELA for 0:12 seconds. Inflation number: 2 The AB TREK 2.50X12 RX BALLOON was reinflated across the Mid RCA, to 10 MARISELA for 0:11 seconds. Inflation number: 3 The AB TREK 2.50X12 RX BALLOON was reinflated across the Mid RCA, to 8 MARISELA for 0:11 seconds. Inflation number: 4 The AB TREK 2.50X12 RX BALLOON was reinflated across the Mid RCA, to 12 MARISELA for 0:09 seconds. Balloon out. Balloon inserted to lesion in the mid RCA. Inflation number : 5 A MDT [place] EUPHORA RX [id number] BALLOON was prepped and advanced across the Mid RCA , then inflated to 12 MARISELA for 0:12 seconds. Inflation number: 6 The MDT NC EUPHORA RX [id number] BALLOON was reinflated across the Mid RCA, to 12 MARISELA for 0:12 seconds. Balloon out. Stent inserted to lesion in the mid RCA. Inflation Number : 7 A MDT R SARAH 2.75X30 NICOLA -Lot Number# [id number] EXP 06-11-2024 was prepped and advanced across the Mid RCA. The stent was deployed at 12 MARISELA for 0:16 seconds. Stent balloon out over wire. Balloon inserted to lesion in the mid RCA. Inflation number : 8 A MDT NC EUPHORA RX [id number] BALLOON was prepped and advanced across the Mid RCA , then inflated to 14 MARISELA for 0:12 seconds. Inflation number: 9 The MDT NC EUPHORA RX [id number] BALLOON was reinflated across the Mid RCA, to 18 MARISELA for 0:14 seconds. Balloon out. Results checked. Wire out. Results checked. ACT drawn. Results out of range high results. Therapeutic limits - pre-heparin administration 90-150 seconds and monitoring heparin during a vascular procedure >250 seconds. Guide catheter out. A Right femoral angiogram was performed to determine safe placement of closure device. A Suture was successful obtaining hemostatsis at the Right Femoral artery insertion site. Arterial sheath flushed and connected to tranducer and pressure bag with heparinized saline. Post Procedure: Pulses reassessed and unchanged. PERRLA. Strong, equal hand clinical programmer bilaterally. No VTE prophylaxis required. Medication's Wasted: Other = Fentanyl 50 mcg. Total IV fluids: 297 mL. Post-op diagnosis: Critical Mid RCA stenosis, status post pci placement of 1 stent. Complications: None. ACT drawn. Results 312 seconds. Therapeutic limits - pre-heparin administration 90-150 seconds and monitoring heparin during a vascular procedure >250 seconds. Estimated blood loss: 5mL-10mL. Responsiveness - Normal response to verbal stimuli; alert and oriented, PERRLA. Airway - Unaffected, no intervention required; spontaneous ventilation. Circulation: W/N/L, pulses unchanged. Nausea/Vomiting: No. Procedure completed. Patient transferred by bed to 1st floor. Vital chart was stopped. Access Site Site: Right Femoral artery Sheath Size: 6 Fr Hemostasis Method: Suture Hemostasis Success: Successful Procedure Medications Start: 7:46 AM Stop: 7:46 AM Medication: Versed Amount: 1 mg Route: I.V. Start: 7:46 AM Stop: 7:46 AM Medication: Fentanyl Amount: 50 mcg Route: I.V. Start: 7:48 AM Stop: 7:48 AM Medication: Versed Amount: 1 mg Route: I.V. Start: 8:02 AM Stop: 8:02 AM Medication: 0.9% Saline Amount: 250 ml Route: I.V. bolus Start: 8:07 AM Stop: 8:07 AM Medication: Heparin Amount: 53849 units Route: I.V. Start: 8:31 AM Stop: 8:31 AM Medication: Plavix Amount: 300 mg Route: P.O. I, the attending physician, have reviewed and verified all procedure medications. Yes, all medications given per verbal order History/Risk Factors Hypertension: Yes Dyslipidemia: No Peripheral Arterial Disease (PAD): No Myocardial Infarction ([place]): No Obesity: No Renal Disease: No Tobacco Use: Current/Recent(w/in 1 year) Prior Interventions PCI: No CABG: Yes Valve Surgery: No Report Signatures Finalized by Krishan Ag MD on 01/17/2024 09:43 AM
[2024-01-03] MEDS: aspirin 325 mg Tablet PO (06:03)
[2024-01-03] MEDS: diphenhydrAMINE 50 mg Capsule PO (06:03)
[2024-01-03] MEDS: sodium chloride 0.9% 1,000 ML 50 ML IV (06:04)
--- NOTE | 2024-01-03 07:30 | W.PM.OPSUD ---
Surgery/Procedure H&P Update DATE OF PROCEDURE: January 03, 2024 DATE H&P PERFORMED: 01/02/24 H&P UPDATE INFORMATION: I have reviewed H&P completed within last 30 days, I have examined patient prior to procedure and No changes to prior documentation PREOP DIAGNOSIS: Worsening angina PRIMARY INDICATION FOR PROCEDURE: Worsening angina PLANNED PROCEDURE: Operation Date: 01/03/24 07:00 Proposed Procedures p Cardiac Catheterization c Moderate sedation and poss PCI(Not Applicable) - Krishan Ag M.D Possible percutaneous coronary intervention PATIENT REASSESSED PRIOR TO SEDATION, WITH NO CHANGE NOTED: Yes PHYSICAL EXAM: alert, oriented x 3, clear to auscultation bilaterally and regular rate & rhythm AIRWAY EVAL/ANESTHESIA PLAN: normal airway, ASA III, Local Anesthesia, Risks, benefits & alternatives of sedation and/or procedure discussed and Patient agrees to continue as planned ADDITIONAL INFORMATION: Moderate sedation
--- NOTE | 2024-01-03 09:04 | PC.NURSE ---
Patient came back to CSU floor from open hearth laborer at 0850 with a right groin sheath connected to a pressure bag.
[2024-01-03] MEDS: ezetimibe 10 mg Tablet PO (10:08)
[2024-01-03] MEDS: metoprolol tartrate 50 mg Tablet 100 MG PO ×2 (10:09→21:37)
[2024-01-03] MEDS: amlodipine 10 mg Tablet PO (10:09)
[2024-01-03] MEDS: pregabalin 150 mg Capsule 300 MG PO ×2 (10:10→21:37)
[2024-01-03] MEDS: sodium chloride 0.9% 1,000 ML 75 ML IV (10:11)
[2024-01-03] MEDS: fentaNYL 50 mcg/mL INJ 2mL IVP ×2 (11:20→13:37)
[2024-01-03 12:05] LABS: Partial Thromboplastin Time 32.9 SECONDS (23.9-36.7)
[2024-01-03 12:35] LABS: Glucose Point of Care 341 mg/dL (70-110)
[2024-01-03] MEDS: insulin lispro 100 unit/1 mL SUBCUT ×3 (12:42→21:37)
--- NOTE | 2024-01-03 14:45 | P.PN_ITS ---
Subjective 2 Subjective: Patient had coronary angiogram done today that showed patent prior grafts. [place] RCA had severe serial 90-99% mid vessel stenosis that underwent successful revascularization with 1 stent. Vitals/I&O/Wt Last Vital Signs Temp 99.2 F 01/03/24 05:40 Pulse 70 01/03/24 06:00 Resp 30 H 01/03/24 11:20 BP 152/72 01/03/24 05:40 Pulse Ox 96 01/03/24 05:40 O2 Del Method Room Air 01/02/24 17:40 01/02/24 01/03/24 01/03/24 22:59 06:59 14:59 Intake Total 240 / 240 1000 / 1000 Balance 240 / 240 1000 / 1000 Weight last 48 hrs Weight 241 lb 1 oz Weight 238 lb Physical Exam 2 Narrative: GENERAL: Patient is alert, awake and oriented x3. [] NECK: No jugular vein distension. [] HEENT: No cyanosis. No icterus. No pallor. [] HEART: Regular S1 and S2. No murmur, rub or gallop. [] LUNGS: Diminished air entry bilaterally CENTRAL NERVOUS SYSTEM: Grossly nonfocal. [] EXTREMITIES: Lower extremities with 1+ edema bilaterally Data 01/02/24 17:56 01/03/24 03:04 A&P Assessment and plan (1) Worsening angina: (2) CAD (coronary artery disease): Qualifiers: Coronary Disease-Associated Artery/Lesion type: [place] artery [place] vs. transplanted heart: [place] heart Associated angina: without angina Qualified Code(s): I25.10 - Atherosclerotic heart disease of [place] coronary artery without angina pectoris (3) CHF (congestive heart failure): Qualifiers: Heart failure type: diastolic Heart failure chronicity: acute Qualified Code(s): I50.31 - Acute diastolic (congestive) heart failure (4) Status post aorto-coronary artery bypass graft: (5) HTN (hypertension) with goal to be determined: (6) Diabetes: Plan Patient had critical mid RCA stenosis s/p successful revascularization with 1 stent. We will continue with Plavix. Will add back Eliquis. Aggressive risk factor modification Sliding scale insulin Attestations 2 Medical Necessity Statement*: Care expected to cross 2 midnights. Coding Level of Care Code Acute Code for [facility] Fwd Diagnoses Worsening angina I20.0 Coronary artery disease involving [place] coronary artery of [place] heart without angina pectoris I25.10 Coronary Disease-Associated Artery/Lesion type: [place] artery [place] vs. transplanted heart: [place] heart Associated angina: without angina Acute diastolic congestive heart failure I50.31 Heart failure type: diastolic Heart failure chronicity: acute Status post aorto-coronary artery bypass graft Z95.1 HTN (hypertension) with goal to be determined I10 Diabetes E11.9
--- NOTE | 2024-01-03 16:57 | PC.NURSE ---
Provider ordered lasix 20mg once and to stop NS fluids. order entered.
[2024-01-03] MEDS: FUROsemide 10 mg/mL SDV 2mL 20 MG IVP (17:00)
[2024-01-03 17:54] LABS: Glucose Point of Care 213 mg/dL (70-110)
--- NOTE | 2024-01-03 19:15 | PC.NURSE ---
Patient had a right femoral sheath from cardiac cath. Sheath is pulled at 1350 and hemostasis is at 1351. Manual pressure is held x 20 minutes. Dressing of a 2x2 and tegaderm is applied. No hematoma is noted. Patient tolerated this well. Vitals were stable throughout. Patient is reminded that he is to continue to lay at no more than 30 degrees and not move his right leg until 2014. Patient states understanding.
[2024-01-03 20:42] LABS: Glucose Point of Care 207 mg/dL (70-110)
[2024-01-03] MEDS: atorvastatin 40 mg Tablet PO (21:37)
[2024-01-04 04:00] VITALS: BP 155/76; PULSE 76; RESP 24; TEMP 36.9; O2SAT 97
[2024-01-04 04:33] LABS: Blood Urea Nitrogen 13 mg/dL (8-23); Calcium 8.5 mg/dL (8.5-10.5); Carbon Dioxide 28 mmol/L (22-29); Chloride 101 mmol/L (98-107); Glomerular Filtration Rate 86.1 mL/min (90-130); Glucose 150 mg/dL (65-115); Osmolality Calculated 293 mOsm/kg (285-295); Sodium 140 mmol/L (136-145)
[2024-01-04 05:43] VITALS: PULSE 77
[2024-01-04 06:28] LABS: Glucose Point of Care 162 mg/dL (70-110)
[2024-01-04 07:09] VITALS: BP 152/76; PULSE 82; RESP 19; TEMP 37.2; O2SAT 95
--- NOTE | 2024-01-04 07:13 | P.DS_ITS ---
Discharge Providers Date of Admission: 01/02/24 16:26 Date of Discharge: January 04, 2024 Attending Provider at Admission: Krishan Ag M.D Attending Provider at Discharge: Krishan Ag M.D Primary Care Provider: Enrique Avila MD Diagnoses at Discharge Discharge Diagnosis (1) Worsening angina: Status: Inactive (2) CAD (coronary artery disease): Status: Acute Qualifiers: Associated angina: without angina Coronary Disease-Associated Artery/Lesion type: [place] artery [place] vs. transplanted heart: [place] heart Qualified Code(s): I25.10 - Atherosclerotic heart disease of [place] coronary artery without angina pectoris (3) CHF (congestive heart failure): Status: Acute Qualifiers: Heart failure chronicity: acute Heart failure type: diastolic Qualified Code(s): I50.31 - Acute diastolic (congestive) heart failure (4) Status post aorto-coronary artery bypass graft: Status: Acute (5) HTN (hypertension) with goal to be determined: Status: Acute (6) Diabetes: Status: Acute Reason for Visit Reason for Visit: Unstable angina Brief History: 58 year old male with past medical histo ry of CAD s/p CABG in 2020, diabetes, current smoker who was directly admitted from office secondary to worsening shortness of breath and chest discomfort. Recent outpatient stress test test showed an abnormality on it. He is taking nitros every day. They help relieve the symptoms. He has atrial fibrillation on Eliquis. Hospital Course Hospital Course Coronary angiogram showed critical mid RCA stenosis s/p successful revascularization with 1 stent. Bypass grafts were patent. Patient was observed and stayed stable. He was hydrated as creatinine was elevated at admission. It normalized with hydration. He was discharged home on elquis and plavix. Physical Exam Narrative: GENERAL: Patient is alert, awake and oriented x3. [] NECK: No jugular vein distension. [] HEENT: No cyanosis. No icterus. No pallor. [] HEART: Regular S1 and S2. No murmur, rub or gallop. [] LUNGS: Diminished air entry bilaterally CENTRAL NERVOUS SYSTEM: Grossly nonfocal. [] EXTREMITIES: Lower extremities with 1+ edema bilaterally Discharge Data Studies Completed and Pending Pending at discharge Category Date Time Status MENTAL HEALTH NURSE request for service Routine Exams 01/03/24 05:59 Taken Basic Metabolic Panel AM LABS Lab 01/05/24 04:00 Ordered Laboratory Results WBC 7.37 10^3/uL (3.29-11.43) 01/02/24 17:56 RBC 3.98 10^6/uL (3.85-5.65) 01/02/24 17:56 Hgb 12.00 g/dL (11.27-16.99) 01/02/24 17:56 Hct 36.1 % (37-53) L 01/02/24 17:56 MCV 90.7 fl (82-101) 01/02/24 17:56 MCH 30.2 pg (27-33) 01/02/24 17:56 MCHC 33.2 g/dL (30-55) 01/02/24 17:56 RDW 13.7 % (12.1-15.1) 01/02/24 17:56 Plt Count 212 10^3/cmm (157-399) 01/02/24 17:56 MPV 10.6 fL (7.4-10.4) H 01/02/24 17:56 Neut % (Auto) 59.9 % 01/02/24 17:56 Lymph % (Auto) 30.9 % 01/02/24 17:56 [place] % (Auto) 4.2 % 01/02/24 17:56 Eos % (Auto) 3.5 % 01/02/24 17:56 Baso % (Auto) 1.1 % 01/02/24 17:56 Neut # (Auto) 4.41 10^3/uL (1.8-7.7) 01/02/24 17:56 Lymph # (Auto) 2.3 10^3/uL (0.8-4.8) 01/02/24 17:56 [place] # (Auto) 0.3 10^3/uL (0.2-0.9) 01/02/24 17:56 Eos # (Auto) 0.3 10^3/uL (0.0-0.8) 01/02/24 17:56 Baso # (Auto) 0.1 10^3/uL (0.0-0.1) 01/02/24 17:56 Nucleated RBC % (auto) 0 % 01/02/24 17:56 Nucleated RBCs # 0.0 /100WBC 01/02/24 17:56 APTT 32.9 SECONDS (23.9-36.7) 01/03/24 11:47 Sodium 140 mmol/L (136-145) 01/04/24 03:06 Potassium 4.0 mmol/L (3.5-5.1) 01/04/24 03:06 Chloride 101 mmol/L (98-107) 01/04/24 03:06 Carbon Dioxide 28 mmol/L (22-29) 01/04/24 03:06 Anion Gap 15.0 (5-19) 01/04/24 03:06 BUN 13 mg/dL (8-23) 01/04/24 03:06 Creatinine 0.9 mg/dL (0.7-1.2) 01/04/24 03:06 GFR Calculation 86.1 mL/min (90-130) L 01/04/24 03:06 Glucose 150 mg/dL (65-115) H 01/04/24 03:06 POC Glucose 162 mg/dL (70-110) H 01/04/24 06:15 Calculated Osmolality 293 mOsm/kg (285-295) 01/04/24 03:06 Calcium 8.5 mg/dL (8.5-10.5) 01/04/24 03:06 Total Bilirubin 0.3 mg/dL (0.15-1.2) 01/02/24 17:56 AST 9 U/L (0-40) 01/02/24 17:56 ALT 8 U/L (0-41) 01/02/24 17:56 Alkaline Phosphatase 102 U/L (40-130) 01/02/24 17:56 Troponin T Baseline 34 ng/L (0-15) H 01/02/24 17:56 Troponin T 120 Minute 30.88 ng/L (0-15) H 01/02/24 19:52 Delta Troponin T -3.12 ABS# (0-10) L 01/02/24 19:52 Troponin T Hi Sens 6Hr 28.99 ng/L (0-15) H 01/02/24 23:37 Troponin T Hi Sens 6Hr Delta -5.01 ng/L (0-12) L 01/02/24 23:37 Total Protein 6.3 g/dL (6.6-8.7) L 01/02/24 17:56 Albumin 3.7 g/dL (3.5-5.2) 01/02/24 17:56 Globulin 2.6 g/dL (1.3-4.6) 01/02/24 17:56 Vitals Last Vital Signs Temp 98.9 F 01/04/24 07:09 Pulse 82 01/04/24 07:09 Resp 19 H 01/04/24 07:09 BP 152/76 01/04/24 07:09 Pulse Ox 95 01/04/24 07:09 O2 Del Method Room Air 01/04/24 07:09 O2 Flow Rate 3 01/03/24 16:05 Discharge Plan Discharge Patient Disposition: Home Condition: Stable Prescriptions: Continued pantoprazole [Protonix] 40 mg tablet,delayed release (DR/EC) 40 mg PO BID@, pregabalin [Lyrica] 150 mg capsule 300 mg PO BID@, nitroglycerin [Nitrostat] 0.4 mg tablet, sublingual 0.4 mg sublingual Q5M PRN (Reason: chest pain) Qty: 25 1RF metoprolol tartrate 100 mg tablet 100 mg PO BID@, Qty: 180 3RF amlodipine 10 mg tablet 10 mg PO DAILY@08 Qty: 90 3RF Zetia 10 mg tablet 10 mg PO DAILY@08 Qty: 90 3RF cilostazol 50 mg tablet 50 mg PO BID Qty: 180 1RF clopidogrel 75 mg tablet See Rx Instructions .ROUTE .COMPLEX Qty: 90 3RF Dose Instruction: TAKE 1 TABLET BY MOUTH EVERY DAY at 8am Rx Instructions: TAKE 1 TABLET BY MOUTH EVERY DAY at 8am Lasix 40 mg tablet 40 mg PO DAILY PRN (Reason: edema) Qty: 90 1RF tamsulosin 0.4 mg Capsule 0.4 mg PO DAILY@2199 Qty: 0 glyburide 2.5 mg tablet 2.5 mg PO BID Qty: 0 Trulicity 1.5 mg/0.5 mL Pen Injector 3 mg SUBCUT Q7D Rx Instructions: (on Wednesdays) atorvastatin 40 mg tablet 40 mg PO BEDTIME@220 duloxetine [Cymbalta] 60 mg capsule,delayed release(DR/EC) 60 mg PO DAILY@08 Rx Instructions: Take one capsule every morning ondansetron HCl [Zofran] 4 mg tablet 4 mg PO Q6H PRN (Reason: nausea and vomiting) Qty: 20 0RF isosorbide mononitrate 30 mg tablet extended release 24 hr 30 mg PO 1XD albuterol sulfate 90 mcg/actuation HFA aerosol inhaler 2 inh inhalation 6XD PRN (Reason: shortness of breath or wheezing) Qty: 8.5 0RF Eliquis 5 mg tablet 5 mg PO BID Qty: 180 0RF Held metformin 1,000 mg tablet 1,000 mg PO BID Hold Instructions: Resume on 01/06/24. Discharge Orders: Discharge Order (Routine); Ordered 01/04/24 Ordered By: Krishan Ag Referrals: Heather Frankel FNP [Nurse Practitioner] - 01/16/24 1:30 pm Discharge Diet: Diabetic Discharge Activity: Increase activity as tolerated Patient Instructions: Coronary Intravascular Stent Placement (DC), CHF Stoplight, Chest Pain Stoplight, Opioid Safety, Post Angiogram Home Care Instructions Discharge Attestations Time Spent in Discharge Care*: greater than 30 min Status at Discharge: Cognitive status at discharge: cognitively intact , Behavioral status at discharge: cooperative and dependent in ADL's , Quality Metrics Clinical Quality Measures [ No reported AMI, CVA or VTE this stay] Coding Level of Care Code Acute Code for Chg Fwd Diagnoses Worsening angina I20.0 Coronary artery disease involving [place] coronary artery of [place] heart without angina pectoris I25.10 Associated angina: without angina Coronary Disease-Associated Artery/Lesion type: [place] artery [place] vs. transplanted heart: [place] heart Acute diastolic congestive heart failure I50.31 Heart failure chronicity: acute Heart failure type: diastolic Status post aorto-coronary artery bypass graft Z95.1 HTN (hypertension) with goal to be determined I10 Diabetes E11.9
[2024-01-04 07:31] LABS: Glucose Point of Care 169 mg/dL (70-110)
[2024-01-04] MEDS: metoprolol tartrate 50 mg Tablet 100 MG PO (08:44)
[2024-01-04] MEDS: clopidogrel 75 mg Tablet PO (08:44)
[2024-01-04] MEDS: amlodipine 10 mg Tablet PO (08:44)
[2024-01-04] MEDS: insulin lispro 100 unit/1 mL SUBCUT (08:45)
[2024-01-04] MEDS: ezetimibe 10 mg Tablet PO (08:45)
[2024-01-04] MEDS: pregabalin 150 mg Capsule 300 MG PO (08:45)
--- NOTE | 2024-01-04 10:00 | PC.NURSE ---
Discharge packet pt stated his is bringing his oxygen and his dad will give him a ride. called pt to let him know to hold his metformin.
[2024-01-04] MEDS: apixaban 5 mg Tablet PO (10:03)
== END 2024-01-04 10:17 | disposition home or self-care (01) ==
PROVIDERS: Admitting Provider Internal Medicine; PCP Family Medicine; Visit Provider Internal Medicine
DX: I25.110 Atherosclerotic heart disease of native coronary artery with unstable angina pectoris (principal); I11.0 Hypertensive heart disease with heart failure; I50.31 Acute diastolic (congestive) heart failure; Z95.1 Presence of aortocoronary bypass graft; E11.9 Type 2 diabetes mellitus without complications; F17.200 Nicotine dependence, unspecified, uncomplicated; I48.91 Unspecified atrial fibrillation; Z79.01 Long term (current) use of anticoagulants; F41.1 Generalized anxiety disorder; I25.118 Atherosclerotic heart disease of native coronary artery with other forms of angina pectoris; F17.210 Nicotine dependence, cigarettes, uncomplicated; F17.220 Nicotine dependence, chewing tobacco, uncomplicated
CPT/HCPCS: 36415; 36416; 80048; 80053; 82962; 84484; 85025; 85347; 85730; 93005; 93455; 96372; 96374; 96376; 99152; 99153; 99214; C1725; C1769; C1779; C1874; C1887; C1894; C9600; G0378; G0379; J1644; J1815; J1940; J2250; J3010; J7030; Q0163; Q9967

== ENCOUNTER 2024-01-16 14:40 | Outpatient (CLI) | payer MEDICARE, SELFPAY | END 2024-01-16 14:41 | disposition home or self-care (01) | LOC: SLEEP 01-17 16:29 | PROVIDERS: PCP Family Medicine; Visit Provider Internal Medicine | DX: G47.33 Obstructive sleep apnea (adult) (pediatric) (principal); J96.01 Acute respiratory failure with hypoxia | CPT/HCPCS: 99214; G0399 ==

== ENCOUNTER → 2024-02-05 13:07 | Outpatient (BNVA) | payer MEDICARE, SELFPAY | PROVIDERS: PCP Family Medicine; Referring Provider Family Medicine; Visit Provider Internal Medicine Cardiovascular Disease | DX: I11.0 Hypertensive heart disease with heart failure (principal); I50.31 Acute diastolic (congestive) heart failure; Z95.1 Presence of aortocoronary bypass graft; I25.10 Atherosclerotic heart disease of native coronary artery without angina pectoris; I73.9 Peripheral vascular disease, unspecified; F17.210 Nicotine dependence, cigarettes, uncomplicated; F17.220 Nicotine dependence, chewing tobacco, uncomplicated | CPT/HCPCS: 99214 ==

== ENCOUNTER → 2024-07-31 14:53 | Outpatient (BNVA) | payer MEDICARE, SELFPAY | PROVIDERS: PCP Family Medicine; Visit Provider Internal Medicine | DX: I25.118 Atherosclerotic heart disease of native coronary artery with other forms of angina pectoris (principal); I50.31 Acute diastolic (congestive) heart failure; Z95.1 Presence of aortocoronary bypass graft; F17.210 Nicotine dependence, cigarettes, uncomplicated | CPT/HCPCS: 99214 ==

== ENCOUNTER 2024-08-20 09:26 | Outpatient (CLI) | payer MEDICARE, SELFPAY ==
--- NOTE | 2024-08-20 09:45 | USCV_ITS ---
Carlos Bender Age: 59 Gender: M : 1965 Exam Date: 08/20/2024 09:19 Ordering Phys: Krishan Ag M.D ([email or web address]) Technologist: Exam Location: [facility] – [place] Indication: pad RIGHT LEFT Brachial 120.00 mmHg Brachial 118.00 mmHg Pressure (mmHg) Waveform Pressure (mmHg) Waveform 220.00 FIELD SERVICE TECH 139.00 111.00 DPA 0.00 0.94 Ankle/Brachial Index 1.10 130.00 Pre-Exercise Toe Pressure 220.00 1.10 Pre-Exercise Toe/Brachial Index FINDINGS Resting RICHARD on the right side of 0.94 and that on the left was 1.1. Platelet was no Doppler signals in the left dorsalis pedis artery. The resting TBI on the right side was 1.1 and that on the left side, the distal artery was found to be noncompressible CONCLUSIONS Normal resting RICHARD and TBI's bilaterally suggesting no significant arterial obstruction. In the above-knee vessels Possible occlusion of the dorsalis pedis artery on the left side-clinical correlation is recommended Dr Lily Manzano MD [facility] (Electronically Signed) Final Date: 21 August 2024 11:23 S
== END 2024-08-20 09:27 | disposition home or self-care (01) ==
LOC: RAD 09:26
PROVIDERS: PCP Family Medicine; Visit Provider Internal Medicine
DX: R25.2 Cramp and spasm (principal); M79.604 Pain in right leg; M79.605 Pain in left leg; R94.30 Abnormal result of cardiovascular function study, unspecified
CPT/HCPCS: 93922

== ENCOUNTER 2024-09-05 20:06 | Inpatient (IN) | payer MEDICARE, SELFPAY ==
[2024-09-05] VITALS (13 sets, daily range): BP systolic 168–188; BP diastolic 70–101; PULSE 80–86; RESP 12–24; TEMP 36.4–36.6; O2SAT 88–98; BMI 33.5
--- NOTE | 2024-09-05 20:06 | ECG_ITS ---
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 Measurements Intervals [place] Rate: 80 P: 138 MI: 299 QRS: -32 QRSD: 143 T: 132 QT: 419 QTc: 484 Interpretive Statements SINUS RHYTHM WITH FIRST DEGREE AV BLOCK LEFT AXIS DEVIATION [QRS AXIS < -30] LEFT BUNDLE BRANCH BLOCK [120+ ms QRS DURATION, 80+ ms Q/S IN V1/V2, 85+ ms R IN I/aVL/V5/V6] ST ELEVATION IN INFERIOR LEADS Compared to ECG 01/02/2024 18:05:46 Left-axis deviation now present Electronically Signed On 09-06-2024 07:40:45 CDT by Krishan Ag M.D. [email or web address]
--- NOTE | 2024-09-05 20:08 | XRR_ITS ---
PROCEDURE INFORMATION: Exam: XR Chest Exam date and time: 09/05/2024 8:47 PM Age: 59 years old Clinical indication: Pain; Chest pressure; Prior surgery; Surgery date: 6+ months; Surgery type: Open heart; Additional info: Chest pain TECHNIQUE: Imaging protocol: Radiologic exam of the chest. Views: 1 view. COMPARISON: CR XR chest 1V portable [id number] 12/16/2023 2:25 PM FINDINGS: Lungs: No focal consolidation. Pleural spaces: No evidence of pneumothorax. No evidence of pleural effusion. Heart/Mediastinum: Postsurgical changes of the mediastinum compatible with prior CABG. Bones/joints: No evidence of acute osseous abnormality. XR/XR chest 1V portable [id number] IMPRESSION: 1. No acute cardiopulmonary abnormality.
[2024-09-05] MEDS: clopidogrel 300 mg Tablet 600 MG PO (20:33)
[2024-09-05] MEDS: aspirin 325 mg Tablet PO (20:33)
[2024-09-05] MEDS: heparin 5,000 unit/mL INJ 1 mL 4000 UNIT IVP (20:35)
[2024-09-05] MEDS: ondansetron 2 mg/ML SDV 2 mL 4 MG IVP (20:36)
[2024-09-05 20:37] LABS: Basophils # 0.1 10^3/uL (0.0-0.1); Eosinophils # 0.3 10^3/uL (0.0-0.8); Hematocrit 42.2 % (37-53); Lymphocytes # 3.9 10^3/uL (0.8-4.8); Mean Corpuscular Hemoglobin 28.9 pg (27-33); Mean Corpuscular Volume 90.4 fl (82-101); Mean Platelet Volume 10.2 fL (7.4-10.4); Monocytes # 0.5 10^3/uL (0.2-0.9); Monocytes % 5.6 %; Neutrophils # 4.49 10^3/uL (1.8-7.7); Neutrophils % 48.1 %; Nucleated Red Blood Cells % 0 %; Platelet Count 243 10^3/cmm (157-399); Red Blood Count 4.67 10^6/uL (3.85-5.65); Red Cell Distribution Width 14.8 % (12.1-15.1); White Blood Count 9.33 10^3/uL (3.29-11.43)
[2024-09-05] MEDS: morphine 4 mg/mL SDV 1 mL IVP (20:39)
--- NOTE | 2024-09-05 20:41 | W.ED.CHESTPA ---
HPI - Chest Pain General: Chief Complaint: Chest Pain Stated Complaint: CP 3 nitro, still pain Time Seen by Provider: 09/05/24 20:27 History of Present Illness: Presents to the ER with left-sided chest pain that radiates up into his neck and down his left arm, diaphoresis and shortness of breath. This pain started about 30 minutes ago. Patient does have a history of open heart surgery and then stents afterwards. Patient does see Dr. Chamberlain. Patient took 3 nitro with no help. Related Data Home Medications Medication Instructions Recorded Confirmed pantoprazole 40 mg tablet,delayed 40 mg PO BID@,12/09/20 07/31/24 release (Protonix) pregabalin 150 mg capsule (Lyrica) 300 mg PO BID@,12/09/20 07/31/24 tamsulosin 0.4 mg capsule 0.4 mg PO DAILY@2199 ##0 12/21/20 07/31/24 atorvastatin 40 mg tablet 40 mg PO BEDTIME@2200 03/11/21 07/31/24 dulaglutide 1.5 mg/0.5 mL 3 mg SUBCUT Q7D 03/11/21 07/31/24 subcutaneous pen injector (Trulicity) duloxetine 60 mg capsule,delayed 60 mg PO DAILY@08 03/11/21 07/31/24 release (Cymbalta) metformin 1,000 mg tablet 1,000 mg PO BID 10/26/22 07/31/24 glyburide 2.5 mg tablet 2.5 mg PO BID #0 tabs 06/29/23 07/31/24 isosorbide mononitrate 30 mg 30 mg PO 1XD 12/13/23 07/31/24 tablet,extended release 24 hr Previous Rx's Medication Instructions Recorded ondansetron HCl 4 mg tablet 4 mg PO Q6H PRN nausea and 02/03/22 (Zofran) vomiting #20 tabs nitroglycerin 0.4 mg sublingual 0.4 mg sublingual Q5M PRN chest 03/13/23 tablet (Nitrostat) pain #25 ea clopidogrel 75 mg tablet See Rx Instructions .Route 11/24/23 .COMPLEX #90 tabs albuterol sulfate 90 mcg/actuation 2 inh inhalation 6XD PRN shortness 12/16/23 aerosol inhaler of breath or wheezing #8.5 grams metoprolol tartrate 100 mg tablet 100 mg PO BID@, #180 tabs 05/07/24 cilostazol 50 mg tablet See Rx Instructions .Route 05/28/24 .COMPLEX #180 tabs ezetimibe 10 mg tablet (Zetia) 10 mg PO DAILY@08 #90 tabs 07/03/24 furosemide 40 mg tablet See Rx Instructions .Route 07/03/24 .COMPLEX #90 tabs amlodipine 5 mg tablet 5 mg PO DAILY #90 tabs 07/31/24 aspirin 81 mg tablet,delayed 81 mg PO DAILY #90 tabs 07/31/24 release Allergies Allergy/AdvReac Type Severity Reaction Status Date / Time codeine Allergy Unknown Verified 09/05/24 20:16 gabapentin Allergy Unknown Verified 09/05/24 20:16 Review of Systems General: Reports: 10 or more systems reviewed and unremarkable except in HPI and below PFSH ED PFSH: Medical History Worsening angina CHF (congestive heart failure) Congestive heart failure Heart failure Hyperkalemia CAD (coronary artery disease) Diabetes Left main coronary artery disease HTN (hypertension) with goal to be determined ASHD (arteriosclerotic heart disease) Nicotine dependence, cigarettes, uncomplicated Generalized anxiety disorder Major depressive disorder, recurrent episode, moderate with anxious distress Surgical History S/P laminectomy S/P vasectomy History of heart artery stent S/P knee surgery S/P cholecystectomy Status post aorto-coronary artery bypass graft Family History Father Myocardial infarct Grandmother Myocardial infarct Family/Other Myocardial infarct Other CAD (coronary artery disease) Social History Smoking and tobacco/nicotine status: current every day tobacco/nicotine user cigarettes Packs smoked per day: 1 and smokeless tobacco Smokeless tobacco user: chewing tobacco Smokeless tobacco details: 1 can 2- 3 days Quit status (tobacco/nicotine): considering quitting Second hand smoke exposure: Yes Alcohol intake: never Substance/Drug Use: never Physical Exam Const: COMMON NORMALS: no acute distress, average body habitus, patient oriented x3, no limitations, healthy appearing, alert and well nourished HENMT: COMMON NORMALS: normocephalic, atraumatic, hearing grossly normal bilaterally, external ears normal, Normal external nose present and moist oral mucous membranes HEAD & SCALP: normocephalic and atraumatic NOSE: Normal external nose present EXTERNAL EAR: Yes external ears normal Neck/C-Spine: COMMON NORMALS: no JVD Chest: COMMONS NORMALS: normal inspection of the chest and normal palpation of entire chest wall Resp: COMMON NORMALS: normal respiratory effort, No retractions, No use of accessory muscles and clear to auscultation bilaterally AUSCULTATION: clear to auscultation bilaterally Cardio: COMMON NORMALS: no JVD, regular rate, regular rhythm, S1 normal heart sound present, S2 normal heart sound present, No gallops present (Cardio), No clicks present (Cardio), No murmurs present (Cardio) and No rub (Cardio) RATE: regular rate RHYTHM: regular rhythm HEART SOUNDS: S1 normal heart sound present and S2 normal heart sound present GI: COMMON NORMALS: Normal to inspection, nondistended, normoactive bowel sounds present, Soft to palpation, non-tender, No hepatosplenomegaly present and no masses PALPATION: Yes Soft to palpation and Yes No hepatosplenomegaly present Neuro: COMMON NORMALS: patient oriented x3 SENSORIUM/ORIENTATION: Yes alert Skin: NARRATIVE SKIN EXAM: Diaphoretic Course Vital Signs: Vital signs: Vital Signs Temperature 97.9 F 09/05/24 20:13 Pulse Rate 82 09/05/24 20:46 Respiratory Rate 17 09/05/24 20:46 Blood Pressure 175/101 09/05/24 20:46 Pulse Oximetry 97 09/05/24 20:46 Oxygen Delivery Me thod Room Air 09/05/24 20:46 MDM - Chest Pain Medical Decision Making EKG was obtained which looked abnormal, old EKG was pulled up and there was definite changes, these EKGs were faxed to Dr. Chamberlain who called STEMI. STEMI protocol was activated. Patient will be taken to the [facility]. Differential Diagnosis Likely acute myocardial infarction Medical Records I reviewed the patient's medical records. Lab Data I reviewed the patient's lab results. 09/05/24 20:27 09/05/24 20:27 Laboratory Results WBC 9.33 10^3/uL (3.29-11.43) 09/05/24: RBC 4.67 10^6/uL (3.85-5.65) 09/05/24: Hgb 13.50 g/dL (11.27-16.99) 09/05/24: Hct 42.2 % (37-53) 09/05/24: MCV 90.4 fl (82-101) 09/05/24: MCH 28.9 pg (27-33) 09/05/24: MCHC 32.0 g/dL (30-55) 09/05/24: RDW 14.8 % (12.1-15.1) 09/05/24: Plt Count 243 10^3/cmm (157-399) 09/05/24: MPV 10.2 fL (7.4-10.4) 09/05/24: Neut % (Auto) 48.1 % 09/05/24: Lymph % (Auto) 42.0 % 09/05/24: [place] % (Auto) 5.6 % 09/05/24: Eos % (Auto) 3.0 % 09/05/24: Baso % (Auto) 1.0 % 09/05/24: Neut # (Auto) 4.49 10^3/uL (1.8-7.7) 09/05/24: Lymph # (Auto) 3.9 10^3/uL (0.8-4.8) 09/05/24: [place] # (Auto) 0.5 10^3/uL (0.2-0.9) 09/05/24: Eos # (Auto) 0.3 10^3/uL (0.0-0.8) 09/05/24: Baso # (Auto) 0.1 10^3/uL (0.0-0.1) 09/05/24: Nucleated RBC % (auto) 0 % 09/05/24: Nucleated RBCs # 0.0 /100WBC 09/05/24: All radiology interpretation(s) finalized by discharge Discharge Plan Discharge Clinical Impression: ST elevation (STEMI) myocardial infarction Condition: Stable Prescriptions: No Action pantoprazole [Protonix] 40 mg tablet,delayed release (DR/EC) 40 mg PO BID@ pregabalin [Lyrica] 150 mg capsule 300 mg PO BID@ amlodipine 5 mg tablet 5 mg PO DAILY Qty: 90 3RF aspirin 81 mg tablet,delayed release (DR/EC) 81 mg PO DAILY Qty: 90 3RF metformin 1,000 mg tablet 1,000 mg PO BID Hold Instructions: Resume on 01/06/24. nitroglycerin [Nitrostat] 0.4 mg tablet, sublingual 0.4 mg sublingual Q5M PRN (Reason: chest pain) Qty: 25 1RF clopidogrel 75 mg tablet See Rx Instructions .ROUTE .COMPLEX Qty: 90 3RF Dose Instruction: TAKE 1 TABLET BY MOUTH EVERY DAY at 8am Rx Instructions: TAKE 1 TABLET BY MOUTH EVERY DAY at 8am metoprolol tartrate 100 mg tablet 100 mg PO BID@ Qty: 180 3RF cilostazol 50 mg tablet See Rx Instructions .ROUTE .COMPLEX Qty: 180 3RF Dose Instruction: TAKE 1 TABLET BY MOUTH TWICE DAILY Rx Instructions: TAKE 1 TABLET BY MOUTH TWICE DAILY furosemide 40 mg tablet See Rx Instructions .ROUTE .COMPLEX Qty: 90 1RF Dose Instruction: TAKE 1 TABLET BY MOUTH EVERY DAY NEEDED FOR edema Rx Instructions: TAKE 1 TABLET BY MOUTH EVERY DAY NEEDED FOR edema Zetia 10 mg tablet 10 mg PO DAILY@08 Qty: 90 3RF tamsulosin 0.4 mg Capsule 0.4 mg PO DAILY@220 Qty: 0 glyburide 2.5 mg tablet 2.5 mg PO BID Qty: 0 Trulicity 1.5 mg/0.5 mL Pen Injector 3 mg SUBCUT Q7D Rx Instructions: (on Wednesdays) atorvastatin 40 mg tablet 40 mg PO BEDTIME@2200 duloxetine [Cymbalta] 60 mg capsule,delayed release(DR/EC) 60 mg PO DAILY@08 Rx Instructions: Take one capsule every morning ondansetron HCl [Zofran] 4 mg tablet 4 mg PO Q6H PRN (Reason: nausea and vomiting) Qty: 20 0RF isosorbide mononitrate 30 mg tablet extended release 24 hr 30 mg PO 1XD albuterol sulfate 90 mcg/actuation HFA aerosol inhaler 2 inh inhalation 6XD PRN (Reason: shortness of breath or wheezing) Qty: 8.5 0RF Referrals: Enrique Avila MD [Primary Care Provider] - Coding Level of Care Code ED Supervisor Line Department for Mason Lipscomb
[2024-09-05 20:48] LABS: INR 0.85 (0.8-1.2); Partial Thromboplastin Time 28.7 SECONDS (23.9-36.7)
[2024-09-05 20:53] LABS: Troponin(5th) Baseline 25 ng/L (0-15)
--- NOTE | 2024-09-05 20:54 | XACV_ITS ---
Exam Room: [facility] Ht: 180 cm Wt: 109 kg BSA: 2.38 m2 Gender: Male : 1965 Any Known Allergies: Other Exam Priority: Routine Procedure(s): Procedure Description: Diagnostic procedure Procedure Description: PCI procedure Procedure Description: Left ventriculography Procedure Description: Venous Graft Catheterization Procedure Description: MARVIN Graft Catheterization Procedure Description: Coronary IVUS Procedure Description: PTCA Procedure Description: Miscellaneous Procedure Description: Temporary Pacemaker Insertion Procedure Description: ACT Procedure Description: Coronary Angiography Procedure Description: Intravascular lithotripsy with [facility] Diagnostic Cath Status: Emergency Diagnostic Findings * Left Main has is subtotally occluded. * Left Anterior Descending has chronic total occlusion. * Circumflex has chronic total occlusion. * Proximal to Mid Right Coronary Artery: total thrombotic occlusion of prior stent, KACI: 0 flow. * Bypass grafts: MARVIN to LAD is patent. SVG jump graft to diagonal artery and OM is patent. * Coronary angiography shows right dominance. PCI Status: Emergency PCI Indication: Immediate PCI for STEMI Interventional Findings * Procedure detail: We engaged RCA with JR4 guide catheter. Heparin was administered to maintain anticoagulation. A run-through wire was used to cross the occluded segment and was put in distal vessel. We predilated occluded segment 2.5 x 12 mm semicompliant balloon. As thrombosis was within the stent, no new stent was placed. At this time patient went into a complete heart block. Temporary transvenous pacemaker was advanced and put in place under flouroscopic guidance from right common femoral vein access. There was an underexpanded segment in old stent. We used intravascular lithotripsy with a 3.0 x 12 millimeter shockwave intravascular lithotripsy balloon. 80 pulses were delivered. This resulted in good expansion of underexpanded stent. This was followed by aggressive post dilation with 3.0 x 15 mm NC balloon. We then postdilated with 3.5 x 20 mm NC balloon at high pressure. At this time final angiogram was performed that showed good stent expansion and no residual stenosis. IVUS was performed to confirm no residual stenosis at proximal or distal edge of the stent. Guidewire and guide catheter were removed. Patient left the Laserist in stable condition.. * Mid Right Coronary Artery to Mid Right Coronary Artery: 100% stenosis treated with a AB TREK 2.50X12 RX BALLOON, MDT NC EUPHORA RX [id number] BALLOON, and MDT NC EUPHORA RX [id number] BALLOON. 0% residual stenosis, KACI: 3 flow. Conclusions 1. Total thrombotic occlusion of proximal to mid RCA stent. This is culprit vessel for acute inferior wall ST elevation PR. Successful revascularization with intravascular lithotripsy shockwave balloon angioplasty and balloon angioplasty with NC balloon. Old underexpanded stent had good expansion with these interventions. 2. successful transvenous pacemaker placement. 3. Patient has prior CABG. 4. Mid Right Coronary Artery to Mid Right Coronary Artery was treated with a Balloon, Balloon, and Balloon. Recommendations * Dual antiplatelet therapy for atleast 1 year. * High intensity statin therapy. * Transfer to ICU. * If complete heart block does not resolve, patient will need permanent pacemaker placement. Interventional RX Recommendation: PCI w/o planned CABG Diagnostic RX Recommendation: PCI w/o planned CABG Anticoagulation: Heparin Pressures Phase:Rest AO : 112 / 72 ( 92 ) @ 5:22:20 PM 84 / 52 ( 68 ) @ 5:22:20 PM 94 / 49 ( 67 ) @ 5:22:20 PM 85 / 46 ( 62 ) @ 5:22:20 PM 96 / 59 ( 77 ) @ 5:22:20 PM 129 / 74 ( 100 ) @ 5:22:20 PM 139 / 99 ( 104 ) @ 5:22:20 PM / ( 454 ) @ 5:22:20 PM 167 / 73 ( 115 ) @ 5:22:20 PM 164 / 81 ( 113 ) @ 5:22:20 PM LV : 175 / 4 / 18 @ 5:22:20 PM 169 / 6 / 18 @ 5:22:20 PM Valves Phase:DefaultPhase AV : 0.0 @ 10:22:20 PM AV Mean Gradient: 0.0 @ 10:22:20 PM 0.0 @ 10:22:20 PM Clinical Evaluation EBL: 5mL-10mL Procedural Details Pre-Procedure Time Out. Identified patient by full name and date of as verbalized by the patient/guarantor. Does the consent match the physician's order: N/A Emergent; Informed Consent not obtained due to time critical life threat. Accurate & Complete Informed Consent: N/A Emergent; Informed Consent not obtained due to time critical life threat. Inpatient/Outpatient History & Physical on Chart: N/A Emergent; Informed Consent not obtained due to time critical life threat. If H&P is completed, is and addenduem needed: N/A Emergent; Informed Consent not obtained due to time critical life threat; If yes, is the addendum complete: N/A Emergent; Informed Consent not obtained due to time critical life threat. Visualize and Verify Site with Patient/Guarantor: N/A. Relevant Radiology Images available: N/A Emergent; Informed Consent not obtained due to time critical life threat. Pre-op teaching completed and patient verbalized understanding. The risks, benefits, and alternatives of sedation and/or procedure were discussed by physician. The patient agrees to continue. Procedure started. [facility] Clinical Fraility Score: 4: Vulnerable. Laserist Indications: ACS <= 24 hours. Chest Pain Symptom Assessment: Typical Angina Symptoms. Cardiovascular Instability: Yes, if yes, Persistant Ischemic Symptoms. Correct patient, site and procedure confirmed by cath team. Current diagnosis: STEMI. PERRLA. Strong, equal hand utility person bilaterally. Lungs clear x 5 lobes. Baseline sample Acquired. HR: 78 BPM. Physician notified. Patient's family in the recyclable materials sorter waiting room. Dr. Ag will update at the completion of the procedure. Equipment: 6F - Femoral. Cardiac Cath Pack. [employer] Manifold Kit Model BT 2000. Heparinized Saline (2 units/mL), 1000 mL bag. Kit, Micropuncture. Physician arrived. Physician scrubbed in. Immediate Pre-Procedure Time Out. Correct Patient: N/A Emergent; Informed Consent not obtained due to time critical life threat; Correct Procedure: N/A Emergent; Informed Consent not obtained due to time critical life threat; Correct Site: N/A Emergent; Informed Consent not obtained due to time critical life threat; Correct Patient Position: N/A Emergent; Informed Consent not obtained due to time critical life threat; Correct Supplies: N/A Emergent; Informed Consent not obtained due to time critical life threat; Dried Flammable Prep: N/A Emergent; Informed Consent not obtained due to time critical life threat; Blood Products Available: N/A Emergent; Informed Consent not obtained due to time critical life threat;. Lidocaine 1% infiltrated to the right groin. Arterial access obtained with micropuncture set. Unable to thread wire. Needle and wire out. Dr. Ag holding manual pressure. IV Site on Arrival: 20 gauge in the left anticubital. IV Fluids: 0.9% NaCl at KVO. 0 mL infused prior to recyclable materials sorter. Oxygen started at 2liters/min via nasal canula. bilateral groins was prepped with chloroprep then draped in the usual sterile fashion. Baseline sample Acquired. HR: 88 BPM. 6 irish JR 4 guide catheter was inserted over the wire. Runthrough guidewire was advanced through the guide catheter to lesion in the mid RCA. Inflation number : 1 A AB TREK 2.50X12 RX BALLOON was prepped and advanced across the Mid RCA , then inflated to 12 MARISELA for 0:06 seconds. Inflation number: 2 The AB TREK 2.50X12 RX BALLOON was reinflated across the Mid RCA, to 12 MARISELA for 0:10 seconds. Inflation number : 3 A MDT NC EUPHORA RX [id number] BALLOON was prepped and advanced across the Mid RCA , then inflated to 24 MARISELA for 0:23 seconds. Inflation number: 4 The MDT NC EUPHORA RX 3.68V41CM BALLOON was reinflated across the Mid RCA, to 20 MARISELA for 0:10 seconds. Balloon out. Venous access obtained. Sheath upsized to a 6 Fr. TPM inserted. Asynchronous, Rate=60, mA=5. Shockwave C2 Coronary Intravascular Lithotripsy Baloon 3.0mm x 12mm in OTW and advance to the lesion in the Mid RCA. Lithotripsy performed x 8 rounds on the Mid RCA. Lithotripsy balloon out OTW. Results checked. Inflation number : 5 A MDT NC EUPHORA RX [id number] BALLOON was prepped and advanced across the Mid RCA , then inflated to 20 MARISELA for 0:16 seconds. Inflation number: 6 The MDT NC EUPHORA RX 3.43P08TK BALLOON was reinflated across the Mid RCA, to 24 MARISELA for 0:15 seconds. IVUS catheter in OTW. IVUS performed of the Mid RCA. IVUS catheter out OTW. Wire out. Guide catheter out. A 5 irish JL4 catheter in over wire. Multiple views taken of left coronary artery. ACT drawn. Results 268 seconds. Therapeutic limits - pre-heparin administration 90-150 seconds and monitoring heparin during a vascular procedure >250 seconds. Catheter removed over the standard wire. A 5 irish JR4 catheter in over wire. SVG's to OM and diagonal visualized (Y-graft). Catheter redirected to the MARVIN. MARVIN to LAD visualized. Baseline sample Acquired. HR: 79 BPM. EDP Sample taken: LV 175/4,18; HR: 56 BPM; SpO2: 94%. Catheter redirected to the RCA. Pullback taken: LV 169/6,18; AO 167/73(115); Mean: 0mmHg, Peak to Peak: 0mmHg, SEP: 9sec/min; HR: 61 BPM; SpO2: 93%. TPM settings changed to Rate=50, mA=3, Sensitivity=3. A Right femoral angiogram was performed to determine safe placement of closure device. Physician scrubbed out. A Suture was successful obtaining hemostatsis at the Right Femoral artery insertion site. A Suture was successful obtaining hemostatsis at the Right Femoral vein insertion site. PCI Indication : Immediate PCI for STEMI. Arterial sheath flushed and connected to tranducer and pressure bag with heparinized saline. PERRLA. Strong, equal hand utility person bilaterally. No VTE prophylaxis required. PCI Indication: STEMI. Post-op diagnosis: POBA, lithotripsy, of the Mid RCA. TPM insertion. Complications: none. Estimated blood loss: 5mL-10mL. ACT drawn. Results 294 seconds. Therapeutic limits - pre-heparin administration 90-150 seconds and monitoring heparin during a vascular procedure >250 seconds. Medication's Wasted: Lidocaine 1% = 3 mL. Medication's Wasted: Heparin = 2000 Units. Medication's Wasted: Other = Versed 1 mg. Medication's Wasted: Other = Fentanyl 50 mcg. Medication's Wasted: Other = Atropine 1 mg. Total IV fluids: 350 mL. Responsiveness - Normal response to verbal stimuli; alert and oriented, PERRLA. Airway - Unaffected, no intervention required; spontaneous ventilation. Circulation: W/N/L, pulses unchanged. Nausea/Vomiting: No. Procedure completed. Patient transferred by bed to ICU. Vital chart was stopped. Arterial access obtained with micropuncture set. Lidocaine 1% infiltrated to the right groin. Balloon out. Results checked. Catheter removed over the standard wire. Access Site Site: Right Femoral artery Sheath Size: 6 Fr Hemostasis Method: Suture Hemostasis Success: Successful Site: Right Femoral vein Sheath Size: 6 Fr Hemostasis Method: Suture Hemostasis Success: Successful Procedure Medications Start: 9:04 PM Stop: 9:04 PM Medication: Versed Amount: 1 mg Route: I.V. Start: 9:04 PM Stop: 9:04 PM Medication: Fentanyl Amount: 50 mcg Route: I.V. Start: 9:06 PM Stop: 9:06 PM Medication: Versed Amount: 1 mg Route: I.V. Start: 9:10 PM Stop: 9:10 PM Medication: Heparin Amount: 6000 units Route: I.V. Start: 9:20 PM Stop: 9:20 PM Medication: 0.9% Saline Amount: 250 ml Route: I.V. bolus Start: 9:24 PM Stop: 9:24 PM Medication: Heparin Amount: 1000 units Route: I.V. Start: 9:46 PM Stop: 9:46 PM Medication: Versed Amount: 1 mg Route: I.V. Start: 9:51 PM Stop: 9:51 PM Medication: Heparin Amount: 1000 units Route: I.V. I, the attending physician, have reviewed and verified all procedure medications. Yes, all medications given per verbal order History/Risk Factors Hypertension: Yes Dyslipidemia: Yes Peripheral Arterial Disease (PAD): No Myocardial Infarction (PR): Yes Obesity: Yes Renal Disease: No Tobacco Use: Current/Recent(w/in 1 year) Prior Interventions PCI: Yes CABG: Yes Valve Surgery: No Date of PCI: 01/03/2024 Report Signatures Finalized by Krishan Ag MD on 09/07/2024 07:35 PM
[2024-09-05 20:55] LABS: Blood Urea Nitrogen 18 mg/dL (8-23); Calcium 8.4 mg/dL (8.5-10.5); Carbon Dioxide 23 mmol/L (22-29); Chloride 103 mmol/L (98-107); Creatinine Clr Calc Pharmacy 81.4574; Glomerular Filtration Rate 61.6 mL/min (90-130); Glucose 157 mg/dL (65-115); Osmolality Calculated 293 mOsm/kg (285-295); Sodium 139 mmol/L (136-145)
[2024-09-05 20:57] LABS: Anion Gap 17.1 (5-19); Potassium 4.1 mmol/L (3.5-5.1)
--- NOTE | 2024-09-05 20:57 | P.HP_ITS ---
Providers/Chief Complaint 2 Admitting Physician: Krishan Ag MD/ Cardiology Primary Care Provider: Enrique Avila MD Chief Complaint: CP 3 nitro, still pain History of Present Illness Carlos Bender is a 59 year old male with past medical history of coronary artery disease with prior CABG and PCI of RCA earlier in the year who presented with 1 to 2 hours of severe substernal chest pain. He was diaphoretic with it. Pain radiating to the arm. EKG shows interventricular conduction delay with ST elevations in inferior leads. This is consistent with inferior STEMI. I received EKG at 8:22 PM from ER team and activated cardiac Market Development Trainer emergently. Of note patient had presyncopal episodes recently. He was put on court specialist that showed mobitz type 2 and 3rd degree av block episodes. These were autodetected and he was awaiting appointment with EP. Review of Systems 2 General: Reports: 10 or more systems reviewed and unremarkable except in HPI and below Medications/Allergies Home Medications Medication Instructions Recorded Confirmed Last Taken Type pantoprazole 40 mg tablet,delayed 40 mg PO BID@12/09/20 07/31/24 01/01/24 History release (Protonix) pregabalin 150 mg capsule (Lyrica) 300 mg PO BID@12/09/20 07/31/24 01/01/24 History tamsulosin 0.4 mg capsule 0.4 mg PO DAILY@2200 ##0 12/21/20 07/31/24 01/01/24 History atorvastatin 40 mg tablet 40 mg PO BEDTIME@2200 03/11/21 07/31/24 01/01/24 History dulaglutide 1.5 mg/0.5 mL 3 mg SUBCUT Q7D 03/11/21 07/31/24 01/01/24 History subcutaneous pen injector (Trulicity) duloxetine 60 mg capsule,delayed 60 mg PO DAILY@08 03/11/21 07/31/24 01/01/24 History release (Cymbalta) ondansetron HCl 4 mg tablet 4 mg PO Q6H PRN nausea and 02/03/22 07/31/24 01/01/24 Rx (Zofran) vomiting #20 tabs metformin 1,000 mg tablet 1,000 mg PO BID 10/26/22 07/31/24 01/01/24 History nitroglycerin 0.4 mg sublingual 0.4 mg sublingual Q5M PRN chest 03/13/23 07/31/24 01/01/24 Rx tablet (Nitrostat) pain #25 ea glyburide 2.5 mg tablet 2.5 mg PO BID #0 tabs 06/29/23 07/31/24 01/01/24 History clopidogrel 75 mg tablet See Rx Instructions .Route 11/24/23 07/31/24 01/01/24 Rx .COMPLEX #90 tabs isosorbide mononitrate 30 mg 30 mg PO 1XD 12/13/23 07/31/24 01/01/24 History tablet,extended release 24 hr albuterol sulfate 90 mcg/actuation 2 inh inhalation 6XD PRN shortness 12/16/23 07/31/24 01/01/24 Rx aerosol inhaler of breath or wheezing #8.5 grams metoprolol tartrate 100 mg tablet 100 mg PO BID@, #180 tabs 05/07/24 07/31/24 Unknown Rx cilostazol 50 mg tablet See Rx Instructions .Route 05/28/24 07/31/24 Unknown Rx .COMPLEX #180 tabs ezetimibe 10 mg tablet (Zetia) 10 mg PO DAILY@08 #90 tabs 07/03/24 07/31/24 Unknown Rx furosemide 40 mg tablet See Rx Instructions .Route 07/03/24 07/31/24 Unknown Rx .COMPLEX #90 tabs amlodipine 5 mg tablet 5 mg PO DAILY #90 tabs 07/31/24 07/31/24 Unknown Rx aspirin 81 mg tablet,delayed 81 mg PO DAILY #90 tabs 07/31/24 07/31/24 Unknown Rx release Allergies Allergy/AdvReac Type Severity Reaction Status Date / Time codeine Allergy Unknown Verified 09/05/24 20:16 gabapentin Allergy Unknown Verified 09/05/24 20:16 PFSH Acute 2 PFSH: Medical History Worsening angina CHF (congestive heart failure) Congestive heart failure Heart failure Hyperkalemia CAD (coronary artery disease) Diabetes Left main coronary artery disease HTN (hypertension) with goal to be determined ASHD (arteriosclerotic heart disease) Nicotine dependence, cigarettes, uncomplicated Generalized anxiety disorder Major depressive disorder, recurrent episode, moderate with anxious distress Surgical History S/P laminectomy S/P vasectomy History of heart artery stent S/P knee surgery S/P cholecystectomy Status post aorto-coronary artery bypass graft Family History Father Myocardial infarct Grandmother Myocardial infarct Family/Other Myocardial infarct Other CAD (coronary artery disease) Social History Smoking and tobacco/nicotine status: current every day tobacco/nicotine user cigarettes Packs smoked per day: 1 and smokeless tobacco Smokeless tobacco user: chewing tobacco Smokeless tobacco details: 1 can 2- 3 days Quit status (tobacco/nicotine): considering quitting Second hand smoke exposure: Yes Alcohol intake: never Substance/Drug Use: never Vitals/I&O/Wt Last Vital Signs Temp 97.9 F 09/05/24 20:13 Pulse 82 09/05/24 20:46 Resp 17 09/05/24 20:46 BP 175/101 09/05/24 20:46 Pulse Ox 97 09/05/24 20:46 O2 Del Method Room Air 09/05/24 20:46 Weight last 48 hrs Weight 242 lb Physical Exam 2 Narrative: GENERAL: Patient is alert, awake and oriented x3. [] NECK: No jugular vein distension. [] HEENT: No cyanosis. No icterus. No pallor. [] HEART: Regular S1 and S2. No murmur, rub or gallop. [] LUNGS: Clear to auscultate bilaterally. [] CENTRAL NERVOUS SYSTEM: Grossly nonfocal. [] EXTREMITIES: Lower extremities with 1+ edema bilaterally. Data 09/05/24 20:27 09/05/24 20:27 A&P Assessment and plan (1) CAD (coronary artery disease): Qualifiers: Coronary Disease-Associated Artery/Lesion type: [place] artery [place] vs. transplanted heart: [place] heart Associated angina: without angina Qualified Code(s): I25.10 - Atherosclerotic heart disease of [place] coronary artery without angina pectoris (2) CHF (congestive heart failure): Qualifiers: Heart failure type: diastolic Heart failure chronicity: acute Qualified Code(s): I50.31 - Acute diastolic (congestive) heart failure (3) Status post aorto-coronary artery bypass graft: (4) HTN (hypertension) with goal to be determined: (5) Diabetes: (6) ST elevation (STEMI) myocardial infarction: Plan Patient has presented with acute inferior wall ST elevation CO. Emergently going for cardiac catheterization with possible PCI Has been loaded with aspirin, Plavix and heparin bolus We will obtain echocardiogram Will request hospitalist team assistance for management of medical issues Attestations 2 Medical Necessity Statement*: Care expected to cross 2 midnights. Patient has presented with acute inferior wall ST elevation CO. Going emergently to cardiac Market Development Trainer intervention. Coding Level of Care Code Acute Code for [facility] Fwd Diagnoses Coronary artery disease involving [place] coronary artery of [place] heart without angina pectoris I25.10 Coronary Disease-Associated Artery/Lesion type: [place] artery [place] vs. transplanted heart: [place] heart Associated angina: without angina Acute diastolic congestive heart failure I50.31 Heart failure type: diastolic Heart failure chronicity: acute Status post aorto-coronary artery bypass graft Z95.1 HTN (hypertension) with goal to be determined I10 Diabetes E11.9 ST elevation (STEMI) myocardial infarction I21.3
--- NOTE | 2024-09-05 20:58 | PC.NURSE ---
pt to farm labor contractor @ 2055 with
--- NOTE | 2024-09-05 22:08 | ECG_ITS ---
[facility] Test Date: 2024-09-06 Pat Name: Carlos Bender Department: Room: ICU02 Gender: Male Development Disability Specialist: : 1965 Requested By: Wyatt Azar Order Number: [id number] Femi MD: Krishan Ag M.D. Measurements Intervals [place] Rate: 79 P: 0 AR: 0 QRS: 25 QRSD: 150 T: 251 QT: 446 QTc: 513 Interpretive Statements ELECTRONIC VENTRICULAR PACEMAKER Compared to ECG 09/05/2024 20:06:19 Sinus rhythm no longer present First degree AV block no longer present Left-axis deviation no longer present Left bundle-branch block no longer present Electronically Signed On 09-06-2024 07:43:57 CDT by Krishan Ag M.D. [email or web address]
--- NOTE | 2024-09-05 22:30 | PC.NURSE ---
Arrival to ICU 2: Arrived to ICU @2222. Continuous cardiac monitoring initiated. Temporary pacemaker and arterial sheath present in R. Groin. Increased BP: Dr. Ag notified of elevated BP @2258. New order to give Amlodipine 5mg PO ONCE NOW and Hydralazine 20mg IVP ONCE NOW for SBP greater than 180. See 'MAR' for time administered. Pain: Pt reports he has chronic back pain and that although his back is not hurting right now he expects he will have difficulty lying flat. Dr. Ag notified of this @2300. Verbal order to give 2mg IVP Morphine ONCE NOW. See 'MAR' for time administered. Skin Assessment: R. Groin acute surgical incision/puncture site noted. See Post Cardiac Cath Flow Sheet for site assessments. Clarification of Orders: Order to remove arterial sheath acknowledged. Dr. Ag called @9519 to clarify that the arterial sheath should be removed and pacemaker left in place. New order to remove arterial line following protocol for pTT and BP.
--- NOTE | 2024-09-05 22:51 | PM.MISC ---
Miscellaneous Note Purpose of Documentation: Brief procedure note Note: Patient is total thrombotic occlusion of proximal to mid RCA. Thrombus mostly within the stent. Stent appears to have underexpansion in the mid segment. SVG to OM/diagonal jump graft is patent. MARVIN to LAD is patent. Successful revascularization of RCA with shockwave intravascular lithotripsy balloon angioplasty and high pressure balloon angioplasty with NC balloon. Good angiographic result obtained. New stent is not placed. Patient went into complete heart block during the procedure. Temporary pacemaker placed. Decision for permanent pacemaker placement based on his clinical progression and rhythm in the next 24 to 48 hours. Transferring to ICU
[2024-09-05] MEDS: temazepam 15 mg Capsule PO (23:26)
[2024-09-05] MEDS: amlodipine 5 mg Tablet PO (23:26)
[2024-09-05 23:28] LABS: Troponin 5 2HR 198.8 ng/L (0-15)
[2024-09-05 23:29] LABS: Troponin 5 2HR Delta 173.8 ABS# (0-10)
[2024-09-05] MEDS: sodium chloride 0.9% 1,000 ML 100 ML IV (23:31)
[2024-09-05] MEDS: morphine 4 mg/mL SDV 1 mL 2 MG IVP (23:34)
[2024-09-06] VITALS (53 sets, daily range): BP systolic 102–180; BP diastolic 52–96; PULSE 50–103; RESP 12–23; TEMP 36.6–36.8; O2SAT 89–98
--- NOTE | 2024-09-06 02:03 | P.CONIM_ITS ---
Providers/Reason For Consult 2 Consulting Physician/Specialty*: Hospitalist Reason for Consult*: Diabetes, chronic back pain, other medical problems. Attending Physician: Krishan Ag M.D Primary Care Provider: Enrique Avila MD History of Present Illness History of Present Illness Pleasant 59-year-old gentleman with CAD, CABG, CHF, stenting of RCA in December, DM2 on oral hypoglycemics and short acting insulin, smoking, has been cutting down, obesity, A-fib, currently off of anticoagulation, chronic back pain, other medical problems, was admitted after acute chest pain, found to have STEMI, underwent coronary angiography with finding of thrombotic occlusion of proximal to mid RCA with thrombus mostly within stent, with appearance of underexpansion in the mid segment. Patent SVG to OM diagonal jump graft, MARVIN to LAD patent. Underwent revascularization with shockwave intravascular lithotripsy balloon angioplasty and high-pressure balloon angioplasty without additional stent with good angiographic result. Procedure complicated by complete heart block requiring temporary pacemaker. Cardiology consulted hospitalist due to also underlying medical problems with diabetes, chronic back pain. He is doing well after his procedure. He is free of chest pain or pressure. He is resting. He does request for his pregabalin to be resumed which he takes 300 mg twice daily. Review of Systems 2 Const: Denies: fever(s), chills, body aches or malaise ENMT: Denies: throat pain Card: Reports: chest pain; Denies: edema, pre-syncope or dyspnea on exertion Resp: Denies: dyspnea, productive cough, change in phlegm color or hemoptysis GI: Denies: abdominal pain, nausea, vomiting, diarrhea, hematochezia or melena : Denies: hematuria Musc: Reports: back pain; Denies: joint swelling or joint redness Skin/Breast: Denies: rash or new lesions Neuro: Denies: headache(s) or dizziness Medications/Allergies Home Medications Medication Instructions Recorded Confirmed Last Taken Type pantoprazole 40 mg tablet,delayed 40 mg PO BID@12/09/20 07/31/24 01/01/24 History release (Protonix) pregabalin 150 mg capsule (Lyrica) 300 mg PO BID@12/09/20 07/31/24 01/01/24 History tamsulosin 0.4 mg capsule 0.4 mg PO DAILY@2200 ##0 01/25/21 09/04/24 02/05/24 History atorvastatin 40 mg tablet 40 mg PO BEDTIME@2200 03/11/21 07/31/24 01/01/24 History dulaglutide 1.5 mg/0.5 mL 3 mg SUBCUT Q7D 03/11/21 07/31/24 01/01/24 History subcutaneous pen injector (Trulicity) duloxetine 60 mg capsule,delayed 60 mg PO DAILY@03/11/21 07/31/24 01/01/24 History release (Cymbalta) ondansetron HCl 4 mg tablet 4 mg PO Q6H PRN nausea and 02/03/22 07/31/24 01/01/24 Rx (Zofran) vomiting #20 tabs metformin 1,000 mg tablet 1,000 mg PO BID 10/26/22 07/31/24 01/01/24 History nitroglycerin 0.4 mg sublingual 0.4 mg sublingual Q5M PRN chest 03/13/23 07/31/24 01/01/24 Rx tablet (Nitrostat) pain #25 ea glyburide 2.5 mg tablet 2.5 mg PO BID #0 tabs 06/29/23 07/31/24 01/01/24 History clopidogrel 75 mg tablet See Rx Instructions .Route 11/24/23 07/31/24 01/01/24 Rx .COMPLEX #90 tabs isosorbide mononitrate 30 mg 30 mg PO 1XD 12/13/23 07/31/24 01/01/24 History tablet,extended release 24 hr albuterol sulfate 90 mcg/actuation 2 inh inhalation 6XD PRN shortness 12/16/23 07/31/24 01/01/24 Rx aerosol inhaler of breath or wheezing #8.5 grams metoprolol tartrate 100 mg tablet 100 mg PO BID@ #180 tabs 05/07/24 07/31/24 Unknown Rx cilostazol 50 mg tablet See Rx Instructions .Route 05/28/24 07/31/24 Unknown Rx .COMPLEX #180 tabs ezetimibe 10 mg tablet (Zetia) 10 mg PO DAILY@08 #90 tabs 07/03/24 07/31/24 Unknown Rx furosemide 40 mg tablet See Rx Instructions .Route 07/03/24 07/31/24 Unknown Rx .COMPLEX #90 tabs amlodipine 5 mg tablet 5 mg PO DAILY #90 tabs 07/31/24 07/31/24 Unknown Rx aspirin 81 mg tablet,delayed 81 mg PO DAILY #90 tabs 07/31/24 07/31/24 Unknown Rx release Allergies Allergy/AdvReac Type Severity Reaction Status Date / Time codeine Allergy Unknown Verified 09/05/24 20:16 gabapentin Allergy Unknown Verified 09/05/24 20:16 Current Medications Generic Name Dose Route Start Last Admin Trade Name Freq PRN Reason Stop Dose Admin Sodium Chloride 1,000 mls @ 100 mls/hr 09/05/24 23:00 09/05/24 23:31 Sodium Chloride 0.9% IV 100 mls/hr .Q10H SOTO Administration Morphine Sulfate 4 mg 09/05/24 20:27 09/05/24 20:39 Morphine 4 Mg/Ml Sdv 1 Ml IVP 4 mg Q5M PRN Administration CHEST PAIN Temazepam 15 mg 09/05/24 22:48 09/05/24 23:26 Temazepam 15 Mg Capsule PO 15 mg BEDTIME PRN Administration INSOMNIA PFSH Acute 2 PFSH: Medical History Worsening angina CHF (congestive heart failure) Congestive heart failure Heart failure Hyperkalemia CAD (coronary artery disease) Diabetes Left main coronary artery disease HTN (hypertension) with goal to be determined ASHD (arteriosclerotic heart disease) Nicotine dependence, cigarettes, uncomplicated Generalized anxiety disorder Major depressive disorder, recurrent episode, moderate with anxious distress Surgical History S/P laminectomy S/P vasectomy History of heart artery stent S/P knee surgery S/P cholecystectomy Status post aorto-coronary artery bypass graft Family History Father Myocardial infarct Grandmother Myocardial infarct Family/Other Myocardial infarct Other CAD (coronary artery disease) Social History Smoking and tobacco/nicotine status: current every day tobacco/nicotine user cigarettes Packs smoked per day: 1 and smokeless tobacco Smokeless tobacco user: chewing tobacco Smokeless tobacco details: 1 can 2- 3 days Quit status (tobacco/nicotine): considering quitting Second hand smoke exposure: Yes Alcohol intake: never Substance/Drug Use: never Vitals/I&O/Wt Last Vital Signs Temp 97.6 F 09/05/24 22:27 Pulse 80 09/06/24 00:11 Resp 18 09/06/24 00:00 BP 158/66 09/06/24 00:00 Pulse Ox 91 09/06/24 00:11 O2 Del Method Nasal Cannula 09/06/24 00:11 O2 Flow Rate 3 09/06/24 00:11 Weight last 48 hrs Weight 113.761 kg Weight 109.769 kg Physical Exam 2 Const: COMMON NORMALS: patient oriented x3 and alert GENERAL APPEARANCE: c ooperative ORIENTATION/CONSCIOUSNESS: Yes awake HENMT: COMMON NORMALS: oropharynx normal Neck/C-Spine: COMMON NORMALS: no JVD Resp: COMMON NORMALS: normal respiratory effort and clear to auscultation bilaterally AUSCULTATION: clear to auscultation bilaterally Cardio: COMMON NORMALS: no JVD, regular rhythm, S1 normal heart sound present, S2 normal heart sound present and No murmurs present (Cardio) RHYTHM: regular rhythm HEART SOUNDS: S1 normal heart sound present and S2 normal heart sound present GI: COMMON NORMALS: Normal to inspection, nondistended, normoactive bowel sounds present, Soft to palpation and non-tender PALPATION: Yes Soft to palpation Extremity: COMMON NORMALS: no joint enlargement and no pedal edema Neuro: COMMON NORMALS: patient oriented x3 and moves all extremities S ENSORIUM/ORIENTATION: Yes alert Skin: COMMON NORMALS: no rashes or lesions noted GENERAL SKIN EXAM: no rashes or lesions noted Data 09/05/24 20:27 09/05/24 20:27 A&P Assessment and plan (1) ST elevation (STEMI) myocardial infarction: Status post balloon angioplasty, lithotripsy and reexpansion of RCA stent. Doing well postprocedure, free of chest pain. Resting. Reviewed vitals, CBC, INR, BMP, troponin, EKG, chest x-ray, discussed with tumbler dyeing machine operator, reviewed cardiology documentation. Continue post angiography care. Reassess renal function. Continues with aspirin, Plavix. Continue statin. Imdur. Beta- ramesh on hold. Nitroglycerin as needed. Continue to encourage smoking cessation, he has been cutting down, he smokes. Continue pulm additional controlled diabetes and other underlying risk factors. (2) Complete heart block: STEMI complicated by complete heart block, underwent placement of temporary transvenous pacemaker, continues for now with backup rhythm, pending cardiac reassessment to determine whether he will require permanent pacing. Plan Diabetes: He is already on consult carbohydrate diet. Add sliding scale insulin, POC glucose checks. Hold oral hypoglycemics while in the hospital. Chronic back pain: Resume pregabalin. GERD: Resume PPI BPH: Continue Flomax Consult Attestations 2 Medical Necessity Statement: Continue admission for assessment and management following STEMI with revascularization and complete heart block require transvenous pacing. and High MDM includes amount and/or complexity of data reviewed/ordered [ previous or external records, resulted lab(s)/test(s), ordered lab(s)/test(s) and other healthcare professional discussion] as documented Diagnoses ST elevation (STEMI) myocardial infarction I21.3 Complete heart block I44.2
--- NOTE | 2024-09-06 02:08 | ECG_ITS ---
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 Measurements Intervals [place] Rate: 72 P: 267 ID: [id number] QRS: -11 QRSD: 147 T: 15 QT: 445 QTc: 488 Interpretive Statements SINUS RHYTHM WITH FIRST DEGREE AV BLOCK INTRAVENTRICULAR CONDUCTION DELAY [130+ ms QRS DURATION] Compared to ECG 09/06/2024 00:20:04 First degree AV block now present Intraventricular conduction delay now present Ventricular-paced complex(es) or rhythm no longer present Electronically Signed On 09-06-2024 07:43:28 CDT by Krishan Ag M.D. [id number]
[2024-09-06 02:33] LABS: Basophils # 0.1 10^3/uL (0.0-0.1); Basophils % 0.6 %; Eosinophils % 0.5 %; Hematocrit 36.8 % (37-53); Lymphocytes # 1.7 10^3/uL (0.8-4.8); Lymphocytes % 19.5 %; Mean Corpuscular HGB Conc 31.3 g/dL (30-55); Mean Corpuscular Hemoglobin 28.7 pg (27-33); Mean Corpuscular Volume 91.8 fl (82-101); Mean Platelet Volume 10.1 fL (7.4-10.4); Monocytes # 0.3 10^3/uL (0.2-0.9); Monocytes % 3.7 %; Neutrophils # 6.41 10^3/uL (1.8-7.7); Neutrophils % 75.5 %; Nucleated Red Blood Cells % 0 %; Platelet Count 169 10^3/cmm (157-399); Red Blood Count 4.01 10^6/uL (3.85-5.65); Red Cell Distribution Width 14.6 % (12.1-15.1); White Blood Count 8.48 10^3/uL (3.29-11.43)
[2024-09-06 02:45] LABS: Partial Thromboplastin Time 28.7 SECONDS (23.9-36.7)
[2024-09-06 02:55] LABS: Anion Gap 12.8 (5-19); Blood Urea Nitrogen 16 mg/dL (8-23); Calcium 7.6 mg/dL (8.5-10.5); Carbon Dioxide 25 mmol/L (22-29); Chloride 104 mmol/L (98-107); Creatinine Clr Calc Pharmacy 99.5009; Glucose 175 mg/dL (65-115); Osmolality Calculated 289 mOsm/kg (285-295); Potassium 4.8 mmol/L (3.5-5.1); Sodium 137 mmol/L (136-145)
[2024-09-06 02:59] LABS: Troponin 5 6HR 947.6 ng/L (0-15); Troponin 5 6HR Delta 922.6 ng/L (0-12)
[2024-09-06] MEDS: fentaNYL 50 mcg/mL INJ 2mL 25 MCG IVP (03:16)
--- NOTE | 2024-09-06 03:52 | PC.NURSE ---
Arterial Sheath Pull: Arterial sheath pulled at 0321, pressure held for 20 minutes with end time at 0341. Vital signs stable throughout procedure. Patient tolerated procedure well. No hematoma noted at this time. Pedal pulse present. Site dressed with 2x2 gauze and clear dressing.
[2024-09-06 07:25] LABS: Glucose Point of Care 123 mg/dL (70-110)
--- NOTE | 2024-09-06 08:01 | PC.PHAR ---
states if pt does not get his lyrica, his neuropathy increases to extreme. P did not get it last night. Dosage is 150mg take 2 capsules bid.
[2024-09-06] MEDS: pantoprazole DR 40 mg Tablet PO ×2 (09:22→18:07)
[2024-09-06] MEDS: duloxetine 60 mg Capsule PO (09:22)
[2024-09-06] MEDS: clopidogrel 75 mg Tablet PO (09:22)
[2024-09-06] MEDS: pregabalin 100 mg Capsule 300 MG PO ×2 (09:22→18:07)
[2024-09-06] MEDS: aspirin 81 mg EC Tablet PO (09:22)
[2024-09-06] MEDS: isosorbide mononitrate ER 30 mg Tablet PO (09:22)
[2024-09-06] MEDS: tamsulosin 0.4 mg Capsule PO (09:22)
[2024-09-06] MEDS: sodium chloride 0.9% 1,000 ML 100 ML IV ×2 (09:27→22:01)
--- NOTE | 2024-09-06 10:25 | USCV_ITS ---
Carlos Bender Age: 59 Gender: M : 1965 Exam Date: 09/06/2024 14:16 Ordering Phys: Krishan Ag M.D ([email or web address]) Technologist: Ed Nolan Exam Location[place] [facility] [place] Indication: post stemi BP: 169 / 85 HR: 84 Rhythm: Sinus Technical Quality: Adequate MEASUREMENTS (Male / Female) Normal Values 2D ECHO LV Diastolic Diameter PLAX 4.9 cm 4.2 - 5.9 / 3.9 - 5.3 cm IVS Diastolic Thickness 1.5 cm 0.6 - 1.0 / 0.6 - 0.9 cm IVS Systolic Thickness 2.2 cm LVPW Diastolic Thickness 2.1 cm 0.6 - 1.0 / 0.6 - 0.9 cm LVPW Systolic Thickness 2.8 cm LVOT Diameter 2.0 cm LV Ejection Fraction 2D Teich 75.5 % LV Ejection Fraction MOD 4C 62.7 % LV Ejection Fraction MOD 2C 52.7 % LV Ejection Fraction 2C AL 53.3 % LA Diameter 5.1 cm RA Systolic Volume 4C AL 44.7 ml RA Systolic Volume 4C MOD 43.6 ml LA Sys Volume AL 87.4 cm cubed LA Sys Volume Index AL 36.9 cm cubed/m squared Aorta at Sinotubular Diameter 2.5 cm IVC Diameter 2.4 cm M-MODE LA Ao Ratio MM 1.6 MV E Point Septal Separation 0.6 cm AV Cusp Separation MM 2.2 cm DOPPLER AV Peak Velocity 176.0 cm/s LVOT Peak Velocity 105.0 cm/s AV Area Cont Eq vti 2.4 cm squared AV Area Cont Eq pk 1.9 cm squared MV Peak Velocity 161.0 cm/s TV Peak Velocity 272.7 cm/s TR Peak Velocity 299.0 cm/s TR Peak Gradient 35.8 mmHg TR Mean Velocity 223.0 cm/s TR Mean Gradient 22.6 mmHg TR Velocity Time Integral 63.2 cm PV Peak Velocity 180.3 cm/s RV Ejection Time 0.2 s FINDINGS Left Ventricle Left ventricle is normal in size. LV systolic function is normal with EF of 55 to 60%. No regional wall motion abnormalities are seen..Moderate to severe left ventricular hypertrophy. Right Ventricle Grossly normal Right Atrium Normal in size Left Atrium Dilated Mitral Valve Moderate to severe mitral annular calcification. Mild mitral regurgitation. Aortic Valve Aortic valve is thickened and calcified. No significant stenosis. Tricuspid Valve Mild tricuspid regurgitation. Pulmonary artery systolic pressure is normal. Pulmonic Valve Mild pulmonic regurgitation. Pericardium Normal Aorta Normal in size IVC Appears to be dilated. CONCLUSIONS LV systolic function is normal with EF of 55-60% Moderate to severe left ventricular hypertrophy Left atrial dilation Mild mitral regurgitation Mild tricuspid regurgitation Mild pulmonic regurgitation IVC appears to be dilated. Krishan Ag MD (Electronically Signed) Final Date: 06 September 2024 22:11 S
[2024-09-06] MEDS: amlodipine 10 mg Tablet PO (10:36)
[2024-09-06] MEDS: losartan 50 mg Tablet PO (10:36)
[2024-09-06] MEDS: hyDRALAzine 25 mg Tablet 50 MG PO ×2 (10:36→22:16)
--- NOTE | 2024-09-06 11:21 | P.PN_ITS ---
Subjective 2 Subjective: Patient is doing well. no chest pain. Had shockwave lithotripsy and balloon angioplasty of RCA stent. Vitals/I&O/Wt Last Vital Signs Temp 97.9 F 09/06/24 05:16 Pulse 80 09/06/24 11:00 Resp 17 09/06/24 11:00 BP 169/85 09/06/24 11:00 Pulse Ox 98 09/06/24 11:00 O2 Del Method Nasal Cannula 09/06/24 11:00 O2 Flow Rate 3 09/06/24 11:00 09/05/24 09/06/24 09/06/24 22:59 06:59 14:59 Intake Total 720.000 / 720.000 393.333 / 393.333 Output Total 600 / 600 Balance 120.000 / 120.000 393.333 / 393.333 Weight last 48 hrs Weight 240 lb 14.4 oz Weight 240 lb 12.8 oz Weight 242 lb Physical Exam 2 Narrative: GENERAL: Patient is alert, awake and oriented x3. [] NECK: No jugular vein distension. [] HEENT: No cyanosis. No icterus. No pallor. [] HEART: Regular S1 and S2. No murmur, rub or gallop. [] LUNGS: Clear to auscultate bilaterally. [] CENTRAL NERVOUS SYSTEM: Grossly nonfocal. [] EXTREMITIES: Lower extremities with 1+ edema bilaterally. Data 09/07/24 04:11 09/07/24 04:11 A&P Assessment and plan (1) ST elevation (STEMI) myocardial infarction: (2) Complete heart block: (3) CAD (coronary artery disease): Qualifiers: Coronary Disease-Associated Artery/Lesion type: [place] artery [place] vs. transplanted heart: [place] heart Associated angina: without angina Qualified Code(s): I25.10 - Atherosclerotic heart disease of [place] coronary artery without angina pectoris (4) CHF (congestive heart failure): Qualifiers: Heart failure type: diastolic Heart failure chronicity: acute Qualified Code(s): I50.31 - Acute diastolic (congestive) heart failure (5) HTN (hypertension) with goal to be determined: Plan Patient's complete heart block has resolved. Appears to be in atrial fibrillation now. Not requiring pacemaker. We removed the temporary transvenous pacemaker. Continue aspirin. Will switch Plavix to Brilinta. We have uptitrated antihypertensive medications. Low-sodium diet. At time of discharge likely tomorrow, we will order 30-day event monitor. Echo shows low normal LV systolic function Medicine team is on board for management of medical issues. Appreciate recommendations. Attestations 2 Medical Necessity Statement*: Care expected to cross 2 midnights. Patient had presented with inferior ST elevation [place] and underwent successful revascularization with balloon angioplasty. Coding Level of Care Code Acute Code for [facility] Diagnoses ST elevation (STEMI) myocardial infarction I21.3 Complete heart block I44.2 Coronary artery disease involving [place] coronary artery of [place] heart without angina pectoris I25.10 Coronary Disease-Associated Artery/Lesion type: [place] artery [place] vs. transplanted heart: [place] heart Associated angina: without angina Acute diastolic congestive heart failure I50.31 Heart failure type: diastolic Heart failure chronicity: acute HTN (hypertension) with goal to be determined I10
--- NOTE | 2024-09-06 12:00 | ECG_ITS ---
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 Measurements Intervals [place] Rate: 85 P: 0 PA: 0 QRS: -22 QRSD: 141 T: 161 QT: 401 QTc: 479 Interpretive Statements ATRIAL FIBRILLATION LEFT BUNDLE BRANCH BLOCK [120+ ms QRS DURATION, 80+ ms Q/S IN V1/V2, 85+ ms R IN I/aVL/V5/V6] Compared to ECG 09/06/2024 02:09:15 Left bundle-branch block now present Sinus rhythm no longer present First degree AV block no longer present Intraventricular conduction delay no longer present Electronically Signed On 09-06-2024 22:30:09 CDT by Lily Manzano M.D. [id number]
--- NOTE | 2024-09-06 13:54 | PM.MISC ---
Miscellaneous Note Note: Resting comfortably in bed. Seen today.
[2024-09-06 14:04] LABS: Glucose Point of Care 251 mg/dL (70-110)
[2024-09-06] MEDS: insulin lispro 100 unit/1 mL SUBCUT ×3 (14:05→22:26)
--- NOTE | 2024-09-06 15:19 | PC.NURSE ---
Temporary pacemaker removed. Pacemaker off, balloon deflated, sutures removed, catheter removed. Venous sheath removed. Pressure held for 10 minutes and dressing applied.
[2024-09-06 17:37] LABS: Glucose Point of Care 258 mg/dL (70-110)
[2024-09-06] MEDS: atorvastatin 40 mg Tablet PO (22:17)
[2024-09-06 22:24] LABS: Glucose Point of Care 225 mg/dL (70-110)
[2024-09-07] VITALS (25 sets, daily range): BP systolic 134–162; BP diastolic 55–86; PULSE 55–93; RESP 15–25; TEMP 36.7–37.2; O2SAT 86–98
[2024-09-07 05:17] LABS: Basophils # 0.1 10^3/uL (0.0-0.1); Basophils % 0.8 %; Eosinophils # 0.1 10^3/uL (0.0-0.8); Eosinophils % 1.9 %; Hematocrit 36.8 % (37-53); Lymphocytes # 1.5 10^3/uL (0.8-4.8); Lymphocytes % 24.8 %; Mean Corpuscular HGB Conc 31.3 g/dL (30-55); Mean Corpuscular Hemoglobin 29.4 pg (27-33); Mean Corpuscular Volume 94.1 fl (82-101); Mean Platelet Volume 10.8 fL (7.4-10.4); Monocytes # 0.4 10^3/uL (0.2-0.9); Monocytes % 6.8 %; Neutrophils # 4.05 10^3/uL (1.8-7.7); Neutrophils % 65.2 %; Nucleated Red Blood Cells % 0 %; Platelet Count 157 10^3/cmm (157-399); Red Blood Count 3.91 10^6/uL (3.85-5.65); Red Cell Distribution Width 15.5 % (12.1-15.1); White Blood Count 6.21 10^3/uL (3.29-11.43)
[2024-09-07 05:42] LABS: Anion Gap 12.1 (5-19); Blood Urea Nitrogen 15 mg/dL (8-23); Calcium 7.6 mg/dL (8.5-10.5); Carbon Dioxide 24 mmol/L (22-29); Chloride 107 mmol/L (98-107); Creatinine Clr Calc Pharmacy 88.6635; Glomerular Filtration Rate 68.1 mL/min (90-130); Glucose 177 mg/dL (65-115); Osmolality Calculated 293 mOsm/kg (285-295); Potassium 4.1 mmol/L (3.5-5.1); Sodium 139 mmol/L (136-145)
[2024-09-07] MEDS: ticagrelor 90 mg Tablet 180 MG PO (06:07)
[2024-09-07 07:34] LABS: Glucose Point of Care 249 mg/dL (70-110)
[2024-09-07] MEDS: tamsulosin 0.4 mg Capsule PO (08:15)
[2024-09-07] MEDS: isosorbide mononitrate ER 30 mg Tablet PO (08:15)
[2024-09-07] MEDS: pregabalin 100 mg Capsule 300 MG PO (08:15)
[2024-09-07] MEDS: amlodipine 10 mg Tablet PO (08:16)
[2024-09-07] MEDS: insulin lispro 100 unit/1 mL SUBCUT (08:16)
[2024-09-07] MEDS: hyDRALAzine 25 mg Tablet 50 MG PO (08:16)
[2024-09-07] MEDS: aspirin 81 mg EC Tablet PO (08:16)
[2024-09-07] MEDS: duloxetine 60 mg Capsule PO (08:16)
[2024-09-07] MEDS: losartan 50 mg Tablet PO (08:16)
[2024-09-07] MEDS: pantoprazole DR 40 mg Tablet PO (08:16)
[2024-09-07] MEDS: sodium chloride 0.9% 1,000 ML 100 ML IV (08:17)
--- NOTE | 2024-09-07 09:19 | P.DS_ITS ---
Discharge Providers Date of Admission: 09/05/24 21:26 Date of Discharge: September 07, 2024 Attending Provider at Admission: Krishan Ag M.D Attending Provider at Discharge: Krishan Ag M.D Primary Care Provider: Enrique Avila MD Diagnoses at Discharge Discharge Diagnosis (1) ST elevation (STEMI) myocardial infarction: Status: Inactive (2) Complete heart block: Status: Resolved (3) CAD (coronary artery disease): Status: Acute Qualifiers: Associated angina: without angina Coronary Disease-Associated Artery/Lesion type: hoh artery [place] vs. transplanted heart: hoh heart Qualified Code(s): I25.10 - Atherosclerotic heart disease of hoh coronary artery without angina pectoris (4) CHF (congestive heart failure): Status: Acute Qualifiers: Heart failure chronicity: acute Heart failure type: diastolic Qualified Code(s): I50.31 - Acute diastolic (congestive) heart failure (5) HTN (hypertension) with goal to be determined: Status: Acute Reason for Visit Reason for Visit: Chest pain Brief History: 59-year-old man with past medical histor y of coronary artery disease and CABG who presented to hospital with 1 to 2 hours of severe substernal chest discomfort episodes. EKG was consistent with acute inferior wall ST elevation NE. [facility] [employer] was emergently activated once cardiology received EKG. Hospital Course Hospital Course Coronary angiogram demonstrated mid RCA stent had total thrombotic occlusion. Successful revascularization with intravascular lithotripsy balloon angioplasty (in underexpanded stent segment) and angioplasty with NC balloon. New stent was not placed. During procedure patient went into complete heart block. Temporary transvenous pacemaker was placed. However he was in atrial fibrillation/ sinus rhythm postprocedure and did not require pacing. We removed transvenous pacemaker. In recent past he had with intermittent this [place] type II AV block on event monitor and he was [place] Will obtain another event monitor to reassess rhythm after revascularization of RCA. We switched patient's Plavix to Brilinta for a better antiplatelet activity. Patient has refused anticoagulation for atrial fibrillation in the past and wants to continue with antiplatelet therapy. Blood pressure is also uncontrolled. We have adjusted antihypertensive regiment as well. Patient was discharged home in a stable condition. Physical Exam Narrative: GENERAL: Patient is alert, awake and oriented x3. [] NECK: No jugular vein distension. [] HEENT: No cyanosis. No icterus. No pallor. [] HEART: Regular S1 and S2. No murmur, rub or gallop. [] LUNGS: Clear to auscultate bilaterally. [] CENTRAL NERVOUS SYSTEM: Grossly nonfocal. [] EXTREMITIES: Lower extremities with 1+ edema bilaterally. Discharge Data Studies Completed and Pending Completed Studies During Hospitalization Category Date Time Status XR chest 1V portable [id number] Stat Exams 09/05/24 20:08 Completed CV. echo complete* [id number] Routine Ultrasound 09/06/24 10:25 Completed Pending at discharge Category Date Time Status SENIOR CLERK request for service Stat Exams 09/05/24 20:54 Taken Basic Metabolic Panel AM LABS Lab 09/08/24 04:00 Ordered Complete Blood Count w/Auto AM LABS Lab 09/08/24 04:00 Ordered Radiology Impressions Chest X-Ray 09/05/24 20:08 IMPRESSION: 1. No acute cardiopulmonary abnormality. Laboratory Results WBC 6.21 10^3/uL (3.29-11.43) 09/07/24 04:11 RBC 3.91 10^6/uL (3.85-5.65) 09/07/24 04:11 Hgb 11.50 g/dL (11.27-16.99) 09/07/24 04:11 Hct 36.8 % (37-53) L 09/07/24 04:11 MCV 94.1 fl (82-101) 09/07/24 04:11 MCH 29.4 pg (27-33) 09/07/24 04:11 MCHC 31.3 g/dL (30-55) 09/07/24 04:11 RDW 15.5 % (12.1-15.1) H 09/07/24 04:11 Plt Count 157 10^3/cmm (157-399) 09/07/24 04:11 MPV 10.8 fL (7.4-10.4) H 09/07/24 04:11 Neut % (Auto) 65.2 % 09/07/24 04:11 Lymph % (Auto) 24.8 % 09/07/24 04:11 [place] % (Auto) 6.8 % 09/07/24 04:11 Eos % (Auto) 1.9 % 09/07/24 04:11 Baso % (Auto) 0.8 % 09/07/24 04:11 Neut # (Auto) 4.05 10^3/uL (1.8-7.7) 09/07/24 04:11 Lymph # (Auto) 1.5 10^3/uL (0.8-4.8) 09/07/24 04:11 [place] # (Auto) 0.4 10^3/uL (0.2-0.9) 09/07/24 04:11 Eos # (Auto) 0.1 10^3/uL (0.0-0.8) 09/07/24 04:11 Baso # (Auto) 0.1 10^3/uL (0.0-0.1) 09/07/24 04:11 Nucleated RBC % (auto) 0 % 09/07/24 04:11 Nucleated RBCs # 0.0 /100WBC 09/07/24 04:11 PT 11.90 SECONDS (12.1-14.9) L 09/05/24 20:27 INR 0.85 (0.8-1.2) 09/05/24 20:27 APTT 28.7 SECONDS (23.9-36.7) 09/06/24 02:25 Sodium 139 mmol/L (136-145) 09/07/24 04:11 Potassium 4.1 mmol/L (3.5-5.1) 09/07/24 04:11 Chloride 107 mmol/L (98-107) 09/07/24 04:11 Carbon Dioxide 24 mmol/L (22-29) 09/07/24 04:11 Anion Gap 12.1 (5-19) 09/07/24 04:11 BUN 15 mg/dL (8-23) 09/07/24 04:11 Creatinine 1.1 mg/dL (0.7-1.2) 09/07/24 04:11 GFR Calculation 68.1 mL/min (90-130) L 09/07/24 04:11 Glucose 177 mg/dL (65-115) H 09/07/24 04:11 POC Glucose 249 mg/dL (70-110) H 09/07/24 07:29 Calculated Osmolality 293 mOsm/kg (285-295) 09/07/24 04:11 Calcium 7.6 mg/dL (8.5-10.5) L 09/07/24 04:11 Troponin T Baseline 25 ng/L (0-15) H 09/05/24 20:27 Troponin T 120 Minute 198.8 ng/L (0-15) H 09/05/24 22:56 Delta Troponin T 173.8 ABS# (0-10) H* 09/05/24 22:56 Troponin T Hi Sens 6Hr 947.6 ng/L (0-15) H 09/06/24 02:25 Troponin T Hi Sens 6Hr Delta 922.6 ng/L (0-12) H* 09/06/24 02:25 Vitals Last Vital Signs Temp 98.0 F 09/07/24 07:30 Pulse 73 09/07/24 08:00 Resp 20 H 09/07/24 08:00 BP 146/75 09/07/24 08:16 Pulse Ox 98 09/07/24 08:00 O2 Del Method Room Air 09/07/24 08:00 O2 Flow Rate 3 09/06/24 18:00 Discharge Plan Discharge Patient Disposition: Home Condition: Stable Prescriptions: New Brilinta 90 mg Tablet 90 mg PO BID Qty: 120 3RF losartan 50 mg Tablet 75 mg PO DAILY Qty: 90 3RF hydralazine 25 mg Tablet 50 mg PO TID Qty: 180 3RF amlodipine 10 mg Tablet 10 mg PO DAILY Qty: 90 3RF Continued pantoprazole [Protonix] 40 mg tablet,delayed release (DR/EC) 40 mg PO BID@, pregabalin [Lyrica] 150 mg capsule 300 mg PO BID@, aspirin 81 mg tablet,delayed release (DR/EC) 81 mg PO DAILY Qty: 90 3RF nitroglycerin [Nitrostat] 0.4 mg tablet, sublingual 0.4 mg sublingual Q5M PRN (Reason: chest pain) Qty: 25 1RF Zetia 10 mg tablet 10 mg PO DAILY@08 Qty: 90 3RF tamsulosin 0.4 mg Capsule 0.4 mg PO DAILY@2200 Qty: 0 glyburide 2.5 mg tablet 2.5 mg PO DAILY Qty: 0 atorvastatin 40 mg tablet 40 mg PO BEDTIME@2200 duloxetine [Cymbalta] 60 mg capsule,delayed release(DR/EC) 60 mg PO DAILY@08 Rx Instructions: Take one capsule every morning furosemide 40 mg tablet 60 mg PO DAILY spironolactone 25 mg tablet 25 mg PO DAILY isosorbide mononitrate 30 mg tablet extended release 24 hr 30 mg PO 1XD albuterol sulfate 90 mcg/actuation HFA aerosol inhaler 2 inh inhalation 6XD PRN (Reason: shortness of breath or wheezing) Qty: 8.5 0RF Held metformin 1,000 mg tablet 1,000 mg PO BID Hold Instructions: Resume on 09/08/24. Discontinued metoprolol tartrate 100 mg tablet 100 mg PO BID@ Qty: 180 3RF cilostazol 50 mg tablet 50 mg PO BID clopidogrel 75 mg tablet 75 mg PO DAILY Discharge Orders: Discharge Order (Routine); Ordered 09/07/24 Ordered By: Krishan Ag Other Ambulatory Orders: MCT/Event Monitor 30 Days (Routine) Timeframe: 2 Days Facility: [facility] - Location: Radiology Ordered By: Krishan Ag Referrals: Enrique Avila MD [Primary Care Provider] - Heather Frankel FNP [Nurse Practitioner] - 4-7 days Discharge Diet: Cardiac and Diabetic Discharge Activity: Increase activity as tolerated Patient Instructions: Hydralazine (By mouth) (Apresoline), Amlodipine (By mouth) (Hypertenipine-2.5, Norvasc, Norliqva), Losartan (By mouth) (Cozaar), Ticagrelor (By mouth) (Brilinta), Coronary Angioplasty (DC), Opioid Safety Activity Restrictions/Additional Instructions: Please call Monday to schedule follow-up appointments with [facility], and Dr. Avila. If you do not hear from the [facility] on Monday regarding the Event Monitor, please ask about that too. Discharge Attestations Time Spent in Discharge Care*: less than 30 min Status at Discharge: Cognitive status at discharge: cognitively intact , Behavioral status at discharge: cooperative and dependent in ADL's , Quality Metrics Clinical Quality Measures [ Acute Myocardial Infaction { Clinical Trial Participant: No; Contraindication to aspirin: None; Aspirin prescribed; Contraindication to statin: None; Statin prescribed; Contraindication to PCI: None; PCI performed;}] Coding Level of Care Code Acute Code for [facility] Diagnoses ST elevation (STEMI) myocardial infarction I21.3 Complete heart block I44.2 Coronary artery disease involving hoh coronary artery of hoh heart without angina pectoris I25.10 Associated angina: without angina Coronary Disease-Associated Artery/Lesion type: hoh artery [place] vs. transplanted heart: hoh heart Acute diastolic congestive heart failure I50.31 Heart failure chronicity: acute Heart failure type: diastolic HTN (hypertension) with goal to be determined I10
--- NOTE | 2024-09-07 10:49 | PC.NURSE ---
Written and verbal education provided to patient and patients at bedside regarding follow up care, cardiac diet, Event monitor 30 days, increasing activity as tolerated, at home care of incision site from PCI, S/S of infection, when to seek medical care, New medications, stopped medications. Patient Verbalized understanding of education. All belongings with patient at discharge. 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
== END 2024-09-07 10:47 | disposition home or self-care (01) | DRG 325 ==
LOC: ER 20:41 → CCL 20:56 → ICU 21:27
PROVIDERS: Admitting Provider Internal Medicine; Emergency Provider Emergency Medicine; PCP Family Medicine; Visit Provider Internal Medicine
PROC: 02703ZZ Dilation of Coronary Artery, One Artery, Percutaneous Approach (ICD-10-PCS; principal; 2024-09-05 21:00)
PROC: 02703ZZ Dilation of Coronary Artery, One Artery, Percutaneous Approach (ICD-10-PCS; 2024-09-05 21:00)
DX: I97.190 Other postprocedural cardiac functional disturbances following cardiac surgery (principal); I21.A9 Other myocardial infarction type; I50.33 Acute on chronic diastolic (congestive) heart failure; T82.867A Thrombosis due to cardiac prosthetic devices, implants and grafts, initial encounter; I44.2 Atrioventricular block, complete; I25.10 Atherosclerotic heart disease of native coronary artery without angina pectoris; I11.0 Hypertensive heart disease with heart failure; E11.9 Type 2 diabetes mellitus without complications; F32.9 Major depressive disorder, single episode, unspecified; F17.210 Nicotine dependence, cigarettes, uncomplicated; F17.220 Nicotine dependence, chewing tobacco, uncomplicated; Z95.1 Presence of aortocoronary bypass graft; Z95.5 Presence of coronary angioplasty implant and graft; Z79.85 Long-term (current) use of injectable non-insulin antidiabetic drugs; Z79.84 Long term (current) use of oral hypoglycemic drugs; Z79.02 Long term (current) use of antithrombotics/antiplatelets; Z79.82 Long term (current) use of aspirin; Y71.8 Miscellaneous cardiovascular devices associated with adverse incidents, not elsewhere classified
CPT/HCPCS: 33210; 36415; 36416; 71045; 80048; 82962; 84484; 85025; 85347; 85610; 85730; 92920; 92978; 93005; 93306; 93459; 96372; 96374; 96375; 96376; 99152; 99153; 99285; C1725; C1753; C1769; C1779; C1887; C1894; J0461; J1644; J1815; J2250; J2270; J2405; J3010; J7030; Q9967

== ENCOUNTER → 2024-09-17 16:26 | Outpatient (BNVA) | payer MEDICARE, SELFPAY | PROVIDERS: PCP Family Medicine; Visit Provider Nurse Practitioner Family | DX: I25.10 Atherosclerotic heart disease of native coronary artery without angina pectoris (principal) | CPT/HCPCS: 36415; 80048; 83880; 99214 ==

== ENCOUNTER 2024-09-26 14:57 | Emergency (ER) | payer MEDICARE, SELFPAY ==
[2024-09-26] VITALS (24 sets, daily range): BP systolic 85–110; BP diastolic 35–46; PULSE 39–49; RESP 15–23; TEMP 36.8; O2SAT 88–94; BMI 38.6
--- NOTE | 2024-09-26 14:58 | XR_ITS ---
WS: [id number] Portable AP upright chest, 09/26/2024 Clinical Data: cp Comparison: Portable chest, 09/05/2024 Findings: Bilateral patchy pulmonary opacities are seen which could represent atelectasis, pneumonia or increased pulmonary vascularity. The heart is enlarged. Midline sternotomy sutures are present. Th ere are monitor leads on the chest wall. No pneumothorax is seen. XR/XR chest 1V portable [id number] Impression: 1. Bilateral patchy pulmonary opacities. 2. Cardiomegaly.
--- NOTE | 2024-09-26 14:59 | ECG_ITS ---
[facility] Test Date: 2024-09-26 Pat Name: Carlos Bender Department: Room: Gender: Male Director Of Training: : 1965 Requested By: Judy Aggarwal Order Number: [id number] Femi MD: nAi Mahoney M.D. Measurements Intervals [place] Rate: 40 P: 0 [place]: 0 QRS: 121 QRSD: 140 T: -36 QT: 514 QTc: 423 Interpretive Statements ATRIAL FIBRILLATION WITH SLOW VENTRICULAR RESPONSE INTRAVENTRICULAR CONDUCTION DELAY [130+ ms QRS DURATION] ANTEROSEPTAL MYOCARDIAL INFARCTION , OF INDETERMINATE AGE Compared to ECG 09/06/2024 12:00:42 Atrial fibrillation rate is very slow Electronically Signed On 09-26-2024 17:11:43 CDT by Ani Mahoney M.D. [email or web address]
[2024-09-26] MEDS: DOPamine drip 400 MG/250 ML PREMIX 23.56 MG IV (15:11)
--- NOTE | 2024-09-26 15:30 | W.ED.CHESTPA ---
HPI - Chest Pain General: Chief Complaint: Chest Pain Stated Complaint: CHEST PAIN Time Seen by Provider: 09/26/24 14:58 Source: patient Mode of arrival: ambulatory Limitations: no limitations History of Present Illness: 59-year-old male who has a history of acute coronary syndrome he had a STEMI roughly 2 to 3 weeks ago and had a stent placed patient's been wearing a heart monitor has been having bradycardia I did speak to his telephone appointment clerk he is supposed to have a pacemaker placed in [place]. Patient been having dizziness along with shortness of breath EMS was called they had started him on a external pacing he states his blood pressure was normal that he was in the 40s EMS did give him 100 mg of ketamine for the pacing for sedation so patient is currently awake answering some my question but is slightly sedated as well. Family states he has not been having any chest pain but his heart rate has been extremely low and has been having weakness Associated symptoms: Reports dyspnea; Deny abdominal pain, fever(s), nausea or vomiting Related Data Home Medications Medication Instructions Recorded Confirmed pantoprazole 40 mg tablet,delayed 40 mg PO BID@12/09/20 09/17/24 release (Protonix) pregabalin 150 mg capsule (Lyrica) 300 mg PO BID@12/09/20 09/17/24 tamsulosin 0.4 mg capsule 0.4 mg PO DAILY@2199 ##0 12/21/20 09/17/24 atorvastatin 40 mg tablet 40 mg PO BEDTIME@2200 03/11/21 09/17/24 duloxetine 60 mg capsule,delayed 60 mg PO DAILY@08 03/11/21 09/17/24 release (Cymbalta) metformin 1,000 mg tablet 1,000 mg PO BID 10/26/22 09/17/24 glyburide 2.5 mg tablet 2.5 mg PO DAILY #0 tabs 06/29/23 09/17/24 isosorbide mononitrate 30 mg 30 mg PO 1XD 12/13/23 09/17/24 tablet,extended release 24 hr furosemide 40 mg tablet 60 mg PO DAILY 09/06/24 09/17/24 spironolactone 25 mg tablet 25 mg PO DAILY 09/06/24 09/17/24 Previous Rx's Medication Instructions Recorded nitroglycerin 0.4 mg sublingual 0.4 mg sublingual Q5M PRN chest 03/13/23 tablet (Nitrostat) pain #25 ea albuterol sulfate 90 mcg/actuation 2 inh inhalation 6XD PRN shortness 12/16/23 aerosol inhaler of breath or wheezing #8.5 grams ezetimibe 10 mg tablet (Zetia) 10 mg PO DAILY@08 #90 tabs 07/03/24 aspirin 81 mg tablet,delayed 81 mg PO DAILY #90 tabs 07/31/24 release amlodipine 10 mg tablet 10 mg PO DAILY #90 tabs 09/07/24 hydralazine 25 mg tablet 50 mg (2 x 25 mg) PO TID #180 tabs 09/07/24 losartan 50 mg tablet 75 mg (1.5 x 50 mg) PO DAILY #90 09/07/24 tabs prasugrel 10 mg tablet (Effient) 10 mg PO DAILY #90 tabs 09/17/24 Allergies Allergy/AdvReac Type Severity Reaction Status Date / Time codeine Allergy Unknown Verified 09/05/24 20:16 gabapentin Allergy Unknown Verified 09/05/24 20:16 Review of Systems Const: Denies: fever(s), chills, body aches or change in appetite ENMT: Denies: throat pain or dental pain Card: Reports: chest pain Resp: Reports: dyspnea GI: Denies: abdominal pain, nausea, vomiting or diarrhea Musc: Denies: neck pain or back pain Skin/Breast: Denies: rash Neuro: Denies: headache(s) PFSH ED PFSH: Medical History ST elevation (STEMI) myocardial infarction Worsening angina CHF (congestive heart failure) Congestive heart failure Heart failure Hyperkalemia CAD (coronary artery disease) Diabetes Left main coronary artery disease HTN (hypertension) with goal to be determined ASHD (arteriosclerotic heart disease) Nicotine dependence, cigarettes, uncomplicated Generalized anxiety disorder Major depressive disorder, recurrent episode, moderate with anxious distress Surgical History S/P laminectomy S/P vasectomy History of heart artery stent S/P knee surgery S/P cholecystectomy Status post aorto-coronary artery bypass graft Family History Father Myocardial infarct Grandmother Myocardial infarct Family/Other Myocardial infarct Other CAD (coronary artery disease) Social History Smoking and tobacco/nicotine status: current every day tobacco/nicotine user cigarettes Packs smoked per day: 1 and smokeless tobacco Smokeless tobacco user: chewing tobacco Smokeless tobacco details: 1 can 2- 3 days Quit status (tobacco/nicotine): considering quitting Second hand smoke exposure: Yes Alcohol intake: never Substance/Drug Use: never Physical Exam Const: COMMON NORMALS: patient oriented x3 GENERAL APPEARANCE: ill appearing OTHER: Slightly somnolent at this time as he did receive ketamine for pacing HENMT: COMMON NORMALS: normocephalic and atraumatic HEAD & SCALP: normocephalic and atraumatic Neck/C-Spine: COMMON NORMALS: full ROM and supple Chest: COMMONS NORMALS: normal inspection of the chest Resp: COMMON NORMALS: normal respiratory effort, No retractions, No use of accessory muscles and clear to auscultation bilaterally AUSCULTATION: clear to auscultation bilaterally Cardio: COMMON NORMALS: regular rhythm and No murmurs present (Cardio) RATE: bradycardic RHYTHM: regular rhythm GI: COMMON NORMALS: Soft to palpation, non-tender and no masses PALPATION: Yes Soft to palpation Extremity: COMMON NORMALS: normal to inspection and full ROM Neuro: COMMON NORMALS: patient oriented x3, moves all extremities and no focal motor deficits Psych: COMMON NORMALS: mental status grossly normal, Normal thought process present and cooperative THOUGHT PROCESS: Normal thought process present Skin: COMMON NORMALS: no rashes or lesions noted and no wounds GENERAL SKIN EXAM: no rashes or lesions noted Course Vital Signs: Vital signs: Vital Signs Temperature 98.2 F 09/26/24 15:01 Pulse Rate 48 L 09/26/24 16:00 Respiratory Rate 18 09/26/24 16:00 Blood Pressure 91/38 09/26/24 16:00 Pulse Oximetry 91 09/26/24 16:00 Oxygen Delivery Me thod Nasal Cannula 09/26/24 15:40 Oxygen Flow Rate 3 09/26/24 15:40 MDM - Chest Pain Medical Decision Making Patient presents here with bradycardia I have him on a dopamine drip currently has heart rates 48 his blood pressures have increased here. I spoke to telephone appointment clerk Dr. Pires patient has already been set up to have a pacemaker placed at [facility] we do not have any cardiology available here to do pacemakers I spoke to [place] will transfer him there ER to ER for likely pacemaker placement for his symptomatic bradycardia. Patient is having no chest pain here no ST elevation on the ekg Medical Records I reviewed the patient's medical records. Lab Data I reviewed the patient's lab results. 09/26/24 15:05 09/26/24 15:05 Radiology Impressions Chest X-Ray 09/26/24 14:58 Impression: 1. Bilateral patchy pulmonary opacities. 2. Cardiomegaly. Laboratory Results WBC 6.02 10^3/uL (3.29-11.43) 09/26/24 15:05 RBC 3.27 10^6/uL (3.85-5.65) L 09/26/24 15:05 Hgb 9.50 g/dL (11.27-16.99) L 09/26/24 15:05 Hct 32.3 % (37-53) L 09/26/24 15:05 MCV 98.8 fl (82-101) 09/26/24 15:05 MCH 29.1 pg (27-33) 09/26/24 15:05 MCHC 29.4 g/dL (30-55) L 09/26/24 15:05 RDW 15.8 % (12.1-15.1) H 09/26/24 15:05 Plt Count 179 10^3/cmm (157-399) 09/26/24 15:05 MPV 11.7 fL (7.4-10.4) H 09/26/24 15:05 Neut % (Auto) 66.9 % 09/26/24 15:05 Lymph % (Auto) 22.9 % 09/26/24 15:05 [place] % (Auto) 7.0 % 09/26/24 15:05 Eos % (Auto) 1.7 % 09/26/24 15:05 Baso % (Auto) 1.0 % 09/26/24 15:05 Neut # (Auto) 4.03 10^3/uL (1.8-7.7) 09/26/24 15:05 Lymph # (Auto) 1.4 10^3/uL (0.8-4.8) 09/26/24 15:05 [place] # (Auto) 0.4 10^3/uL (0.2-0.9) 09/26/24 15:05 Eos # (Auto) 0.1 10^3/uL (0.0-0.8) 09/26/24 15:05 Baso # (Auto) 0.1 10^3/uL (0.0-0.1) 09/26/24 15:05 Nucleated RBC % (auto) 0 % 09/26/24 15:05 Nucleated RBCs # 0.0 /100WBC 09/26/24 15:05 PT 13.90 SECONDS (12.1-14.9) 09/26/24 15:05 INR 1.04 (0.8-1.2) 09/26/24 15:05 Sodium 134 mmol/L (136-145) L 09/26/24 15:05 Potassium 5.7 mmol/L (3.5-5.1) H 09/26/24 15:05 Chloride 104 mmol/L (98-107) 09/26/24 15:05 Carbon Dioxide 17 mmol/L (22-29) L 09/26/24 15:05 Anion Gap 18.7 (5-19) 09/26/24 15:05 BUN 49 mg/dL (8-23) H 09/26/24 15:05 Creatinine 2.7 mg/dL (0.7-1.2) H 09/26/24 15:05 GFR Calculation 24.1 mL/min (90-130) L 09/26/24 15:05 Glucose 248 mg/dL (65-115) H 09/26/24 15:05 Calculated Osmolality 299 mOsm/kg (285-295) H 09/26/24 15:05 Calcium 7.7 mg/dL (8.5-10.5) L 09/26/24 15:05 Total Bilirubin 0.2 mg/dL (0.15-1.2) 09/26/24 15:05 AST 8 U/L (0-40) 09/26/24 15:05 ALT 7 U/L (0-41) 09/26/24 15:05 Alkaline Phosphatase 100 U/L (40-130) 09/26/24 15:05 Troponin T Baseline 39 ng/L (0-15) H 09/26/24 15:05 Total Protein 5.6 g/dL (6.6-8.7) L 09/26/24 15:05 Albumin 3.4 g/dL (3.5-5.2) L 09/26/24 15:05 Globulin 2.2 g/dL (1.3-4.6) 09/26/24 15:05 Lipase 51 U/L (13-60) 09/26/24 15:05 All radiology interpretation(s) finalized by discharge EKG Data EKG 1: I personally reviewed and interpreted this EKG as follows: EKG interpretation date: 09/26/24 EKG interpretation time: 14:59 Interpretation: keila cardia hr [address] elevation qrs 140 qtc 447 Critical Care Time Critical Care Time: Critical Care Time: Yes Total Critical Care Time: 35 Attestation: The high probability of a clinically significant, sudden or life threatening deterioration of the patient's cv system(s) required my full and direct attention, intervention and personal management. The critical care time is as shown. This time is in addition to time spent performing any reported procedures but includes the following: [x] Data and vital sign review and interpretation [x] Patient assessment, examination and intervention [x] Documentation [x] Medication orders and management Discharge Plan Discharge Patient Disposition: Xfer Short-Term Hosp Clinical Impression: Bradycardia Condition: Stable Prescriptions: No Action pantoprazole [Protonix] 40 mg tablet,delayed release (DR/EC) 40 mg PO BID@08,22 pregabalin [Lyrica] 150 mg capsule 300 mg PO BID@08,22 aspirin 81 mg tablet,delayed release (DR/EC) 81 mg PO DAILY Qty: 90 3RF metformin 1,000 mg tablet 1,000 mg PO BID Hold Instructions: Resume on 09/08/24. prasugrel [Effient] 10 mg tablet 10 mg PO DAILY Qty: 90 3RF nitroglycerin [Nitrostat] 0.4 mg tablet, sublingual 0.4 mg sublingual Q5M PRN (Reason: chest pain) Qty: 25 1RF Zetia 10 mg tablet 10 mg PO DAILY@08 Qty: 90 3RF tamsulosin 0.4 mg Capsule 0.4 mg PO DAILY@2200 Qty: 0 glyburide 2.5 mg tablet 2.5 mg PO DAILY Qty: 0 atorvastatin 40 mg tablet 40 mg PO BEDTIME@2200 duloxetine [Cymbalta] 60 mg capsule,delayed release(DR/EC) 60 mg PO DAILY@08 Rx Instructions: Take one capsule every morning furosemide 40 mg tablet 60 mg PO DAILY spironolactone 25 mg tablet 25 mg PO DAILY losartan 50 mg Tablet 75 mg PO DAILY Qty: 90 3RF hydralazine 25 mg Tablet 50 mg PO TID Qty: 180 3RF amlodipine 10 mg Tablet 10 mg PO DAILY Qty: 90 3RF isosorbide mononitrate 30 mg tablet extended release 24 hr 30 mg PO 1XD albuterol sulfate 90 mcg/actuation HFA aerosol inhaler 2 inh inhalation 6XD PRN (Reason: shortness of breath or wheezing) Qty: 8.5 0RF Referrals: Enrique Avila MD [Primary Care Provider] - Coding Level of Care Code ED [email or web address]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
[2024-09-26 15:36] LABS: Basophils # 0.1 10^3/uL (0.0-0.1); Eosinophils # 0.1 10^3/uL (0.0-0.8); Eosinophils % 1.7 %; Hematocrit 32.3 % (37-53); Lymphocytes # 1.4 10^3/uL (0.8-4.8); Lymphocytes % 22.9 %; Mean Corpuscular HGB Conc 29.4 g/dL (30-55); Mean Corpuscular Hemoglobin 29.1 pg (27-33); Mean Corpuscular Volume 98.8 fl (82-101); Mean Platelet Volume 11.7 fL (7.4-10.4); Monocytes # 0.4 10^3/uL (0.2-0.9); Neutrophils # 4.03 10^3/uL (1.8-7.7); Neutrophils % 66.9 %; Nucleated Red Blood Cells % 0 %; Platelet Count 179 10^3/cmm (157-399); Red Blood Count 3.27 10^6/uL (3.85-5.65); Red Cell Distribution Width 15.8 % (12.1-15.1); White Blood Count 6.02 10^3/uL (3.29-11.43)
[2024-09-26] MEDS: ondansetron 2 mg/ML SDV 2 mL 4 MG IVP ×2 (15:40→16:51)
[2024-09-26 15:48] LABS: INR 1.04 (0.8-1.2)
[2024-09-26 15:59] LABS: Troponin(5th) Baseline 39 ng/L (0-15)
[2024-09-26 16:02] LABS: Alanine Aminotransferase 7 U/L (0-41); Albumin Level 3.4 g/dL (3.5-5.2); Alkaline Phosphatase 100 U/L (40-130); Anion Gap 18.7 (5-19); Aspartate Amino Transferase 8 U/L (0-40); Blood Urea Nitrogen 49 mg/dL (8-23); Calcium 7.7 mg/dL (8.5-10.5); Carbon Dioxide 17 mmol/L (22-29); Chloride 104 mmol/L (98-107); Globulin 2.2 g/dL (1.3-4.6); Glomerular Filtration Rate 24.1 mL/min (90-130); Glucose 248 mg/dL (65-115); Lipase 51 U/L (13-60); Osmolality Calculated 299 mOsm/kg (285-295); Potassium 5.7 mmol/L (3.5-5.1); Sodium 134 mmol/L (136-145); Total Bilirubin 0.2 mg/dL (0.15-1.2); Total Protein 5.6 g/dL (6.6-8.7)
[2024-09-26] MEDS: calcium gluconate 0.1 gm/mL 10% SDV 10mL 1 GM IVP (16:43)
[2024-09-26] MEDS: insulin regular-human 100 units/1 mL 10 UNIT IVP (16:44)
[2024-09-26 16:49] LABS: NT Pro B Type Natriuretic Pept 6650 pg/mL (0-125)
[2024-09-26] MEDS: dextrose 10% 250 ML 1000 ML IV (16:52)
== END 2024-09-26 17:02 | disposition short-term general hospital (02) ==
PROVIDERS: Emergency Provider Emergency Medicine; PCP Family Medicine
DX: R00.1 Bradycardia, unspecified (principal); Z79.82 Long term (current) use of aspirin; Z79.84 Long term (current) use of oral hypoglycemic drugs; F17.220 Nicotine dependence, chewing tobacco, uncomplicated; E11.9 Type 2 diabetes mellitus without complications; I11.0 Hypertensive heart disease with heart failure; I50.9 Heart failure, unspecified; I25.10 Atherosclerotic heart disease of native coronary artery without angina pectoris
CPT/HCPCS: 71045; 80053; 83690; 83880; 84484; 85025; 85610; 93005; 96365; 96366; 96375; 96376; 99291; 99292; J0612; J1265; J1815; J2405; J7799

== ENCOUNTER → 2024-12-05 15:30 | Outpatient (BNVA) | payer MEDICARE, SELFPAY | PROVIDERS: PCP Family Medicine; Visit Provider Internal Medicine Cardiovascular Disease | DX: I25.10 Atherosclerotic heart disease of native coronary artery without angina pectoris (principal); I11.0 Hypertensive heart disease with heart failure; I50.9 Heart failure, unspecified; I48.91 Unspecified atrial fibrillation; K22.4 Dyskinesia of esophagus; K21.9 Gastro-esophageal reflux disease without esophagitis; F17.210 Nicotine dependence, cigarettes, uncomplicated | CPT/HCPCS: 99214 ==

== ENCOUNTER 2025-03-26 17:53 | Inpatient (IN) | payer MEDICARE, SELFPAY ==
[2025-03-26] VITALS (8 sets, daily range): BP systolic 109–152; BP diastolic 62–76; PULSE 60–91; RESP 15–22; TEMP 36.3–36.8; O2SAT 91–98; BMI 40.3
--- NOTE | 2025-03-26 17:55 | XRR_ITS ---
PROCEDURE INFORMATION: Exam: XR Chest Exam date and time: 03/26/2025 6:10 PM Age: 59 years old Clinical indication: Shortness of breath and other: Retaining fluid; Prior surgery; Surgery date: 6+ months; Surgery type: Open heart/pacer/stents; Additional info: SOB TECHNIQUE: Imaging protocol: Radiologic exam of the chest. Views: 1 view. COMPARISON: CR XR chest 1V portable [id number] 09/26/2024 3:23 PM FINDINGS: Tubes, catheters and devices: Left subclavian pacer with right atrial appendage and right ventricular leads. Lungs: Improved aeration within the lung bases. No focal consolidation or evidence of pulmonary edema. Pleural spaces: Unremarkable. No pleural effusion. No pneumothorax. Heart/Mediastinum: Stable cardiomegaly. Bones/joints: Post median sternotomy and CABG. XR/XR chest 1V portable [id number] IMPRESSION: Stable cardiomegaly without evidence of failure.
--- NOTE | 2025-03-26 18:01 | ECG_ITS ---
[facility] [facility] Test Date: 2025-03-26 Pat Name: Carlos Bender Department: Room: Gender: Male Urology Teacher: : 1965 Requested By: Judy Aggarwal Order Number: [id number] Femi MD: Krishan Ag M.D. Measurements Intervals [place] Rate: 89 P: 188 CT: 128 QRS: -65 QRSD: 136 T: 111 QT: 396 QTc: 483 Interpretive Statements ELECTRONIC VENTRICULAR PACEMAKER Compared to ECG 09/26/2024 14:59:36 Atrial fibrillation no longer present Intraventricular conduction delay no longer present Myocardial infarct finding no longer present Electronically Signed On 03-31-2025 10:15:22 CDT by Krishan Ag M.D. [email or web address] [id number]
--- NOTE | 2025-03-26 18:20 | W.ED.SOB ---
HPI - SOB/Dyspnea General: Chief Complaint: Shortness of Breath/Dyspnea Stated Complaint: sob, retaining fluid Time Seen by Provider: 03/26/25 18:10 History of Present Illness: HPI Narrative: 59-year-old man with a history of chronic kidney disease, congestive heart failure, pacemaker placement, obesity, diabetes and hypertension who presents to the emergency room with worsening swelling and shortness of breath. They have talked with their kidney doctor who told him to come to the emergency room for some diuresis and they would evaluate them later. He has had worsening orthopnea. Worsening exertional dyspnea. He says he is gained 40 pounds. He weighs about 280 right now and he normally weighs 240. No chest pain. No altered mental status. He is not requiring any oxygen today. Related Data Home Medications ?Medication ?Instructions ?Recorded ?Confirmed pantoprazole 40 mg tablet,delayed 40 mg PO BID@12/09/20 12/05/24 release (Protonix) pregabalin 150 mg capsule (Lyrica) 300 mg PO BID@12/09/20 12/05/24 tamsulosin 0.4 mg capsule 0.4 mg PO DAILY@220 ##0 12/21/20 12/05/24 atorvastatin 40 mg tablet 40 mg PO BEDTIME@2200 03/11/21 12/05/24 duloxetine 60 mg capsule,delayed 60 mg PO DAILY@08 03/11/21 12/05/24 release (Cymbalta) metformin 1,000 mg tablet 1,000 mg PO BID 10/26/22 12/05/24 Held on 09/07/24. Instructions: Resume on 09/08/24. glyburide 2.5 mg tablet 2.5 mg PO DAILY #0 tabs 06/29/23 12/05/24 furosemide 40 mg tablet 60 mg PO DAILY 09/06/24 12/05/24 spironolactone 25 mg tablet 25 mg PO DAILY 09/06/24 12/05/24 amlodipine 5 mg tablet 5 mg PO DAILY 12/05/24 12/05/24 Previous Rx's ?Medication ?Instructions ?Recorded nitroglycerin 0.4 mg sublingual 0.4 mg sublingual Q5M PRN chest 03/13/23 tablet (Nitrostat) pain #25 ea albuterol sulfate 90 mcg/actuation 2 inh inhalation 6XD PRN shortness 12/16/23 aerosol inhaler of breath or wheezing #8.5 grams ezetimibe 10 mg tablet (Zetia) 10 mg PO DAILY@08 #90 tabs 07/03/24 aspirin 81 mg tablet,delayed 81 mg PO DAILY #90 tabs 07/31/24 release losartan 50 mg tablet 75 mg (1.5 x 50 mg) PO DAILY #90 09/07/24 tabs prasugrel HCl 10 mg tablet 10 mg PO DAILY #90 tabs 09/17/24 (Effient) isosorbide mononitrate 30 mg 30 mg PO BID #180 tabs 12/05/24 tablet,extended release 24 hr hydralazine 25 mg tablet See Rx Instructions .Route 01/10/25 .COMPLEX #180 tabs Allergies Allergy/AdvReac Type Severity Reaction Status Date / Time codeine Allergy Unknown Verified 03/26/25 18:07 gabapentin Allergy Unknown Verified 03/26/25 18:07 ketamine Allergy Unknown Verified 03/26/25 18:07 Review of Systems Narrative: Constitutional symptoms: Negative except as documented in HPI. Skin symptoms: Negative except as documented in HPI. Eye symptoms: Negative except as documented in HPI. ENMT symptoms: Negative except as documented in HPI. Respiratory symptoms: Negative except as documented in HPI. Cardiovascular symptoms: Negative except as documented in HPI. Gastrointestinal symptoms: Negative except as documented in HPI. Genitourinary symptoms: Negative except as documented in HPI. Musculoskeletal symptoms: Negative except as documented in HPI. Neurologic symptoms: Negative except as documented in HPI. Psychiatric symptoms: Negative except as documented in HPI. Endocrine symptoms: Negative except as documented in HPI. PFSH ED PFSH: Medical History ST elevation (STEMI) myocardial infarction Worsening angina CHF (congestive heart failure) Congestive heart failure Heart failure Hyperkalemia CAD (coronary artery disease) Diabetes Left main coronary artery disease HTN (hypertension) with goal to be determined ASHD (arteriosclerotic heart disease) Nicotine dependence, cigarettes, uncomplicated Generalized anxiety disorder Major depressive disorder, recurrent episode, moderate with anxious distress Surgical History S/P laminectomy S/P vasectomy History of heart artery stent S/P knee surgery S/P cholecystectomy Status post aorto-coronary artery bypass graft Family History Father Myocardial infarct Grandmother Myocardial infarct Family/Other Myocardial infarct Other CAD (coronary artery disease) Social History Smoking and tobacco/nicotine status: current every day tobacco/nicotine user cigarettes Packs smoked per day: 1 and smokeless tobacco Smokeless tobacco user: chewing tobacco Smokeless tobacco details: 1 can 2- 3 days Quit status (tobacco/nicotine): considering quitting Second hand smoke exposure: Yes Alcohol intake: never Substance/Drug Use: never Physical Exam Narrative: EXAM NARRATIVE: General: Alert, no acute distress. Skin: Warm, dry. Head: Normocephalic, atraumatic. Neck: Supple, trachea midline. Eye: Extraocular movements are intact. Ears, nose, mouth and throat: mucosa moist. Cardiovascular: Regular, Normal peripheral perfusion. 2-3+ pitting edema of the tibia and thighs. Also some body wall edema. Respiratory: Lungs are clear to auscultation, respirations are non-labored, breath sounds are equal, Symmetrical chest wall expansion. Gastrointestinal: Soft, Nontender, Non distended Musculoskeletal: Normal ROM, no deformity. Neurological: Alert and oriented, No focal neurological deficit observed. Psychiatric: Cooperative, appropriate mood & affect. Course Vital Signs: Vital signs: Vital Signs Temperature 97.4 F L 03/26/25 17:56 Pulse Rate 60 03/26/25 19:02 Respiratory Rate 16 03/26/25 19:02 Blood Pressure 119/67 03/26/25 19:02 Pulse Oximetry 97 03/26/25 19:02 Oxygen Delivery Me thod Room Air 03/26/25 19:02 MDM - SOB/Dyspnea Medical Decision Making Differential diagnosis for patient with shortness of breath includes but is not limited to and based on the above HPI, review of systems and physical exam: Pneumonia. Bronchitis. Asthma or COPD with acute exacerbation. Acute coronary syndrome / NM. Pulmonary embolism. Anxiety. Congestive heart failure. Viral infections including influenza and Covid-19. Atrial fibrillation. Anxiety. Pleural effusion. Pneumothorax. Orders placed to evaluate differential diagnosis based on the above differential, HPI and physical exam EKG: Time 1801. Rate 89. Normal sinus rhythm, No ST-T changes, no ectopy, paced rhythm, this was reviewed and interpreted by myself the emergency room physician at 1804. Lab Review: Laboratory results were reviewed and interpreted by myself the emergency room physician. No leukocytosis. Slightly worsening anemia which may be due to fluid overload. BUN and creatinine are 42 and 2.5. Compared to labs last week this is worse. His BUN was in the 30s and his creatinine was 1.8 last week at [facility]. I reviewed notes from clinic that his provided. proBNP is fairly stable at around 6000. I reviewed the patient's medical record. Reexamination: Patient remained stable. No increased work of breathing. No altered mental status. No focal motor deficits. Consultation: I spoke with Dr. Singh is on-call for the hospitalist service who agrees to admission. Assessment and plan: Edema Congestive heart failure Acute on chronic renal insufficiency ?IV Lasix in the emergency room. -I discussed the patient with the hospitalist on-call who is admitting the patient. - Discussed findings and plan with patient. Answered any questions. - All laboratory values were reviewed and interpreted personally by myself, the ER physician - All imaging was reviewed and interpreted personally by myself, the ER physician. - Evaluation and treatment of this problem were appropriate in the emergency setting Lab Data 03/26/25 18:38 03/26/25 18:38 Labs/Radiology: Radiology Impressions Chest X-Ray 03/26/25 17:55 IMPRESSION: Stable cardiomegaly without evidence of failure. Laboratory Results WBC 5.28 10^3/uL (3.29-11.43) 03/26/25 18:38 RBC 3.10 10^6/uL (3.85-5.65) L 03/26/25 18:38 Hgb 8.10 g/dL (11.27-16.99) L 03/26/25 18:38 Hct 29.3 % (37-53) L 03/26/25 18:38 MCV 94.5 fl (82-101) 03/26/25 18:38 MCH 26.1 pg (27-33) L 03/26/25 18:38 MCHC 27.6 g/dL (30-55) L 03/26/25 18:38 RDW 16.1 % (12.1-15.1) H 03/26/25 18:38 Plt Count 123 10^3/cmm (157-399) L 03/26/25 18:38 MPV 12.5 fL (7.4-10.4) H 03/26/25 18:38 Neut % (Auto) 68.6 % 03/26/25 18:38 Lymph % (Auto) 19.3 % 03/26/25 18:38 Graves % (Auto) 7.6 % 03/26/25 18:38 Eos % (Auto) 2.8 % 03/26/25 18:38 Baso % (Auto) 1.3 % 03/26/25 18:38 Neut # (Auto) 3.62 10^3/uL (1.8-7.7) 03/26/25 18:38 Lymph # (Auto) 1.0 10^3/uL (0.8-4.8) 03/26/25 18:38 Graves # (Auto) 0.4 10^3/uL (0.2-0.9) 03/26/25 18:38 Eos # (Auto) 0.2 10^3/uL (0.0-0.8) 03/26/25 18:38 Baso # (Auto) 0.1 10^3/uL (0.0-0.1) 03/26/25 18:38 Nucleated RBC % (auto) 0 % 03/26/25 18:38 Nucleated RBCs # 0.0 /100WBC 03/26/25 18:38 Sodium 140 mmol/L (136-145) 03/26/25 18:38 Potassium 5.5 mmol/L (3.5-5.1) H 03/26/25 18:38 Chloride 103 mmol/L (98-107) 03/26/25 18:38 Carbon Dioxide 23 mmol/L (22-29) 03/26/25 18:38 Anion Gap 19.5 (5-19) H 03/26/25 18:38 BUN 42 mg/dL (8-23) H 03/26/25 18:38 Creatinine 2.5 mg/dL (0.7-1.2) H 03/26/25 18:38 GFR Calculation 26.4 mL/min (90-130) L 03/26/25 18:38 Glucose 180 mg/dL (65-115) H 03/26/25 18:38 Calculated Osmolality 305 mOsm/kg (285-295) H 03/26/25 18:38 Calcium 8.3 mg/dL (8.5-10.5) L 03/26/25 18:38 Total Bilirubin 0.2 mg/dL (0.15-1.2) 03/26/25 18:38 AST 10 U/L (0-40) 03/26/25 18:38 ALT 7 U/L (0-41) 03/26/25 18:38 Alkaline Phosphatase 105 U/L (40-130) 03/26/25 18:38 NT-Pro-B Natriuret Pep 5909 pg/mL (0-125) H 03/26/25 18:38 Total Protein 6.5 g/dL (6.6-8.7) L 03/26/25 18:38 Albumin 3.8 g/dL (3.5-5.2) 03/26/25 18:38 Globulin 2.7 g/dL (1.3-4.6) 03/26/25 18:38 All radiology interpretation(s) finalized by discharge Discharge Plan Discharge Patient Disposition: Admitted As Inpatient Clinical Impression: Edema, Acute exacerbation of chronic heart failure, Acute on chronic renal insufficiency Condition: Stable Coding Level of Care Code ED Slurry Man for Mason Lipscomb
[2025-03-26 19:10] LABS: Basophils # 0.1 10^3/uL (0.0-0.1); Basophils % 1.3 %; Eosinophils # 0.2 10^3/uL (0.0-0.8); Eosinophils % 2.8 %; Hematocrit 29.3 % (37-53); Lymphocytes % 19.3 %; Mean Corpuscular HGB Conc 27.6 g/dL (30-55); Mean Corpuscular Hemoglobin 26.1 pg (27-33); Mean Corpuscular Volume 94.5 fl (82-101); Mean Platelet Volume 12.5 fL (7.4-10.4); Monocytes # 0.4 10^3/uL (0.2-0.9); Monocytes % 7.6 %; Neutrophils # 3.62 10^3/uL (1.8-7.7); Neutrophils % 68.6 %; Nucleated Red Blood Cells % 0 %; Platelet Count 123 10^3/cmm (157-399); Red Cell Distribution Width 16.1 % (12.1-15.1); White Blood Count 5.28 10^3/uL (3.29-11.43)
[2025-03-26 19:36] LABS: Alanine Aminotransferase 7 U/L (0-41); Albumin Level 3.8 g/dL (3.5-5.2); Alkaline Phosphatase 105 U/L (40-130); Anion Gap 19.5 (5-19); Aspartate Amino Transferase 10 U/L (0-40); Blood Urea Nitrogen 42 mg/dL (8-23); Calcium 8.3 mg/dL (8.5-10.5); Carbon Dioxide 23 mmol/L (22-29); Chloride 103 mmol/L (98-107); Globulin 2.7 g/dL (1.3-4.6); Glomerular Filtration Rate 26.4 mL/min (90-130); Glucose 180 mg/dL (65-115); NT Pro B Type Natriuretic Pept 5909 pg/mL (0-125); Osmolality Calculated 305 mOsm/kg (285-295); Potassium 5.5 mmol/L (3.5-5.1); Sodium 140 mmol/L (136-145); Total Bilirubin 0.2 mg/dL (0.15-1.2); Total Protein 6.5 g/dL (6.6-8.7)
[2025-03-26] MEDS: FUROsemide 10 mg/mL SDV 4mL 40 MG IVP ×2 (20:16→22:59)
--- NOTE | 2025-03-26 20:54 | PM.HP ---
Providers/Chief Complaint Admitting Physician: Richie Singh MD Primary Care Provider: Enrique Avila MD Chief Complaint: sob, retaining fluid History of Present Illness Carlos Bender is a 59 year old male with history of coronary artery disease, diabetes, obesity, sleep apnea incompletely treated and CKD with worsening renal function since August 2024. Patient had a RCA stent on September 05, 2024. His creatinine on 09/07/2024 was still 1.1 but had risen to 1.4 x 10 2224. He had creatinine 2.7 on 09/26/2024 but still continues on metformin. He was recently started on spironolactone for anasarca. Patient continues to have edema and states his weight is up from 242 at baseline to 285. Patient sleeps in a recliner with legs up in the recliner. He wears his CPAP about 3 to 4 days a week but only sleeps for 4 hours from midnight to for the morning and has to get up and pee once during that time Wants full code Review of Systems Narrative: General positive for weight gain 43 pounds CV no chest pain he has had leg swelling and abdominal wall swelling Respiratory positive for orthopnea and dyspnea on exertion he has COPD but continues to smoke about half pack a day down from 3 packs/day GI no nausea vomiting he does have some diarrhea no constipation no blood in the stool has nocturia once a night but denies difficulty getting his stream going Neuro no seizures strokes Psych negative Medications/Allergies Home Medications ?Medication ?Instructions ?Recorded ?Confirmed ?Last Taken ?Type pantoprazole 40 mg tablet,delayed 40 mg PO BID@12/09/20 12/05/24 09/05/24 History release (Protonix) pregabalin 150 mg capsule (Lyrica) 300 mg PO BID@12/09/20 12/05/24 09/05/24 History tamsulosin 0.4 mg capsule 0.4 mg PO DAILY@2199 ##0 12/21/20 12/05/24 09/05/24 History atorvastatin 40 mg tablet 40 mg PO BEDTIME@2200 03/11/21 12/05/24 09/05/24 History duloxetine 60 mg capsule,delayed 60 mg PO DAILY@03/11/21 12/05/24 09/05/24 History release (Cymbalta) metformin 1,000 mg tablet 1,000 mg PO BID 10/26/22 12/05/24 09/05/24 History Held on 09/07/24. Instructions: Resume on 09/08/24. nitroglycerin 0.4 mg sublingual 0.4 mg sublingual Q5M PRN chest 03/13/23 12/05/24 01/01/24 Rx tablet (Nitrostat) pain #25 ea glyburide 2.5 mg tablet 2.5 mg PO DAILY #0 tabs 06/29/23 12/05/24 09/05/24 History albuterol sulfate 90 mcg/actuation 2 inh inhalation 6XD PRN shortness 12/16/23 12/05/24 09/05/24 Rx aerosol inhaler of breath or wheezing #8.5 grams ezetimibe 10 mg tablet (Zetia) 10 mg PO DAILY@08 #90 tabs 07/03/24 12/05/24 09/05/24 Rx aspirin 81 mg tablet,delayed 81 mg PO DAILY #90 tabs 07/31/24 12/05/24 09/05/24 Rx release furosemide 40 mg tablet 60 mg PO DAILY 09/06/24 12/05/24 09/05/24 History spironolactone 25 mg tablet 25 mg PO DAILY 09/06/24 12/05/24 09/05/24 History losartan 50 mg tablet 75 mg (1.5 x 50 mg) PO DAILY #90 09/07/24 12/05/24 Unknown Rx tabs prasugrel HCl 10 mg tablet 10 mg PO DAILY #90 tabs 09/17/24 12/05/24 Unknown Rx (Effient) amlodipine 5 mg tablet 5 mg PO DAILY 12/05/24 12/05/24 Unknown History isosorbide mononitrate 30 mg 30 mg PO BID #180 tabs 12/05/24 Unknown Rx tablet,extended release 24 hr hydralazine 25 mg tablet See Rx Instructions .Route 01/10/25 Unknown Rx .COMPLEX #180 tabs Allergies Allergy/AdvReac Type Severity Reaction Status Date / Time codeine Allergy Unknown Verified 03/26/25 18:07 gabapentin Allergy Unknown Verified 03/26/25 18:07 ketamine Allergy Unknown Verified 03/26/25 18:07 PFSH Acute PFSH: Medical History ST elevation (STEMI) myocardial infarction Worsening angina CHF (congestive heart failure) Congestive heart failure Heart failure Hyperkalemia CAD (coronary artery disease) Diabetes Left main coronary artery disease HTN (hypertension) with goal to be determined ASHD (arteriosclerotic heart disease) Nicotine dependence, cigarettes, uncomplicated Generalized anxiety disorder Major depressive disorder, recurrent episode, moderate with anxious distress Surgical History S/P laminectomy S/P vasectomy History of heart artery stent S/P knee surgery S/P cholecystectomy Status post aorto-coronary artery bypass graft Family History Father Myocardial infarct Grandmother Myocardial infarct Family/Other Myocardial infarct Other CAD (coronary artery disease) Social History (Updated 03/26/25 @ 21:00 by Richie Singh MD) Smoking and tobacco/nicotine status: current every day tobacco/nicotine user cigarettes Packs smoked per day: 1 and smokeless tobacco Smokeless tobacco user: chewing tobacco Smokeless tobacco details: 1 can 2- 3 days Quit status (tobacco/nicotine): considering quitting Second hand smoke exposure: Yes Alcohol intake: former Former alcohol use details: Has not had a beer in the body year but he would like to drink beer Substance/Drug Use: never Marital status: Marital status details: Allison at bedside works in [employer] Previous occupational history: 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 Current gender identity: Male Vitals/I&O/Wt Last Vital Signs Temp 97.4 F L 03/26/25 17:56 Pulse 60 03/26/25 19:02 Resp 16 03/26/25 19:02 BP 119/67 03/26/25 19:02 Pulse Ox 97 03/26/25 19:02 O2 Del Method Room Air 03/26/25 19:02 Physical Exam Narrative: General well-developed well-nourished morbidly obese male in no acute cardiopulmonary distress Neck JVD 11 cm Lungs mildly diminished in the bases no wheezing Abdomen positive bowel sounds soft obese nontender there is some abdominal wall edema Calves 3+ pitting edema bilateral and equal Skin warm and dry Mentation alert and orient x 3 Data 03/26/25 18:38 03/26/25 18:38 A&P Assessment and plan (1) Acute on chronic renal insufficiency: Patient with volume overload, edema and acute on chronic renal insufficiency. I think the metformin needs to be stopped and he would be a candidate for Jardiance for his diabetes and renal insufficiency and fluid retention. I am going to continue on losartan and spironolactone hold amlodipine continue hydralazine and attempt diuresis with furosemide 40 mg IV every 8 hours and Zaroxolyn 5 mg daily monitor kidney function if worsening need to back off (2) Acute exacerbation of chronic heart failure: I think this is multifactorial with sleep apnea, acute renal failure and to a lesser degree his vasodilator meds. Start BERNICE hose hold amlodipine start CPAP supported diuresis here in the hospital (3) CAD (coronary artery disease): Clinically stable without signs of angina (4) Diabetes: Hold metformin continue glipizide start sliding scale insulin PDMP PDMP Reviewed: Not Reviewed Attestations Medical Necessity Statement*: Patient will be in the hospital with greater than 2 nights for diuresis Coding Level of Care Code 53034 Diagnoses Acute on chronic renal insufficiency N28.9; N18.9 Acute exacerbation of chronic heart failure I50.9 Coronary artery disease involving [place] coronary artery of [place] heart without angina pectoris I25.10 Coronary Disease-Associated Artery/Lesion type: [place] artery [place] vs. transplanted heart: [place] heart Associated angina: without angina Diabetes E11.9 Time Spent (min) 70
[2025-03-26] MEDS: heparin 5,000 unit/mL INJ 1 mL 5000 UNIT SUBCUT (22:59)
[2025-03-26] MEDS: metOLazone 5 MG Tablet PO (23:01)
[2025-03-26] MEDS: pregabalin 150 mg Capsule PO (23:04)
[2025-03-26] MEDS: tamsulosin 0.4 mg Capsule PO (23:04)
[2025-03-26] MEDS: atorvastatin 40 mg Tablet PO (23:04)
[2025-03-26] MEDS: insulin lispro 100 unit/1 mL SUBCUT (23:07)
[2025-03-27] VITALS (9 sets, daily range): BP systolic 111–150; BP diastolic 65–76; PULSE 59–81; RESP 16–20; TEMP 36.3–36.6; O2SAT 92–97
[2025-03-27 06:03] LABS: Basophils # 0.1 10^3/uL (0.0-0.1); Basophils % 1.7 %; Eosinophils # 0.2 10^3/uL (0.0-0.8); Eosinophils % 3.3 %; Hematocrit 29.6 % (37-53); Lymphocytes % 21.6 %; Mean Corpuscular Hemoglobin 26.4 pg (27-33); Mean Corpuscular Volume 94.3 fl (82-101); Mean Platelet Volume 12.5 fL (7.4-10.4); Monocytes # 0.4 10^3/uL (0.2-0.9); Monocytes % 8.3 %; Neutrophils # 3.11 10^3/uL (1.8-7.7); Neutrophils % 64.7 %; Nucleated Red Blood Cells % 0 %; Platelet Count 129 10^3/cmm (157-399); Red Blood Count 3.14 10^6/uL (3.85-5.65); Red Cell Distribution Width 15.9 % (12.1-15.1); White Blood Count 4.81 10^3/uL (3.29-11.43)
[2025-03-27] MEDS: FUROsemide 10 mg/mL SDV 4mL 40 MG IVP (06:13)
[2025-03-27 06:25] LABS: Anion Gap 16.9 (5-19); Blood Urea Nitrogen 46 mg/dL (8-23); Calcium 8.1 mg/dL (8.5-10.5); Carbon Dioxide 25 mmol/L (22-29); Chloride 105 mmol/L (98-107); Creatinine Clr Calc Pharmacy 35.1838; Glomerular Filtration Rate 21.4 mL/min (90-130); Glucose 172 mg/dL (65-115); Magnesium 2.6 mg/dL (1.7-2.3); Osmolality Calculated 308 mOsm/kg (285-295); Potassium 5.9 mmol/L (3.5-5.1); Sodium 141 mmol/L (136-145)
[2025-03-27] MEDS: pantoprazole DR 40 mg Tablet PO (08:16)
[2025-03-27] MEDS: isosorbide mononitrate ER 30 mg Tablet PO ×2 (08:16→18:00)
[2025-03-27] MEDS: ezetimibe 10 mg Tablet PO (08:16)
[2025-03-27] MEDS: duloxetine 60 mg Capsule PO (08:16)
[2025-03-27] MEDS: insulin lispro 100 unit/1 mL SUBCUT ×3 (08:17→20:36)
[2025-03-27] MEDS: aspirin 81 mg EC Tablet PO (08:17)
[2025-03-27] MEDS: prasugrel 10 MG Tablet PO (08:17)
[2025-03-27] MEDS: spironolactone 25 mg Tablet PO (08:17)
[2025-03-27] MEDS: heparin 5,000 unit/mL INJ 1 mL 5000 UNIT SUBCUT ×2 (08:17→20:36)
[2025-03-27] MEDS: pregabalin 150 mg Capsule PO ×2 (08:19→21:44)
--- NOTE | 2025-03-27 08:51 | PC.PHAR ---
Spouse states pt takes Trulicity once weekly on Monday. Pt does not get from local pharmacy and I am unable to find an order on external med list.
--- NOTE | 2025-03-27 09:18 | USCV_ITS ---
Carlos Bender Age: 59 Gender: M : 1965 Exam Date: 03/27/2025 14:46 Ordering Phys: Rosaline Ernst MD Technologist: Exam Location: [facility] [place] Indication: chf BP: 134 / 74 HR: 73 Rhythm: Sinus Technical Quality: Adequate MEASUREMENTS (Male / Female) Normal Values 2D ECHO LV Diastolic Diameter PLAX 6.6 cm 4.2 - 5.9 / 3.9 - 5.3 cm IVS Diastolic Thickness 1.1 cm 0.6 - 1.0 / 0.6 - 0.9 cm IVS Systolic Thickness 1.5 cm LVPW Diastolic Thickness 1.1 cm 0.6 - 1.0 / 0.6 - 0.9 cm LVPW Systolic Thickness 1.6 cm LVOT Diameter 2.1 cm LV Ejection Fraction 2D Teich 31.5 % LV Ejection Fraction MOD 4C 37.2 % LV Ejection Fraction MOD 2C 39.0 % LV Ejection Fraction 2C AL 38.5 % LA Diameter 5.9 cm RA Systolic Volume 4C AL 126.5 ml RA Systolic Volume 4C MOD 113.2 ml Aorta at Sinotubular Diameter 2.8 cm IVC Diameter 3.1 cm M-MODE LA Ao Ratio MM 1.2 AV Cusp Separation MM 1.7 cm DOPPLER AV Peak Velocity 132.0 cm/s LVOT Peak Velocity 98.0 cm/s AV Area Cont Eq vti 2.8 cm squared AV Area Cont Eq pk 2.5 cm squared MV Peak Velocity 203.0 cm/s MV Area PHT 4.2 cm squared Mitral E to A Ratio 3.1 TV Peak Velocity 288.0 cm/s TR Peak Velocity 318.0 cm/s TR Peak Gradient 40.4 mmHg TV Peak E Velocity 141.0 cm/s PV Peak Velocity 98.0 cm/s FINDINGS Left Ventricle Left ventricle appears to be dilated. LV systolic function is moderate to severely reduced with EF of 30-35%. Moderate to severe global hypokinesis. Right Ventricle Grossly hypokinetic Right Atrium Dilated Left Atrium Dilated Mitral Valve Mild mitral annular calcification. Moderate mitral regurgitation. Aortic Valve Aortic valve is thickened. No significant stenosis or regurgitation. Tricuspid Valve Mild tricuspid regurgitation. RVSP is 35-40 mmHg. This is consistent with mild pulmonary hypertension Pulmonic Valve Not well visualized Pericardium Normal Aorta Normal in size IVC Grossly appears to be dilated CONCLUSIONS Left ventricle appears to be dilated. LV systolic function is moderate to severely reduced with EF of 30-35% Biatrial dilation Moderate mitral regurgitation Mild tricuspid regurgitation Mild pulmonary hypertension Grossly appears to be normal Krishan Ag MD (Electronically Signed) Final Date: 27 Mar 2025 17:15 S
--- NOTE | 2025-03-27 09:18 | USCV_ITS ---
Carlos Bender Age: 59 Gender: M : 1965 Exam Date: 03/27/2025 15:55 Ordering Phys: Rosaline Ernst MD Technologist: QEUENIE [place] [facility] [place]: R/o renal vein thrombus Aortic Velocity @ SMA (cm/s) RIGHT KIDNEY LEFT KIDNEY Velocity (cm/s) Velocity (cm/s) Sys/Verduzco Sys/Verduzco Resistive Index Resistive Index 54.3 / 11.8 0.78 Proximal Renal Artery 57.8 / 11.5 0.80 58.9 / 10.0 0.83 Mid Renal Artery 63.5 / 13.8 0.78 61.6 / 12.6 0.79 Distal Renal Artery / 45.8 / 9.9 0.78 Hilar 55.6 / 13.8 0.75 13.7 / 5.3 0.61 Upper Pole 25.5 / 4.1 0.84 22.0 / 6.1 0.72 Mid Pole 18.6 / 5.2 0.72 15.0 / 4.6 0.69 Lower Pole 23.6 / 5.2 0.78 Accleration Time (sec) 398.70 Hilar 282.40 86.50 Upper Pole 177.60 107.30 Mid Pole 209.40 79.80 Lower Pole 141.50 11.7 Kidney Length (cm) 12.5 FINDINGS Extremely tds due to patient habitus and difficulty breathing. Could not visualize lt prox renal art Could not visualize and doppler AO. CONCLUSIONS Limited exam due to body habitus and difficulty breathing No sonographic evidence of hemodynamically significant renal artery stenosis bilaterally where visualized Renal veins appear patent No hydronephrosis Richie Barber MD (Electronically Signed) Final Date: 28 Mar 2025 11:26 S
--- NOTE | 2025-03-27 09:48 | PC.CHAP ---
Pastoral Care Encounter/Spiritual Assessment Type of Contact [] Declined attraction attendant visit [] Patient/Family/Request visit [] Outpatient visit [] Follow-up visit [] Physician referral [] Code/Alert [x] Routine visit [] Staff referral [] Actively dying [] Patient sleeping [x] Family support [] [] Out of room [] Palliative care [] [] Receiving care in room [] Pre-surgical visit [] Trauma [] Long length of stay [] ICU visit [] Other: Relational/Emotional Strength [x] Patient feels connected with others/family/visitors/staff [] Distress [] Loneliness/isolation [] Abandonment Spirituality of Patient [x] Person of Yajaira [] Attends Faith of their Yajaira [x] Believes in Prayer [] Reads Bible or Jain materials [] There are Spiritual issues to be addressed [employer] Interventions [x] Prayer [x] Active listening [x] Non-anxious presence [x] Spiritual/emotional support [] Crisis/trauma care [] Spiritual counseling [] Bereavement support [] Provided bereavement packet [] Provided Bible/devotional materials [] Provided toy/stuffed animal, coloring book to patient or family member [] Provided Communion [] Anointing/[place] [] Salvation [x] Completed spiritual assessment [] Other: Impact on Illness or Injury [] Angry [] Fearful [] Anxious [] Often cries [] Exhaustion [] Unable to work [] Unable to attend pentecostalism [] Unable to walk/stand [] Unable to read [] Unable to drive [] Unable to eat/drink [] Unable to sleep [] Unable to be with family [] Patient intubated [] Other: Summary Time spent with patient 10 min
--- NOTE | 2025-03-27 10:37 | USR_ITS ---
PROCEDURE INFORMATION: Exam: US Retroperitoneal, Complete, Kidneys and Bladder Exam date and time: 03/27/2025 4:05 PM Age: 59 years old Clinical indication: Other: [place] TECHNIQUE: Imaging protocol: Real-time ultrasound of the retroperitoneum with image documentation. Complete exam focused on the bilateral kidneys and urinary bladder. COMPARISON: US CV renal doppler [id number] 03/27/2025 3:55 PM FINDINGS: Right kidney: The right kidney measures 4.1 x 5.6 x 4.7 cm. There is no renal contour deforming mass on the right. No right-sided hydronephrosis. Left kidney: The left kidney measures 12.8 x 6.8 x 5.2 cm. There is no renal contour deforming mass on the left. No left-sided hydronephrosis. Urinary bladder: Unremarkable. US/US renal BI* [id number] IMPRESSION: As
--- NOTE | 2025-03-27 10:39 | PM.CONSULT ---
Providers/Reason For Consult Consulting Physician/Specialty*: kommana/Nephrology Reason for Consult*: Acute on CKD 3 Attending Physician: Rosaline Ernst MD Primary Care Provider: Enrique Avila MD History of Present Illness History of Present Illness Carlos Bender is a 59 year old male Patient is a 59-year-old male with past medical history significant for coronary artery disease status post CABG and stents to RCA, history of A-fib, chronic kidney disease followed by Dr. Padilla from nephrology as outpatient, CHF presented to the emergency department due to shortness of breath, orthopnea as well as worsening lower extremity edema. His baseline creatinine is in the mid 1 range in the now has HERRERA with a creatinine up to 3. Chest x-ray showed cardiomegaly. Is currently placed on IV Lasix 40 mg IV every 8 hours. Hemoglobin is 8.3 today has hyperkalemia with a potassium of 5.9. Review of Systems Narrative: negative Medications/Allergies Home Medications ?Medication ?Instructions ?Recorded ?Confirmed ?Last Taken ?Type tamsulosin 0.4 mg capsule 0.4 mg PO DAILY@2200 ##0 12/21/20 03/27/25 03/26/25 History atorvastatin 40 mg tablet 40 mg PO BEDTIME@2200 03/11/21 03/27/25 03/26/25 History duloxetine 60 mg capsule,delayed 60 mg PO DAILY@08 03/11/21 03/27/25 03/26/25 History release (Cymbalta) metformin 1,000 mg tablet 1,000 mg PO BID 10/26/22 03/27/25 03/26/25 History Held on 09/07/24. Instructions: Resume on 09/08/24. nitroglycerin 0.4 mg sublingual 0.4 mg sublingual Q5M PRN chest 03/13/23 03/27/25 01/01/24 Rx tablet (Nitrostat) pain #25 ea glyburide 2.5 mg tablet 2.5 mg PO DAILY #0 tabs 06/29/23 03/27/25 03/26/25 History albuterol sulfate 90 mcg/actuation 2 inh inhalation 6XD PRN shortness 12/16/23 03/27/25 09/05/24 Rx aerosol inhaler of breath or wheezing #8.5 grams ezetimibe 10 mg tablet (Zetia) 10 mg PO DAILY@08 #90 tabs 07/03/24 03/27/25 03/26/25 Rx aspirin 81 mg tablet,delayed 81 mg PO DAILY #90 tabs 07/31/24 03/27/25 03/26/25 Rx release prasugrel HCl 10 mg tablet 10 mg PO DAILY #90 tabs 09/17/24 03/27/25 03/26/25 Rx (Effient) amlodipine 5 mg tablet 5 mg PO DAILY 12/05/24 03/27/25 03/26/25 History isosorbide mononitrate 30 mg 30 mg PO BID #180 tabs 12/05/24 03/27/25 03/26/25 Rx tablet,extended release 24 hr hydralazine 25 mg tablet See Rx Instructions .Route 01/10/25 03/27/25 03/26/25 Rx .COMPLEX #180 tabs esomeprazole magnesium 40 mg 40 mg PO QAM 03/27/25 03/27/25 03/26/25 History capsule,delayed release famotidine 20 mg tablet 20 mg PO BID 03/27/25 03/27/25 03/26/25 History losartan 25 mg tablet 25 mg PO DAILY 03/27/25 03/27/25 03/26/25 History pregabalin 300 mg capsule 300 mg PO BID 03/27/25 03/27/25 03/26/25 History spironolactone 50 mg tablet 50 mg PO DAILY 03/27/25 03/27/25 03/26/25 History torsemide 20 mg tablet 30 mg PO BID 03/27/25 03/27/25 03/26/25 History Allergies Allergy/AdvReac Type Severity Reaction Status Date / Time codeine Allergy Unknown Verified 03/26/25 18:07 gabapentin Allergy Unknown Verified 03/26/25 18:07 ketamine Allergy Unknown Verified 03/26/25 18:07 Current Medications Generic Name Dose Route Start Last Admin Trade Name David PRN Reason Stop Dose Admin Aspirin 81 mg 03/27/25 09:00 03/27/25 08:17 Aspirin 81 Mg Ec Tablet PO 81 mg DAILY SOTO Administration Atorvastatin Calcium 40 mg 03/26/25 22:00 03/26/25 23:04 Atorvastatin 40 Mg Tablet PO 40 mg BEDTIME@2200 SOTO Administration Duloxetine HCl 60 mg 03/27/25 08:00 03/27/25 08:16 Duloxetine 60 Mg Capsule PO 60 mg DAILY@08 SOTO Administration Ezetimibe 10 mg 03/27/25 08:00 03/27/25 08:16 Ezetimibe 10 Mg Tablet PO 10 mg DAILY@08 SOTO Administration Furosemide 40 mg 03/26/25 21:53 03/27/25 06:13 Furosemide 10 Mg/Ml Sdv 4ml IVP 40 mg Q8H SOTO Administration Heparin Sodium (Porcine) 5,000 unit 03/26/25 21:53 03/27/25 08:17 Heparin 5,000 Unit/Ml Inj 1 Ml SUBCUT 5,000 unit Q12H SOTO Administration Insulin Human Lispro 0 unit 03/26/25 21:53 03/27/25 08:17 Insulin Lispro 100 Unit/1 Ml SUBCUT 4 unit WM&BEDTIME SOTO Administration Protocol Isosorbide Mononitrate 30 mg 03/27/25 09:00 03/27/25 08:16 Isosorbide Mononitrate Er 30 Mg Tablet PO 30 mg BID SOTO Administration Pantoprazole Sodium 40 mg 03/27/25 09:00 03/27/25 08:[address] 40 Mg Tablet PO 40 mg DAILY SOTO Administration Prasugrel 10 mg 03/27/25 09:00 03/27/25 08:17 Prasugrel 10 Mg Tablet PO 10 mg DAILY SOTO Administration Pregabalin 150 mg 03/26/25 22:00 03/27/25 08:19 Pregabalin 150 Mg Capsule PO 150 mg BID@08,22 SOTO Administration Spironolactone 25 mg 03/27/25 09:00 03/27/25 08:17 Spironolactone 25 Mg Tablet PO 25 mg On Hold: 03/27/25 09:17 DAILY SOTO Administration Tamsulosin HCl 0.4 mg 03/26/25 22:00 03/26/25 23:04 Tamsulosin 0.4 Mg Capsule PO 0.4 mg DAILY@2200 SOTO Administration PFSH Acute PFSH: Medical History ST elevation (STEMI) myocardial infarction Worsening angina CHF (congestive heart failure) Congestive heart failure Heart failure Hyperkalemia CAD (coronary artery disease) Diabetes Left main coronary artery disease HTN (hypertension) with goal to be determined ASHD (arteriosclerotic heart disease) Nicotine dependence, cigarettes, uncomplicated Generalized anxiety disorder Major depressive disorder, recurrent episode, moderate with anxious distress Surgical History S/P laminectomy S/P vasectomy History of heart artery stent S/P knee surgery S/P cholecystectomy Status post aorto-coronary artery bypass graft Family History Father Myocardial infarct Grandmother Myocardial infarct Family/Other Myocardial infarct Other CAD (coronary artery disease) Social History (Updated 03/26/25 @ 21:00 by Richie Singh MD) Smoking and tobacco/nicotine status: current every day tobacco/nicotine user cigarettes Packs smoked per day: 1 and smokeless tobacco Smokeless tobacco user: chewing tobacco Smokeless tobacco details: 1 can 2- 3 days Quit status (tobacco/nicotine): considering quitting Second hand smoke exposure: Yes Alcohol intake: former Former alcohol use details: Has not had a beer in the body year but he would like to drink beer Substance/Drug Use: never Marital status: Marital status details: Allison at bedside works in [employer] Previous occupational history: 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 Current gender identity: Male Vitals/I&O/Wt Last Vital Signs Temp 97.8 F 03/27/25 08:27 Pulse 81 03/27/25 08:27 Resp 17 03/27/25 08:27 BP 111/65 03/27/25 08:27 Pulse Ox 94 03/27/25 08:27 O2 Del Method Nasal Cannula 03/27/25 08:27 O2 Flow Rate 3 03/27/25 08:00 03/26/25 03/27/25 03/27/25 22:59 06:59 14:59 Intake Total 0 / 0 450 / 450 730 / 730 Output Total 300 / 300 Balance 0 / 0 150 / 150 730 / 730 Weight last 48 hrs Weight 130.997 kg Weight 130.816 kg Weight 129.274 kg Physical Exam Narrative: Patient is awake alert, no distress, on 3 L O2 by nasal cannula PERRLA S1-S2 regular rate and rhythm per report Lungs with bilateral crackles per report Abdomen distended, soft, nontender 3+ pedal edema Neuro awake alert and oriented Skin no rash Data 03/27/25 05:16 03/27/25 05:16 A&P Assessment and plan (1) Acute on chronic renal insufficiency: 1. Acute on chronic kidney disease stage III: Baseline creatinine in the mid 1 range now has HERRERA with a creatinine up to 3 likely cardiorenal in etiology. - Currently on Lasix 40 mg IV every 8 hours--increased to 60 Mg, will await response, add IV albumin, will add metolazone if no significant response - 1500 mL fluid restriction in 2 g sodium restriction - If patient fails diuretics may require temporary HD dialysis for volume management - Check renal ultrasound and check bladder scan, patient has history of BPH, consider Cyr placement for the next 1 to 2 days for strict intake and output measurements. - Hold the losartan and metformin and spironolactone 2. CHF: Repeat echocardiogram pending, diuretics as above 3. History of extensive coronary artery disease with CABG and stents, followed by cardiology 4. Hypertension: On amlodipine and hydralazine Imdur , hold losartan and spironolactone in the setting of HERRERA 5. Hyperkalemia, medically managing repeat potassium, 6. Anemia: Check iron studies and give UMM (2) Acute exacerbation of chronic heart failure: Plan per [facility] PDMP PDMP Reviewed: Not Reviewed Coding Level of Care Code Acute Code for Chg Fwd Diagnoses Acute on chronic renal insufficiency N28.9; N18.9 Acute exacerbation of chronic heart failure I50.9
[2025-03-27 11:40] LABS: Glucose Point of Care 214 mg/dL (70-110)
[2025-03-27 11:40] LABS: Glucose Point of Care 202 mg/dL (70-110)
[2025-03-27 11:40] LABS: Glucose Point of Care 169 mg/dL (70-110)
[2025-03-27] MEDS: albumin 25 G/100 ML BAG 60 G IV ×2 (12:01→18:03)
--- NOTE | 2025-03-27 12:40 | P.CONIM_ITS ---
<Statement entered by Krishan Ag M.D - 03/29/25 10:18> Patient was evaluated and cared for in conjunction with an advanced practice practitioner.? I personally examined the patient and reviewed the chart and all pertinent data including imaging, telemetry, and laboratory results.? I discussed the patient in detail with the advanced practice practitioner.? Please see? their note for complete H&P, testing results and agreed upon plan of care for the patient. GENERAL: Patient is drowsy HEART: Regular S1 and S2 LUNGS: Diminished air entry bilaterally EXTREMITIES: Lower extremities with 1-2+ edema CAD HFrEF HERRERA on CKD Patient needs aggressive diuresis. Close I&O's and monitor renal function. Will need ischemic workup as her EF has dropped compared to before. we will proceed with it once patient is euvolemic and seeing how renal function responds to diuretic therapy as will determine if angiogram is needed vs stress testing. Thank you for involving us with care of this patient. We will continue to follow. Please call with questions. Providers/Reason For Consult 2 Consulting Physician/Specialty*: Dr. Ag Reason for Consult*: Shortness of breath, CHF exacerbation, chest pain Requesting Physician: Dr. Ernst Attending Physician: Rosaline Ernst MD Primary Care Provider: Enrique Avila MD History of Present Illness History of Present Illness Carlos Bender is a 59 year old male with extensive cardiac history including CABG and previous stent placement in the RCA. He has a history of A-fib, CHF, COPD. In August, an angiogram was performed during an acute STEMI resulting in stent placement to a total thrombotic occlusion of the proximal mid RCA stent. That was the culprit for the STEMI. He received shockwave lithotripsy with balloon angioplasty as well. A transvenous pacemaker was placed temporarily and removed as patient's heart block resolved. He was also found to have a subtotally occluded left main, LAD with chronic total occlusion and circumflex with chronic total occlusion. MARVIN to LAD bypass was patent, saphenous vein graft to diagonal and OM was patent as well. Echo at the time showed low normal LV systolic function. Patient went back into the ER for bradycardia. He was going into second and third-degree AV block and was sent to [place] for pacemaker placement. He was since then seen in the office in early November by Dr. Webb. He was experiencing recurrent chest pain at that time described as possible esophageal spasms primarily occurring 3-4 times per week after meals. He states this is not the same as his previous heart attacks. Continue medical management with isosorbide was recommended. He came into the emergency room yesterday with what he states are complains of fluid buildup . He states that he has orthopnea and shortness of breath with swelling of the abdomen and lower extremities. He states he has a constant chest pressure across his whole chest and it worsens with deep breaths. His creatinine was found to be increased at 3. Baseline was 1.4 in August but he did have an acute kidney injury that seems to not have resolved. He is currently getting Lasix 40 mg IV push Q8. Spironolactone is currently on hold for HERRERA. Echo has been done but not read. EKG showed paced rhythm. Troponins have not been checked at this time. Platelet count is low at 129. He is anemic at 8.3/29.6. Chest x-ray showed stable cardiomegaly without evidence of failure. Current O2 sat is 97% on nasal cannula. Review of Systems 2 Narrative: Consitutional: denies fever, chills, body aches, or changes in appetite, denies abnormal weight loss Eyes: Denies changes in vision Card: reports chest pressure across the chest worse with deep breaths, denies palpitations, irregular heart rhythm, edema, syncope Resp: reports shortness of breath, reports orthopnea GI: Reports abdominal distention Musc: Denies extremity pain, denies limited range of motion or recent injury Skin: Denies rash, lesions, or wounds, denies changes to skin color Neuro: Denies nubmness in extremities, h/a, s/s of stroke Medications/Allergies Home Medications ?Medication ?Instructions ?Recorded ?Confirmed ?Last Taken ?Type tamsulosin 0.4 mg capsule 0.4 mg PO DAILY@2199 ##0 03/27/25 03/26/25 History atorvastatin 40 mg tablet 40 mg PO BEDTIME@219903/27/25 03/26/25 History duloxetine 60 mg capsule,delayed 60 mg PO DAILY@08 03/27/25 03/26/25 History release (Cymbalta) metformin 1,000 mg tablet 1,000 mg PO BID 10/26/2212/2103/26/25 History Held on 09/07/24. Instructions: Resume on 09/08/24. nitroglycerin 0.4 mg sublingual 0.4 mg sublingual Q5M PRN chest 03/13/23 03/27/25 01/01/24 Rx tablet (Nitrostat) pain #25 ea glyburide 2.5 mg tablet 2.5 mg PO DAILY #0 tabs 02/1603/27/25 03/26/25 History albuterol sulfate 90 mcg/actuation 2 inh inhalation 6X D PRN shortness 12/16/23 03/27/25 09/05/24 Rx aerosol inhaler of breath or wheezing #8.5 g bibiana ezetimibe 10 mg tablet (Zetia) 10 mg PO DAILY@08 #90 t abs 07/03/24 03/27/25 03/26/25 Rx aspirin 81 mg tablet,delayed 81 mg PO DAILY #90 tabs 0 07/31/24 03/27/25 03/26/25 Rx release prasugrel HCl 10 mg tablet 10 mg PO DAILY #90 tabs 03/27/25 03/26/25 Rx (Effient) amlodipine 5 mg tablet 5 mg PO DAILY 12/05/2403/2703/26/25 History isosorbide mononitrate 30 mg 30 mg PO BID #180 tabs 03/27/25 03/26/25 Rx tablet,extended release 24 hr hydralazine 25 mg tablet See Rx Instructions .Route 0 01/10/25 03/27/25 03/26/25 Rx .COMPLEX #180 tabs esomeprazole magnesium 40 mg 40 mg PO QAM 03/27/2512/2103/26/25 History capsule,delayed release famotidine 20 mg tablet 20 mg PO BID 03/27/2503/26/25 History losartan 25 mg tablet 25 mg PO DAILY 03/27/25 05/12/2103/26/25 History pregabalin 300 mg capsule 300 mg PO BID 03/27/2503/2703/26/25 History spironolactone 50 mg tablet 50 mg PO DAILY 03/27/2525 History torsemide 20 mg tablet 30 mg PO BID 03/27/2503/26/25 History Allergies Allergy/AdvReac Type Severity Reaction Status Date / Time codeine Allergy Unknown Verified 03/26/25 18:07 gabapentin Allergy Unknown Verified 03/26/25 18:07 ketamine Allergy Unknown Verified 03/26/25 18:07 Current Medications Generic Name Dose Route Start Last Admin Trade Name David PRN Reason Stop Dose Admin Aspirin 81 mg 03/27/25 09:00 03/27/25 08:17 Aspirin 81 Mg Ec Tablet PO 81 mg DAILY SOTO Administration Atorvastatin Calcium 40 mg 03/26/25 22:00 03/26/25 23:04 Atorvastatin 40 Mg Tablet PO 40 mg BEDTIME@2200 SOTO Administration Duloxetine HCl 60 mg 03/27/25 08:00 03/27/25 08:16 Duloxetine 60 Mg Capsule PO 60 mg DAILY@08 SOTO Administration Ezetimibe 10 mg 03/27/25 08:00 03/27/25 08:16 Ezetimibe 10 Mg Tablet PO 10 mg DAILY@08 SOTO Administration Furosemide 40 mg 03/26/25 21:53 03/27/25 06:13 Furosemide 10 Mg/Ml Sdv 4ml IVP 40 mg Q8H SOTO Administration Heparin Sodium (Porcine) 5,000 unit 03/26/25 21:53 03/27/25 08:17 Heparin 5,000 Unit/Ml Inj 1 Ml SUBCUT 5,000 unit Q12H SOTO Administration Albumin Human 25 g in 100 mls @ 60 mls/hr 03/27/25 10:45 03/27/25 12:01 Albumin IV 60 mls/hr Q8H SOTO Administration Insulin Human Lispro 0 unit 03/26/25 21:53 03/27/25 11:40 Insulin Lispro 100 Unit/1 Ml SUBCUT Not Given WM&BEDTIME SOTO Protocol Isosorbide Mononitrate 30 mg 03/27/25 09:00 03/27/25 08:16 Isosorbide Mononitrate Er 30 Mg Tablet PO 30 mg BID SOTO Administration Pantoprazole Sodium 40 mg 03/27/25 09:00 03/27/25 08:[address] 40 Mg Tablet PO 40 mg DAILY SOTO Administration Prasugrel 10 mg 03/27/25 09:00 03/27/25 08:17 Prasugrel 10 Mg Tablet PO 10 mg DAILY SOTO Administration Pregabalin 150 mg 03/26/25 22:00 03/27/25 08:19 Pregabalin 150 Mg Capsule PO 150 mg BID@ SOTO Administration Spironolactone 25 mg 03/27/25 09:00 03/27/25 08:17 Spironolactone 25 Mg Tablet PO 25 mg On Hold: 03/27/25 09:17 DAILY SOTO Administration Tamsulosin HCl 0.4 mg 03/26/25 22:00 03/26/25 23:04 Tamsulosin 0.4 Mg Capsule PO 0.4 mg DAILY@2200 SOTO Administration PFSH Acute 2 PFSH: Medical History ST elevation (STEMI) myocardial infarction Worsening angina CHF (congestive heart failure) Congestive heart failure Heart failure Hyperkalemia CAD (coronary artery disease) Diabetes Left main coronary artery disease HTN (hypertension) with goal to be determined ASHD (arteriosclerotic heart disease) Nicotine dependence, cigarettes, uncomplicated Generalized anxiety disorder Major depressive disorder, recurrent episode, moderate with anxious distress Surgical History S/P laminectomy S/P vasectomy History of heart artery stent S/P knee surgery S/P cholecystectomy Status post aorto-coronary artery bypass graft Family History Father Myocardial infarct Grandmother Myocardial infarct Family/Other Myocardial infarct Other CAD (coronary artery disease) Social History (Updated 03/26/25 @ 21:00 by Richie Singh MD) Smoking and tobacco/nicotine status: current every day tobacco/nicotine user cigarettes Packs smoked per day: 1 and smokeless tobacco Smokeless tobacco user: chewing tobacco Smokeless tobacco details: 1 can 2- 3 days Quit status (tobacco/nicotine): considering quitting Second hand smoke exposure: Yes Alcohol intake: former Former alcohol use details: Has not had a beer in the body year but he would like to drink beer Substance/Drug Use: never Marital status: Marital status details: Allison at bedside works in [employer] Previous occupational history: 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 Current gender identity: Male Vitals/I&O/Wt Last Vital Signs Temp 97.3 F L 03/27/25 12:14 Pulse 63 03/27/25 12:14 Resp 16 03/27/25 12:14 BP 146/69 03/27/25 12:14 Pulse Ox 97 03/27/25 12:14 O2 Del Method Nasal Cannula 03/27/25 12:14 O2 Flow Rate 3 03/27/25 08:00 03/26/25 03/27/25 03/27/25 22:59 06:59 14:59 Intake Total 0 / 0 450 / 450 730 / 730 Output Total 300 / 300 Balance 0 / 0 150 / 150 730 / 730 Weight last 48 hrs Weight 288 lb 12.8 oz Weight 288 lb 6.4 oz Weight 285 lb Physical Exam 2 Narrative: General: No apparent distress HENMT: normoceophalic Muskuloskeletal: Full ROM Respiratory: requiring nasal cannula, lungs clear except diminished bilateral lower lobes Cardio: No JVD, regular rate, regular rhythm, S1 S2 normal, no murmurs, peripheral pulses 2+ radial palpated bilaterally GI: largly distended Extremities: compression stockings in place. Apon palpation 2+ edema bilateral lower extremities Neuro: Alert and oriented x4, no focal motor deficits Psych: Affect normal, mental status grossly normal Skin: No rashes or lesions noted, no wounds Data 03/27/25 05:16 03/27/25 05:16 A&P Assessment and plan (1) CAD (coronary artery disease): (2) CHF (congestive heart failure): (3) History of heart artery stent: (4) Acute exacerbation of chronic heart failure: (5) HTN (hypertension) with goal to be determined: (6) Status post aorto-coronary artery bypass graft: (7) Chronic kidney disease: Plan Patient has acute on chronic renal insufficiency with diffuse volume overload possibly due to cardiorenal syndrome. Agree with Lasix 40 IV Q8 if ok with nephrology. Creatinine is rising and potassium is elevated. Will obtain troponin series to evaluate for possible progressive coronary ischemia. Agree with heparin injections for stroke prophylaxis in afib. Patient is getting an echo as well. Further recommendations after this. Thank you, Dr. Ernst, for allowing us to care for this very pleasant 59 year old gentleman. PDMP PDMP Reviewed: Not Reviewed Coding Level of Care Code Acute Code for Chg Fwd Diagnoses Coronary artery disease involving tolowa dee-ni' coronary artery of [place] dee-ni' heart without angina pectoris I25.10 Associated angina: without angina Coronary Disease-Associated Artery/Lesion type: tolowa dee-ni' artery [place] vs. transplanted heart: tolowa dee-ni' heart Acute diastolic congestive heart failure I50.31 Heart failure chronicity: acute Heart failure type: diastolic History of heart artery stent Z95.5 Acute exacerbation of chronic heart failure I50.9 HTN (hypertension) with goal to be determined I10 Status post aorto-coronary artery bypass graft Z95.1 Chronic kidney disease N18.9
--- NOTE | 2025-03-27 13:22 | ECG_ITS ---
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 Measurements Intervals [place] Rate: 62 P: 0 LA: 0 QRS: -65 QRSD: 128 T: 120 QT: 418 QTc: 426 Interpretive Statements ELECTRONIC VENTRICULAR PACEMAKER Compared to ECG 03/26/2025 18:01:53 No significant changes Electronically Signed On 03-31-2025 09:28:09 CDT by Krishan Ag M.D. [email or web address]
[2025-03-27 13:33] LABS: Troponin(5th) Baseline 48 ng/L (0-15)
--- NOTE | 2025-03-27 15:02 | ECG_ITS ---
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 Measurements Intervals [place] Rate: 62 P: 190 MS: 80 QRS: -64 QRSD: 132 T: 118 QT: 422 QTc: 430 Interpretive Statements ELECTRONIC VENTRICULAR PACEMAKER Compared to ECG 03/26/2025 18:01:53 No significant changes Electronically Signed On 03-31-2025 10:37:29 CDT by Krishan Ag M.D. [email or web address]
[2025-03-27 15:25] LABS: Iron 15 ug/dL (59-158); Percent Saturation 4.7 % (20-50); Total Iron Binding Capacity 318 mcg/dl; Unsaturated Iron Binding 303 ug/dL (112-347)
[2025-03-27 15:29] LABS: Troponin 5 2HR 47.17 ng/L (0-15)
[2025-03-27 15:31] LABS: Troponin 5 2HR Delta -0.83 ABS# (0-10)
--- NOTE | 2025-03-27 15:34 | PM.PN ---
Subjective Subjective: Overnight labs and H&P reviewed. No acute interim events. Currently Lasix increased to 60 mg IV every 8 hours. Urine output 600 cc thus far at the time of writing this note. Patient is urinating exclusively in the urinal. Medications: Reviewed: Yes Vitals/I&O/Wt Last Vital Signs Temp 97.3 F L 03/27/25 12:14 Pulse 63 03/27/25 12:14 Resp 16 03/27/25 12:14 BP 146/69 03/27/25 12:14 Pulse Ox 97 03/27/25 12:14 O2 Del Method Nasal Cannula 03/27/25 12:14 O2 Flow Rate 3 03/27/25 08:00 03/27/25 03/27/25 03/27/25 06:59 14:59 22:59 Intake Total 450 / 450 1010 / 1010 Output Total 300 / 300 300 / 300 Balance 150 / 150 710 / 710 Weight last 48 hrs Weight 130.997 kg Weight 130.816 kg Weight 129.274 kg Physical Exam Narrative: General: No acute distress, AO x3 HEENT: PERRLA, pupils bilaterally equal and reactive, pallors not present Chest: Normal vesicular breath sounds, no added sounds, equal good air entry bilaterally CVS: S1-S2 regular, no murmurs, no tachycardia, no gallops, no rubs Abdomen: Soft, nontender, no organomegaly, bowel sounds present Neuro: No focal deficits, no facial deformity, AO x3, power 5/5 in all limbs Data 03/27/25 05:16 03/27/25 05:16 A&P Assessment and plan (1) Acute on chronic renal insufficiency: Patient with volume overload, edema and acute on chronic renal insufficiency. I think the metformin needs to be stopped and he would be a candidate for Jardiance for his diabetes and renal insufficiency and fluid retention. I am going to continue on losartan and spironolactone hold amlodipine continue hydralazine and attempt diuresis with furosemide 40 mg IV every 8 hours and Zaroxolyn 5 mg daily monitor kidney function if worsening need to back off (2) Acute exacerbation of chronic heart failure: I think this is multifactorial with sleep apnea, acute renal failure and to a lesser degree his vasodilator meds. Start BERNICE hose hold amlodipine start CPAP supported diuresis here in the hospital (3) CAD (coronary artery disease): Clinically stable without signs of angina (4) Diabetes: Hold metformin continue glipizide start sliding scale insulin Plan Overnight labs and H&P reviewed.Patient is a 59-year-old male with a past medical history of coronary artery disease, status post STEMI in August 2024 for which he underwent revascularization of mid RCA stent thrombosis. During the procedure patient had gone into a complete heart block and needed temporary transvenous pacing. His baseline rhythm returned to atrial fibrillation and patient was discharged home. However a few days later he presented again to the hospital with complete heart block and was transferred to [facility] where he received a cardiac pacemaker. He is currently maintained on aspirin and Effient, declined anticoagulation for the A-fib. His last echocardiogram taken at the time of STEMI showed an EF of 55 to 60%, moderate to severe LVH and left atrial dilatation. Patient also has a history of CKD with baseline trop ranging 1.8-2.0, most recently checked this past monday was at 1.8. He has been experiencing increasing anasarca and shortness of breath over the past week. creatinine today is at 3.0. Differentials at this time include CHF versus HERRERA on CKD which is contributing to the gross volume overload. Ordered echocardiogram which has been taken and currently pending. Holding nephrotoxic medications, including losartan and Aldactone for now. Renal ultrasound, renal vein and arterial Doppler additionally ordered. Results are awaited. Patient denies any history of prostate enlargement however does endorse some symptoms of difficulty urination. May have bladder outlet obstruction. Currently bladder scan shows 150 cc urine. Continue bladder scan every shift, if signs of gross retention or if ultrasound shows evidence of hydronephrosis or gross bladder outlet obstruction, will need placement of Cyr catheter. This was discussed with patient and he is agreeable to Cyr placement in the setting. In the interim started on Lasix 60 mg IV every 8 hours per renal recommendations. Monitor urine output and kidney function closely. Hyperkalemia noted at 5.9 this morning. To be repeated now. PDMP PDMP Reviewed: Not Reviewed Attestations Medical Necessity Statement*: Continued need for IV diuresis, imaging studies as noted above. Coding Level of Care Code Acute Code for Chg Fwd Diagnoses Acute on chronic renal insufficiency N28.9; N18.9 Acute exacerbation of chronic heart failure I50.9 Coronary artery disease involving [place] coronary artery of [place] heart without angina pectoris I25.10 Coronary Disease-Associated Artery/Lesion type: [place] artery [place] vs. transplanted heart: [place] heart Associated angina: without angina Diabetes E11.9
[2025-03-27 16:01] LABS: Alanine Aminotransferase 9 U/L (0-41); Albumin Level 3.9 g/dL (3.5-5.2); Alkaline Phosphatase 101 U/L (40-130); Anion Gap 17.3 (5-19); Aspartate Amino Transferase 15 U/L (0-40); Blood Urea Nitrogen 48 mg/dL (8-23); Calcium 8.3 mg/dL (8.5-10.5); Carbon Dioxide 24 mmol/L (22-29); Chloride 102 mmol/L (98-107); Creatinine Clr Calc Pharmacy 32.9848; Globulin 2.7 g/dL (1.3-4.6); Glomerular Filtration Rate 19.8 mL/min (90-130); Glucose 228 mg/dL (65-115); Osmolality Calculated 304 mOsm/kg (285-295); Potassium 6.3 mmol/L (3.5-5.1); Sodium 137 mmol/L (136-145); Total Bilirubin 0.3 mg/dL (0.15-1.2); Total Protein 6.6 g/dL (6.6-8.7)
[2025-03-27] MEDS: FUROsemide 10 mg/mL SDV 10mL 60 MG IVP ×2 (16:14→23:06)
[2025-03-27] MEDS: epoetin alfa-epbx 10,000 unit/ml SDV (ESRD) 10000 UNIT SUBCUT (16:14)
[2025-03-27 16:31] LABS: Glucose Point of Care 231 mg/dL (70-110)
[2025-03-27] MEDS: albuterol 2.5 mg/3 mL Neb INHALATION (17:44)
[2025-03-27] MEDS: insulin regular-human 100 units/1 mL 10 UNIT IVP (17:59)
[2025-03-27] MEDS: sodium polystyrene sulfonate 15 gm/60 mL Btl PO ×3 (17:59→21:44)
[2025-03-27 18:34] LABS: Glucose Point of Care 212 mg/dL (70-110)
[2025-03-27 19:07] LABS: Troponin 5 6HR 48.45 ng/L (0-15); Troponin 5 6HR Delta 0.45 ng/L (0-12)
[2025-03-27 20:07] LABS: Glucose Point of Care 228 mg/dL (70-110)
--- NOTE | 2025-03-27 21:01 | ECG_ITS ---
[facility] Pat Name: Carlos Bender Department: Room: 264 Gender: Male Station Helper: : 1965 Requested By: Angelica Beal Order Number: [id number] Kahn MD: Krishan Ag M.D. Measurements Intervals [place] Rate: 59 P: 0 FL: 0 QRS: -65 QRSD: 129 T: 116 QT: 436 QTc: 435 Interpretive Statements ELECTRONIC VENTRICULAR PACEMAKER Compared to ECG 03/27/2025 15:37:38 No significant changes Electronically Signed On 03-31-2025 10:33:44 CDT by Krishan Ag M.D. [email or web address] [id number]
[2025-03-27] MEDS: tamsulosin 0.4 mg Capsule PO (21:44)
[2025-03-27] MEDS: atorvastatin 40 mg Tablet PO (21:44)
[2025-03-28] VITALS (13 sets, daily range): BP systolic 130–159; BP diastolic 69–92; PULSE 60–99; RESP 16–26; TEMP 36.7–36.8; O2SAT 92–99
[2025-03-28] MEDS: albumin 25 G/100 ML BAG 60 G IV ×3 (02:24→18:00)
[2025-03-28] MEDS: sodium polystyrene sulfonate 15 gm/60 mL Btl PO ×2 (02:25→08:55)
[2025-03-28 05:10] LABS: Basophils # 0.1 10^3/uL (0.0-0.1); Basophils % 1.7 %; Eosinophils # 0.2 10^3/uL (0.0-0.8); Eosinophils % 3.2 %; Hematocrit 28.1 % (37-53); Lymphocytes # 1.2 10^3/uL (0.8-4.8); Lymphocytes % 22.7 %; Mean Corpuscular HGB Conc 28.1 g/dL (30-55); Mean Corpuscular Hemoglobin 25.6 pg (27-33); Mean Corpuscular Volume 90.9 fl (82-101); Mean Platelet Volume 12.2 fL (7.4-10.4); Monocytes # 0.4 10^3/uL (0.2-0.9); Monocytes % 7.9 %; Neutrophils # 3.42 10^3/uL (1.8-7.7); Neutrophils % 64.1 %; Nucleated Red Blood Cells % 0 %; Platelet Count 111 10^3/cmm (157-399); Red Blood Count 3.09 10^6/uL (3.85-5.65); Red Cell Distribution Width 15.8 % (12.1-15.1); White Blood Count 5.33 10^3/uL (3.29-11.43)
[2025-03-28 05:27] LABS: Magnesium 2.5 mg/dL (1.7-2.3)
[2025-03-28 05:28] LABS: Alanine Aminotransferase 16 U/L (0-41); Alkaline Phosphatase 99 U/L (40-130); Aspartate Amino Transferase 30 U/L (0-40); Blood Urea Nitrogen 49 mg/dL (8-23); Calcium 8.7 mg/dL (8.5-10.5); Carbon Dioxide 25 mmol/L (22-29); Chloride 102 mmol/L (98-107); Creatinine Clr Calc Pharmacy 37.8534; Ferritin 43 ng/mL (30-400); Globulin 2.6 g/dL (1.3-4.6); Glomerular Filtration Rate 23.2 mL/min (90-130); Glucose 135 mg/dL (65-115); Iron 22 ug/dL (59-158); Osmolality Calculated 305 mOsm/kg (285-295); Percent Saturation 7.4 % (20-50); Sodium 140 mmol/L (136-145); Total Bilirubin 0.4 mg/dL (0.15-1.2); Total Iron Binding Capacity 294 mcg/dl; Total Protein 6.6 g/dL (6.6-8.7); Unsaturated Iron Binding 272 ug/dL (112-347)
[2025-03-28 05:43] LABS: Vitamin B12 544 pg/mL (232-1245)
[2025-03-28 06:03] LABS: Folate Level 14.2 ng/mL (4.5-32.2)
[2025-03-28 06:25] LABS: Glucose Point of Care 157 mg/dL (70-110)
--- NOTE | 2025-03-28 06:50 | PM.PN ---
Subjective Subjective: no new c/o SOB better Medications: Reviewed: Yes Vitals/I&O/Wt Last Vital Signs Temp 98.3 F 03/28/25 04:00 Pulse 67 03/28/25 04:00 Resp 18 03/28/25 04:00 BP 130/76 03/28/25 04:00 Pulse Ox 97 03/28/25 04:00 O2 Del Method Nasal Cannula 03/28/25 04:00 O2 Flow Rate 3 03/28/25 04:00 03/27/25 03/27/25 03/28/25 14:59 22:59 06:59 Intake Total 1010 / 1010 740 / 1750 200 / 1950 Output Total 300 / 300 650 / 950 Balance 710 / 710 90 / 800 200 / 1000 Weight last 48 hrs Weight 131.995 kg Weight 130.997 kg Weight 130.816 kg Weight 129.274 kg Physical Exam Narrative: Patient is awake alert, no distress, on 3 L O2 by nasal cannula PERRLA S1-S2 regular rate and rhythm per report Lungs with bilateral crackles per report Abdomen distended, soft, nontender 3+ pedal edema Neuro awake alert and oriented Skin no rash Data 03/28/25 04:51 03/28/25 04:51 A&P Assessment and plan (1) Acute on chronic renal insufficiency: 1. Acute on chronic kidney disease stage III: Baseline creatinine in the mid 1 range now has HERRERA with a creatinine up to 3 likely cardiorenal in etiology. - Currently on Lasix 40 mg IV every 8 hours--increased to 60 Mg, will await response, added IV albumin, add Metalozone 2.5 mg daily - 1500 mL fluid restriction in 2 g sodium restriction - If patient fails diuretics may require temporary HD dialysis for volume management - Check renal ultrasound and check bladder scan, patient has history of BPH, consider Cyr placement for the next 1 to 2 days for strict intake and output measurements. - Hold the losartan and metformin and spironolactone 2. CHF: Repeat echocardiogram pending, diuretics as above 3. History of extensive coronary artery disease with CABG and stents, followed by cardiology 4. Hypertension: On amlodipine and hydralazine Imdur , hold losartan and spironolactone in the setting of HERRERA 5. Hyperkalemia, medically managing repeat potassium, 6. Anemia: Check iron studies and give MUM (2) Acute exacerbation of chronic heart failure: Plan per [facility] PDMP PDMP Reviewed: Not Reviewed Attestations Medical Necessity Statement*: per [facility] Coding Level of Care Code Acute Code for Chg Fwd Diagnoses Acute on chronic renal insufficiency N28.9; N18.9 Acute exacerbation of chronic heart failure I50.9
[2025-03-28] MEDS: FUROsemide 10 mg/mL SDV 10mL 60 MG IVP ×3 (08:55→21:29)
[2025-03-28] MEDS: duloxetine 60 mg Capsule PO (08:55)
[2025-03-28] MEDS: aspirin 81 mg EC Tablet PO (08:56)
[2025-03-28] MEDS: pantoprazole DR 40 mg Tablet PO (08:56)
[2025-03-28] MEDS: prasugrel 10 MG Tablet PO (08:56)
[2025-03-28] MEDS: isosorbide mononitrate ER 30 mg Tablet PO ×2 (08:56→18:00)
[2025-03-28] MEDS: insulin lispro 100 unit/1 mL SUBCUT ×4 (08:56→21:29)
[2025-03-28] MEDS: pregabalin 150 mg Capsule PO (09:01)
[2025-03-28] MEDS: heparin 5,000 unit/mL INJ 1 mL 5000 UNIT SUBCUT ×2 (09:02→21:29)
[2025-03-28] MEDS: ezetimibe 10 mg Tablet PO (09:02)
--- NOTE | 2025-03-28 10:00 | US_ITS ---
WS: [id number] Gallbladder and right upper quadrant ultrasound, 03/28/2025 Clinical Data: Right upper quadrant abdominal pain Comparison: None. Findings: There is a cholecystectomy. The common bile duct is 0.4 cm and there are no intrahepatic ductal abnormalities. Liver shows no cysts, masses or dilated intrahepatic ducts. The liver is enlarged but shows normal echotexture. The portal vein is pulsatile. The pancreas is obscured by overlying bowel gas but no cyst, pseudocyst, or evidence of pancreatitis is noted. Right kidney measures 11.9 cm and no cyst, masses or hydronephrosis can be seen. The aorta and inferior vena cava show no vascular abnormalities. US/US gall bladder 63054 Impression: 1. Cholecystectomy. 2. Hepatomegaly with pulsatile portal vein.
--- NOTE | 2025-03-28 10:11 | P.PN_ITS ---
<Statement entered by Krishan Ag M.D - 03/29/25 10:32> Patient was cared for in conjunction with an advanced practice practitioner.? I reviewed the chart and all pertinent data including imaging, telemetry, and laboratory results.? I discussed the patient in detail with the advanced practice practitioner.? Please see? their note for complete progress note, testing results and agreed upon plan of care for the patient. Subjective 2 Subjective: Patient doing much better today. He appears much more comfortable. Abdomen is not as distended. EF on echo was 30 to 35% with moderate mitral regurg. Looking at his input and output his balance is positive although I am not sure how accurate this is as patient's nurse stated he got up and went to the bathroom without notifying them. A catheter has been placed at this time. Vitals/I&O/Wt Last Vital Signs Temp 98.2 F 03/28/25 07:52 Pulse 60 03/28/25 09:50 Resp 20 H 03/28/25 09:50 BP 142/69 03/28/25 07:52 Pulse Ox 98 03/28/25 09:50 O2 Del Method Nasal Cannula 03/28/25 09:50 O2 Flow Rate 3 03/28/25 09:50 03/27/25 03/28/25 03/28/25 22:59 06:59 14:59 Intake Total 740 / 1750 200 / 1950 240 / 240 Output Total 650 / 950 Balance 90 / 800 200 / 1000 240 / 240 Weight last 48 hrs Weight 291 lb Weight 288 lb 12.8 oz Weight 288 lb 6.4 oz Weight 285 lb Physical Exam 2 Narrative: General: No apparent distress HENMT: normoceophalic Muskuloskeletal: Full ROM Respiratory: requiring nasal cannula, lungs clear except diminished bilateral lower lobes Cardio: No JVD, regular rate, regular rhythm, S1 S2 normal, no murmurs, peripheral pulses 2+ radial palpated bilaterally GI: largly distended Extremities: compression stockings in place. Apon palpation 2+ edema bilateral lower extremities Neuro: Alert and oriented x4, no focal motor deficits Psych: Affect normal, mental status grossly normal Skin: No rashes or lesions noted, no wounds Data 03/28/25 04:51 03/28/25 04:51 A&P Assessment and plan (1) CAD (coronary artery disease): (2) CHF (congestive heart failure): (3) History of heart artery stent: (4) Acute exacerbation of chronic heart failure: (5) HTN (hypertension) with goal to be determined: (6) Status post aorto-coronary artery bypass graft: (7) Chronic kidney disease: Plan Creat has slightly improved at 2.8. Would recommend continueing lasix 60 TID as patient clinically appears to be responding well. EF is low at 33%. This is new onset. Once euvolemic, will proceed with ischemic workup. For now, continue to diurese and monitor I&O as well as creatinine and titrate to patient's response. PDMP PDMP Reviewed: Not Reviewed Attestations 2 Medical Necessity Statement*: Deferred to primary. Coding Level of Care Code Acute Code for [facility] Fwd Diagnoses Coronary artery disease involving [place] coronary artery of [place] heart without angina pectoris I25.10 Coronary Disease-Associated Artery/Lesion type: [place] artery [place] vs. transplanted heart: [place] heart Associated angina: without angina Acute diastolic congestive heart failure I50.31 Heart failure type: diastolic Heart failure chronicity: acute History of heart artery stent Z95.5 Acute exacerbation of chronic heart failure I50.9 HTN (hypertension) with goal to be determined I10 Status post aorto-coronary artery bypass graft Z95.1 Chronic kidney disease N18.9
[2025-03-28 11:07] LABS: Glucose Point of Care 257 mg/dL (70-110)
[2025-03-28 11:26] LABS: ABG PCO2 49.2 mmHg (35-45); ABG PH Result 7.37 (7.35-7.45); Arterial Blood Gas Hematocrit 24.9 % (42-52); Base Excess ABG 2.6 mmol/L (-2.0-2.0); Blood Gas Allen Test Pos; Blood Gas Operator Identificat GD; Blood Gas Sample Site Radial, right; Blood Gas Sample Type Arterial; HCO3 ABG 28.3 mmol/L (22-26); Oxygen Device NC; PO2 ABG 76.4 mmHg (80.0-100.0); PO2 FiO2 Ratio Arterial Blood 238
--- NOTE | 2025-03-28 11:27 | PC.SOCIAL ---
IMM Updated Updated pt on IMM. No questions voiced. Provided pt a copy. Initialed, dated, & timed a copy & placed in chart.
[2025-03-28] MEDS: metOLazone 5 MG Tablet 2.5 MG PO (11:50)
--- NOTE | 2025-03-28 15:43 | P.PN_ITS ---
Subjective 2 Subjective: Creatinine at 2.8 today. 900 cc urine output overnight. Extubated 2500 cc urine this morning. Catheter was placed. Patient seen thinks his breathing is easier today. Supplemental O2 at 3 L/min. Medications: Reviewed: Yes Vitals/I&O/Wt Last Vital Signs Temp 98.3 F 03/28/25 11:15 Pulse 61 03/28/25 11:15 Resp 17 03/28/25 11:15 BP 143/92 03/28/25 11:15 Pulse Ox 92 03/28/25 11:15 O2 Del Method Nasal Cannula 03/28/25 11:15 O2 Flow Rate 3 03/28/25 11:15 03/28/25 03/28/25 03/28/25 06:59 14:59 22:59 Intake Total 200 / 1950 340 / 340 Output Total 800 / 800 Balance 200 / 1000 -460 / -460 Weight last 48 hrs Weight 131.995 kg Weight 130.997 kg Weight 130.816 kg Weight 129.274 kg Physical Exam 2 Narrative: General: No acute distress, AO x3 HEENT: PERRLA, pupils bilaterally equal and reactive, pallors not present Chest: Normal vesicular breath sounds, no added sounds, equal good air entry bilaterally CVS: S1-S2 regular, no murmurs, no tachycardia, no gallops, no rubs Abdomen: Soft, nontender, no organomegaly, bowel sounds present Neuro: No focal deficits, no facial deformity, AO x3, power 5/5 in all limbs Urinary Catheter Management: Cyr: Cath Placed During This Visit: yes Urinary Catheter Date of Insertion: 03/28/25 Urinary Catheter Time of Insertion: 09:00 Data 03/28/25 04:51 03/28/25 04:51 A&P Assessment and plan (1) Acute on chronic renal insufficiency: Patient with volume overload, edema and acute on chronic renal insufficiency. I think the metformin needs to be stopped and he would be a candidate for Jardiance for his diabetes and renal insufficiency and fluid retention. I am going to continue on losartan and spironolactone hold amlodipine continue hydralazine and attempt diuresis with furosemide 40 mg IV every 8 hours and Zaroxolyn 5 mg daily monitor kidney function if worsening need to back off (2) Acute exacerbation of chronic heart failure: I think this is multifactorial with sleep apnea, acute renal failure and to a lesser degree his vasodilator meds. Start BERNICE hose hold amlodipine start CPAP supported diuresis here in the hospital (3) CAD (coronary artery disease): Clinically stable without signs of angina (4) Diabetes: Hold metformin continue glipizide start sliding scale insulin Plan Overnight labs and H&P reviewed.Patient is a 59-year-old male with a past medical history of coronary artery disease, status post STEMI in August 2024 for which he underwent revascularization of mid RCA stent thrombosis. During the procedure patient had gone into a complete heart block and needed temporary transvenous pacing. His baseline rhythm returned to atrial fibrillation and patient was discharged home. However a few days later he presented again to the hospital with complete heart block and was transferred to [facility] where he received a cardiac pacemaker. He is currently maintained on aspirin and Effient, declined anticoagulation for the A-fib. His last echocardiogram taken at the time of STEMI showed an EF of 55 to 60%, moderate to severe LVH and left atrial dilatation. Patient also has a history of CKD with baseline trop ranging 1.8-2.0, most recently checked this past monday was at 1.8. He has been experiencing increasing anasarca and shortness of breath over the past week. creatinine today is at 3.0. Differentials at this time include CHF versus HERRERA on CKD which is contributing to the gross volume overload. Ordered echocardiogram which has been taken and currently pending. Holding nephrotoxic medications, including losartan and Aldactone for now. Renal ultrasound, renal vein and arterial Doppler additionally ordered. Results are awaited. Patient denies any history of prostate enlargement however does endorse some symptoms of difficulty urination. May have bladder outlet obstruction. Currently bladder scan shows 150 cc urine. Continue bladder scan every shift, if signs of gross retention or if ultrasound shows evidence of hydronephrosis or gross bladder outlet obstruction, will need placement of Cyr catheter. This was discussed with patient and he is agreeable to Cyr placement in the setting. In the interim started on Lasix 60 mg IV every 8 hours per renal recommendations. Monitor urine output and kidney function closely. Hyperkalemia noted at 5.9 this morning. To be repeated now. March 28, 2025 Diuresed about 900 cc this morning. Currently on Lasix 60 mg IV every 8 hours. Will discuss with nephrology regarding adding metolazone. Cyr catheter placed for urinary retention. This will enable strict intake and output. Hemoglobin noted to be trending down at 7.9, check FOBT. Closely monitor for now. Received erythropoietin yesterday. Patient noted to be mildly lethargic this morning, somnolent, takes time to awaken and have a conversation. Reduce dose of Lyrica to 150 mg p.o. daily given creatinine clearance of 23. Check ABG to assess for hypercapnia. Continue CPAP at nighttime. Hyperkalemia is resolved today. Potassium at 5.0. Patient had diarrheal movement last night after Kayexalate. Echocardiogram revealed an ejection fraction of 33%, patient will likely need a stress test once clinically euvolemic. PDMP PDMP Reviewed: Not Reviewed Attestations 2 Medical Necessity Statement*: continued iv diuresis Coding Level of Care Code Acute Code for Chg Fwd Diagnoses Acute on chronic renal insufficiency N28.9; N18.9 Acute exacerbation of chronic heart failure I50.9 Coronary artery disease involving [place] coronary artery of [place] heart without angina pectoris I25.10 Coronary Disease-Associated Artery/Lesion type: [place] artery [place] vs. transplanted heart: [place] heart Associated angina: without angina Diabetes E11.9
[2025-03-28 16:30] LABS: Glucose Point of Care 255 mg/dL (70-110)
[2025-03-28] MEDS: ipratropium-albuterol 3 mL Neb INHALATION (19:51)
[2025-03-28 20:38] LABS: Glucose Point of Care 206 mg/dL (70-110)
[2025-03-28] MEDS: tamsulosin 0.4 mg Capsule PO (21:29)
[2025-03-28] MEDS: atorvastatin 40 mg Tablet PO (21:29)
[2025-03-29] VITALS (13 sets, daily range): BP systolic 121–154; BP diastolic 69–83; PULSE 60–76; RESP 15–22; TEMP 36.3–36.9; O2SAT 92–97
[2025-03-29] MEDS: albumin 25 G/100 ML BAG 60 G IV ×3 (02:11→20:06)
[2025-03-29 04:42] LABS: Basophils # 0.1 10^3/uL (0.0-0.1); Basophils % 0.8 %; Eosinophils # 0.1 10^3/uL (0.0-0.8); Hematocrit 26.5 % (37-53); Lymphocytes # 1.1 10^3/uL (0.8-4.8); Lymphocytes % 18.9 %; Mean Corpuscular HGB Conc 29.1 g/dL (30-55); Mean Corpuscular Volume 89.5 fl (82-101); Monocytes # 0.4 10^3/uL (0.2-0.9); Monocytes % 7.3 %; Neutrophils # 4.17 10^3/uL (1.8-7.7); Neutrophils % 70.5 %; Nucleated Red Blood Cells % 0 %; Platelet Count 114 10^3/cmm (157-399); Red Blood Count 2.96 10^6/uL (3.85-5.65); Red Cell Distribution Width 15.5 % (12.1-15.1); White Blood Count 5.92 10^3/uL (3.29-11.43)
[2025-03-29 05:10] LABS: Magnesium 2.4 mg/dL (1.7-2.3)
[2025-03-29 05:26] LABS: Alanine Aminotransferase 33 U/L (0-41); Albumin Level 4.4 g/dL (3.5-5.2); Alkaline Phosphatase 91 U/L (40-130); Anion Gap 16.4 (5-19); Aspartate Amino Transferase 58 U/L (0-40); Blood Urea Nitrogen 47 mg/dL (8-23); Carbon Dioxide 29 mmol/L (22-29); Chloride 98 mmol/L (98-107); Creatinine Clr Calc Pharmacy 41.1021; Globulin 2.3 g/dL (1.3-4.6); Glomerular Filtration Rate 25.2 mL/min (90-130); Glucose 143 mg/dL (65-115); Osmolality Calculated 303 mOsm/kg (285-295); Potassium 4.4 mmol/L (3.5-5.1); Sodium 139 mmol/L (136-145); Total Bilirubin 0.6 mg/dL (0.15-1.2); Total Protein 6.7 g/dL (6.6-8.7)
[2025-03-29 06:19] LABS: Glucose Point of Care 157 mg/dL (70-110)
[2025-03-29] MEDS: FUROsemide 10 mg/mL SDV 10mL 60 MG IVP ×3 (06:33→22:55)
[2025-03-29] MEDS: pantoprazole DR 40 mg Tablet PO (08:34)
[2025-03-29] MEDS: aspirin 81 mg EC Tablet PO (08:34)
[2025-03-29] MEDS: ezetimibe 10 mg Tablet PO (08:34)
[2025-03-29] MEDS: isosorbide mononitrate ER 30 mg Tablet PO ×2 (08:35→16:47)
[2025-03-29] MEDS: pregabalin 150 mg Capsule PO ×2 (08:35→21:43)
[2025-03-29] MEDS: heparin 5,000 unit/mL INJ 1 mL 5000 UNIT SUBCUT (08:35)
[2025-03-29] MEDS: duloxetine 60 mg Capsule PO (08:35)
[2025-03-29] MEDS: insulin lispro 100 unit/1 mL SUBCUT ×4 (08:35→21:03)
[2025-03-29] MEDS: prasugrel 10 MG Tablet PO (08:37)
[2025-03-29] MEDS: metOLazone 5 MG Tablet 2.5 MG PO (08:37)
--- NOTE | 2025-03-29 08:47 | P.PN_ITS ---
Subjective 2 Subjective: SOB better per pt Medications: Reviewed: Yes Vitals/I&O/Wt Last Vital Signs Temp 98.0 F 03/29/25 08:00 Pulse 63 03/29/25 08:00 Resp 16 03/29/25 08:00 BP 149/81 03/29/25 08:00 Pulse Ox 95 03/29/25 08:00 O2 Del Method Nasal Cannula 03/29/25 08:00 O2 Flow Rate 2 03/28/25 19:57 FiO2 35 03/28/25 22:06 03/28/25 03/29/25 03/29/25 22:59 06:59 14:59 Intake Total 820 / 1160 100 / 1260 120 / 120 Output Total 550 / 1350 2700 / 4050 Balance 270 / -190 -2600 / -2790 120 / 120 Weight last 48 hrs Weight 133.991 kg Weight 131.995 kg Physical Exam 2 Narrative: Patient is awake alert, no distress, on 3 L O2 by nasal cannula PERRLA S1-S2 regular rate and rhythm per report Lungs with bilateral crackles per report Abdomen distended, soft, nontender 3+ pedal edema Neuro awake alert and oriented Skin no rash Urinary Catheter Management: Cyr: Cath Placed During This Visit: yes Reason for Continuing Indwelling Catheter: Accurate Measurement of Urinary Output in Critically Ill Patients Urinary Catheter Date of Insertion: 03/28/25 Urinary Catheter Time of Insertion: 09:00 Data 03/29/25 03:47 03/29/25 03:47 A&P Assessment and plan (1) Acute on chronic renal insufficiency: 1. Acute on chronic kidney disease stage III: Baseline creatinine in the mid 1 range now has HERRERA with a creatinine up to 3 likely cardiorenal in etiology.No hydronephrosis on US - Currently on Lasix 40 mg IV every 8 hours--increased to 60 Mg, added IV albumin, added Metalozone 2.5 mg daily --> reasonable UOP , Continue same for now . - 1500 mL fluid restriction in 2 g sodium restriction - If patient fails diuretics may require temporary HD dialysis for volume management - Hold the losartan and metformin and spironolactone 2. CHF: Repeat echocardiogram -Ef 30-35% , diuretics as above 3. History of extensive coronary artery disease with CABG and stents, followed by cardiology 4. Hypertension: On amlodipine and hydralazine Imdur , hold losartan and spironolactone in the setting of HERRERA 5. Hyperkalemia, improved 6. Anemia: Check iron studies and give UMM (2) Acute exacerbation of chronic heart failure: Plan per [facility] PDMP PDMP Reviewed: Not Reviewed Attestations 2 Medical Necessity Statement*: per medicine Coding Level of Care Code Acute Code for Chg Fwd Diagnoses Acute on chronic renal insufficiency N28.9; N18.9 Acute exacerbation of chronic heart failure I50.9
[2025-03-29] MEDS: acetaminophen 325 mg Tablet 650 MG PO (10:21)
--- NOTE | 2025-03-29 12:00 | PM.PN ---
Subjective Subjective: Patient is drowsy. Feeling well overall. Vitals/I&O/Wt Last Vital Signs Temp 98.0 F 03/29/25 08:00 Pulse 68 03/29/25 10:00 Resp 18 03/29/25 10:00 BP 149/81 03/29/25 08:00 Pulse Ox 94 03/29/25 10:00 O2 Del Method Nasal Cannula 03/29/25 10:00 O2 Flow Rate 3 03/29/25 10:00 FiO2 35 03/28/25 22:06 03/28/25 03/29/25 03/29/25 22:59 06:59 14:59 Intake Total 820 / 1160 100 / 1260 120 / 120 Output Total 550 / 1350 2700 / 4050 Balance 270 / -190 -2600 / -2790 120 / 120 Weight last 48 hrs Weight 295 lb 6.4 oz Weight 291 lb Physical Exam Narrative: GENERAL: Patient is drowsy NECK: No jugular vein distension. [] HEENT: No cyanosis. No icterus. No pallor. [] HEART: Regular S1 and S2. No murmur, rub or gallop. [] LUNGS: Diminished air entry bilaterally CENTRAL NERVOUS SYSTEM: Grossly nonfocal. [] EXTREMITIES: Lower extremities with 1+ edema bilaterally. Urinary Catheter Management: Cyr: Cath Placed During This Visit: yes Reason for Continuing Indwelling Catheter: Accurate Measurement of Urinary Output in Critically Ill Patients Urinary Catheter Date of Insertion: 03/28/25 Urinary Catheter Time of Insertion: 09:00 Data 03/30/25 04:10 03/30/25 04:10 A&P Assessment and plan (1) Acute on chronic renal insufficiency: (2) Acute exacerbation of chronic heart failure: (3) CAD (coronary artery disease): (4) Diabetes: (5) Iron deficiency anemia: Plan Continue aggressive diuresis. Renal function is stable. Monitor I&O's. Monitor renal function. Once patient is euvolemic we will decide on ischemic workup. Hgb is low. Monitor for now. Continue antiplatelet agents. Thank you for involving us with care of this patient. Please call with questions. PDMP PDMP Reviewed: Not Reviewed Attestations Medical Necessity Statement*: Care expected to cross 2 midnights. Coding Level of Care Code Acute Code for Chg Fwd Diagnoses Acute on chronic renal insufficiency N28.9; N18.9 Acute exacerbation of chronic heart failure I50.9 Coronary artery disease involving [place] coronary artery of [place] heart without angina pectoris I25.10 Coronary Disease-Associated Artery/Lesion type: [place] artery [place] vs. transplanted heart: [place] heart Associated angina: without angina Diabetes E11.9 Iron deficiency anemia D50.9
[2025-03-29] MEDS: lactulose oral liq 20 gm/30 mL UDC 10 GM PO (12:22)
[2025-03-29] MEDS: ipratropium-albuterol 3 mL Neb INHALATION ×2 (13:43→20:42)
--- NOTE | 2025-03-29 14:13 | P.PN_ITS ---
Subjective 2 Subjective: Oxygen requirement is stable at 2 L/min today. Patient thinks he is breathing easier, however is still noted to have some accessory muscle use. He was on BiPAP last night due to mild hypercapnia noted on his ABG. Urine output of 3200 cc last 24 hours, net -1.4 L since admission. Lower extremity edema slightly improved. Hemoglobin trending down to 7.7 today. Medications: Reviewed: Yes Vitals/I&O/Wt Last Vital Signs Temp 98.3 F 03/29/25 12:00 Pulse 62 03/29/25 13:47 Resp 20 H 03/29/25 13:47 BP 130/73 03/29/25 12:00 Pulse Ox 95 03/29/25 13:47 O2 Del Method Nasal Cannula 03/29/25 13:47 O2 Flow Rate 3 03/29/25 13:47 FiO2 35 03/28/25 22:06 03/28/25 03/29/25 03/29/25 22:59 06:59 14:59 Intake Total 820 / 1160 100 / 1260 220 / 220 Output Total 550 / 1350 2700 / 4050 Balance 270 / -190 -2600 / -2790 220 / 220 Weight last 48 hrs Weight 133.991 kg Weight 131.995 kg Physical Exam 2 Narrative: General: No acute distress, AO x3 HEENT: PERRLA, pupils bilaterally equal and reactive, pallors not present Chest: Normal vesicular breath sounds, no added sounds, equal good air entry bilaterally, noted accessory abdominal muscle use. CVS: S1-S2 regular, no murmurs, no tachycardia, no gallops, no rubs Abdomen: Soft, nontender, no organomegaly, bowel sounds present Neuro: No focal deficits, no facial deformity, AO x3, power 5/5 in all limbs Urinary Catheter Management: Cyr: Cath Placed During This Visit: yes Reason for Continuing Indwelling Catheter: Accurate Measurement of Urinary Output in Critically Ill Patients Urinary Catheter Date of Insertion: 03/28/25 Urinary Catheter Time of Insertion: 09:00 Data 03/29/25 03:47 03/29/25 03:47 A&P Assessment and plan (1) Acute on chronic renal insufficiency: Patient with volume overload, edema and acute on chronic renal insufficiency. I think the metformin needs to be stopped and he would be a candidate for Jardiance for his diabetes and renal insufficiency and fluid retention. I am going to continue on losartan and spironolactone hold amlodipine continue hydralazine and attempt diuresis with furosemide 40 mg IV every 8 hours and Zaroxolyn 5 mg daily monitor kidney function if worsening need to back off (2) Acute exacerbation of chronic heart failure: I think this is multifactorial with sleep apnea, acute renal failure and to a lesser degree his vasodilator meds. Start BERNICE hose hold amlodipine start CPAP supported diuresis here in the hospital (3) CAD (coronary artery disease): Clinically stable without signs of angina (4) Diabetes: Hold metformin continue glipizide start sliding scale insulin (5) Iron deficiency anemia: Plan Overnight labs and H&P reviewed.Patient is a 59-year-old male with a past medical history of coronary artery disease, status post STEMI in August 2024 for which he underwent revascularization of mid RCA stent thrombosis. During the procedure patient had gone into a complete heart block and needed temporary transvenous pacing. His baseline rhythm returned to atrial fibrillation and patient was discharged home. However a few days later he presented again to the hospital with complete heart block and was transferred to [facility] where he received a cardiac pacemaker. He is currently maintained on aspirin and Effient, declined anticoagulation for the A-fib. His last echocardiogram taken at the time of STEMI showed an EF of 55 to 60%, moderate to severe LVH and left atrial dilatation. Patient also has a history of CKD with baseline trop ranging 1.8-2.0, most recently checked this past monday was at 1.8. He has been experiencing increasing anasarca and shortness of breath over the past week. creatinine today is at 3.0. Differentials at this time include CHF versus HERRERA on CKD which is contributing to the gross volume overload. Ordered echocardiogram which has been taken and currently pending. Holding nephrotoxic medications, including losartan and Aldactone for now. Renal ultrasound, renal vein and arterial Doppler additionally ordered. Results are awaited. Patient denies any history of prostate enlargement however does endorse some symptoms of difficulty urination. May have bladder outlet obstruction. Currently bladder scan shows 150 cc urine. Continue bladder scan every shift, if signs of gross retention or if ultrasound shows evidence of hydronephrosis or gross bladder outlet obstruction, will need placement of Cyr catheter. This was discussed with patient and he is agreeable to Cyr placement in the setting. In the interim started on Lasix 60 mg IV every 8 hours per renal recommendations. Monitor urine output and kidney function closely. Hyperkalemia noted at 5.9 this morning. To be repeated now. March 28, 2025 Diuresed about 900 cc this morning. Currently on Lasix 60 mg IV every 8 hours. Will discuss with nephrology regarding adding metolazone. Cyr catheter placed for urinary retention. This will enable strict intake and output. Hemoglobin noted to be trending down at 7.9, check FOBT. Closely monitor for now. Received erythropoietin yesterday. Patient noted to be mildly lethargic this morning, somnolent, takes time to awaken and have a conversation. Reduce dose of Lyrica to 150 mg p.o. daily given creatinine clearance of 23. Check ABG to assess for hypercapnia. Continue CPAP at nighttime. Hyperkalemia is resolved today. Potassium at 5.0. Patient had diarrheal movement last night after Kayexalate. Echocardiogram revealed an ejection fraction of 33%, patient will likely need a stress test once clinically euvolemic. 2024 Net negative about 1.4 L since admission. Tolerating diuresis with Lasix 60 mg IV every 8 hours and metolazone 2.5 mg p.o. daily. Renal function is currently stable, slightly improved at 2.6. Will continue with same dosing. Patient has noted to have some accessory muscle use even though his trending net negative now. Noted inspiratory wheeze on examination. Has a history of chronic smoking and family reports as needed albuterol inhaler use. May have underlying COPD but never formally tested. Will add every 6 hour DuoNeb inhalation. Hemoglobin is noted to be trending down to 7.7 today. Will check FOBT. If positive may need endoscopic evaluation for ongoing GI losses. Patient was planned to undergo upper and lower GI endoscopy and esophageal manometry in April 2025 in [place], however if FOBT is positive with hemoglobin trending down to 7.7 now, would be prudent to perform endoscopy as inpatient. He is yet to have a bowel movement to perform this test. Will attempt to perform a bedside Hemoccult today. Transfuse 1 PRBC today as target hemoglobin to be 8 in patient with acute CHF. Continue nighttime CPAP use. Holding heparin today given concerns for possible GI bleed. Aspirin and Effient to continue for now, however if FOBT results positive may need to reconsider dual antiplatelet therapy since he is over 6 months out from his last coronary intervention. PDMP PDMP Reviewed: Not Reviewed Attestations 2 Medical Necessity Statement*: Blood transfusion today, continued need for IV diuresis. Coding Level of Care Code Acute Code for Chg Fwd Diagnoses Acute on chronic renal insufficiency N28.9; N18.9 Acute exacerbation of chronic heart failure I50.9 Coronary artery disease involving [place] coronary artery of [place] heart without angina pectoris I25.10 Coronary Disease-Associated Artery/Lesion type: [place] artery [place] vs. transplanted heart: [place] heart Associated angina: without angina Diabetes E11.9 Iron deficiency anemia D50.9
[2025-03-29 14:53] LABS: Hematocrit 25.7 % (37-53)
[2025-03-29 16:17] LABS: Glucose Point of Care 268 mg/dL (70-110)
[2025-03-29] MEDS: tamsulosin 0.4 mg Capsule PO (21:03)
[2025-03-29] MEDS: atorvastatin 40 mg Tablet PO (21:03)
[2025-03-30] VITALS (12 sets, daily range): BP systolic 134–150; BP diastolic 71–78; PULSE 60–70; RESP 18–21; TEMP 36.5–37.3; O2SAT 93–97
[2025-03-30] MEDS: ipratropium-albuterol 3 mL Neb INHALATION ×4 (01:46→20:20)
[2025-03-30] MEDS: albumin 25 G/100 ML BAG 60 G IV ×3 (03:43→19:28)
[2025-03-30 04:20] LABS: Basophils % 0.7 %; Eosinophils # 0.1 10^3/uL (0.0-0.8); Eosinophils % 2.1 %; Hematocrit 27.9 % (37-53); Lymphocytes # 0.8 10^3/uL (0.8-4.8); Lymphocytes % 14.7 %; Mean Corpuscular HGB Conc 30.1 g/dL (30-55); Mean Corpuscular Hemoglobin 26.7 pg (27-33); Mean Corpuscular Volume 88.6 fl (82-101); Mean Platelet Volume 12.5 fL (7.4-10.4); Monocytes # 0.4 10^3/uL (0.2-0.9); Monocytes % 6.9 %; Neutrophils # 4.25 10^3/uL (1.8-7.7); Neutrophils % 75.2 %; Nucleated Red Blood Cells % 0 %; Platelet Count 107 10^3/cmm (157-399); Red Blood Count 3.15 10^6/uL (3.85-5.65); Red Cell Distribution Width 15.2 % (12.1-15.1); White Blood Count 5.65 10^3/uL (3.29-11.43)
[2025-03-30 04:41] LABS: Alanine Aminotransferase 46 U/L (0-41); Albumin Level 4.2 g/dL (3.5-5.2); Alkaline Phosphatase 88 U/L (40-130); Anion Gap 19.3 (5-19); Aspartate Amino Transferase 53 U/L (0-40); Blood Urea Nitrogen 52 mg/dL (8-23); Calcium 9.1 mg/dL (8.5-10.5); Carbon Dioxide 28 mmol/L (22-29); Chloride 96 mmol/L (98-107); Creatinine Clr Calc Pharmacy 46.4633; Globulin 2.5 g/dL (1.3-4.6); Glomerular Filtration Rate 29.1 mL/min (90-130); Glucose 203 mg/dL (65-115); Osmolality Calculated 308 mOsm/kg (285-295); Potassium 4.3 mmol/L (3.5-5.1); Sodium 139 mmol/L (136-145); Total Protein 6.7 g/dL (6.6-8.7)
[2025-03-30] MEDS: FUROsemide 10 mg/mL SDV 10mL 60 MG IVP ×3 (06:30→22:55)
[2025-03-30] MEDS: pantoprazole DR 40 mg Tablet PO (08:40)
[2025-03-30] MEDS: prasugrel 10 MG Tablet PO (08:40)
[2025-03-30] MEDS: duloxetine 60 mg Capsule PO (08:40)
[2025-03-30] MEDS: isosorbide mononitrate ER 30 mg Tablet PO ×2 (08:40→17:24)
[2025-03-30] MEDS: aspirin 81 mg EC Tablet PO (08:40)
[2025-03-30] MEDS: ezetimibe 10 mg Tablet PO (08:40)
[2025-03-30] MEDS: metOLazone 5 MG Tablet 2.5 MG PO (08:40)
[2025-03-30] MEDS: pregabalin 150 mg Capsule PO ×2 (08:41→17:25)
[2025-03-30] MEDS: insulin lispro 100 unit/1 mL SUBCUT ×4 (08:45→21:15)
--- NOTE | 2025-03-30 09:46 | XRR_ITS ---
PROCEDURE INFORMATION: Exam: XR Chest Exam date and time: 03/30/2025 2:17 PM Age: 59 years old Clinical indication: Assess for pneumonia; Additional info: Assess for pneumonia, assess for interval development of infiltrates TECHNIQUE: Imaging protocol: Radiologic exam of the chest. Views: 1 view. COMPARISON: CR (CHEST, ) 03/26/2025 6:10 PM FINDINGS: Tubes, catheters and devices: Dual lead cardiac pacemaker device overlying the left chest wall. Lungs: No lobar consolidation. Pleural spaces: Unremarkable. No pleural effusion. No pneumothorax. Heart/Mediastinum: Cardiomegaly. Bones/joints: Median sternotomy wires. XR/XR chest 1V portable [id number] IMPRESSION: As above.
--- NOTE | 2025-03-30 10:56 | PM.PN ---
Subjective Subjective: + hemoccult stool UOP improved Medications: Reviewed: Yes Vitals/I&O/Wt Last Vital Signs Temp 98.6 F 03/30/25 08:36 Pulse 67 03/30/25 08:36 Resp 19 H 03/30/25 08:36 BP 139/71 03/30/25 08:36 Pulse Ox 95 03/30/25 08:36 O2 Del Method Nasal Cannula 03/30/25 08:36 O2 Flow Rate 3 03/30/25 07:30 FiO2 35 03/28/25 22:06 03/29/25 03/30/25 03/30/25 22:59 06:59 14:59 Intake Total 570 / 910 580 / 1490 480 / 480 Output Total 2300 / 2300 1400 / 3700 1240 / 1240 Balance -1730 / -1390 -820 / -2210 -760 / -760 Weight last 48 hrs Weight 133.628 kg Weight 133.991 kg Physical Exam Narrative: Patient is awake alert, no distress, on 3 L O2 by nasal cannula PERRLA S1-S2 regular rate and rhythm per report Lungs with bilateral crackles per report Abdomen distended, soft, nontender 3+ pedal edema Neuro awake alert and oriented Skin no rash Urinary Catheter Management: Cyr: Cath Placed During This Visit: yes Reason for Continuing Indwelling Catheter: Accurate Measurement of Urinary Output in Critically Ill Patients Urinary Catheter Date of Insertion: 03/28/25 Urinary Catheter Time of Insertion: 09:00 Data 03/30/25 04:10 03/30/25 04:10 A&P Assessment and plan (1) Acute on chronic renal insufficiency: 1. Acute on chronic kidney disease stage III: Baseline creatinine in the mid 1 range now has HERRERA with a creatinine up to 3 likely cardiorenal in etiology.No hydronephrosis on US - Currently on Lasix 40 mg IV every 8 hours--increased to 60 Mg, added IV albumin, added Metalozone 2.5 mg daily --> reasonable UOP , Continue same for another day and switch to oral lasix tomorrow - 1500 mL fluid restriction in 2 g sodium restriction - If patient fails diuretics may require temporary HD dialysis for volume management - Hold the losartan and metformin and spironolactone 2. CHF: Repeat echocardiogram -Ef 30-35% , diuretics as above 3. History of extensive coronary artery disease with CABG and stents, followed by cardiology 4. Hypertension: On amlodipine and hydralazine Imdur , hold losartan and spironolactone in the setting of HERRERA 5. Hyperkalemia, improved 6. Anemia: Check iron studies and give UMM (2) Acute exacerbation of chronic heart failure: Plan per [facility] PDMP PDMP Reviewed: Not Reviewed Attestations Medical Necessity Statement*: per medicine Coding Level of Care Code Acute Code for Chg Fwd Diagnoses Acute on chronic renal insufficiency N28.9; N18.9 Acute exacerbation of chronic heart failure I50.9
[2025-03-30] MEDS: lactulose oral liq 20 gm/30 mL UDC 10 GM PO (11:14)
[2025-03-30 11:35] LABS: Add Urine Microscopic? YES; Bilirubin Urine Neg (Negative); Blood Urine 1+ (Negative); Glucose Urine UA Norm (Normal); Ketones Urine Negative (Negative); Leukocyte Esterase Urine Negative (Negative); Nitrate Urine Negative (Negative); Protein Urine 2+ (Negative); Specific Gravity, Urine 1.009 (1.005-1.030); Urine Appearance Cloudy (CLEAR); Urine Color Yellow (Yellow); Urobilinogen Urine 1 mg/dL (Negative); pH Urine 5 (5-7)
[2025-03-30 11:36] LABS: Squamous Epithelial Cell Urine 0-4 /hpf (0-5); WBC Urine 0-5 /hpf (0-5)
[2025-03-30 11:50] LABS: UA Slide Review UA Slide Review Perf
--- NOTE | 2025-03-30 12:06 | PM.PN ---
Subjective Subjective: Patient is feeling better. Continues to diurese well. Vitals/I&O/Wt Last Vital Signs Temp 97.7 F 03/30/25 10:57 Pulse 61 03/30/25 10:57 Resp 19 H 03/30/25 10:57 BP 150/74 03/30/25 10:57 Pulse Ox 97 03/30/25 10:57 O2 Del Method Nasal Cannula 03/30/25 10:57 O2 Flow Rate 3 03/30/25 07:30 FiO2 35 03/28/25 22:06 03/29/25 03/30/25 03/30/25 22:59 06:59 14:59 Intake Total 570 / 910 580 / 1490 480 / 480 Output Total 2300 / 2300 1400 / 3700 1240 / 1240 Balance -1730 / -1390 -820 / -2210 -760 / -760 Weight last 48 hrs Weight 294 lb 9.6 oz Weight 295 lb 6.4 oz Physical Exam Narrative: GENERAL: Patient is drowsy NECK: No jugular vein distension. [] HEENT: No cyanosis. No icterus. No pallor. [] HEART: Regular S1 and S2. No murmur, rub or gallop. [] LUNGS: Diminished air entry bilaterally CENTRAL NERVOUS SYSTEM: Grossly nonfocal. [] EXTREMITIES: Lower extremities with 1+ edema bilaterally. Urinary Catheter Management: Cyr: Cath Placed During This Visit: yes Reason for Continuing Indwelling Catheter: Accurate Measurement of Urinary Output in Critically Ill Patients Urinary Catheter Date of Insertion: 03/28/25 Urinary Catheter Time of Insertion: 09:00 Data 03/31/25 04:08 03/31/25 04:08 A&P Assessment and plan (1) CAD (coronary artery disease): (2) CHF (congestive heart failure): (3) Acute exacerbation of chronic heart failure: (4) Acute on chronic renal insufficiency: Plan Patient continues to diurese well. Will continue with IV Lasix. Close I&O's. Monitor renal function. He has significant anemia and will need scopes. Primary team had question of holding antiplatelet agents. Patient has history of stent thrombosis in the past. Last PCI was August [address] elevation ID secondary to stent thrombosis. If need to hold effient for more than 2 days, will recommend transfer to center with availability of cangrelor. Thank you for involving us with care of this patient. Please call with questions. PDMP PDMP Reviewed: Not Reviewed Attestations Medical Necessity Statement*: Care expected to cross 2 midnights. Coding Level of Care Code Acute Code for Chg Fwd Diagnoses Coronary artery disease involving [place] coronary artery of [place] heart without angina pectoris I25.10 Coronary Disease-Associated Artery/Lesion type: [place] artery [place] vs. transplanted heart: [place] heart Associated angina: without angina Acute diastolic congestive heart failure I50.31 Heart failure type: diastolic Heart failure chronicity: acute Acute exacerbation of chronic heart failure I50.9 Acute on chronic renal insufficiency N28.9; N18.9
[2025-03-30 13:33] LABS: Adenovirus Not Detected (NOT DETECT); Chlamydia Pneumoniae Not Detected (NOT DETECT); Coronavirus 229E,HKU1,NL63,OC4 Not Detected (NOT DETECT); Human Metapneumovirus Not Detected (NOT DETECT); Human Rhinovirus/Enterovirus Not Detected (NOT DETECT); Influenza A Not Detected (NOT DETECT); Influenza A H1 Not Detected (NOT DETECT); Influenza A H1-2009 Not Detected (NOT DETECT); Influenza A H3 Not Detected (NOT DETECT); Influenza B Not Detected (NOT DETECT); Mycoplasma Pneumoniae Not Detected (NOT DETECT); Parainfluenza Virus Type 1 Not Detected (NOT DETECT); Parainfluenza Virus Type 2 Not Detected (NOT DETECT); Parainfluenza Virus Type 3 Not Detected (NOT DETECT); Parainfluenza Virus Type 4 Not Detected (NOT DETECT); Respiratory Syncytial Virus A Not Detected (NOT DETECT); Respiratory Syncytial Virus B Not Detected (NOT DETECT); SARS-COV-2 Not Detected (NOT DETECT)
--- NOTE | 2025-03-30 15:33 | PM.PN ---
Subjective Subjective: Breathing appears better today. Net -2.9 L last 24 hours. Creatinine improving. No new complaints. Oxygen requirement stable at 3 L/min. Tmax 99 Fahrenheit overnight. Medications: Reviewed: Yes Vitals/I&O/Wt Last Vital Signs Temp 97.7 F 03/30/25 10:57 Pulse 64 03/30/25 14:00 Resp 18 03/30/25 14:00 BP 150/74 03/30/25 10:57 Pulse Ox 97 03/30/25 14:00 O2 Del Method Nasal Cannula 03/30/25 14:00 O2 Flow Rate 3 03/30/25 14:00 FiO2 35 03/28/25 22:06 03/30/25 03/30/25 03/30/25 06:59 14:59 22:59 Intake Total 580 / 1490 820 / 820 Output Total 1400 / 3700 1240 / 1240 Balance -820 / -2210 -420 / -420 Weight last 48 hrs Weight 133.628 kg Weight 133.991 kg Physical Exam Narrative: General: No acute distress, AO x3 HEENT: PERRLA, pupils bilaterally equal and reactive, pallors not present Chest: Normal vesicular breath sounds, no added sounds, equal good air entry bilaterally, noted accessory abdominal muscle use. CVS: S1-S2 regular, no murmurs, no tachycardia, no gallops, no rubs Abdomen: Soft, nontender, no organomegaly, bowel sounds present Neuro: No focal deficits, no facial deformity, AO x3, power 5/5 in all limbs Urinary Catheter Management: Cyr: Cath Placed During This Visit: yes Reason for Continuing Indwelling Catheter: Accurate Measurement of Urinary Output in Critically Ill Patients Urinary Catheter Date of Insertion: 03/28/25 Urinary Catheter Time of Insertion: 09:00 Data 03/30/25 04:10 03/30/25 04:10 A&P Assessment and plan (1) Acute on chronic renal insufficiency: Patient with volume overload, edema and acute on chronic renal insufficiency. I think the metformin needs to be stopped and he would be a candidate for Jardiance for his diabetes and renal insufficiency and fluid retention. I am going to continue on losartan and spironolactone hold amlodipine continue hydralazine and attempt diuresis with furosemide 40 mg IV every 8 hours and Zaroxolyn 5 mg daily monitor kidney function if worsening need to back off (2) Acute exacerbation of chronic heart failure: I think this is multifactorial with sleep apnea, acute renal failure and to a lesser degree his vasodilator meds. Start BERNICE hose hold amlodipine start CPAP supported diuresis here in the hospital (3) CAD (coronary artery disease): Clinically stable without signs of angina (4) Diabetes: Hold metformin continue glipizide start sliding scale insulin (5) Iron deficiency anemia: Plan Overnight labs and H&P reviewed.Patient is a 59-year-old male with a past medical history of coronary artery disease, status post STEMI in August 2024 for which he underwent revascularization of mid RCA stent thrombosis. During the procedure patient had gone into a complete heart block and needed temporary transvenous pacing. His baseline rhythm returned to atrial fibrillation and patient was discharged home. However a few days later he presented again to the hospital with complete heart block and was transferred to [facility] where he received a cardiac pacemaker. He is currently maintained on aspirin and Effient, declined anticoagulation for the A-fib. His last echocardiogram taken at the time of STEMI showed an EF of 55 to 60%, moderate to severe LVH and left atrial dilatation. Patient also has a history of CKD with baseline trop ranging 1.8-2.0, most recently checked this past monday was at 1.8. He has been experiencing increasing anasarca and shortness of breath over the past week. creatinine today is at 3.0. Differentials at this time include CHF versus HERRERA on CKD which is contributing to the gross volume overload. Ordered echocardiogram which has been taken and currently pending. Holding nephrotoxic medications, including losartan and Aldactone for now. Renal ultrasound, renal vein and arterial Doppler additionally ordered. Results are awaited. Patient denies any history of prostate enlargement however does endorse some symptoms of difficulty urination. May have bladder outlet obstruction. Currently bladder scan shows 150 cc urine. Continue bladder scan every shift, if signs of gross retention or if ultrasound shows evidence of hydronephrosis or gross bladder outlet obstruction, will need placement of Cyr catheter. This was discussed with patient and he is agreeable to Cyr placement in the setting. In the interim started on Lasix 60 mg IV every 8 hours per renal recommendations. Monitor urine output and kidney function closely. Hyperkalemia noted at 5.9 this morning. To be repeated now. March 28, 2025 Diuresed about 900 cc this morning. Currently on Lasix 60 mg IV every 8 hours. Will discuss with nephrology regarding adding metolazone. Cyr catheter placed for urinary retention. This will enable strict intake and output. Hemoglobin noted to be trending down at 7.9, check FOBT. Closely monitor for now. Received erythropoietin yesterday. Patient noted to be mildly lethargic this morning, somnolent, takes time to awaken and have a conversation. Reduce dose of Lyrica to 150 mg p.o. daily given creatinine clearance of 23. Check ABG to assess for hypercapnia. Continue CPAP at nighttime. Hyperkalemia is resolved today. Potassium at 5.0. Patient had diarrheal movement last night after Kayexalate. Echocardiogram revealed an ejection fraction of 33%, patient will likely need a stress test once clinically euvolemic. 03/29 Net negative about 1.4 L since admission. Tolerating diuresis with Lasix 60 mg IV every 8 hours and metolazone 2.5 mg p.o. daily. Renal function is currently stable, slightly improved at 2.6. Will continue with same dosing. Patient has noted to have some accessory muscle use even though his trending net negative now. Noted inspiratory wheeze on examination. Has a history of chronic smoking and family reports as needed albuterol inhaler use. May have underlying COPD but never formally tested. Will add every 6 hour DuoNeb inhalation. Hemoglobin is noted to be trending down to 7.7 today. Will check FOBT. If positive may need endoscopic evaluation for ongoing GI losses. Patient was planned to undergo upper and lower GI endoscopy and esophageal manometry in April 2025 in [place], however if FOBT is positive with hemoglobin trending down to 7.7 now, would be prudent to perform endoscopy as inpatient. He is yet to have a bowel movement to perform this test. Will attempt to perform a bedside Hemoccult today. Transfuse 1 PRBC today as target hemoglobin to be 8 in patient with acute CHF. Continue nighttime CPAP use. Holding heparin today given concerns for possible GI bleed. Aspirin and Effient to continue for now, however if FOBT results positive may need to reconsider dual antiplatelet therapy since he is over 6 months out from his last coronary intervention. March 3002/2025 Patient is net -4.2 L today. Creatinine is improving at 2.3. Continue diuresis with Lasix 60 mg IV every 8 hours and metolazone. Hemoglobin at 8.4 today status post 1 unit packed red blood cell transfusion yesterday. He had a bowel movement overnight. Hemoccult at bedside was positive. Will consult general surgery in a.m. to assess for endoscopic evaluation. Will discuss with cardiology regarding feasibility of holding Effient transiently to undergo endoscopy. No gross melena at this time. No hematemesis. Wheezing is resolved today. Continue DuoNeb and elation. Oxygen requirement stable at 3 L/min. Continue IV diuresis, await patient to be clinically euvolemic before proceeding with stress test and endoscopic evaluation. Tmax noted to be at 99.1 Fahrenheit. Chest x-ray performed, radiology read is awaited, per personal interpretation appears to have mild left lower lobe atelectasis. Added incentive spirometer. UA taken no signs of UTI. Holding off on antibiotics at this time and closely monitor. Negative respiratory viral panel. Blood pressure trending towards hypertension between 140-150 systolic. Change hydralazine dosing from as needed to 10 mg 3 times daily.Aldactone remains on Hold. Heparin ppx on hold due to falling Hb and + FOBT. Continue SCDs. PDMP PDMP Reviewed: Not Reviewed Attestations Medical Necessity Statement*: continued iv diuresis, await volume optimizatiopn priro to stress test and surgery evaluation for endocscopy Coding Level of Care Code Acute Code for Chg Fwd Diagnoses Acute on chronic renal insufficiency N28.9; N18.9 Acute exacerbation of chronic heart failure I50.9 Coronary artery disease involving [place] coronary artery of [place] heart without angina pectoris I25.10 Coronary Disease-Associated Artery/Lesion type: [place] artery [place] vs. transplanted heart: [place] heart Associated angina: without angina Diabetes E11.9 Iron deficiency anemia D50.9
[2025-03-30] MEDS: tamsulosin 0.4 mg Capsule PO (20:58)
[2025-03-30] MEDS: atorvastatin 40 mg Tablet PO (20:58)
[2025-03-30] MEDS: hyDRALAzine 10 mg Tablet PO (20:58)
[2025-03-31] VITALS (14 sets, daily range): BP systolic 126–158; BP diastolic 58–80; PULSE 60–83; RESP 16–19; TEMP 36.4–36.8; O2SAT 91–97
[2025-03-31] MEDS: ipratropium-albuterol 3 mL Neb INHALATION ×4 (01:50→20:18)
[2025-03-31] MEDS: albumin 25 G/100 ML BAG 60 G IV (04:00)
[2025-03-31 04:30] LABS: Basophils % 0.9 %; Eosinophils # 0.2 10^3/uL (0.0-0.8); Eosinophils % 3.8 %; Hematocrit 28.4 % (37-53); Lymphocytes # 0.8 10^3/uL (0.8-4.8); Lymphocytes % 17.7 %; Mean Corpuscular HGB Conc 29.2 g/dL (30-55); Mean Corpuscular Hemoglobin 26.3 pg (27-33); Mean Corpuscular Volume 90.2 fl (82-101); Mean Platelet Volume 12.6 fL (7.4-10.4); Monocytes # 0.4 10^3/uL (0.2-0.9); Monocytes % 8.5 %; Neutrophils # 3.23 10^3/uL (1.8-7.7); Neutrophils % 68.7 %; Nucleated Red Blood Cells % 0 %; Platelet Count 102 10^3/cmm (157-399); Red Blood Count 3.15 10^6/uL (3.85-5.65); Red Cell Distribution Width 15.4 % (12.1-15.1)
[2025-03-31 04:51] LABS: Alanine Aminotransferase 40 U/L (0-41); Albumin Level 4.3 g/dL (3.5-5.2); Alkaline Phosphatase 84 U/L (40-130); Anion Gap 18.1 (5-19); Aspartate Amino Transferase 35 U/L (0-40); Blood Urea Nitrogen 53 mg/dL (8-23); Calcium 9.2 mg/dL (8.5-10.5); Carbon Dioxide 33 mmol/L (22-29); Chloride 95 mmol/L (98-107); Globulin 2.3 g/dL (1.3-4.6); Glomerular Filtration Rate 29.1 mL/min (90-130); Glucose 219 mg/dL (65-115); Osmolality Calculated 315 mOsm/kg (285-295); Potassium 4.1 mmol/L (3.5-5.1); Sodium 142 mmol/L (136-145); Total Protein 6.6 g/dL (6.6-8.7)
[2025-03-31] MEDS: FUROsemide 10 mg/mL SDV 10mL 60 MG IVP ×2 (06:30→17:41)
[2025-03-31] MEDS: duloxetine 60 mg Capsule PO (07:58)
[2025-03-31] MEDS: hyDRALAzine 10 mg Tablet PO ×3 (07:58→20:41)
[2025-03-31] MEDS: aspirin 81 mg EC Tablet PO (07:58)
[2025-03-31] MEDS: isosorbide mononitrate ER 30 mg Tablet PO ×2 (07:58→17:41)
[2025-03-31] MEDS: prasugrel 10 MG Tablet PO (07:58)
[2025-03-31] MEDS: pantoprazole DR 40 mg Tablet PO (07:58)
[2025-03-31] MEDS: metOLazone 5 MG Tablet 2.5 MG PO (07:59)
[2025-03-31] MEDS: pregabalin 150 mg Capsule PO ×2 (07:59→17:41)
[2025-03-31] MEDS: ezetimibe 10 mg Tablet PO (08:01)
[2025-03-31] MEDS: insulin lispro 100 unit/1 mL SUBCUT ×4 (08:02→20:51)
--- NOTE | 2025-03-31 08:27 | P.PN_ITS ---
<Statement entered by Krishan Ag M.D - 03/31/25 12:33> Patient was cared for in conjunction with an advanced practice practitioner.? I reviewed the chart and all pertinent data including imaging, telemetry, and laboratory results.? I discussed the patient in detail with the advanced practice practitioner.? Please see? their note for complete progress note, testing results and agreed upon plan of care for the patient. Once patient is euvolemic will need stress test. Still needs more IV diuresis. Continue. monitor renal function and I and Os. If inpatient endoscope/colonoscopy is required, can hold effient briefly. Continue aspirin. Thank you for involving us with care of this patient. Please call with questions. Subjective 2 Subjective: No chest pain or shortness of breath overnight. He appears euvolemic. Hemoglobin is low, receiving blood transfusion today. He had a Hemoccult positive stool, plan is to consult general surgery for endoscopy. If the procedure can be performed continuing aspirin but withholding Effient for 2 days prior to the procedure it would be safe to do here, however if a longer hold time of the Effient is required, due to the high risk of stent thrombosis he may need to have the procedure in [place]. Vitals/I&O/Wt Last Vital Signs Temp 98.3 F 03/31/25 07:58 Pulse 69 03/31/25 08:25 Resp 18 03/31/25 08:21 BP 132/72 03/31/25 07:58 Pulse Ox 96 03/31/25 08:21 O2 Del Method Nasal Cannula 03/31/25 08:21 O2 Flow Rate 3 03/31/25 08:21 FiO2 35 03/28/25 22:06 03/30/25 03/31/25 03/31/25 22:59 06:59 14:59 Intake Total 220 / 1140 100 / 1140 Output Total 1500 / 2740 Balance -1280 / -1600 100 / -1600 Weight last 48 hrs Weight 294 lb Weight 294 lb 9.6 oz Physical Exam 2 Const: COMMON NORMALS: no acute distress and patient oriented x3 GENERAL APPEARANCE: cooperative and comfortable ORIENTATION/CONSCIOUSNESS: Yes awake, Yes oriented to person, Yes oriented to place and Yes oriented to time Chest: COMMONS NORMALS: normal inspection of the chest and normal palpation of entire chest wall CHEST: Yes Symmetrical chest wall rise Resp: COMMON NORMALS: normal respiratory effort, No retractions, No use of accessory muscles and clear to auscultation bilaterally EFFORT & INSPECTION: Yes symmetric chest movement AUSCULTATION: clear to auscultation bilaterally Cardio: COMMON NORMALS: regular rate, regular rhythm, S1 normal heart sound present, S2 normal heart sound present, No gallops present (Cardio), No clicks present (Cardio), No murmurs present (Cardio) and No rub (Cardio) RATE: r egular rate RHYTHM: regular rhythm HEART SOUNDS: S1 normal heart sound present and S2 normal heart sound present PERIPHERAL PULSES: radial pulses present Extremity: COMMON NORMALS: no pedal edema Neuro: COMMON NORMALS: patient oriented x3 and moves all extremities S ENSORIUM/ORIENTATION: Yes oriented to person, Yes oriented to place and Yes oriented to time Urinary Catheter Management: Cyr: Cath Placed During This Visit: yes Reason for Continuing Indwelling Catheter: Accurate Measurement of Urinary Output in Critically Ill Patients Urinary Catheter Date of Insertion: 03/28/25 Urinary Catheter Time of Insertion: 09:00 Data 03/31/25 04:08 03/31/25 04:08 A&P Assessment and plan (1) Acute on chronic renal insufficiency: (2) Acute exacerbation of chronic heart failure: (3) CAD (coronary artery disease): (4) Diabetes: (5) Iron deficiency anemia: Plan Receiving blood transfusion today. May hold Effient for 2 days, continue aspirin and have endoscopy here or will require further workup in [place] as per his previous plan. He appears euvolemic, creatinine holding steady at 2.3. Continue current diuresis with Lasix and metolazone. PDMP PDMP Reviewed: Not Reviewed Attestations 2 Medical Necessity Statement*: Care expected to cross 2 midnights. Coding Level of Care Code Acute Code for g Fwd Diagnoses Acute on chronic renal insufficiency N28.9; N18.9 Acute exacerbation of chronic heart failure I50.9 Coronary artery disease involving [place] coronary artery of [place] heart without angina pectoris I25.10 Coronary Disease-Associated Artery/Lesion type: blackfeet artery [place] vs. transplanted heart: blackfeet heart Associated angina: without angina Diabetes E11.9 Iron deficiency anemia D50.9
--- NOTE | 2025-03-31 09:35 | PC.SOCIAL ---
IMM Update Pg. 2 of IMM Updated and reviewed with patient, who verbalized understanding. Copy provided.
--- NOTE | 2025-03-31 09:57 | PM.PN ---
Subjective Subjective: SOB better Medications: Reviewed: Yes Vitals/I&O/Wt Last Vital Signs Temp 98.3 F 03/31/25 07:58 Pulse 69 03/31/25 08:25 Resp 18 03/31/25 08:21 BP 132/72 03/31/25 07:58 Pulse Ox 96 03/31/25 08:21 O2 Del Method Nasal Cannula 03/31/25 08:21 O2 Flow Rate 3 03/31/25 08:21 FiO2 35 03/28/25 22:06 03/30/25 03/31/25 03/31/25 22:59 06:59 14:59 Intake Total 220 / 1040 100 / 1140 Output Total 1500 / 2740 1150 / 1150 Balance -1280 / -1700 100 / -1600 -1150 / -1150 Weight last 48 hrs Weight 133.356 kg Weight 133.628 kg Physical Exam Narrative: Patient is awake alert, no distress, on 3 L O2 by nasal cannula PERRLA S1-S2 regular rate and rhythm per report Lungs with bilateral crackles per report Abdomen distended, soft, nontender 3+ pedal edema Neuro awake alert and oriented Skin no rash Urinary Catheter Management: Cyr: Cath Placed During This Visit: yes Reason for Continuing Indwelling Catheter: Accurate Measurement of Urinary Output in Critically Ill Patients Urinary Catheter Date of Insertion: 03/28/25 Urinary Catheter Time of Insertion: 09:00 Data 03/31/25 04:08 03/31/25 04:08 A&P Assessment and plan (1) Acute on chronic renal insufficiency: 1. Acute on chronic kidney disease stage III: Baseline creatinine in the mid 1 range now has HERRERA with a creatinine up to 3 likely cardiorenal in etiology.No hydronephrosis on US - Currently on Lasix 60 Mg IV and on IV albumin, added Metalozone 2.5 mg daily --> switched to PO lasix - 1500 mL fluid restriction in 2 g sodium restriction - Hold the losartan and metformin and spironolactone 2. CHF: Repeat echocardiogram -Ef 30-35% , diuretics as above 3. History of extensive coronary artery disease with CABG and stents, followed by cardiology 4. Hypertension: On amlodipine and hydralazine Imdur , hold losartan and spironolactone in the setting of HERRERA 5. Hyperkalemia, improved 6. Anemia: s/p transfusion and work up for GI bleed (2) Acute exacerbation of chronic heart failure: Plan per [facility] PDMP PDMP Reviewed: Not Reviewed Attestations Medical Necessity Statement*: per david Coding Level of Care Code Acute Code for Chg Fwd Diagnoses Acute on chronic renal insufficiency N28.9; N18.9 Acute exacerbation of chronic heart failure I50.9
[2025-03-31] MEDS: lactulose oral liq 20 gm/30 mL UDC 10 GM PO (11:44)
[2025-03-31] MEDS: efferdent effervescent 1 EACH DENTAL (11:44)
--- NOTE | 2025-03-31 13:22 | P.PN_ITS ---
Subjective 2 Subjective: Seen this morning. He states that shortness of breath is improved slightly. CBC 8.3 this morning. FOBT was positive. Had a long discussion with cardiology over the phone. It may be okay to hold Effient for 48 hours. To have EGD colonoscopy performed however past that it is not recommended and patient may have to be transferred to higher level of care to have the procedures done there so cangrelor can be available. From cardiology standpoint plan to further diurese patient and perform stress test once more euvolemic. Vitals/I&O/Wt Last Vital Signs Temp 98.0 F 03/31/25 11:43 Pulse 74 03/31/25 11:43 Resp 17 03/31/25 11:43 BP 137/73 03/31/25 11:43 Pulse Ox 91 03/31/25 11:43 O2 Del Method Nasal Cannula 03/31/25 11:43 O2 Flow Rate 3 03/31/25 08:21 FiO2 35 03/28/25 22:06 03/30/25 03/31/25 03/31/25 22:59 06:59 14:59 Intake Total 220 / 1040 100 / 1140 Output Total 1500 / 2740 1150 / 1150 Balance -1280 / -1700 100 / -1600 -1150 / -1150 Weight last 48 hrs Weight 133.356 kg Weight 133.628 kg Physical Exam 2 Narrative: General: No acute distress, AO x3 HEENT: PERRLA, pupils bilaterally equal and reactive, pallors not present Chest: Normal vesicular breath sounds, no added sounds, equal good air entry bilaterally, noted accessory abdominal muscle use. CVS: S1-S2 regular, no murmurs, no tachycardia, no gallops, no rubs Abdomen: Soft, nontender, no organomegaly, bowel sounds present Neuro: No focal deficits, no facial deformity, AO x3, Patient still appears to be hypervolemic Urinary Catheter Management: Cyr: Cath Placed During This Visit: yes Reason for Continuing Indwelling Catheter: Accurate Measurement of Urinary Output in Critically Ill Patients Urinary Catheter Date of Insertion: 03/28/25 Urinary Catheter Time of Insertion: 09:00 Data 03/31/25 04:08 03/31/25 04:08 A&P Assessment and plan (1) Acute on chronic renal insufficiency: Patient with volume overload, edema and acute on chronic renal insufficiency. I think the metformin needs to be stopped and he would be a candidate for Jardiance for his diabetes and renal insufficiency and fluid retention. I am going to continue on losartan and spironolactone hold amlodipine continue hydralazine and attempt diuresis with furosemide 40 mg IV every 8 hours and Zaroxolyn 5 mg daily monitor kidney function if worsening need to back off (2) Acute exacerbation of chronic heart failure: I think this is multifactorial with sleep apnea, acute renal failure and to a lesser degree his vasodilator meds. Start BERNICE hose hold amlodipine start CPAP supported diuresis here in the hospital (3) CAD (coronary artery disease): Clinically stable without signs of angina (4) Diabetes: Hold metformin continue glipizide start sliding scale insulin (5) Iron deficiency anemia: Plan Overnight labs and H&P reviewed.Patient is a 59-year-old male with a past medical history of coronary artery disease, status post STEMI in August 2024 for which he underwent revascularization of mid RCA stent thrombosis. During the procedure patient had gone into a complete heart block and needed temporary transvenous pacing. His baseline rhythm returned to atrial fibrillation and patient was discharged home. However a few days later he presented again to the hospital with complete heart block and was transferred to [facility] where he received a cardiac pacemaker. He is currently maintained on aspirin and Effient, declined anticoagulation for the A-fib. His last echocardiogram taken at the time of STEMI showed an EF of 55 to 60%, moderate to severe LVH and left atrial dilatation. Patient also has a history of CKD with baseline trop ranging 1.8-2.0, most recently checked this past monday was at 1.8. He has been experiencing increasing anasarca and shortness of breath over the past week. creatinine today is at 3.0. Differentials at this time include CHF versus HERRERA on CKD which is contributing to the gross volume overload. Ordered echocardiogram which has been taken and currently pending. Holding nephrotoxic medications, including losartan and Aldactone for now. Renal ultrasound, renal vein and arterial Doppler additionally ordered. Results are awaited. Patient denies any history of prostate enlargement however does endorse some symptoms of difficulty urination. May have bladder outlet obstruction. Currently bladder scan shows 150 cc urine. Continue bladder scan every shift, if signs of gross retention or if ultrasound shows evidence of hydronephrosis or gross bladder outlet obstruction, will need placement of Cyr catheter. This was discussed with patient and he is agreeable to Cyr placement in the setting. In the interim started on Lasix 60 mg IV every 8 hours per renal recommendations. Monitor urine output and kidney function closely. Hyperkalemia noted at 5.9 this morning. To be repeated now. March 28, 2025 Diuresed about 900 cc this morning. Currently on Lasix 60 mg IV every 8 hours. Will discuss with nephrology regarding adding metolazone. Cyr catheter placed for urinary retention. This will enable strict intake and output. Hemoglobin noted to be trending down at 7.9, check FOBT. Closely monitor for now. Received erythropoietin yesterday. Patient noted to be mildly lethargic this morning, somnolent, takes time to awaken and have a conversation. Reduce dose of Lyrica to 150 mg p.o. daily given creatinine clearance of 23. Check ABG to assess for hypercapnia. Continue CPAP at nighttime. Hyperkalemia is resolved today. Potassium at 5.0. Patient had diarrheal movement last night after Kayexalate. Echocardiogram revealed an ejection fraction of 33%, patient will likely need a stress test once clinically euvolemic. 03/29 Net negative about 1.4 L since admission. Tolerating diuresis with Lasix 60 mg IV every 8 hours and metolazone 2.5 mg p.o. daily. Renal function is currently stable, slightly improved at 2.6. Will continue with same dosing. Patient has noted to have some accessory muscle use even though his trending net negative now. Noted inspiratory wheeze on examination. Has a history of chronic smoking and family reports as needed albuterol inhaler use. May have underlying COPD but never formally tested. Will add every 6 hour DuoNeb inhalation. Hemoglobin is noted to be trending down to 7.7 today. Will check FOBT. If positive may need endoscopic evaluation for ongoing GI losses. Patient was planned to undergo upper and lower GI endoscopy and esophageal manometry in April 2025 in [place], however if FOBT is positive with hemoglobin trending down to 7.7 now, would be prudent to perform endoscopy as inpatient. He is yet to have a bowel movement to perform this test. Will attempt to perform a bedside Hemoccult today. Transfuse 1 PRBC today as target hemoglobin to be 8 in patient with acute CHF. Continue nighttime CPAP use. Holding heparin today given concerns for possible GI bleed. Aspirin and Effient to continue for now, however if FOBT results positive may need to reconsider dual antiplatelet therapy since he is over 6 months out from his last coronary intervention. March 3002/2025 Patient is net -4.2 L today. Creatinine is improving at 2.3. Continue diuresis with Lasix 60 mg IV every 8 hours and metolazone. Hemoglobin at 8.4 today status post 1 unit packed red blood cell transfusion yesterday. He had a bowel movement overnight. Hemoccult at bedside was positive. Will consult general surgery in a.m. to assess for endoscopic evaluation. Will discuss with cardiology regarding feasibility of holding Effient transiently to undergo endoscopy. No gross melena at this time. No hematemesis. Wheezing is resolved today. Continue DuoNeb and elation. Oxygen requirement stable at 3 L/min. Continue IV diuresis, await patient to be clinically euvolemic before proceeding with stress test and endoscopic evaluation. Tmax noted to be at 99.1 Fahrenheit. Chest x-ray performed, radiology read is awaited, per personal interpretation appears to have mild left lower lobe atelectasis. Added incentive spirometer. UA taken no signs of UTI. Holding off on antibiotics at this time and closely monitor. Negative respiratory viral panel. Blood pressure trending towards hypertension between 140-150 systolic. Change hydralazine dosing from as needed to 10 mg 3 times daily.Aldactone remains on Hold. Heparin ppx on hold due to falling Hb and + FOBT. Continue SCDs. 03/31/5025 Creatinine 2.3 today. Continue IV diuresis. Placed on Lasix 60 IV twice daily ? Continue Effient, aspirin Consult general surgery for potential EGD colonoscopy going forward. Patient has required a blood transfusion secondary to low hemoglobin. WBC count 4.7. ? Continue to check CBC every 12 hours. ? Patient does not have any hematemesis or gross melena. ? As per cardiology safe to hold Effient for 48 hours. Patient has very high risk for in-stent thrombosis. We will discuss with general surgery. ? Heparin prophylaxis on hold. ? Continue IV diuresis and once euvolemic we will perform stress testing as per cardiology recommendations. ? Recommendations from nephrology appreciated. PDMP PDMP Reviewed: Not Reviewed Attestations 2 Medical Necessity Statement*: Requires IV diuresis in the hospital with potential EGD colonoscopy. Once euvolemic will need inpatient stress testing. Diagnoses Acute on chronic renal insufficiency N28.9; N18.9 Acute exacerbation of chronic heart failure I50.9 Coronary artery disease involving [place] coronary artery of [place] heart without angina pectoris I25.10 Coronary Disease-Associated Artery/Lesion type: [place] artery [place] vs. transplanted heart: [place] heart Associated angina: without angina Diabetes E11.9 Iron deficiency anemia D50.9
--- NOTE | 2025-03-31 14:13 | PM.CONSULT ---
Providers/Reason For Consult Consulting Physician/Specialty*: General Surgery Reason for Consult*: Evaluation for EGD And colonoscopy Attending Physician: Melissa Taylor MD Primary Care Provider: Enrqiue Avila MD History of Present Illness History of Present Illness Carlos Bender is a 59 year old male With multiple medical comorbidities who is admitted to the hospital with CHF exacerbation and while in house he was noted to have a drop in the hemoglobin with a positive FOBT. He has a colonoscopy and upper endoscopy scheduled by an outside provider next month but since he is inpatient at this changes inthe hemoglobin we were consulted for possible evaluation. Currently stable, denies any significant blood in the stool Review of Systems General: Reports: 10 or more systems reviewed and unremarkable except in HPI and below Medications/Allergies Home Medications ?Medication ?Instructions ?Recorded ?Confirmed ?Last Taken ?Type tamsulosin 0.4 mg capsule 0.4 mg PO DAILY@0 ##0 12/21/20 03/27/25 03/26/25 History atorvastatin 40 mg tablet 40 mg PO BEDTIME@2200 03/11/21 03/27/25 03/26/25 History duloxetine 60 mg capsule,delayed 60 mg PO DAILY@08 03/11/21 03/27/25 03/26/25 History release (Cymbalta) metformin 1,000 mg tablet 1,000 mg PO BID 10/26/22 03/27/25 03/26/25 History Held on 09/07/24. Instructions: Resume on 09/08/24. nitroglycerin 0.4 mg sublingual 0.4 mg sublingual Q5M PRN chest 03/13/23 03/27/25 01/01/24 Rx tablet (Nitrostat) pain #25 ea glyburide 2.5 mg tablet 2.5 mg PO DAILY #0 tabs 06/29/23 03/27/25 03/26/25 History albuterol sulfate 90 mcg/actuation 2 inh inhalation 6XD PRN shortness 12/16/23 03/27/25 09/05/24 Rx aerosol inhaler of breath or wheezing #8.5 grams ezetimibe 10 mg tablet (Zetia) 10 mg PO DAILY@08 #90 tabs 07/03/24 03/27/25 03/26/25 Rx aspirin 81 mg tablet,delayed 81 mg PO DAILY #90 tabs 07/31/24 03/27/25 03/26/25 Rx release prasugrel HCl 10 mg tablet 10 mg PO DAILY #90 tabs 09/17/24 03/27/25 03/26/25 Rx (Effient) amlodipine 5 mg tablet 5 mg PO DAILY 12/05/24 03/27/25 03/26/25 History isosorbide mononitrate 30 mg 30 mg PO BID #180 tabs 12/05/24 03/27/25 03/26/25 Rx tablet,extended release 24 hr hydralazine 25 mg tablet See Rx Instructions .Route 01/10/25 03/27/25 03/26/25 Rx .COMPLEX #180 tabs esomeprazole magnesium 40 mg 40 mg PO QAM 03/27/25 03/27/25 03/26/25 History capsule,delayed release famotidine 20 mg tablet 20 mg PO BID 03/27/25 03/27/25 03/26/25 History losartan 25 mg tablet 25 mg PO DAILY 03/27/25 03/27/25 03/26/25 History pregabalin 300 mg capsule 300 mg PO BID 03/27/25 03/27/25 03/26/25 History spironolactone 50 mg tablet 50 mg PO DAILY 03/27/25 03/27/25 03/26/25 History torsemide 20 mg tablet 30 mg PO BID 03/27/25 03/27/25 03/26/25 History Allergies Allergy/AdvReac Type Severity Reaction Status Date / Time codeine Allergy Unknown Verified 03/26/25 18:07 gabapentin Allergy Unknown Verified 03/26/25 18:07 ketamine Allergy Unknown Verified 03/26/25 18:07 Current Medications Generic Name Dose Route Start Last Admin Trade Name Freq PRN Reason Stop Dose Admin Acetaminophen 650 mg 03/26/25 21:53 03/29/25 10:21 Acetaminophen 325 Mg Tablet PO 650 mg Q6H PRN Administration Mild/Mod Pain Or Temp >/= 101 Albuterol/Ipratropium 3 ml 03/29/25 14:00 03/31/25 13:37 Ipratropium-Albuterol 3 Ml Neb INHALATION 3 ml Q6H.RESP SOTO Administration Aspirin 81 mg 03/27/25 09:00 03/31/25 07:58 Aspirin 81 Mg Ec Tablet PO 81 mg DAILY SOTO Administration Atorvastatin Calcium 40 mg 03/26/25 22:00 03/30/25 20:58 Atorvastatin 40 Mg Tablet PO 40 mg BEDTIME@2200 SOTO Administration Denture Adhesive 1 each 03/31/25 11:39 03/31/25 11:44 Efferdent Effervescent DENTAL 1 each PRN PRN Administration BAD BREATH Duloxetine HCl 60 mg 03/27/25 08:00 03/31/25 07:58 Duloxetine 60 Mg Capsule PO 60 mg DAILY@08 SOTO Administration Ezetimibe 10 mg 03/27/25 08:00 03/31/25 08:01 Ezetimibe 10 Mg Tablet PO 10 mg DAILY@08 SOTO Administration Heparin Sodium (Porcine) 5,000 unit 03/26/25 21:53 03/29/25 08:35 Heparin 5,000 Unit/Ml Inj 1 Ml SUBCUT 5,000 unit On Hold: 03/29/25 11:50 Q12H SOTO Administration Hydralazine HCl 10 mg 03/30/25 21:00 03/31/25 07:58 Hydralazine 10 Mg Tablet PO 10 mg TID SOTO Administration Insulin Human Lispro 0 unit 03/26/25 21:53 03/31/25 11:43 Insulin Lispro 100 Unit/1 Ml SUBCUT 2 unit WM&BEDTIME SOTO Administration Protocol Isosorbide Mononitrate 30 mg 03/27/25 09:00 03/31/25 07:58 Isosorbide Mononitrate Er 30 Mg Tablet PO 30 mg BID SOTO Administration Lactulose 10 gm 03/29/25 12:00 03/31/25 11:44 Lactulose Oral Liq 20 Gm/30 Ml Udc PO 10 gm Q24H SOTO Administration Metolazone 2.5 mg 03/29/25 09:00 03/31/25 07:59 Metolazone 5 Mg Tablet PO 2.5 mg DAILY SOTO Administration Pantoprazole Sodium 40 mg 03/27/25 09:00 03/31/25 07:[address] 40 Mg Tablet PO 40 mg DAILY SOTO Administration Prasugrel 10 mg 03/27/25 09:00 03/31/25 07:58 Prasugrel 10 Mg Tablet PO 10 mg DAILY SOTO Administration Pregabalin 150 mg 03/30/25 18:00 03/31/25 07:59 Pregabalin 150 Mg Capsule PO 150 mg BID SOTO Administration Tamsulosin HCl 0.4 mg 03/26/25 22:00 03/30/25 20:58 Tamsulosin 0.4 Mg Capsule PO 0.4 mg DAILY@2200 SOTO Administration PFSH Acute PFSH: Medical History ST elevation (STEMI) myocardial infarction Worsening angina CHF (congestive heart failure) Congestive heart failure Heart failure Hyperkalemia CAD (coronary artery disease) Diabetes Left main coronary artery disease HTN (hypertension) with goal to be determined ASHD (arteriosclerotic heart disease) Nicotine dependence, cigarettes, uncomplicated Generalized anxiety disorder Major depressive disorder, recurrent episode, moderate with anxious distress Surgical History S/P laminectomy S/P vasectomy History of heart artery stent S/P knee surgery S/P cholecystectomy Status post aorto-coronary artery bypass graft Family History Father Myocardial infarct Grandmother Myocardial infarct Family/Other Myocardial infarct Other CAD (coronary artery disease) Social History (Updated 03/26/25 @ 21:00 by Richie Singh MD) Smoking and tobacco/nicotine status: current every day tobacco/nicotine user cigarettes Packs smoked per day: 1 and smokeless tobacco Smokeless tobacco user: chewing tobacco Smokeless tobacco details: 1 can 2- 3 days Quit status (tobacco/nicotine): considering quitting Second hand smoke exposure: Yes Alcohol intake: former Former alcohol use details: Has not had a beer in the body year but he would like to drink beer Substance/Drug Use: never Marital status: Marital status details: Allison at bedside works in [employer] Previous occupational history: 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 Urinary Catheter Management: Cyr: Cath Placed During This Visit: yes Reason for Continuing Indwelling Catheter: Accurate Measurement of Urinary Output in Critically Ill Patients Urinary Catheter Date of Insertion: 03/28/25 Urinary Catheter Time of Insertion: 09:00 Data 03/31/25 04:08 03/31/25 04:08 A&P Assessment and plan (1) Iron deficiency anemia: Plan After complete history, physical examination and review of all available clinical data the following is my assessment. Unfortunately patient cath stent placed less than 6 months ago. Per cardiology he cannot hold his antiplatelet therapy more than 48 hours. From the general surgery standpoint in order for safely proceed with EGD and colonoscopy will need to hold the anticoagulation for 5 to 7 days. Since there is no active GI bleed that what is suspected is a possible slow bleed, I think it would be appropriate for the patient to wait for his scheduled procedure next month. Alternative he can be evaluated at higher level of care for anticoagulation drip and EGD and colon as an inpatient. This has been discussed with the medical team and they agree with our assessment. PDMP PDMP Reviewed: Not Reviewed Coding Level of Care Code Acute Code for Chg Fwd Diagnoses Iron deficiency anemia D50.9
[2025-03-31] MEDS: tamsulosin 0.4 mg Capsule PO (20:41)
[2025-03-31] MEDS: atorvastatin 40 mg Tablet PO (20:42)
[2025-04-01] VITALS (10 sets, daily range): BP systolic 126–138; BP diastolic 64–74; PULSE 59–109; RESP 18–22; TEMP 36.4–36.8; O2SAT 94–98
[2025-04-01] MEDS: ipratropium-albuterol 3 mL Neb INHALATION ×4 (02:12→20:38)
[2025-04-01] MEDS: FUROsemide 10 mg/mL SDV 10mL 60 MG IVP ×2 (05:02→16:35)
[2025-04-01 05:50] LABS: Basophils % 0.7 %; Eosinophils # 0.2 10^3/uL (0.0-0.8); Eosinophils % 5.2 %; Hematocrit 27.6 % (37-53); Lymphocytes # 0.7 10^3/uL (0.8-4.8); Lymphocytes % 18.3 %; Mean Corpuscular Hemoglobin 26.4 pg (27-33); Mean Corpuscular Volume 91.1 fl (82-101); Mean Platelet Volume 12.5 fL (7.4-10.4); Monocytes # 0.4 10^3/uL (0.2-0.9); Monocytes % 9.6 %; Neutrophils # 2.67 10^3/uL (1.8-7.7); Nucleated Red Blood Cells % 0 %; Platelet Count 112 10^3/cmm (157-399); Red Blood Count 3.03 10^6/uL (3.85-5.65); Red Cell Distribution Width 15.4 % (12.1-15.1); White Blood Count 4.05 10^3/uL (3.29-11.43)
[2025-04-01 06:10] LABS: Anion Gap 14.9 (5-19); Blood Urea Nitrogen 54 mg/dL (8-23); Calcium 9.2 mg/dL (8.5-10.5); Carbon Dioxide 34 mmol/L (22-29); Chloride 94 mmol/L (98-107); Creatinine Clr Calc Pharmacy 50.7556; Glomerular Filtration Rate 32.3 mL/min (90-130); Glucose 175 mg/dL (65-115); Magnesium 2.3 mg/dL (1.7-2.3); Osmolality Calculated 307 mOsm/kg (285-295); Potassium 3.9 mmol/L (3.5-5.1); Sodium 139 mmol/L (136-145)
[2025-04-01] MEDS: ezetimibe 10 mg Tablet PO (08:10)
[2025-04-01] MEDS: hyDRALAzine 10 mg Tablet PO ×3 (08:10→21:08)
[2025-04-01] MEDS: prasugrel 10 MG Tablet PO (08:10)
[2025-04-01] MEDS: pregabalin 150 mg Capsule PO ×2 (08:10→16:35)
[2025-04-01] MEDS: isosorbide mononitrate ER 30 mg Tablet PO ×2 (08:10→16:36)
[2025-04-01] MEDS: aspirin 81 mg EC Tablet PO (08:10)
[2025-04-01] MEDS: duloxetine 60 mg Capsule PO (08:10)
[2025-04-01] MEDS: pantoprazole DR 40 mg Tablet PO ×2 (08:10→16:36)
[2025-04-01] MEDS: metOLazone 5 MG Tablet 2.5 MG PO (08:10)
--- NOTE | 2025-04-01 10:00 | P.PN_ITS ---
<Statement entered by Paulina Webb MD - 04/01/25 21:17> Patient was evaluated and cared for in conjunction with an advanced practice practitioner. I personally examined the patient and reviewed the chart and all pertinent data including imaging, telemetry, and laboratory results. I discussed the patient in detail with the advanced practice practitioner. Please see their note for complete H&P testing result and agreed upon plan of care for the patient. Subjective 2 Subjective: Patient was sleeping soundly on morning rounds. Will return later this afternoon to discuss ischemic workup. For now as hemoglobin is dropped to 8.0 we will stop aspirin, continue Effient and start Protonix 40 mg twice a day. Vitals/I&O/Wt Last Vital Signs Temp 98.0 F 04/01/25 08:00 Pulse 81 04/01/25 09:30 Resp 18 04/01/25 09:30 BP 127/64 04/01/25 08:00 Pulse Ox 98 04/01/25 09:30 O2 Del Method Nasal Cannula 04/01/25 09:30 O2 Flow Rate 3 04/01/25 09:30 FiO2 35 03/28/25 22:06 03/31/25 04/01/25 04/01/25 22:59 06:59 14:59 Intake Total 220 / 340 358 / 358 Output Total 700 / 3050 1200 / 3050 775 / 775 Balance -480 / -2710 -1200 / -2710 -417 / -417 Weight last 48 hrs Weight 267 lb Weight 294 lb Physical Exam 2 Const: COMMON NORMALS: no acute distress and patient oriented x3 GENERAL APPEARANCE: cooperative and comfortable ORIENTATION/CONSCIOUSNESS: Yes awake, Yes oriented to person, Yes oriented to place and Yes oriented to time Chest: COMMONS NORMALS: normal inspection of the chest and normal palpation of entire chest wall CHEST: Yes Symmetrical chest wall rise Resp: COMMON NORMALS: normal respiratory effort, No retractions, No use of accessory muscles and clear to auscultation bilaterally EFFORT & INSPECTION: Yes symmetric chest movement AUSCULTATION: clear to auscultation bilaterally Cardio: COMMON NORMALS: regular rate, regular rhythm, S1 normal heart sound present, S2 normal heart sound present, No gallops present (Cardio), No clicks present (Cardio), No murmurs present (Cardio) and No rub (Cardio) RATE: r egular rate RHYTHM: regular rhythm HEART SOUNDS: S1 normal heart sound present and S2 normal heart sound present PERIPHERAL PULSES: radial pulses present Extremity: COMMON NORMALS: no pedal edema Neuro: COMMON NORMALS: patient oriented x3 and moves all extremities S ENSORIUM/ORIENTATION: Yes oriented to person, Yes oriented to place and Yes oriented to time Urinary Catheter Management: Cyr: Cath Placed During This Visit: yes Reason for Continuing Indwelling Catheter: Accurate Measurement of Urinary Output in Critically Ill Patients Urinary Catheter Date of Insertion: 03/28/25 Urinary Catheter Time of Insertion: 09:00 Data 04/01/25 05:31 04/01/25 05:31 A&P Assessment and plan (1) Acute on chronic renal insufficiency: (2) Acute exacerbation of chronic heart failure: (3) CAD (coronary artery disease): (4) Diabetes: (5) Iron deficiency anemia: Plan Due to continued slow decline in hemoglobin will stop aspirin as it has been 6 months since the balloon angioplasty of the in-stent restenosis of the RCA, continue Effient and increase Protonix to 40 mg twice a day. Continue Lasix 60 mg twice a day, metolazone 2.5 mg daily. Creatinine has been 2.0 and above since August, will hold off on starting Entresto for now. Since he is euvolemic can start beta-ramesh for heart failure therapy, will start carvedilol 3.125 mg twice daily. Depending on blood pressures may need to hold hydralazine. PDMP PDMP Reviewed: Not Reviewed Attestations 2 Medical Necessity Statement*: Ischemic cardiomyopathy evaluation and GDMT for heart failure Coding Level of Care Code Acute Code for g Fwd Diagnoses Acute on chronic renal insufficiency N28.9; N18.9 Acute exacerbation of chronic heart failure I50.9 Coronary artery disease involving [place] coronary artery of [place] heart without angina pectoris I25.10 Coronary Disease-Associated Artery/Lesion type: [place] artery [place] vs. transplanted heart: [place] heart Associated angina: without angina Diabetes E11.9 Iron deficiency anemia D50.9
[2025-04-01] MEDS: insulin lispro 100 unit/1 mL SUBCUT ×3 (11:57→21:08)
[2025-04-01] MEDS: lactulose oral liq 20 gm/30 mL UDC 10 GM PO (11:58)
--- NOTE | 2025-04-01 13:47 | P.PN_ITS ---
Subjective 2 Subjective: no new c/o Medications: Reviewed: Yes Vitals/I&O/Wt Last Vital Signs Temp 97.8 F 04/01/25 12:00 Pulse 109 H 04/01/25 12:00 Resp 20 H 04/01/25 12:00 BP 130/74 04/01/25 12:00 Pulse Ox 96 04/01/25 12:00 O2 Del Method Nasal Cannula 04/01/25 12:00 O2 Flow Rate 3 04/01/25 12:00 FiO2 35 03/28/25 22:06 03/31/25 04/01/25 04/01/25 22:59 06:59 14:59 Intake Total 220 / 340 358 / 358 Output Total 700 / 1850 1200 / 3050 775 / 775 Balance -480 / -1510 -1200 / -2710 -417 / -417 Weight last 48 hrs Weight 121.109 kg Weight 133.356 kg Physical Exam 2 Narrative: Patient is awake alert, no distress, on 3 L O2 by nasal cannula PERRLA S1-S2 regular rate and rhythm per report Lungs with bilateral crackles per report Abdomen distended, soft, nontender 3+ pedal edema Neuro awake alert and oriented Skin no rash Urinary Catheter Management: Cyr: Cath Placed During This Visit: yes Reason for Continuing Indwelling Catheter: Accurate Measurement of Urinary Output in Critically Ill Patients Urinary Catheter Date of Insertion: 03/28/25 Urinary Catheter Time of Insertion: 09:00 Data 04/01/25 05:31 04/01/25 05:31 A&P Assessment and plan (1) Acute on chronic renal insufficiency: 1. Acute on chronic kidney disease stage III: Baseline creatinine in the mid 1 range now has HERRERA with a creatinine up to 3 likely cardiorenal in etiology.No hydronephrosis on US - was on Lasix 60 Mg IV and on IV albumin, added Metalozone 2.5 mg daily --> switched to PO lasix - 1500 mL fluid restriction in 2 g sodium restriction - Hold the losartan and metformin and spironolactone 2. CHF: Repeat echocardiogram -Ef 30-35% , diuretics as above 3. History of extensive coronary artery disease with CABG and stents, followed by cardiology 4. Hypertension: On amlodipine and hydralazine Imdur , hold losartan and spironolactone in the setting of HERRERA 5. Hyperkalemia, improved 6. Anemia: s/p transfusion and work up for GI bleed (2) Acute exacerbation of chronic heart failure: Plan per [facility] PDMP PDMP Reviewed: Not Reviewed Attestations 2 Medical Necessity Statement*: per medicine Coding Level of Care Code Acute Code for Chg Fwd Diagnoses Acute on chronic renal insufficiency N28.9; N18.9 Acute exacerbation of chronic heart failure I50.9
[2025-04-01] MEDS: nystatin powder 15 gm Btl 1 APPLIC TOPICAL (15:03)
--- NOTE | 2025-04-01 15:12 | P.PN_ITS ---
Subjective 2 Subjective: seen today hb 8.0 today no evidence of gross bleed uo 1900 cc overnight Vitals/I&O/Wt Last Vital Signs Temp 97.8 F 04/01/25 12:00 Pulse 109 H 04/01/25 12:00 Resp 20 H 04/01/25 12:00 BP 130/74 04/01/25 12:00 Pulse Ox 96 04/01/25 12:00 O2 Del Method Nasal Cannula 04/01/25 12:00 O2 Flow Rate 3 04/01/25 12:00 FiO2 35 03/28/25 22:06 04/01/25 04/01/25 04/01/25 06:59 14:59 22:59 Intake Total 358 / 358 Output Total 1200 / 3050 775 / 775 Balance -1200 / -2710 -417 / -417 Weight last 48 hrs Weight 121.109 kg Weight 133.356 kg Physical Exam 2 Narrative: General: No acute distress, AO x3 HEENT: PERRLA, pupils bilaterally equal and reactive, pallors not present Chest: Normal vesicular breath sounds, no added sounds, equal good air entry bilaterally, noted accessory abdominal muscle use. CVS: S1-S2 regular, no murmurs, no tachycardia, no gallops, no rubs Abdomen: Soft, nontender, no organomegaly, bowel sounds present Neuro: No focal deficits, no facial deformity, AO x3, Urinary Catheter Management: Cyr: Cath Placed During This Visit: yes Reason for Continuing Indwelling Catheter: Accurate Measurement of Urinary Output in Critically Ill Patients Urinary Catheter Date of Insertion: 03/28/25 Urinary Catheter Time of Insertion: 09:00 Data 04/01/25 05:31 04/01/25 05:31 A&P Assessment and plan (1) Acute on chronic renal insufficiency: Patient with volume overload, edema and acute on chronic renal insufficiency. I think the metformin needs to be stopped and he would be a candidate for Jardiance for his diabetes and renal insufficiency and fluid retention. I am going to continue on losartan and spironolactone hold amlodipine continue hydralazine and attempt diuresis with furosemide 40 mg IV every 8 hours and Zaroxolyn 5 mg daily monitor kidney function if worsening need to back off (2) Acute exacerbation of chronic heart failure: I think this is multifactorial with sleep apnea, acute renal failure and to a lesser degree his vasodilator meds. Start BERNICE hose hold amlodipine start CPAP supported diuresis here in the hospital (3) CAD (coronary artery disease): Clinically stable without signs of angina (4) Diabetes: Hold metformin continue glipizide start sliding scale insulin (5) Iron deficiency anemia: Plan Overnight labs and H&P reviewed.Patient is a 59-year-old male with a past medical history of coronary artery disease, status post STEMI in August 2024 for which he underwent revascularization of mid RCA stent thrombosis. During the procedure patient had gone into a complete heart block and needed temporary transvenous pacing. His baseline rhythm returned to atrial fibrillation and patient was discharged home. However a few days later he presented again to the hospital with complete heart block and was transferred to [facility] where he received a cardiac pacemaker. He is currently maintained on aspirin and Effient, declined anticoagulation for the A-fib. His last echocardiogram taken at the time of STEMI showed an EF of 55 to 60%, moderate to severe LVH and left atrial dilatation. Patient also has a history of CKD with baseline trop ranging 1.8-2.0, most recently checked this past monday was at 1.8. He has been experiencing increasing anasarca and shortness of breath over the past week. creatinine today is at 3.0. Differentials at this time include CHF versus HERRERA on CKD which is contributing to the gross volume overload. Ordered echocardiogram which has been taken and currently pending. Holding nephrotoxic medications, including losartan and Aldactone for now. Renal ultrasound, renal vein and arterial Doppler additionally ordered. Results are awaited. Patient denies any history of prostate enlargement however does endorse some symptoms of difficulty urination. May have bladder outlet obstruction. Currently bladder scan shows 150 cc urine. Continue bladder scan every shift, if signs of gross retention or if ultrasound shows evidence of hydronephrosis or gross bladder outlet obstruction, will need placement of Cyr catheter. This was discussed with patient and he is agreeable to Cyr placement in the setting. In the interim started on Lasix 60 mg IV every 8 hours per renal recommendations. Monitor urine output and kidney function closely. Hyperkalemia noted at 5.9 this morning. To be repeated now. March 28, 2025 Diuresed about 900 cc this morning. Currently on Lasix 60 mg IV every 8 hours. Will discuss with nephrology regarding adding metolazone. Cyr catheter placed for urinary retention. This will enable strict intake and output. Hemoglobin noted to be trending down at 7.9, check FOBT. Closely monitor for now. Received erythropoietin yesterday. Patient noted to be mildly lethargic this morning, somnolent, takes time to awaken and have a conversation. Reduce dose of Lyrica to 150 mg p.o. daily given creatinine clearance of 23. Check ABG to assess for hypercapnia. Continue CPAP at nighttime. Hyperkalemia is resolved today. Potassium at 5.0. Patient had diarrheal movement last night after Kayexalate. Echocardiogram revealed an ejection fraction of 33%, patient will likely need a stress test once clinically euvolemic. 03/29 Net negative about 1.4 L since admission. Tolerating diuresis with Lasix 60 mg IV every 8 hours and metolazone 2.5 mg p.o. daily. Renal function is currently stable, slightly improved at 2.6. Will continue with same dosing. Patient has noted to have some accessory muscle use even though his trending net negative now. Noted inspiratory wheeze on examination. Has a history of chronic smoking and family reports as needed albuterol inhaler use. May have underlying COPD but never formally tested. Will add every 6 hour DuoNeb inhalation. Hemoglobin is noted to be trending down to 7.7 today. Will check FOBT. If positive may need endoscopic evaluation for ongoing GI losses. Patient was planned to undergo upper and lower GI endoscopy and esophageal manometry in April 2025 in [place], however if FOBT is positive with hemoglobin trending down to 7.7 now, would be prudent to perform endoscopy as inpatient. He is yet to have a bowel movement to perform this test. Will attempt to perform a bedside Hemoccult today. Transfuse 1 PRBC today as target hemoglobin to be 8 in patient with acute CHF. Continue nighttime CPAP use. Holding heparin today given concerns for possible GI bleed. Aspirin and Effient to continue for now, however if FOBT results positive may need to reconsider dual antiplatelet therapy since he is over 6 months out from his last coronary intervention. March 3002/2025 Patient is net -4.2 L today. Creatinine is improving at 2.3. Continue diuresis with Lasix 60 mg IV every 8 hours and metolazone. Hemoglobin at 8.4 today status post 1 unit packed red blood cell transfusion yesterday. He had a bowel movement overnight. Hemoccult at bedside was positive. Will consult general surgery in a.m. to assess for endoscopic evaluation. Will discuss with cardiology regarding feasibility of holding Effient transiently to undergo endoscopy. No gross melena at this time. No hematemesis. Wheezing is resolved today. Continue DuoNeb and elation. Oxygen requirement stable at 3 L/min. Continue IV diuresis, await patient to be clinically euvolemic before proceeding with stress test and endoscopic evaluation. Tmax noted to be at 99.1 Fahrenheit. Chest x-ray performed, radiology read is awaited, per personal interpretation appears to have mild left lower lobe atelectasis. Added incentive spirometer. UA taken no signs of UTI. Holding off on antibiotics at this time and closely monitor. Negative respiratory viral panel. Blood pressure trending towards hypertension between 140-150 systolic. Change hydralazine dosing from as needed to 10 mg 3 times daily.Aldactone remains on Hold. Heparin ppx on hold due to falling Hb and + FOBT. Continue SCDs. 03/31/5025 Creatinine 2.3 today. Continue IV diuresis. Placed on Lasix 60 IV twice daily ? Continue Effient, aspirin Consult general surgery for potential EGD colonoscopy going forward. Patient has required a blood transfusion secondary to low hemoglobin. WBC count 4.7. ? Continue to check CBC every 12 hours. ? Patient does not have any hematemesis or gross melena. ? As per cardiology safe to hold Effient for 48 hours. Patient has very high risk for in-stent thrombosis. We will discuss with general surgery. ? Heparin prophylaxis on hold. ? Continue IV diuresis and once euvolemic we will perform stress testing as per cardiology recommendations. ? Recommendations from nephrology appreciated. 04/01/2025 States Protonix to 40 twice daily, add sucralfate Hemoglobin 8.0 today. No gross bleed present. Patient at risk of in-stent thrombosis. Continue Effient and aspirin. Continue 60 Lasix IV twice daily Creatinine trending down to 2.1. Most likely secondary to cardiorenal syndrome. Heparin prophylaxis on hold. FOBT pending PDMP PDMP Reviewed: Not Reviewed Attestations 2 Medical Necessity Statement*: Requires IV diuresis in the hospital with potential EGD colonoscopy. Once euvolemic will need inpatient stress testing. Diagnoses Acute on chronic renal insufficiency N28.9; N18.9 Acute exacerbation of chronic heart failure I50.9 Coronary artery disease involving [place] coronary artery of [place] heart without angina pectoris I25.10 Coronary Disease-Associated Artery/Lesion type: [place] artery [place] vs. transplanted heart: [place] heart Associated angina: without angina Diabetes E11.9 Iron deficiency anemia D50.9
[2025-04-01] MEDS: carvedilol 3.125 mg Tablet PO (16:36)
[2025-04-01] MEDS: sucralfate 1 gm Tablet PO ×2 (16:36→21:08)
[2025-04-01 20:13] LABS: Basophils # 0.1 10^3/uL (0.0-0.1); Basophils % 1.5 %; Eosinophils # 0.2 10^3/uL (0.0-0.8); Lymphocytes # 0.6 10^3/uL (0.8-4.8); Lymphocytes % 14.4 %; Mean Corpuscular HGB Conc 29.3 g/dL (30-55); Mean Corpuscular Hemoglobin 26.8 pg (27-33); Mean Corpuscular Volume 91.5 fl (82-101); Mean Platelet Volume 12.7 fL (7.4-10.4); Monocytes # 0.3 10^3/uL (0.2-0.9); Monocytes % 7.1 %; Neutrophils # 2.87 10^3/uL (1.8-7.7); Neutrophils % 72.5 %; Nucleated Red Blood Cells % 0 %; Platelet Count 117 10^3/cmm (157-399); Red Blood Count 2.95 10^6/uL (3.85-5.65); Red Cell Distribution Width 15.5 % (12.1-15.1); White Blood Count 3.96 10^3/uL (3.29-11.43)
[2025-04-01] MEDS: atorvastatin 40 mg Tablet PO (21:08)
[2025-04-01] MEDS: tamsulosin 0.4 mg Capsule PO (21:08)
[2025-04-02] VITALS (11 sets, daily range): BP systolic 123–136; BP diastolic 64–81; PULSE 59–67; RESP 16–19; TEMP 36.4–36.9; O2SAT 91–97
[2025-04-02] MEDS: ipratropium-albuterol 3 mL Neb INHALATION ×4 (02:57→20:01)
[2025-04-02 05:43] LABS: Basophils # 0.1 10^3/uL (0.0-0.1); Basophils % 1.3 %; Eosinophils # 0.2 10^3/uL (0.0-0.8); Eosinophils % 5.3 %; Hematocrit 28.3 % (37-53); Lymphocytes # 0.8 10^3/uL (0.8-4.8); Lymphocytes % 19.1 %; Mean Corpuscular Volume 93.1 fl (82-101); Monocytes # 0.3 10^3/uL (0.2-0.9); Monocytes % 7.6 %; Neutrophils # 2.64 10^3/uL (1.8-7.7); Neutrophils % 66.4 %; Nucleated Red Blood Cells % 0 %; Platelet Count 116 10^3/cmm (157-399); Red Blood Count 3.04 10^6/uL (3.85-5.65); Red Cell Distribution Width 15.6 % (12.1-15.1); White Blood Count 3.97 10^3/uL (3.29-11.43)
[2025-04-02] MEDS: sucralfate 1 gm Tablet PO ×4 (05:58→21:17)
[2025-04-02] MEDS: FUROsemide 10 mg/mL SDV 10mL 60 MG IVP ×2 (05:58→17:33)
[2025-04-02 06:02] LABS: Anion Gap 14.2 (5-19); Blood Urea Nitrogen 54 mg/dL (8-23); Carbon Dioxide 36 mmol/L (22-29); Chloride 94 mmol/L (98-107); Glomerular Filtration Rate 36.2 mL/min (90-130); Glucose 213 mg/dL (65-115); Magnesium 2.3 mg/dL (1.7-2.3); Osmolality Calculated 311 mOsm/kg (285-295); Potassium 4.2 mmol/L (3.5-5.1); Sodium 140 mmol/L (136-145)
[2025-04-02] MEDS: carvedilol 3.125 mg Tablet PO ×2 (08:28→17:34)
[2025-04-02] MEDS: ezetimibe 10 mg Tablet PO (08:28)
[2025-04-02] MEDS: prasugrel 10 MG Tablet PO (08:28)
[2025-04-02] MEDS: metOLazone 5 MG Tablet 2.5 MG PO ×2 (08:28→21:17)
[2025-04-02] MEDS: hyDRALAzine 10 mg Tablet PO ×3 (08:28→21:17)
[2025-04-02] MEDS: pregabalin 150 mg Capsule PO ×2 (08:28→17:34)
[2025-04-02] MEDS: pantoprazole DR 40 mg Tablet PO ×2 (08:28→17:34)
[2025-04-02] MEDS: isosorbide mononitrate ER 30 mg Tablet PO ×2 (08:28→17:34)
[2025-04-02] MEDS: duloxetine 60 mg Capsule PO (08:28)
--- NOTE | 2025-04-02 10:30 | P.PN_ITS ---
Subjective 2 Subjective: no new c/o Medications: Reviewed: Yes Vitals/I&O/Wt Last Vital Signs Temp 98.1 F 04/02/25 08:00 Pulse 60 04/02/25 08:06 Resp 18 04/02/25 08:03 BP 131/64 04/02/25 08:00 Pulse Ox 95 04/02/25 08:06 O2 Del Method Room Air 04/02/25 08:06 O2 Flow Rate 3 04/02/25 08:03 FiO2 35 03/28/25 22:06 04/01/25 04/02/25 04/02/25 22:59 06:59 14:59 Intake Total 480 / 838 120 / 958 Output Total 1150 / 1925 1100 / 3025 810 / 810 Balance -670 / -1087 -980 / -2067 -810 / -810 Weight last 48 hrs Weight 124.965 kg Weight 121.109 kg Physical Exam 2 Narrative: Patient is awake alert, no distress, on 3 L O2 by nasal cannula PERRLA S1-S2 regular rate and rhythm per report Lungs with bilateral crackles per report Abdomen distended, soft, nontender 3+ pedal edema Neuro awake alert and oriented Skin no rash Urinary Catheter Management: Cyr: Cath Placed During This Visit: yes Reason for Continuing Indwelling Catheter: Acute Urinary Retention or Obstruction Urinary Catheter Date of Insertion: 03/28/25 Urinary Catheter Time of Insertion: 09:00 Data 04/02/25 05:31 04/02/25 05:31 A&P Assessment and plan (1) Acute on chronic renal insufficiency: 1. Acute on chronic kidney disease stage III: Baseline creatinine in the mid 1 range now has HERRERA with a creatinine up to 3 likely cardiorenal in etiology.No hydronephrosis on US - was on Lasix 60 Mg IV and on IV albumin - 1500 mL fluid restriction in 2 g sodium restriction - Hold the losartan and metformin and spironolactone 2. CHF: Repeat echocardiogram -Ef 30-35% , diuretics as above 3. History of extensive coronary artery disease with CABG and stents, followed by cardiology 4. Hypertension: On amlodipine and hydralazine Imdur , hold losartan and spironolactone in the setting of HERRERA 5. Hyperkalemia, improved 6. Anemia: s/p transfusion and work up for GI bleed (2) Acute exacerbation of chronic heart failure: Plan per [facility] PDMP PDMP Reviewed: Not Reviewed Attestations 2 Medical Necessity Statement*: per [facility] Coding Level of Care Code Acute Code for Chg Fwd Diagnoses Acute on chronic renal insufficiency N28.9; N18.9 Acute exacerbation of chronic heart failure I50.9
--- NOTE | 2025-04-02 11:02 | P.PN_ITS ---
<Statement entered by Paulina Webb MD - 04/02/25 20:55> Patient was evaluated and cared for in conjunction with an advanced practice practitioner. I personally examined the patient and reviewed the chart and all pertinent data including imaging, telemetry, and laboratory results. I discussed the patient in detail with the advanced practice practitioner. Please see their note for complete H&P testing result and agreed upon plan of care for the patient. Patient has been improving but continues to be heart failure. He is in decompensated state. GENERAL: Patient is alert, awake and oriented x3. HEART: Regular S1 and S2. No murmur, rub or gallop. LUNGS: Inspiratory crackles bilaterally. CENTRAL NERVOUS SYSTEM: Grossly nonfocal. Abdomen: Distended with abdominal wall edema EXTREMITIES: Lower extremities with out edema bilaterally. Acute decompensated systolic heart failure Worsening of LV function Persistent anemia state Acute on chronic kidney failure Ischemic cardiomyopathy Patient requires IV diuresis he appears to be in decompensated state of heart failure. At this point I will increase metolazone to 2.5 mg twice daily continue IV Lasix 60 twice daily goal is 1.5 L negative per day. Hemoglobin remained stable. Discontinue aspirin, increase Protonix to twice daily Patient has EGD scheduled as an outpatient in mid January. At this point no intervention for left heart cath given persistent eusebia and possible decompensated systolic heart failure with possible nonischemic component. Once stable creatinine woods may will consider Entresto Subjective 2 Subjective: Patient sleepy this morning, no events noted overnight. He is diuresing well, - 2 L for the last 24 hours, -10 L cumulative for this admission. Rate and blood pressure well-controlled. Hemoglobin 8.2, creatinine down to 1.9 this morning. Vitals/I&O/Wt Last Vital Signs Temp 98.1 F 04/02/25 08:00 Pulse 60 04/02/25 08:06 Resp 18 04/02/25 08:03 BP 131/64 04/02/25 08:00 Pulse Ox 95 04/02/25 08:06 O2 Del Method Room Air 04/02/25 08:06 O2 Flow Rate 3 04/02/25 08:03 FiO2 35 03/28/25 22:06 04/01/25 04/02/25 04/02/25 22:59 06:59 14:59 Intake Total 480 / 958 120 / 958 Output Total 1150 / 3025 1100 / 3025 810 / 810 Balance -670 / -2067 -980 / -2067 -810 / -810 Weight last 48 hrs Weight 275 lb 8 oz Weight 267 lb Physical Exam 2 Const: COMMON NORMALS: no acute distress and patient oriented x3 GENERAL APPEARANCE: cooperative and comfortable ORIENTATION/CONSCIOUSNESS: Yes awake, Yes oriented to person, Yes oriented to place and Yes oriented to time Chest: COMMONS NORMALS: normal inspection of the chest and normal palpation of entire chest wall CHEST: Yes Symmetrical chest wall rise Resp: COMMON NORMALS: normal respiratory effort, No retractions, No use of accessory muscles and clear to auscultation bilaterally EFFORT & INSPECTION: Yes symmetric chest movement AUSCULTATION: clear to auscultation bilaterally Cardio: COMMON NORMALS: regular rate, regular rhythm, S1 normal heart sound present, S2 normal heart sound present, No gallops present (Cardio), No clicks present (Cardio), No murmurs present (Cardio) and No rub (Cardio) RATE: r egular rate RHYTHM: regular rhythm HEART SOUNDS: S1 normal heart sound present and S2 normal heart sound present PERIPHERAL PULSES: radial pulses present Extremity: COMMON NORMALS: no pedal edema Neuro: COMMON NORMALS: patient oriented x3 and moves all extremities S ENSORIUM/ORIENTATION: Yes oriented to person, Yes oriented to place and Yes oriented to time Urinary Catheter Management: Cyr: Cath Placed During This Visit: yes Reason for Continuing Indwelling Catheter: Acute Urinary Retention or Obstruction Urinary Catheter Date of Insertion: 03/28/25 Urinary Catheter Time of Insertion: 09:00 Data 04/02/25 05:31 04/02/25 05:31 A&P Assessment and plan (1) Acute on chronic renal insufficiency: (2) Acute exacerbation of chronic heart failure: (3) CAD (coronary artery disease): (4) Diabetes: (5) Iron deficiency anemia: Plan Tolerating carvedilol well so far, continue 3.125 mg twice daily. Continue Lasix 60 mg twice daily and metolazone 2.5 mg daily. Renal function slightly improved. Continue Effient and Protonix, sucralfate added as well. Will plan for Lexiscan stress test to determine if cardiomyopathy is ischemic or not, given creatinine and CKD. He still has significant anemia, 8.2 today. PDMP PDMP Reviewed: Not Reviewed Attestations 2 Medical Necessity Statement*: Medical therapy for heart failure Coding Level of Care Code Acute Code for Chg Fwd Diagnoses Acute on chronic renal insufficiency N28.9; N18.9 Acute exacerbation of chronic heart failure I50.9 Coronary artery disease involving [place] coronary artery of [place] heart without angina pectoris I25.10 Coronary Disease-Associated Artery/Lesion type: [place] artery [place] vs. transplanted heart: [place] heart Associated angina: without angina Diabetes E11.9 Iron deficiency anemia D50.9
--- NOTE | 2025-04-02 11:02 | PC.SOCIAL ---
IMM Update Pg. 2 of IMM updated and reviewed with patient, who verbalized understanding. Copy provided at bedside.
--- NOTE | 2025-04-02 11:33 | PM.PN ---
Subjective Subjective: seen today no acute events overnight resting comfortably in bed quite sleepy this morning 11L neg since admission cr improving to 1.9 today Vitals/I&O/Wt Last Vital Signs Temp 98.1 F 04/02/25 08:00 Pulse 60 04/02/25 08:06 Resp 18 04/02/25 08:03 BP 131/64 04/02/25 08:00 Pulse Ox 95 04/02/25 08:06 O2 Del Method Room Air 04/02/25 08:06 O2 Flow Rate 3 04/02/25 08:03 FiO2 35 03/28/25 22:06 04/01/25 04/02/25 04/02/25 22:59 06:59 14:59 Intake Total 480 / 838 120 / 958 Output Total 1150 / 1925 1100 / 3025 810 / 810 Balance -670 / -1087 -980 / -2067 -810 / -810 Weight last 48 hrs Weight 124.965 kg Weight 121.109 kg Physical Exam Narrative: General: No acute distress, AO , x3 appears quite sleepy today , volume status slowly improving HEENT: PERRLA, pupils bilaterally equal and reactive, pallors not present Chest: Normal vesicular breath sounds, no added sounds, equal good air entry bilaterally, CVS: S1-S2 regular, Abdomen: Soft, nontender, no organomegaly, bowel sounds present Neuro: No focal deficits, no facial deformity, AO x3, Urinary Catheter Management: Cyr: Cath Placed During This Visit: yes Reason for Continuing Indwelling Catheter: Acute Urinary Retention or Obstruction Urinary Catheter Date of Insertion: 03/28/25 Urinary Catheter Time of Insertion: 09:00 Data 04/02/25 05:31 04/02/25 05:31 A&P Assessment and plan (1) Acute on chronic renal insufficiency: Patient with volume overload, edema and acute on chronic renal insufficiency. I think the metformin needs to be stopped and he would be a candidate for Jardiance for his diabetes and renal insufficiency and fluid retention. I am going to continue on losartan and spironolactone hold amlodipine continue hydralazine and attempt diuresis with furosemide 40 mg IV every 8 hours and Zaroxolyn 5 mg daily monitor kidney function if worsening need to back off (2) Acute exacerbation of chronic heart failure: I think this is multifactorial with sleep apnea, acute renal failure and to a lesser degree his vasodilator meds. Start BERNICE hose hold amlodipine start CPAP supported diuresis here in the hospital (3) CAD (coronary artery disease): Clinically stable without signs of angina (4) Diabetes: Hold metformin continue glipizide start sliding scale insulin (5) Iron deficiency anemia: Plan Overnight labs and H&P reviewed.Patient is a 59-year-old male with a past medical history of coronary artery disease, status post STEMI in August 2024 for which he underwent revascularization of mid RCA stent thrombosis. During the procedure patient had gone into a complete heart block and needed temporary transvenous pacing. His baseline rhythm returned to atrial fibrillation and patient was discharged home. However a few days later he presented again to the hospital with complete heart block and was transferred to [facility] where he received a cardiac pacemaker. He is currently maintained on aspirin and Effient, declined anticoagulation for the A-fib. His last echocardiogram taken at the time of STEMI showed an EF of 55 to 60%, moderate to severe LVH and left atrial dilatation. Patient also has a history of CKD with baseline trop ranging 1.8-2.0, most recently checked this past monday was at 1.8. He has been experiencing increasing anasarca and shortness of breath over the past week. creatinine today is at 3.0. Differentials at this time include CHF versus HERRERA on CKD which is contributing to the gross volume overload. Ordered echocardiogram which has been taken and currently pending. Holding nephrotoxic medications, including losartan and Aldactone for now. Renal ultrasound, renal vein and arterial Doppler additionally ordered. Results are awaited. Patient denies any history of prostate enlargement however does endorse some symptoms of difficulty urination. May have bladder outlet obstruction. Currently bladder scan shows 150 cc urine. Continue bladder scan every shift, if signs of gross retention or if ultrasound shows evidence of hydronephrosis or gross bladder outlet obstruction, will need placement of Cyr catheter. This was discussed with patient and he is agreeable to Cyr placement in the setting. In the interim started on Lasix 60 mg IV every 8 hours per renal recommendations. Monitor urine output and kidney function closely. Hyperkalemia noted at 5.9 this morning. To be repeated now. March 28, 2025 Diuresed about 900 cc this morning. Currently on Lasix 60 mg IV every 8 hours. Will discuss with nephrology regarding adding metolazone. Cyr catheter placed for urinary retention. This will enable strict intake and output. Hemoglobin noted to be trending down at 7.9, check FOBT. Closely monitor for now. Received erythropoietin yesterday. Patient noted to be mildly lethargic this morning, somnolent, takes time to awaken and have a conversation. Reduce dose of Lyrica to 150 mg p.o. daily given creatinine clearance of 23. Check ABG to assess for hypercapnia. Continue CPAP at nighttime. Hyperkalemia is resolved today. Potassium at 5.0. Patient had diarrheal movement last night after Kayexalate. Echocardiogram revealed an ejection fraction of 33%, patient will likely need a stress test once clinically euvolemic. 03/29 Net negative about 1.4 L since admission. Tolerating diuresis with Lasix 60 mg IV every 8 hours and metolazone 2.5 mg p.o. daily. Renal function is currently stable, slightly improved at 2.6. Will continue with same dosing. Patient has noted to have some accessory muscle use even though his trending net negative now. Noted inspiratory wheeze on examination. Has a history of chronic smoking and family reports as needed albuterol inhaler use. May have underlying COPD but never formally tested. Will add every 6 hour DuoNeb inhalation. Hemoglobin is noted to be trending down to 7.7 today. Will check FOBT. If positive may need endoscopic evaluation for ongoing GI losses. Patient was planned to undergo upper and lower GI endoscopy and esophageal manometry in April 2025 in [place], however if FOBT is positive with hemoglobin trending down to 7.7 now, would be prudent to perform endoscopy as inpatient. He is yet to have a bowel movement to perform this test. Will attempt to perform a bedside Hemoccult today. Transfuse 1 PRBC today as target hemoglobin to be 8 in patient with acute CHF. Continue nighttime CPAP use. Holding heparin today given concerns for possible GI bleed. Aspirin and Effient to continue for now, however if FOBT results positive may need to reconsider dual antiplatelet therapy since he is over 6 months out from his last coronary intervention. March 3002/2025 Patient is net -4.2 L today. Creatinine is improving at 2.3. Continue diuresis with Lasix 60 mg IV every 8 hours and metolazone. Hemoglobin at 8.4 today status post 1 unit packed red blood cell transfusion yesterday. He had a bowel movement overnight. Hemoccult at bedside was positive. Will consult general surgery in a.m. to assess for endoscopic evaluation. Will discuss with cardiology regarding feasibility of holding Effient transiently to undergo endoscopy. No gross melena at this time. No hematemesis. Wheezing is resolved today. Continue DuoNeb and elation. Oxygen requirement stable at 3 L/min. Continue IV diuresis, await patient to be clinically euvolemic before proceeding with stress test and endoscopic evaluation. Tmax noted to be at 99.1 Fahrenheit. Chest x-ray performed, radiology read is awaited, per personal interpretation appears to have mild left lower lobe atelectasis. Added incentive spirometer. UA taken no signs of UTI. Holding off on antibiotics at this time and closely monitor. Negative respiratory viral panel. Blood pressure trending towards hypertension between 140-150 systolic. Change hydralazine dosing from as needed to 10 mg 3 times daily.Aldactone remains on Hold. Heparin ppx on hold due to falling Hb and + FOBT. Continue SCDs. 03/31/5025 Creatinine 2.3 today. Continue IV diuresis. Placed on Lasix 60 IV twice daily ? Continue Effient, aspirin Consult general surgery for potential EGD colonoscopy going forward. Patient has required a blood transfusion secondary to low hemoglobin. WBC count 4.7. ? Continue to check CBC every 12 hours. ? Patient does not have any hematemesis or gross melena. ? As per cardiology safe to hold Effient for 48 hours. Patient has very high risk for in-stent thrombosis. We will discuss with general surgery. ? Heparin prophylaxis on hold. ? Continue IV diuresis and once euvolemic we will perform stress testing as per cardiology recommendations. ? Recommendations from nephrology appreciated. 04/01/2025 States Protonix to 40 twice daily, add sucralfate Hemoglobin 8.0 today. No gross bleed present. Patient at risk of in-stent thrombosis. Continue Effient and aspirin. Continue 60 Lasix IV twice daily Creatinine trending down to 2.1. Most likely secondary to cardiorenal syndrome. Heparin prophylaxis on hold. FOBT pending 04/02/2025 Continue Protonix to 40 twice daily, add sucralfate Hemoglobin 8.2 today. No gross bleed present. Patient at risk of in-stent thrombosis. Continue Effient and aspirin. Continue 60 Lasix IV twice daily Creatinine trending down to 1.9. Most likely secondary to cardiorenal syndrome. Heparin prophylaxis on hold. patient quite sleepy today will check ABG, concern for CO2 retention PDMP PDMP Reviewed: Not Reviewed Attestations Medical Necessity Statement*: Requires IV diuresis Diagnoses Acute on chronic renal insufficiency N28.9; N18.9 Acute exacerbation of chronic heart failure I50.9 Coronary artery disease involving [place] coronary artery of [place] heart without angina pectoris I25.10 Coronary Disease-Associated Artery/Lesion type: [place] artery [place] vs. transplanted heart: [place] heart Associated angina: without angina Diabetes E11.9 Iron deficiency anemia D50.9
[2025-04-02 11:52] LABS: ABG PCO2 63.4 mmHg (35-45); Alveolar-Arterial Oxygen Gradi 1.3 mmHg (5-10); Arterial Blood Gas Hematocrit 25.3 % (42-52); Base Excess ABG 12.6 mmol/L (-2.0-2.0); Blood Gas Allen Test Pos; Blood Gas Operator Identificat WALCI; Blood Gas Sample Site Radial, right; Blood Gas Sample Type Arterial; Carboxyhemoglobin 1.9 %THgb (0.4-20.1); HCO3 ABG 39.1 mmol/L (22-26); HGB O2 Sat 88.3 % (95-100); Ionized Calcium Level - ABG 1.2 mmol/L (1.1-1.4); Methemoglobin 1.4 % (0.4-1.5); Oxygen Device NC; Oxygen Saturation ABG 91.3; Potassium Level - ABG 3.7 mmol/L (3.5-5.0); Total Hemoglobin 8.3 g/dL (14-18)
[2025-04-02] MEDS: insulin lispro 100 unit/1 mL SUBCUT ×3 (12:31→21:16)
[2025-04-02] MEDS: lactulose oral liq 20 gm/30 mL UDC 10 GM PO (12:32)
[2025-04-02] MEDS: tamsulosin 0.4 mg Capsule PO (21:16)
[2025-04-02] MEDS: atorvastatin 40 mg Tablet PO (21:17)
[2025-04-03] VITALS (11 sets, daily range): BP systolic 131–148; BP diastolic 68–85; PULSE 60–68; RESP 16–19; TEMP 36.4–36.8; O2SAT 91–97
[2025-04-03 05:38] LABS: Basophils # 0.1 10^3/uL (0.0-0.1); Basophils % 1.4 %; Eosinophils # 0.2 10^3/uL (0.0-0.8); Eosinophils % 4.3 %; Hematocrit 28.1 % (37-53); Lymphocytes # 0.9 10^3/uL (0.8-4.8); Lymphocytes % 23.8 %; Mean Corpuscular HGB Conc 29.2 g/dL (30-55); Mean Corpuscular Hemoglobin 26.5 pg (27-33); Mean Corpuscular Volume 90.9 fl (82-101); Mean Platelet Volume 11.8 fL (7.4-10.4); Monocytes # 0.3 10^3/uL (0.2-0.9); Monocytes % 8.4 %; Neutrophils % 62.1 %; Nucleated Red Blood Cells % 0 %; Platelet Count 121 10^3/cmm (157-399); Red Blood Count 3.09 10^6/uL (3.85-5.65); Red Cell Distribution Width 15.5 % (12.1-15.1)
[2025-04-03 06:05] LABS: Blood Urea Nitrogen 49 mg/dL (8-23); Carbon Dioxide 38 mmol/L (22-29); Chloride 93 mmol/L (98-107); Creatinine Clr Calc Pharmacy 57.1689; Glomerular Filtration Rate 38.6 mL/min (90-130); Glucose 183 mg/dL (65-115); Magnesium 2.3 mg/dL (1.7-2.3); Osmolality Calculated 308 mOsm/kg (285-295); Sodium 140 mmol/L (136-145)
--- NOTE | 2025-04-03 06:13 | PC.NURSE ---
PT blood sugar off dexcom was 137 at 0613
[2025-04-03] MEDS: sucralfate 1 gm Tablet PO ×4 (06:18→22:04)
[2025-04-03] MEDS: FUROsemide 10 mg/mL SDV 10mL 60 MG IVP ×2 (06:18→17:13)
[2025-04-03] MEDS: pregabalin 150 mg Capsule PO ×2 (08:24→17:29)
[2025-04-03] MEDS: ezetimibe 10 mg Tablet PO (08:24)
[2025-04-03] MEDS: prasugrel 10 MG Tablet PO (08:24)
[2025-04-03] MEDS: duloxetine 60 mg Capsule PO (08:24)
[2025-04-03] MEDS: hyDRALAzine 10 mg Tablet PO ×3 (08:24→21:38)
[2025-04-03] MEDS: isosorbide mononitrate ER 30 mg Tablet PO ×2 (08:24→17:13)
[2025-04-03] MEDS: carvedilol 3.125 mg Tablet PO ×2 (08:24→17:13)
[2025-04-03] MEDS: pantoprazole DR 40 mg Tablet PO ×2 (08:24→17:13)
[2025-04-03] MEDS: metOLazone 5 MG Tablet 2.5 MG PO ×2 (08:25→17:15)
[2025-04-03] MEDS: ipratropium-albuterol 3 mL Neb INHALATION ×3 (08:29→21:38)
--- NOTE | 2025-04-03 09:08 | PM.PN ---
Subjective Subjective: no new c/o Medications: Reviewed: Yes Vitals/I&O/Wt Last Vital Signs Temp 97.8 F 04/03/25 08:21 Pulse 60 04/03/25 08:34 Resp 18 04/03/25 08:29 BP 144/68 04/03/25 08:21 Pulse Ox 93 04/03/25 08:29 O2 Del Method Nasal Cannula 04/03/25 08:29 O2 Flow Rate 1 04/03/25 08:29 FiO2 35 04/03/25 00:23 04/02/25 04/03/25 04/03/25 22:59 06:59 14:59 Intake Total 720 / 720 240 / 240 Output Total 2160 / 2970 800 / 3770 Balance -1440 / -2250 -800 / -3050 240 / 240 Weight last 48 hrs Weight 122.924 kg Weight 124.965 kg Physical Exam Narrative: Patient is awake alert, no distress, on 3 L O2 by nasal cannula PERRLA S1-S2 regular rate and rhythm per report Lungs with bilateral crackles per report Abdomen distended, soft, nontender 3+ pedal edema Neuro awake alert and oriented Skin no rash Urinary Catheter Management: Cyr: Cath Placed During This Visit: yes Reason for Continuing Indwelling Catheter: Acute Urinary Retention or Obstruction Urinary Catheter Date of Insertion: 03/28/25 Urinary Catheter Time of Insertion: 09:00 Data 04/03/25 05:28 04/03/25 05:28 A&P Assessment and plan (1) Acute on chronic renal insufficiency: 1. Acute on chronic kidney disease stage III: Baseline creatinine in the mid 1 range now has HERRERA with a creatinine up to 3 likely cardiorenal in etiology.No hydronephrosis on US - was on Lasix 60 Mg IV and on IV albumin - switch to PO lasix 60 mg BID po @ DC - 1500 mL fluid restriction in 2 g sodium restriction - Holding he losartan and metformin and spironolactone( continue to hold @ dc ) 2. CHF: Repeat echocardiogram -Ef 30-35% , diuretics as above 3. History of extensive coronary artery disease with CABG and stents, followed by cardiology 4. Hypertension: On amlodipine and hydralazine Imdur , hold losartan and spironolactone in the setting of HERRERA 5. Hyperkalemia, improved 6. Anemia: s/p transfusion and work up for GI bleed (2) Acute exacerbation of chronic heart failure: Plan per [facility] PDMP PDMP Reviewed: Not Reviewed Attestations Medical Necessity Statement*: per fredy Coding Level of Care Code Acute Code for Chg Fwd Diagnoses Acute on chronic renal insufficiency N28.9; N18.9 Acute exacerbation of chronic heart failure I50.9
--- NOTE | 2025-04-03 09:59 | P.PN_ITS ---
<Statement entered by Paulina Webb MD - 04/03/25 22:23> Patient was evaluated and cared for in conjunction with an advanced practice practitioner. I personally examined the patient and reviewed the chart and all pertinent data including imaging, telemetry, and laboratory results. I discussed the patient in detail with the advanced practice practitioner. Please see their note for complete H&P testing result and agreed upon plan of care for the patient. 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 Still has some abdominal distention, but breathing feels easier today. He is -3 L for the last 24 hours a -13 L cumulative. Blood pressures and heart rates are stable. Creatinine improved to 1.8 today, hemoglobin stable at 8.2. Continue Lasix 60 mg twice a day and metolazone 2.5 mg twice a day. Vitals/I&O/Wt Last Vital Signs Temp 97.8 F 04/03/25 08:21 Pulse 60 04/03/25 08:34 Resp 18 04/03/25 08:29 BP 144/68 04/03/25 08:21 Pulse Ox 93 04/03/25 08:29 O2 Del Method Nasal Cannula 04/03/25 08:29 O2 Flow Rate 1 04/03/25 08:29 FiO2 35 04/03/25 00:23 04/02/25 04/03/25 04/03/25 22:59 06:59 14:59 Intake Total 720 / 720 240 / 240 Output Total 2160 / 3770 800 / 3770 Balance -1440 / -3050 -800 / -3050 240 / 240 Weight last 48 hrs Weight 271 lb Weight 275 lb 8 oz Physical Exam 2 Const: COMMON NORMALS: no acute distress and patient oriented x3 GENERAL APPEARANCE: cooperative and comfortable ORIENTATION/CONSCIOUSNESS: Yes awake, Yes oriented to person, Yes oriented to place and Yes oriented to time Chest: COMMONS NORMALS: normal inspection of the chest and normal palpation of entire chest wall CHEST: Yes Symmetrical chest wall rise Resp: COMMON NORMALS: normal respiratory effort, No retractions, No use of accessory muscles and clear to auscultation bilaterally EFFORT & INSPECTION: Yes symmetric chest movement AUSCULTATION: clear to auscultation bilaterally Cardio: COMMON NORMALS: regular rate, regular rhythm, S1 normal heart sound present, S2 normal heart sound present, No gallops present (Cardio), No clicks present (Cardio), No murmurs present (Cardio) and No rub (Cardio) RATE: r egular rate RHYTHM: regular rhythm HEART SOUNDS: S1 normal heart sound present and S2 normal heart sound present PERIPHERAL PULSES: radial pulses present Extremity: COMMON NORMALS: no pedal edema Neuro: COMMON NORMALS: patient oriented x3 and moves all extremities S ENSORIUM/ORIENTATION: Yes oriented to person, Yes oriented to place and Yes oriented to time Urinary Catheter Management: Cyr: Cath Placed During This Visit: yes Reason for Continuing Indwelling Catheter: Acute Urinary Retention or Obstruction Urinary Catheter Date of Insertion: 03/28/25 Urinary Catheter Time of Insertion: 09:00 Data 04/03/25 05:28 04/03/25 05:28 A&P Assessment and plan (1) Acute exacerbation of CHF (congestive heart failure): (2) Acute exacerbation of chronic heart failure: (3) Diabetes: (4) Chronic kidney disease: (5) Iron deficiency anemia: Plan Continue diuresis, renal function slightly improved. He is not having any chest pain, shortness of breath is improved. No plans for ischemic workup at this time as long as symptoms remain improved, we will plan on addressing the possible ischemic cardiomyopathy with a stress test as an outpatient after he has his GI workup in [place]. PDMP PDMP Reviewed: Not Reviewed Attestations 2 Medical Necessity Statement*: Continued IV diuresis, possible ischemic cardiomyopathy Coding Level of Care Code Acute Code for Chg Fwd Diagnoses Acute exacerbation of CHF (congestive heart failure) I50.9 Acute exacerbation of chronic heart failure I50.9 Diabetes E11.9 Chronic kidney disease N18.9 Iron deficiency anemia D50.9
[2025-04-03] MEDS: lactulose oral liq 20 gm/30 mL UDC 10 GM PO (13:01)
[2025-04-03] MEDS: insulin lispro 100 unit/1 mL SUBCUT ×3 (13:06→21:37)
--- NOTE | 2025-04-03 13:48 | PM.PN ---
Subjective Subjective: Seen this morning. 11 L negative since admission. Vitals/I&O/Wt Last Vital Signs Temp 98.0 F 04/03/25 12:06 Pulse 60 04/03/25 12:06 Resp 19 H 04/03/25 12:06 BP 135/68 04/03/25 12:06 Pulse Ox 92 04/03/25 12:06 O2 Del Method Room Air 04/03/25 12:06 O2 Flow Rate 1 04/03/25 08:29 FiO2 35 04/03/25 00:23 04/02/25 04/03/25 04/03/25 22:59 06:59 14:59 Intake Total 720 / 720 480 / 480 Output Total 2160 / 2970 800 / 3770 1000 / 1000 Balance -1440 / -2250 -800 / -3050 -520 / -520 Weight last 48 hrs Weight 122.924 kg Weight 124.965 kg Physical Exam Narrative: General: No acute distress, AO , x3 resting comfortably in bed. HEENT: PERRLA, pupils bilaterally equal and reactive, pallors not present Chest: Normal vesicular breath sounds, no added sounds, equal good air entry bilaterally, CVS: S1-S2 regular, Abdomen: Soft, nontender, no organomegaly, bowel sounds present Neuro: No focal deficits, no facial deformity, AO x3, Urinary Catheter Management: Cyr: Cath Placed During This Visit: yes Reason for Continuing Indwelling Catheter: Acute Urinary Retention or Obstruction Urinary Catheter Date of Insertion: 03/28/25 Urinary Catheter Time of Insertion: 09:00 Data 04/03/25 05:28 04/03/25 05:28 A&P Assessment and plan (1) Acute on chronic renal insufficiency: Patient with volume overload, edema and acute on chronic renal insufficiency. I think the metformin needs to be stopped and he would be a candidate for Jardiance for his diabetes and renal insufficiency and fluid retention. I am going to continue on losartan and spironolactone hold amlodipine continue hydralazine and attempt diuresis with furosemide 40 mg IV every 8 hours and Zaroxolyn 5 mg daily monitor kidney function if worsening need to back off (2) Acute exacerbation of chronic heart failure: I think this is multifactorial with sleep apnea, acute renal failure and to a lesser degree his vasodilator meds. Start BERNICE hose hold amlodipine start CPAP supported diuresis here in the hospital (3) CAD (coronary artery disease): Clinically stable without signs of angina (4) Diabetes: Hold metformin continue glipizide start sliding scale insulin (5) Iron deficiency anemia: Plan Overnight labs and H&P reviewed.Patient is a 59-year-old male with a past medical history of coronary artery disease, status post STEMI in August 2024 for which he underwent revascularization of mid RCA stent thrombosis. During the procedure patient had gone into a complete heart block and needed temporary transvenous pacing. His baseline rhythm returned to atrial fibrillation and patient was discharged home. However a few days later he presented again to the hospital with complete heart block and was transferred to [facility] where he received a cardiac pacemaker. He is currently maintained on aspirin and Effient, declined anticoagulation for the A-fib. His last echocardiogram taken at the time of STEMI showed an EF of 55 to 60%, moderate to severe LVH and left atrial dilatation. Patient also has a history of CKD with baseline trop ranging 1.8-2.0, most recently checked this past monday was at 1.8. He has been experiencing increasing anasarca and shortness of breath over the past week. creatinine today is at 3.0. Differentials at this time include CHF versus HERRERA on CKD which is contributing to the gross volume overload. Ordered echocardiogram which has been taken and currently pending. Holding nephrotoxic medications, including losartan and Aldactone for now. Renal ultrasound, renal vein and arterial Doppler additionally ordered. Results are awaited. Patient denies any history of prostate enlargement however does endorse some symptoms of difficulty urination. May have bladder outlet obstruction. Currently bladder scan shows 150 cc urine. Continue bladder scan every shift, if signs of gross retention or if ultrasound shows evidence of hydronephrosis or gross bladder outlet obstruction, will need placement of Cyr catheter. This was discussed with patient and he is agreeable to Cyr placement in the setting. In the interim started on Lasix 60 mg IV every 8 hours per renal recommendations. Monitor urine output and kidney function closely. Hyperkalemia noted at 5.9 this morning. To be repeated now. March 28, 2025 Diuresed about 900 cc this morning. Currently on Lasix 60 mg IV every 8 hours. Will discuss with nephrology regarding adding metolazone. Cyr catheter placed for urinary retention. This will enable strict intake and output. Hemoglobin noted to be trending down at 7.9, check FOBT. Closely monitor for now. Received erythropoietin yesterday. Patient noted to be mildly lethargic this morning, somnolent, takes time to awaken and have a conversation. Reduce dose of Lyrica to 150 mg p.o. daily given creatinine clearance of 23. Check ABG to assess for hypercapnia. Continue CPAP at nighttime. Hyperkalemia is resolved today. Potassium at 5.0. Patient had diarrheal movement last night after Kayexalate. Echocardiogram revealed an ejection fraction of 33%, patient will likely need a stress test once clinically euvolemic. 03/29 Net negative about 1.4 L since admission. Tolerating diuresis with Lasix 60 mg IV every 8 hours and metolazone 2.5 mg p.o. daily. Renal function is currently stable, slightly improved at 2.6. Will continue with same dosing. Patient has noted to have some accessory muscle use even though his trending net negative now. Noted inspiratory wheeze on examination. Has a history of chronic smoking and family reports as needed albuterol inhaler use. May have underlying COPD but never formally tested. Will add every 6 hour DuoNeb inhalation. Hemoglobin is noted to be trending down to 7.7 today. Will check FOBT. If positive may need endoscopic evaluation for ongoing GI losses. Patient was planned to undergo upper and lower GI endoscopy and esophageal manometry in April 2025 in [place], however if FOBT is positive with hemoglobin trending down to 7.7 now, would be prudent to perform endoscopy as inpatient. He is yet to have a bowel movement to perform this test. Will attempt to perform a bedside Hemoccult today. Transfuse 1 PRBC today as target hemoglobin to be 8 in patient with acute CHF. Continue nighttime CPAP use. Holding heparin today given concerns for possible GI bleed. Aspirin and Effient to continue for now, however if FOBT results positive may need to reconsider dual antiplatelet therapy since he is over 6 months out from his last coronary intervention. March 3002/2025 Patient is net -4.2 L today. Creatinine is improving at 2.3. Continue diuresis with Lasix 60 mg IV every 8 hours and metolazone. Hemoglobin at 8.4 today status post 1 unit packed red blood cell transfusion yesterday. He had a bowel movement overnight. Hemoccult at bedside was positive. Will consult general surgery in a.m. to assess for endoscopic evaluation. Will discuss with cardiology regarding feasibility of holding Effient transiently to undergo endoscopy. No gross melena at this time. No hematemesis. Wheezing is resolved today. Continue DuoNeb and elation. Oxygen requirement stable at 3 L/min. Continue IV diuresis, await patient to be clinically euvolemic before proceeding with stress test and endoscopic evaluation. Tmax noted to be at 99.1 Fahrenheit. Chest x-ray performed, radiology read is awaited, per personal interpretation appears to have mild left lower lobe atelectasis. Added incentive spirometer. UA taken no signs of UTI. Holding off on antibiotics at this time and closely monitor. Negative respiratory viral panel. Blood pressure trending towards hypertension between 140-150 systolic. Change hydralazine dosing from as needed to 10 mg 3 times daily.Aldactone remains on Hold. Heparin ppx on hold due to falling Hb and + FOBT. Continue SCDs. 03/31/5025 Creatinine 2.3 today. Continue IV diuresis. Placed on Lasix 60 IV twice daily ? Continue Effient, aspirin Consult general surgery for potential EGD colonoscopy going forward. Patient has required a blood transfusion secondary to low hemoglobin. WBC count 4.7. ? Continue to check CBC every 12 hours. ? Patient does not have any hematemesis or gross melena. ? As per cardiology safe to hold Effient for 48 hours. Patient has very high risk for in-stent thrombosis. We will discuss with general surgery. ? Heparin prophylaxis on hold. ? Continue IV diuresis and once euvolemic we will perform stress testing as per cardiology recommendations. ? Recommendations from nephrology appreciated. 04/01/2025 States Protonix to 40 twice daily, add sucralfate Hemoglobin 8.0 today. No gross bleed present. Patient at risk of in-stent thrombosis. Continue Effient and aspirin. Continue 60 Lasix IV twice daily Creatinine trending down to 2.1. Most likely secondary to cardiorenal syndrome. Heparin prophylaxis on hold. FOBT pending 04/02/2025 Continue Protonix to 40 twice daily, add sucralfate Hemoglobin 8.2 today. No gross bleed present. Patient at risk of in-stent thrombosis. Continue Effient and aspirin. Continue 60 Lasix IV twice daily Creatinine trending down to 1.9. Most likely secondary to cardiorenal syndrome. Heparin prophylaxis on hold. patient quite sleepy today will check ABG, concern for CO2 retention 04/03/2025 Continue Effient and aspirin. Hemoglobin 8.2 today. Stable No gross bleeding present. Continue Protonix 40 twice daily, sucralfate Creatinine 1.8 today. Trending down slowly. Heparin prophylaxis on hold. Continues Lasix 60 IV twice daily Continue metolazone 2.5 twice daily. Cardiology on board and following. Recommend further IV diuresis at this time. Most likely plan to discharge home by Thursday 04/05. Plan to switch to oral Lasix tomorrow and monitor. PDMP PDMP Reviewed: Not Reviewed Attestations Medical Necessity Statement*: Continued IV diuresis, possible ischemic cardiomyopathy Diagnoses Acute on chronic renal insufficiency N28.9; N18.9 Acute exacerbation of chronic heart failure I50.9 Coronary artery disease involving [place] coronary artery of [place] heart without angina pectoris I25.10 Coronary Disease-Associated Artery/Lesion type: [place] artery [place] vs. transplanted heart: [place] heart Associated angina: without angina Diabetes E11.9 Iron deficiency anemia D50.9
[2025-04-03] MEDS: tamsulosin 0.4 mg Capsule PO (21:38)
[2025-04-03] MEDS: atorvastatin 40 mg Tablet PO (21:38)
[2025-04-04] VITALS (12 sets, daily range): BP systolic 130–149; BP diastolic 65–86; PULSE 60–91; RESP 16–19; TEMP 36.5–36.9; O2SAT 93–97
[2025-04-04] MEDS: ipratropium-albuterol 3 mL Neb INHALATION ×4 (02:59→19:59)
[2025-04-04 05:07] LABS: Basophils # 0.1 10^3/uL (0.0-0.1); Basophils % 1.6 %; Eosinophils # 0.2 10^3/uL (0.0-0.8); Eosinophils % 4.4 %; Hematocrit 27.4 % (37-53); Lymphocytes # 0.8 10^3/uL (0.8-4.8); Lymphocytes % 21.8 %; Mean Corpuscular HGB Conc 29.2 g/dL (30-55); Mean Corpuscular Hemoglobin 26.6 pg (27-33); Mean Platelet Volume 11.9 fL (7.4-10.4); Monocytes # 0.3 10^3/uL (0.2-0.9); Monocytes % 8.6 %; Neutrophils # 2.44 10^3/uL (1.8-7.7); Neutrophils % 63.3 %; Nucleated Red Blood Cells % 0 %; Platelet Count 124 10^3/cmm (157-399); Red Blood Count 3.01 10^6/uL (3.85-5.65); Red Cell Distribution Width 15.7 % (12.1-15.1); White Blood Count 3.85 10^3/uL (3.29-11.43)
[2025-04-04 05:31] LABS: Anion Gap 11.8 (5-19); Blood Urea Nitrogen 49 mg/dL (8-23); Calcium 8.7 mg/dL (8.5-10.5); Carbon Dioxide 38 mmol/L (22-29); Chloride 94 mmol/L (98-107); Creatinine Clr Calc Pharmacy 48.5754; Glomerular Filtration Rate 32.3 mL/min (90-130); Glucose 205 mg/dL (65-115); Osmolality Calculated 309 mOsm/kg (285-295); Potassium 3.8 mmol/L (3.5-5.1); Sodium 140 mmol/L (136-145)
[2025-04-04] MEDS: FUROsemide 10 mg/mL SDV 10mL 60 MG IVP ×2 (06:06→16:56)
[2025-04-04] MEDS: sucralfate 1 gm Tablet PO ×4 (06:07→21:07)
[2025-04-04] MEDS: pantoprazole DR 40 mg Tablet PO ×2 (08:34→16:59)
[2025-04-04] MEDS: duloxetine 60 mg Capsule PO (08:35)
[2025-04-04] MEDS: prasugrel 10 MG Tablet PO (08:35)
[2025-04-04] MEDS: isosorbide mononitrate ER 30 mg Tablet PO ×2 (08:35→16:59)
[2025-04-04] MEDS: ezetimibe 10 mg Tablet PO (08:35)
[2025-04-04] MEDS: pregabalin 150 mg Capsule PO ×2 (08:35→16:59)
[2025-04-04] MEDS: hyDRALAzine 10 mg Tablet PO ×3 (08:35→21:07)
[2025-04-04] MEDS: metOLazone 5 MG Tablet 2.5 MG PO ×2 (08:36→17:01)
[2025-04-04] MEDS: insulin lispro 100 unit/1 mL SUBCUT ×4 (08:36→21:06)
[2025-04-04] MEDS: carvedilol 3.125 mg Tablet PO ×2 (08:36→16:59)
--- NOTE | 2025-04-04 11:10 | PM.PN ---
Subjective Subjective: No new c/o Medications: Reviewed: Yes Vitals/I&O/Wt Last Vital Signs Temp 98.1 F 04/04/25 07:58 Pulse 62 04/04/25 08:44 Resp 18 04/04/25 08:44 BP 149/74 04/04/25 07:58 Pulse Ox 95 04/04/25 08:44 O2 Del Method Nasal Cannula 04/04/25 08:44 O2 Flow Rate 1 04/04/25 08:44 FiO2 35 04/03/25 00:23 04/03/25 04/04/25 04/04/25 22:59 06:59 14:59 Intake Total 600 / 1080 240 / 240 Output Total 600 / 1600 Balance 0 / -520 240 / 240 Weight last 48 hrs Weight 122.924 kg Physical Exam Narrative: Patient is awake alert, no distress, on 3 L O2 by nasal cannula PERRLA S1-S2 regular rate and rhythm per report Lungs with bilateral crackles per report Abdomen distended, soft, nontender 3+ pedal edema Neuro awake alert and oriented Skin no rash Urinary Catheter Management: Cyr: Cath Placed During This Visit: yes Reason for Continuing Indwelling Catheter: Acute Urinary Retention or Obstruction Urinary Catheter Date of Insertion: 03/28/25 Urinary Catheter Time of Insertion: 09:00 Data 04/04/25 04:49 04/04/25 04:49 A&P Assessment and plan (1) Acute on chronic renal insufficiency: 1. Acute on chronic kidney disease stage III: Baseline creatinine in the mid 1 range now has HERRERA with a creatinine up to 3 likely cardiorenal in etiology.No hydronephrosis on US - on Lasix 60 Mg IV and on IV albumin - switch to PO lasix 60 mg BID po @ DC - 1500 mL fluid restriction in 2 g sodium restriction - Holding he losartan and metformin and spironolactone( continue to hold @ dc ) 2. CHF: Repeat echocardiogram -Ef 30-35% , diuretics as above 3. History of extensive coronary artery disease with CABG and stents, followed by cardiology 4. Hypertension: On amlodipine and hydralazine Imdur , hold losartan and spironolactone in the setting of HERRERA 5. Hyperkalemia, improved 6. Anemia: s/p transfusion and work up for GI bleed (2) Acute exacerbation of chronic heart failure: Plan per [facility] PDMP PDMP Reviewed: Not Reviewed Attestations Medical Necessity Statement*: per medicne Coding Level of Care Code Acute Code for Chg Fwd Diagnoses Acute on chronic renal insufficiency N28.9; N18.9 Acute exacerbation of chronic heart failure I50.9
[2025-04-04] MEDS: lactulose oral liq 20 gm/30 mL UDC 10 GM PO (11:35)
--- NOTE | 2025-04-04 11:59 | P.PN_ITS ---
<Statement entered by Paulina Webb MD - 04/04/25 18:39> Patient was evaluated and cared for in conjunction with an advanced practice practitioner. I personally examined the patient and reviewed the chart and all pertinent data including imaging, telemetry, and laboratory results. I discussed the patient in detail with the advanced practice practitioner. Please see their note for complete H&P testing result and agreed upon plan of care for the patient. Patient says he continues to feel better he has diuresed well GENERAL: Patient is alert, awake and oriented x3. HEART: Regular S1 and S2. No murmur, rub or gallop. LUNGS: Clear to auscultate bilaterally. Abdomen: Distended with abdominal wall edema has improved CENTRAL NERVOUS SYSTEM: Grossly nonfocal. EXTREMITIES: Lower extremities with 1+ edema bilaterally. Ischemic cardiomyopathy Decompensated systolic heart failure Anemia Hypertension Acute on chronic kidney disease Patient continues to diurese well continue IV diuresis along with metolazone will switch patient to p.o. from tomorrow most likely discharge tomorrow as patient would like to go home Subjective 2 Subjective: He is looking much better, sitting on the side of the bed eating currently. Abdominal distention has improved. Vitals/I&O/Wt Last Vital Signs Temp 97.7 F 04/04/25 11:55 Pulse 61 04/04/25 11:55 Resp 18 04/04/25 11:55 BP 141/86 04/04/25 11:55 Pulse Ox 94 04/04/25 11:55 O2 Del Method Nasal Cannula 04/04/25 11:55 O2 Flow Rate 1 04/04/25 08:44 FiO2 35 04/03/25 00:23 04/03/25 04/04/25 04/04/25 22:59 06:59 14:59 Intake Total 600 / 1080 240 / 240 Output Total 600 / 1600 Balance 0 / -520 240 / 240 Weight last 48 hrs Weight 271 lb Physical Exam 2 Const: COMMON NORMALS: no acute distress and patient oriented x3 GENERAL APPEARANCE: cooperative and comfortable ORIENTATION/CONSCIOUSNESS: Yes awake, Yes oriented to person, Yes oriented to place and Yes oriented to time Chest: COMMONS NORMALS: normal inspection of the chest and normal palpation of entire chest wall CHEST: Yes Symmetrical chest wall rise Resp: COMMON NORMALS: normal respiratory effort, No retractions, No use of accessory muscles and clear to auscultation bilaterally EFFORT & INSPECTION: Yes symmetric chest movement AUSCULTATION: clear to auscultation bilaterally Cardio: COMMON NORMALS: regular rate, regular rhythm, S1 normal heart sound present, S2 normal heart sound present, No gallops present (Cardio), No clicks present (Cardio), No murmurs present (Cardio) and No rub (Cardio) RATE: r egular rate RHYTHM: regular rhythm HEART SOUNDS: S1 normal heart sound present and S2 normal heart sound present PERIPHERAL PULSES: radial pulses present Extremity: COMMON NORMALS: no pedal edema Neuro: COMMON NORMALS: patient oriented x3 and moves all extremities S ENSORIUM/ORIENTATION: Yes oriented to person, Yes oriented to place and Yes oriented to time Urinary Catheter Management: Cyr: Cath Placed During This Visit: yes Reason for Continuing Indwelling Catheter: Acute Urinary Retention or Obstruction Urinary Catheter Date of Insertion: 03/28/25 Urinary Catheter Time of Insertion: 09:00 Data 04/04/25 04:49 04/04/25 04:49 A&P Assessment and plan (1) Acute exacerbation of chronic heart failure: (2) Diabetes: (3) Chronic kidney disease: (4) Iron deficiency anemia: Plan He is much more alert today, breathing feels easier, lungs are clear and abdominal distention is lessened. Recommend converting to oral Lasix today, 60mg twice daily. He has been taking metolazone 2.5 mg twice a day, creatinine 2.1 today. Will continue metolazone 2.5 mg twice daily today. If fluid balance is still improving tomorrow can consider discharge, at that time will recommend metolazone 2.5 mg daily as needed for weight gain greater than 3 pounds in 24 hours or 5 pounds in a week. On later examination this afternoon, he seems more volume overloaded. Will continue IV lasix for the rest of today, then reassess tomorrow. PDMP PDMP Reviewed: Not Reviewed Attestations 2 Medical Necessity Statement*: Continue diuresis, possible discharge tomorrow Coding Level of Care Code Acute Code for Chg Fwd Diagnoses Acute exacerbation of chronic heart failure I50.9 Diabetes E11.9 Chronic kidney disease N18.9 Iron deficiency anemia D50.9
--- NOTE | 2025-04-04 13:54 | PM.PN ---
Subjective Subjective: seen this am pt is 15L neg since admission creatinine 2.1 this am Vitals/I&O/Wt Last Vital Signs Temp 97.7 F 04/04/25 11:55 Pulse 60 04/04/25 13:25 Resp 18 04/04/25 13:25 BP 141/86 04/04/25 11:55 Pulse Ox 94 04/04/25 13:25 O2 Del Method Nasal Cannula 04/04/25 13:25 O2 Flow Rate 1 04/04/25 13:25 FiO2 35 04/03/25 00:23 04/03/25 04/04/25 04/04/25 22:59 06:59 14:59 Intake Total 600 / 1080 600 / 600 Output Total 600 / 1600 2500 / 2500 Balance 0 / -520 -1900 / -1900 Weight last 48 hrs Weight 122.924 kg Physical Exam Narrative: General: No acute distress, AO , x3 resting comfortably in bed. HEENT: PERRLA, pupils bilaterally equal and reactive, pallors not present Chest: Normal vesicular breath sounds, no added sounds, equal good air entry bilaterally, CVS: S1-S2 regular, Abdomen: Soft, nontender, no organomegaly, bowel sounds present Neuro: No focal deficits, no facial deformity, AO x3, improving anasarca, le edema Urinary Catheter Management: Cyr: Cath Placed During This Visit: yes Reason for Continuing Indwelling Catheter: Acute Urinary Retention or Obstruction Urinary Catheter Date of Insertion: 03/28/25 Urinary Catheter Time of Insertion: 09:00 Data 04/04/25 04:49 04/04/25 04:49 A&P Assessment and plan (1) Acute on chronic renal insufficiency: Patient with volume overload, edema and acute on chronic renal insufficiency. I think the metformin needs to be stopped and he would be a candidate for Jardiance for his diabetes and renal insufficiency and fluid retention. I am going to continue on losartan and spironolactone hold amlodipine continue hydralazine and attempt diuresis with furosemide 40 mg IV every 8 hours and Zaroxolyn 5 mg daily monitor kidney function if worsening need to back off (2) Acute exacerbation of chronic heart failure: I think this is multifactorial with sleep apnea, acute renal failure and to a lesser degree his vasodilator meds. Start BERNICE hose hold amlodipine start CPAP supported diuresis here in the hospital (3) CAD (coronary artery disease): Clinically stable without signs of angina (4) Diabetes: Hold metformin continue glipizide start sliding scale insulin (5) Iron deficiency anemia: Plan Overnight labs and H&P reviewed.Patient is a 59-year-old male with a past medical history of coronary artery disease, status post STEMI in August 2024 for which he underwent revascularization of mid RCA stent thrombosis. During the procedure patient had gone into a complete heart block and needed temporary transvenous pacing. His baseline rhythm returned to atrial fibrillation and patient was discharged home. However a few days later he presented again to the hospital with complete heart block and was transferred to [facility] where he received a cardiac pacemaker. He is currently maintained on aspirin and Effient, declined anticoagulation for the A-fib. His last echocardiogram taken at the time of STEMI showed an EF of 55 to 60%, moderate to severe LVH and left atrial dilatation. Patient also has a history of CKD with baseline trop ranging 1.8-2.0, most recently checked this past monday was at 1.8. He has been experiencing increasing anasarca and shortness of breath over the past week. creatinine today is at 3.0. Differentials at this time include CHF versus HERRERA on CKD which is contributing to the gross volume overload. Ordered echocardiogram which has been taken and currently pending. Holding nephrotoxic medications, including losartan and Aldactone for now. Renal ultrasound, renal vein and arterial Doppler additionally ordered. Results are awaited. Patient denies any history of prostate enlargement however does endorse some symptoms of difficulty urination. May have bladder outlet obstruction. Currently bladder scan shows 150 cc urine. Continue bladder scan every shift, if signs of gross retention or if ultrasound shows evidence of hydronephrosis or gross bladder outlet obstruction, will need placement of Cyr catheter. This was discussed with patient and he is agreeable to Cyr placement in the setting. In the interim started on Lasix 60 mg IV every 8 hours per renal recommendations. Monitor urine output and kidney function closely. Hyperkalemia noted at 5.9 this morning. To be repeated now. March 28, 2025 Diuresed about 900 cc this morning. Currently on Lasix 60 mg IV every 8 hours. Will discuss with nephrology regarding adding metolazone. Cyr catheter placed for urinary retention. This will enable strict intake and output. Hemoglobin noted to be trending down at 7.9, check FOBT. Closely monitor for now. Received erythropoietin yesterday. Patient noted to be mildly lethargic this morning, somnolent, takes time to awaken and have a conversation. Reduce dose of Lyrica to 150 mg p.o. daily given creatinine clearance of 23. Check ABG to assess for hypercapnia. Continue CPAP at nighttime. Hyperkalemia is resolved today. Potassium at 5.0. Patient had diarrheal movement last night after Kayexalate. Echocardiogram revealed an ejection fraction of 33%, patient will likely need a stress test once clinically euvolemic. 03/29 Net negative about 1.4 L since admission. Tolerating diuresis with Lasix 60 mg IV every 8 hours and metolazone 2.5 mg p.o. daily. Renal function is currently stable, slightly improved at 2.6. Will continue with same dosing. Patient has noted to have some accessory muscle use even though his trending net negative now. Noted inspiratory wheeze on examination. Has a history of chronic smoking and family reports as needed albuterol inhaler use. May have underlying COPD but never formally tested. Will add every 6 hour DuoNeb inhalation. Hemoglobin is noted to be trending down to 7.7 today. Will check FOBT. If positive may need endoscopic evaluation for ongoing GI losses. Patient was planned to undergo upper and lower GI endoscopy and esophageal manometry in April 2025 in [place], however if FOBT is positive with hemoglobin trending down to 7.7 now, would be prudent to perform endoscopy as inpatient. He is yet to have a bowel movement to perform this test. Will attempt to perform a bedside Hemoccult today. Transfuse 1 PRBC today as target hemoglobin to be 8 in patient with acute CHF. Continue nighttime CPAP use. Holding heparin today given concerns for possible GI bleed. Aspirin and Effient to continue for now, however if FOBT results positive may need to reconsider dual antiplatelet therapy since he is over 6 months out from his last coronary intervention. March 3002/2025 Patient is net -4.2 L today. Creatinine is improving at 2.3. Continue diuresis with Lasix 60 mg IV every 8 hours and metolazone. Hemoglobin at 8.4 today status post 1 unit packed red blood cell transfusion yesterday. He had a bowel movement overnight. Hemoccult at bedside was positive. Will consult general surgery in a.m. to assess for endoscopic evaluation. Will discuss with cardiology regarding feasibility of holding Effient transiently to undergo endoscopy. No gross melena at this time. No hematemesis. Wheezing is resolved today. Continue DuoNeb and elation. Oxygen requirement stable at 3 L/min. Continue IV diuresis, await patient to be clinically euvolemic before proceeding with stress test and endoscopic evaluation. Tmax noted to be at 99.1 Fahrenheit. Chest x-ray performed, radiology read is awaited, per personal interpretation appears to have mild left lower lobe atelectasis. Added incentive spirometer. UA taken no signs of UTI. Holding off on antibiotics at this time and closely monitor. Negative respiratory viral panel. Blood pressure trending towards hypertension between 140-150 systolic. Change hydralazine dosing from as needed to 10 mg 3 times daily.Aldactone remains on Hold. Heparin ppx on hold due to falling Hb and + FOBT. Continue SCDs. 03/31/5025 Creatinine 2.3 today. Continue IV diuresis. Placed on Lasix 60 IV twice daily ? Continue Effient, aspirin Consult general surgery for potential EGD colonoscopy going forward. Patient has required a blood transfusion secondary to low hemoglobin. WBC count 4.7. ? Continue to check CBC every 12 hours. ? Patient does not have any hematemesis or gross melena. ? As per cardiology safe to hold Effient for 48 hours. Patient has very high risk for in-stent thrombosis. We will discuss with general surgery. ? Heparin prophylaxis on hold. ? Continue IV diuresis and once euvolemic we will perform stress testing as per cardiology recommendations. ? Recommendations from nephrology appreciated. 04/01/2025 States Protonix to 40 twice daily, add sucralfate Hemoglobin 8.0 today. No gross bleed present. Patient at risk of in-stent thrombosis. Continue Effient and aspirin. Continue 60 Lasix IV twice daily Creatinine trending down to 2.1. Most likely secondary to cardiorenal syndrome. Heparin prophylaxis on hold. FOBT pending 04/02/2025 Continue Protonix to 40 twice daily, add sucralfate Hemoglobin 8.2 today. No gross bleed present. Patient at risk of in-stent thrombosis. Continue Effient and aspirin. Continue 60 Lasix IV twice daily Creatinine trending down to 1.9. Most likely secondary to cardiorenal syndrome. Heparin prophylaxis on hold. patient quite sleepy today will check ABG, concern for CO2 retention 04/03/2025 Continue Effient and aspirin. Hemoglobin 8.2 today. Stable No gross bleeding present. Continue Protonix 40 twice daily, sucralfate Creatinine 1.8 today. Trending down slowly. Heparin prophylaxis on hold. Continues Lasix 60 IV twice daily Continue metolazone 2.5 twice daily. Cardiology on board and following. Recommend further IV diuresis at this time. Most likely plan to discharge home by Thursday 04/05. Plan to switch to oral Lasix tomorrow and monitor. 04/04/2025 switch to oral lasix today continue metolazine as per cardio recommendations cr 2.1 today appreciate nephrology and cardiology recommendation hemoglobin 8 today, stable 15L neg since admission potential DC in am once ok from cardio and nephro standpoint PDMP PDMP Reviewed: Not Reviewed Attestations Medical Necessity Statement*: monitor on oral diuretics today, potential DC in AM Diagnoses Acute on chronic renal insufficiency N28.9; N18.9 Acute exacerbation of chronic heart failure I50.9 Coronary artery disease involving [place] coronary artery of [place] heart without angina pectoris I25.10 Coronary Disease-Associated Artery/Lesion type: [place] artery [place] vs. transplanted heart: [place] heart Associated angina: without angina Diabetes E11.9 Iron deficiency anemia D50.9
[2025-04-04] MEDS: atorvastatin 40 mg Tablet PO (21:07)
[2025-04-04] MEDS: tamsulosin 0.4 mg Capsule PO (21:07)
[2025-04-05] VITALS (7 sets, daily range): BP systolic 128–146; BP diastolic 64–77; PULSE 58–90; RESP 16–19; TEMP 36.3–36.9; O2SAT 94–98
[2025-04-05] MEDS: ipratropium-albuterol 3 mL Neb INHALATION ×3 (02:30→14:16)
[2025-04-05] MEDS: FUROsemide 10 mg/mL SDV 10mL 60 MG IVP (03:51)
[2025-04-05 04:24] LABS: Basophils # 0.1 10^3/uL (0.0-0.1); Basophils % 1.2 %; Eosinophils # 0.2 10^3/uL (0.0-0.8); Hematocrit 28.5 % (37-53); Lymphocytes # 0.9 10^3/uL (0.8-4.8); Lymphocytes % 20.6 %; Mean Corpuscular HGB Conc 29.5 g/dL (30-55); Mean Corpuscular Volume 91.6 fl (82-101); Mean Platelet Volume 12.4 fL (7.4-10.4); Monocytes # 0.3 10^3/uL (0.2-0.9); Monocytes % 7.4 %; Neutrophils # 2.74 10^3/uL (1.8-7.7); Neutrophils % 65.6 %; Nucleated Red Blood Cells % 0 %; Platelet Count 131 10^3/cmm (157-399); Red Blood Count 3.11 10^6/uL (3.85-5.65); Red Cell Distribution Width 15.7 % (12.1-15.1); White Blood Count 4.18 10^3/uL (3.29-11.43)
[2025-04-05 04:44] LABS: Anion Gap 15.7 (5-19); Blood Urea Nitrogen 47 mg/dL (8-23); Calcium 8.9 mg/dL (8.5-10.5); Carbon Dioxide 34 mmol/L (22-29); Chloride 95 mmol/L (98-107); Creatinine Clr Calc Pharmacy 56.6713; Glomerular Filtration Rate 38.6 mL/min (90-130); Glucose 215 mg/dL (65-115); Magnesium 2.3 mg/dL (1.7-2.3); Osmolality Calculated 311 mOsm/kg (285-295); Potassium 3.7 mmol/L (3.5-5.1); Sodium 141 mmol/L (136-145)
[2025-04-05] MEDS: sucralfate 1 gm Tablet PO ×2 (06:15→12:08)
--- NOTE | 2025-04-05 07:31 | P.PN_ITS ---
Subjective 2 Subjective: feels better Medications: Reviewed: Yes Vitals/I&O/Wt Last Vital Signs Temp 98.4 F 04/05/25 04:00 Pulse 58 L 04/05/25 04:00 Resp 18 04/05/25 04:00 BP 146/77 04/05/25 04:00 Pulse Ox 95 04/05/25 04:00 O2 Del Method Room Air 04/05/25 04:00 O2 Flow Rate 3 04/04/25 20:03 FiO2 35 04/03/25 00:23 04/04/25 04/05/25 04/05/25 22:59 06:59 14:59 Intake Total 240 / 840 Output Total 1500 / 4000 2000 / 6000 Balance -1260 / -3160 -1999 / -5160 Weight last 48 hrs Weight 122.561 kg Physical Exam 2 Narrative: Patient is awake alert, no distress, on 3 L O2 by nasal cannula PERRLA S1-S2 regular rate and rhythm per report Lungs with bilateral crackles per report Abdomen distended, soft, nontender 3+ pedal edema Neuro awake alert and oriented Skin no rash Urinary Catheter Management: Cyr: Cath Placed During This Visit: yes Reason for Continuing Indwelling Catheter: Other Urinary Catheter Date of Insertion: 03/28/25 Urinary Catheter Time of Insertion: 09:00 Data 04/05/25 04:06 04/05/25 04:06 A&P Assessment and plan (1) Acute on chronic renal insufficiency: 1. Acute on chronic kidney disease stage III: Baseline creatinine in the mid 1 range now has HERRERA with a creatinine up to 3 likely cardiorenal in etiology.No hydronephrosis on US - on PO lasix 60 mg BID , Cr table - 1500 mL fluid restriction in 2 g sodium restriction - Holding he losartan and metformin and spironolactone( continue to hold @ dc ) 2. CHF: Repeat echocardiogram -Ef 30-35% , diuretics as above 3. History of extensive coronary artery disease with CABG and stents, followed by cardiology 4. Hypertension: On amlodipine and hydralazine Imdur , hold losartan and spironolactone in the setting of HERRERA 5. Hyperkalemia, improved 6. Anemia: s/p transfusion and work up for GI bleed (2) Acute exacerbation of chronic heart failure: [facility] PDMP PDMP Reviewed: Not Reviewed Attestations 2 Medical Necessity Statement*: per [facility] Coding Level of Care Code Acute Code for Chg Fwd Diagnoses Acute on chronic renal insufficiency N28.9; N18.9 Acute exacerbation of chronic heart failure I50.9
[2025-04-05] MEDS: insulin lispro 100 unit/1 mL SUBCUT ×2 (08:36→12:09)
[2025-04-05] MEDS: FUROsemide 40 mg Tablet 60 MG PO (08:37)
[2025-04-05] MEDS: pantoprazole DR 40 mg Tablet PO (08:38)
[2025-04-05] MEDS: pregabalin 150 mg Capsule PO (08:38)
[2025-04-05] MEDS: prasugrel 10 MG Tablet PO (08:38)
[2025-04-05] MEDS: metOLazone 5 MG Tablet 2.5 MG PO (08:38)
[2025-04-05] MEDS: hyDRALAzine 10 mg Tablet PO (08:38)
[2025-04-05] MEDS: ezetimibe 10 mg Tablet PO (08:39)
[2025-04-05] MEDS: isosorbide mononitrate ER 30 mg Tablet PO (08:39)
[2025-04-05] MEDS: carvedilol 3.125 mg Tablet PO (08:39)
[2025-04-05] MEDS: duloxetine 60 mg Capsule PO (08:43)
--- NOTE | 2025-04-05 11:48 | P.DS_ITS ---
Discharge Providers Date of Admission: 03/26/25 20:02 Date of Discharge: April 05, 2025 Attending Provider at Admission: Richie Singh MD Attending Provider at Discharge: Melissa Taylor MD Primary Care Provider: Enrique Avila MD Diagnoses at Discharge Discharge Diagnosis (1) Acute on chronic renal insufficiency: Status: Acute (2) Acute exacerbation of chronic heart failure: Status: Acute Reason for Visit Reason for Visit: sob, retaining fluid Hospital Course Hospital Course Patient presented to the hospital for HERRERA secondary to cardiorenal syndrome and exacerbation of heart failure. He did have a history of STEMI in August 2020 for which he underwent revascularization of mid RCA stent thrombosis. During hospitalization he was diuresed aggressively with Lasix IV. Patient is 18.7 L negative at time of discharge. Initially upon arrival he was hyperkalemic. Spironolactone and nephrotoxic meds were stopped. Nephrology was on board, cardiology was on board. He also had anemia with hemoglobin dropping to 7.7. Aspirin discontinued. Patient will go home on Effient only as per cardiology recommendations. He is to continue Nexium and sucralfate. He does have a outpatient scheduled EGD next month. Patient was started on Entresto. It has been recommended for him to get labs done upcoming Monday BNP BMP, CBC per cardiology and the week after and to follow-up closely with PCP cardiology as outpatient. He is to keep his outpatient appointment for EGD next month. At this point patient is volume optimized. He has been asked to take as needed metolazone if weight gain greater than 3 pounds in 48-hour period. Patient's and daughter at bedside updated in detail regarding plan. He is ambulatory has been doing well and appears to be stable for discharge. Medication reconciliation performed personally with nephrology and cardiology guidance at time of discharge. Physical Exam Narrative: General: No acute distress, AO , x3 resting comfortably in bed. HEENT: PERRLA, pupils bilaterally equal and reactive, pallors not present Chest: Normal vesicular breath sounds, no added sounds, equal good air entry bilaterally, CVS: S1-S2 regular, Abdomen: Soft, nontender, no organomegaly, bowel sounds present Neuro: No focal deficits, no facial deformity, AO x3, Appears euvolemic today Urinary Catheter Management: Cyr: Cath Placed During This Visit: yes Reason for Continuing Indwelling Catheter: Other Urinary Catheter Date of Insertion: 03/28/25 Urinary Catheter Time of Insertion: 09:00 Discharge Data Studies Completed and Pending Completed Studies During Hospitalization Category Date Time Status CXRP [XR chest 1V portable [id number]] Routine Exams 03/30/25 09:46 Completed XR chest 1V portable [id number] Stat Exams 03/26/25 17:55 Completed CV. echo complete* [id number] Routine Ultrasound 03/27/25 09:18 Completed US gall bladder 12515 DAILY Ultrasound 03/28/25 10:00 Completed US renal BI* [id number] Routine Ultrasound 03/27/25 10:37 Completed US renal doppler [CV renal doppler 10850] Routine Ultrasound 03/27/25 09:18 Completed Pending at discharge Category Date Time Status Fecal Occult Blood [Immunochemical Fecal OCB] Routine Lab 03/28/25 08:38 Ordered Radiology Impressions Renal Ultrasound 03/27/25 10:37 IMPRESSION: As Gallbladder Ultrasound 03/28/25 10:00 Impression: 1. Cholecystectomy. 2. Hepatomegaly with pulsatile portal vein. Chest X-Ray 03/30/25 09:46 IMPRESSION: As above. Laboratory Results WBC 4.18 10^3/uL (3.29-11.43) 04/05/25 04:06 RBC 3.11 10^6/uL (3.85-5.65) L 04/05/25 04:06 Hgb 8.40 g/dL (11.27-16.99) L 04/05/25 04:06 Hct 28.5 % (37-53) L 04/05/25 04:06 MCV 91.6 fl (82-101) 04/05/25 04:06 MCH 27.0 pg (27-33) 04/05/25 04:06 MCHC 29.5 g/dL (30-55) L 04/05/25 04:06 RDW 15.7 % (12.1-15.1) H 04/05/25 04:06 Plt Count 131 10^3/cmm (157-399) L 04/05/25 04:06 MPV 12.4 fL (7.4-10.4) H 04/05/25 04:06 Neut % (Auto) 65.6 % 04/05/25 04:06 Lymph % (Auto) 20.6 % 04/05/25 04:06 Bledsoe % (Auto) 7.4 % 04/05/25 04:06 Eos % (Auto) 5.0 % 04/05/25 04:06 Baso % (Auto) 1.2 % 04/05/25 04:06 Neut # (Auto) 2.74 10^3/uL (1.8-7.7) 04/05/25 04:06 Lymph # (Auto) 0.9 10^3/uL (0.8-4.8) 04/05/25 04:06 Bledsoe # (Auto) 0.3 10^3/uL (0.2-0.9) 04/05/25 04:06 Eos # (Auto) 0.2 10^3/uL (0.0-0.8) 04/05/25 04:06 Baso # (Auto) 0.1 10^3/uL (0.0-0.1) 04/05/25 04:06 Nucleated RBC % (auto) 0 % 04/05/25 04:06 Nucleated RBCs # 0.0 /100WBC 04/05/25 04:06 Specimen Type Arterial 04/02/25 11:40 Sample Site Radial, right 04/02/25 11:40 ABG pH 7.40 (7.35-7.45) 04/02/25 11:40 ABG pCO2 63.4 mmHg (35-45) H* 04/02/25 11:40 ABG pO2 63.0 mmHg (80.0-100.0) L 04/02/25 11:40 ABG PO2/FiO2 Ratio 238 03/28/25 11:10 ABG HCO3 39.1 mmol/L (22-26) H 04/02/25 11:40 ABG O2 Saturation 91.3 04/02/25 11:40 ABG Base Excess 12.6 mmol/L (-2.0-2.0) H 04/02/25 11:40 Guicho Test Pos 04/02/25 11:40 A-a O2 Gradient 1.3 mmHg (5-10) L 04/02/25 11:40 Hematocrit 25.3 % (42-52) L 04/02/25 11:40 Hgb O2 Saturation 88.3 % (95-100) L 04/02/25 11:40 Carboxyhemoglobin 1.9 %THgb (0.4-20.1) 04/02/25 11:40 Methemoglobin 1.4 % (0.4-1.5) 04/02/25 11:40 Total Hemoglobin 8.3 g/dL (14-18) L 04/02/25 11:40 Sodium 136.0 mmol/L (131-143) 04/02/25 11:40 Potassium 3.7 mmol/L (3.5-5.0) 04/02/25 11:40 Glucose 392.0 mg/dL (70-115) H 04/02/25 11:40 Ionized Calcium 1.2 mmol/L (1.1-1.4) 04/02/25 11:40 O2 Delivery Device Nc 04/02/25 11:40 O2 Liters/Min 1.0 % 04/02/25 11:40 FiO2 32.0 % 03/28/25 11:10 Sap Fico Architect ID [place] 04/02/25 11:40 Sodium 141 mmol/L (136-145) 04/05/25 04:06 Potassium 3.7 mmol/L (3.5-5.1) 04/05/25 04:06 Chloride 95 mmol/L (98-107) L 04/05/25 04:06 Carbon Dioxide 34 mmol/L (22-29) H 04/05/25 04:06 Anion Gap 15.7 (5-19) 04/05/25 04:06 BUN 47 mg/dL (8-23) H 04/05/25 04:06 Creatinine 1.8 mg/dL (0.7-1.2) H 04/05/25 04:06 GFR Calculation 38.6 mL/min (90-130) L 04/05/25 04:06 Glucose 215 mg/dL (65-115) H 04/05/25 04:06 POC Glucose 268 mg/dL (70-110) H 03/29/25 11:22 Calculated Osmolality 311 mOsm/kg (285-295) H 04/05/25 04:06 Calcium 8.9 mg/dL (8.5-10.5) 04/05/25 04:06 Magnesium 2.3 mg/dL (1.7-2.3) 04/05/25 04:06 Iron 22 ug/dL (59-158) L 03/28/25 04:51 TIBC 294 mcg/dl 03/28/25 04:51 % Saturation 7.4 % (20-50) L 03/28/25 04:51 Unsat Iron Binding 272 ug/dL (112-347) 03/28/25 04:51 Ferritin 43 ng/mL (30-400) 03/28/25 04:51 Total Bilirubin 1.0 mg/dL (0.15-1.2) 03/31/25 04:08 AST 35 U/L (0-40) 03/31/25 04:08 ALT 40 U/L (0-41) 03/31/25 04:08 Alkaline Phosphatase 84 U/L (40-130) 03/31/25 04:08 Troponin T Baseline 48 ng/L (0-15) H 03/27/25 13:10 Troponin T 120 Minute 47.17 ng/L (0-15) H 03/27/25 14:46 Delta Troponin T -0.83 ABS# (0-10) L 03/27/25 14:46 Troponin T Hi Sens 6Hr 48.45 ng/L (0-15) H 03/27/25 18:42 Troponin T Hi Sens 6Hr Delta 0.45 ng/L (0-12) 03/27/25 18:42 NT-Pro-B Natriuret Pep 5909 pg/mL (0-125) H 03/26/25 18:38 Total Protein 6.6 g/dL (6.6-8.7) 03/31/25 04:08 Albumin 4.3 g/dL (3.5-5.2) 03/31/25 04:08 Globulin 2.3 g/dL (1.3-4.6) 03/31/25 04:08 Vitamin B12 544 pg/mL (232-1245) 03/28/25 04:51 Folate 14.2 ng/mL (4.5-32.2) 03/28/25 04:51 Urine Color Yellow (Yellow) 03/30/25 10:45 Urine Appearance Cloudy (CLEAR) A 03/30/25 10:45 Urine pH 5 (5-7) 03/30/25 10:45 Ur Specific [place]one 1.009 (1.005-1.030) 03/30/25 10:45 Urine Protein 2+ (Negative) H 03/30/25 10:45 Urine Glucose (UA) Norm (Normal) 03/30/25 10:45 Urine Ketones Negative (Negative) 03/30/25 10:45 Urine Blood 1+ (Negative) H 03/30/25 10:45 Urine Nitrate Negative (Negative) 03/30/25 10:45 Urine Bilirubin Neg (Negative) 03/30/25 10:45 Urine Urobilinogen 1 mg/dL (Negative) H 03/30/25 10:45 Ur Leukocyte Esterase Negative (Negative) 03/30/25 10:45 Urine RBC 6-10 /hpf (0-2) 03/30/25 10:45 Urine WBC 0-5 /hpf (0-5) 03/30/25 10:45 Ur Squamous Epith Cells 0-4 /hpf (0-5) H 03/30/25 10:45 Amorphous Sediment Not Reportable 03/30/25 10:45 Urine Bacteria None /hpf (NONE) 03/30/25 10:45 Hyaline Casts 10-15 /lpf H 03/30/25 10:45 Adenovirus (PCR) Not detected (NOT DETECT) 03/30/25 11:35 C. pneumoniae DNA (PCR) Not detected (NOT DETECT) 03/30/25 11:35 Coronavirus 229E (PCR) Not detected (NOT DETECT) 03/30/25 11:35 Human Metapneumovir PCR Not detected (NOT DETECT) 03/30/25 11:35 Influenza A (H1) PCR Not detected (NOT DETECT) 03/30/25 11:35 Influ A (H1/09) PCR Not detected (NOT DETECT) 03/30/25 11:35 Influenza A (H3) PCR Not detected (NOT DETECT) 03/30/25 11:35 Influenza Type A (PCR) Not detected (NOT DETECT) 03/30/25 11:35 Influenza Type B (PCR) Not detected (NOT DETECT) 03/30/25 11:35 M. pneumoniae (PCR) Not detected (NOT DETECT) 03/30/25 11:35 Parainfluenza 1 (PCR) Not detected (NOT DETECT) 03/30/25 11:35 Parainfluenza 2 (PCR) Not detected (NOT DETECT) 03/30/25 11:35 Parainfluenza 3 (PCR) Not detected (NOT DETECT) 03/30/25 11:35 Parainfluenza 4 (PCR) Not detected (NOT DETECT) 03/30/25 11:35 RSV Type A (PCR) Not detected (NOT DETECT) 03/30/25 11:35 RSV Type B (PCR) Not detected (NOT DETECT) 03/30/25 11:35 Entero/Rhino (PCR) Not detected (NOT DETECT) 03/30/25 11:35 SARS-CoV-2 (PCR) Not detected (NOT DETECT) 03/30/25 11:35 Blood Type AB Positive 03/29/25 14:38 Rho(D) Type Rh positive 03/29/25 14:38 Antibody Screen Negative 03/29/25 14:38 Crossmatch See Detail 03/29/25 14:38 Vitals Last Vital Signs Temp 97.3 F L 04/05/25 11:12 Pulse 67 04/05/25 11:12 Resp 18 04/05/25 11:12 BP 128/68 04/05/25 11:12 Pulse Ox 94 04/05/25 11:12 O2 Del Method Nasal Cannula 04/05/25 11:12 O2 Flow Rate 1 04/05/25 11:12 FiO2 35 04/03/25 00:23 Discharge Plan Discharge Patient Disposition: Home Condition: Stable Prescriptions: New furosemide 40 mg Tablet 60 mg PO BID@08,16 Qty: 90 0RF sucralfate 1 gram Tablet 1 g PO AC&BEDTIME Qty: 60 0RF carvedilol 3.125 mg Tablet 3.125 mg PO BID Qty: 60 0RF metolazone 5 mg Tablet 2.5 mg PO DAILY PRN (Reason: weight gain) Qty: 30 0RF Rx Instructions: for weight gain greater than 3 pounds in 48 hour period Entresto 24-26 mg tablet 1 tab PO BID Qty: 60 0RF Continued prasugrel HCl [Effient] 10 mg tablet 10 mg PO DAILY Qty: 90 3RF nitroglycerin [Nitrostat] 0.4 mg tablet, sublingual 0.4 mg sublingual Q5M PRN (Reason: chest pain) Qty: 25 1RF Zetia 10 mg tablet 10 mg PO DAILY@08 Qty: 90 3RF isosorbide mononitrate 30 mg tablet extended release 24 hr 30 mg PO BID Qty: 180 3RF tamsulosin 0.4 mg Capsule 0.4 mg PO DAILY@2200 Qty: 0 glyburide 2.5 mg tablet 2.5 mg PO DAILY Qty: 0 atorvastatin 40 mg tablet 40 mg PO BEDTIME@2200 duloxetine [Cymbalta] 60 mg capsule,delayed release(DR/EC) 60 mg PO DAILY@08 albuterol sulfate 90 mcg/actuation HFA aerosol inhaler 2 inh inhalation 6XD PRN (Reason: shortness of breath or wheezing) Qty: 8.5 0RF esomeprazole magnesium 40 mg capsule,delayed release(DR/EC) 40 mg PO QAM Changed pregabalin 300 mg capsule 150 mg PO BID Qty: 30 0RF Held metformin 1,000 mg tablet 1,000 mg PO BID Hold Instructions: Resume on 09/08/24. Discontinued aspirin 81 mg tablet,delayed release (DR/EC) 81 mg PO DAILY Qty: 90 3RF amlodipine 5 mg tablet 5 mg PO DAILY hydralazine 25 mg tablet See Rx Instructions .ROUTE .COMPLEX Qty: 180 6RF Dose Instruction: TAKE 2 TABLETS BY MOUTH THREE TIMES DAILY Rx Instructions: TAKE 2 TABLETS BY MOUTH THREE TIMES DAILY torsemide 20 mg tablet 30 mg PO BID famotidine 20 mg tablet 20 mg PO BID losartan 25 mg tablet 25 mg PO DAILY spironolactone 50 mg tablet 50 mg PO DAILY Discharge Orders: Discharge Order (Routine); Ordered 04/05/25 Ordered By: Melissa Taylor Other Ambulatory Orders: Basic Metabolic Panel (Routine) Timeframe: 20250414 Facility: [facility] - Location: Lab - Main Lab Ordered By: Melissa Taylor Basic Metabolic Panel (Routine) Timeframe: 20250407 Facility: [facility] - Location: Lab - Main Lab Ordered By: Melissa Taylor Complete Blood Count w/Auto (Routine) Timeframe: 20250407 Location: Determined by Patient Ordered By: Melissa Taylor Complete Blood Count w/Auto (Routine) Timeframe: 20250414 Location: Determined by Patient Ordered By: Melissa Taylor NT Pro B Type Natriuretic Pept (Routine) Timeframe: 20250407 Facility: [facility] - Location: Lab - Main Lab Ordered By: Melissa Taylor Referrals: Paulina Webb MD [Physician, Cardiology] - 1 month Referral Note: We have notified your physician's clinic of the need for a follow-up appointment to be scheduled. If you have not heard from them within the next 2 business days, please call them directly. Enrique Avila MD [Primary Care Provider, Family Practice] - 4-7 days Referral Note: We have notified your physician's clinic of the need for a follow-up appointment to be scheduled. If you have not heard from them within the next 2 business days, please call them directly. Heather Frankel FNP [Nurse Practitioner, Cardiology] - 4-7 days Referral Note: We have notified your physician's clinic of the need for a follow-up appointment to be scheduled. If you have not heard from them within the next 2 business days, please call them directly. Discharge Diet: Cardiac and Diabetic Discharge Activity: Resume usual activity Patient Instructions: Metolazone (By mouth), Furosemide (By mouth), Sucralfate (By mouth) (Carafate), Carvedilol (By mouth), Sacubitril/Valsartan (By mouth), Heart Failure (DC), Acute Kidney Injury (DC), CHF Stoplight, Opioid Safety Discharge Attestations Time Spent in Discharge Care*: greater than 30 min Status at Discharge: Cognitive status at discharge: cognitively intact , Behavioral status at discharge: cooperative and dependent in ADL's , Quality Metrics Clinical Quality Measures [ No reported AMI, CVA or VTE this stay] Coding Level of Care Code 90565 Total time (in minutes) for Discharge: 45 Diagnoses Acute on chronic renal insufficiency N28.9; N18.9 Acute exacerbation of chronic heart failure I50.9
[2025-04-05] MEDS: aspirin 81 mg EC Tablet PO (12:08)
[2025-04-05] MEDS: lactulose oral liq 20 gm/30 mL UDC 10 GM PO (12:08)
--- NOTE | 2025-04-05 13:42 | P.PN_ITS ---
Subjective 2 Subjective: Today feeling better, has lost considerable amount of water weight. Overall patient would like to go home. Medications: Reviewed: Yes Vitals/I&O/Wt Last Vital Signs Temp 97.3 F L 04/05/25 11:12 Pulse 67 04/05/25 11:12 Resp 18 04/05/25 11:12 BP 128/68 04/05/25 11:12 Pulse Ox 94 04/05/25 11:12 O2 Del Method Nasal Cannula 04/05/25 11:12 O2 Flow Rate 1 04/05/25 11:12 FiO2 35 04/03/25 00:23 04/04/25 04/05/25 04/05/25 22:59 06:59 14:59 Intake Total 240 / 840 720 / 720 Output Total 1500 / 4000 2000 / 6000 450 / 450 Balance -1260 / -3160 -2000 / -5160 270 / 270 Weight last 48 hrs Weight 270 lb 3.2 oz Physical Exam 2 Const: OTHER: GENERAL: Patient is alert, awake and oriented x3. HEART: Regular S1 and S2. No murmur, rub or gallop. LUNGS: Clear to auscultate bilaterally. Abdominal: Girth is reduced abdominal edema has resolved CENTRAL NERVOUS SYSTEM: Grossly nonfocal. EXTREMITIES: Lower extremities with trace edema bilaterally. Urinary Catheter Management: Cyr: Cath Placed During This Visit: yes Reason for Continuing Indwelling Catheter: Other Urinary Catheter Date of Insertion: 03/28/25 Urinary Catheter Time of Insertion: 09:00 Data 04/05/25 04:06 04/05/25 04:06 A&P Assessment and plan (1) Acute exacerbation of chronic heart failure: (2) Diabetes: (3) Chronic kidney disease: (4) Iron deficiency anemia: Plan Creatinine remained at 1.8-1.9. Will switch patient to Lasix p.o. 60 mg twice daily along with metolazone 2.5 mg as needed for gain of more than 3 pounds Add back Entresto p.o. twice daily Continue beta-ramesh Check BMP in 3 days Patient has been given heart failure education Patient will have follow-up appointment with GI for endoscopy and colonoscopy in the face of persistent anemia Due to anemia we will continue on the Effient 10 mg p.o. daily aspirin is on hold New onset of systolic heart failure is well compensated Follow up with cardiology in 7 days PDMP PDMP Reviewed: Not Reviewed Attestations 2 Medical Necessity Statement*: Patient can be discharge home Coding Level of Care Code Acute Code for Chg Fwd Diagnoses Acute exacerbation of chronic heart failure I50.9 Diabetes E11.9 Chronic kidney disease N18.9 Iron deficiency anemia D50.9
== END 2025-04-05 14:40 | disposition home or self-care (01) | DRG 291 ==
LOC: ER 20:16 → MEDSURG 21:39
PROVIDERS: Emergency Medicine; Hospitalist; Nurse Practitioner Family; Student in an Organized Health Care Education/Training Program; Admitting Provider Internal Medicine; Emergency Provider Emergency Medicine; PCP Family Medicine; Visit Provider Internal Medicine
DX: I13.0 Hypertensive heart and chronic kidney disease with heart failure and stage 1 through stage 4 chronic kidney disease, or unspecified chronic kidney disease (principal); I50.23 Acute on chronic systolic (congestive) heart failure; N17.9 Acute kidney failure, unspecified; Z68.41 Body mass index [BMI] 40.0-44.9, adult; F33.1 Major depressive disorder, recurrent, moderate; N18.30 Chronic kidney disease, stage 3 unspecified; E11.22 Type 2 diabetes mellitus with diabetic chronic kidney disease; D50.9 Iron deficiency anemia, unspecified; D63.1 Anemia in chronic kidney disease; I25.2 Old myocardial infarction; I25.10 Atherosclerotic heart disease of native coronary artery without angina pectoris; Z95.5 Presence of coronary angioplasty implant and graft; Z95.1 Presence of aortocoronary bypass graft; E87.5 Hyperkalemia; Z79.84 Long term (current) use of oral hypoglycemic drugs; Z95.0 Presence of cardiac pacemaker; E66.9 Obesity, unspecified; F17.210 Nicotine dependence, cigarettes, uncomplicated; F17.220 Nicotine dependence, chewing tobacco, uncomplicated; G47.33 Obstructive sleep apnea (adult) (pediatric); I25.5 Ischemic cardiomyopathy; R19.5 Other fecal abnormalities; F41.1 Generalized anxiety disorder
CPT/HCPCS: 36415; 36416; 36430; 36600; 51702; 51798; 71045; 76705; 76770; 80048; 80051; 80053; 81001; 82330; 82607; 82728; 82746; 82803; 82805; 82962; 83540; 83550; 83735; 83880; 84132; 84484; 85014; 85018; 85025; 86850; 86900; 86920; 87486; 87581; 87633; 93005; 93306; 93975; 94640; 94660; 94664; 96372; 96374; 99285; J1644; J1815; J1938; J1940; J7613; J9999; P9016; P9046; Q3014; Q5105

== ENCOUNTER → 2025-04-16 12:52 | Outpatient (BNVA) | payer MEDICARE, SELFPAY | PROVIDERS: PCP Family Medicine; Visit Provider Internal Medicine Cardiovascular Disease | DX: I13.0 Hypertensive heart and chronic kidney disease with heart failure and stage 1 through stage 4 chronic kidney disease, or unspecified chronic kidney disease (principal); N18.9 Chronic kidney disease, unspecified; I50.31 Acute diastolic (congestive) heart failure; I25.10 Atherosclerotic heart disease of native coronary artery without angina pectoris; R16.0 Hepatomegaly, not elsewhere classified; D64.9 Anemia, unspecified; Z79.02 Long term (current) use of antithrombotics/antiplatelets; Z95.5 Presence of coronary angioplasty implant and graft; Z95.1 Presence of aortocoronary bypass graft; F17.220 Nicotine dependence, chewing tobacco, uncomplicated; I25.2 Old myocardial infarction | CPT/HCPCS: 99214 ==

== ENCOUNTER 2025-06-30 13:26 | Outpatient (RCR) | payer MEDICARE, SELFPAY | END 2025-07-27 23:59 | disposition home or self-care (01) | LOC: SPT 13:26 | PROVIDERS: PCP Family Medicine; Visit Provider Family Medicine | DX: M25.512 Pain in left shoulder (principal) | CPT/HCPCS: 97110; 97161 ==

== ENCOUNTER → 2025-07-23 13:05 | Outpatient (BNVA) | payer MEDICARE, SELFPAY | PROVIDERS: PCP Family Medicine; Visit Provider Internal Medicine Cardiovascular Disease | DX: I25.10 Atherosclerotic heart disease of native coronary artery without angina pectoris (principal); I13.0 Hypertensive heart and chronic kidney disease with heart failure and stage 1 through stage 4 chronic kidney disease, or unspecified chronic kidney disease; I50.9 Heart failure, unspecified; N18.9 Chronic kidney disease, unspecified; I48.91 Unspecified atrial fibrillation; E78.5 Hyperlipidemia, unspecified; R60.0 Localized edema; R07.9 Chest pain, unspecified; F17.210 Nicotine dependence, cigarettes, uncomplicated; F17.220 Nicotine dependence, chewing tobacco, uncomplicated; Z95.1 Presence of aortocoronary bypass graft; Z95.5 Presence of coronary angioplasty implant and graft | CPT/HCPCS: 99214 ==

== ENCOUNTER 2025-07-28 05:00 | Outpatient (RCR) | payer MEDICARE, SELFPAY | END 2025-08-26 09:22 | disposition home or self-care (01) | LOC: SPT 05:00 | PROVIDERS: PCP Family Medicine; Visit Provider Family Medicine | DX: M25.512 Pain in left shoulder (principal) | CPT/HCPCS: 97110 ==

== ENCOUNTER 2025-08-22 06:23 | Outpatient (CLI) | payer MEDICARE, SELFPAY ==
--- NOTE | 2025-08-22 06:30 | USCV_ITS ---
Carlos Bender Age: 60 Gender: M : 1965 Exam Date: 08/22/2025 06:41 Ordering Phys: Paulina Webb MD ([email or web address]) Technologist: Ed Nolan Exam Location: [facility] [place] Indication: assess ef BP: 124 / 64 HR: Rhythm: Sinus Technical Quality: Adequate MEASUREMENTS (Male / Female) Normal Values 2D ECHO LV Diastolic Diameter PLAX 5.3 cm 4.2 - 5.9 / 3.9 - 5.3 cm IVS Diastolic Thickness 1.6 cm 0.6 - 1.0 / 0.6 - 0.9 cm IVS Systolic Thickness 1.4 cm LVPW Diastolic Thickness 1.2 cm 0.6 - 1.0 / 0.6 - 0.9 cm LVPW Systolic Thickness 1.7 cm LVOT Diameter 2.0 cm LV Ejection Fraction 2D Teich 35.9 % LV Ejection Fraction MOD 4C 59.0 % LV Ejection Fraction MOD 2C 63.6 % LV Ejection Fraction 2C AL 65.4 % LA Diameter 5.1 cm RA Systolic Volume 4C AL 88.4 ml RA Systolic Volume 4C MOD 85.5 ml LA Sys Volume AL 102.4 cm cubed LA Sys Volume Index AL 43.7 cm cubed/m squared Aorta at Sinotubular Diameter 2.7 cm M-MODE LA Ao Ratio MM 1.5 AV Cusp Separation MM 1.7 cm FINDINGS Left Ventricle Normal left ventricular size, systolic function and wall thickness, there appeared to be anterior wall hypokinesis, septal bounce which could be due to interventricular conduction delay or postoperative state. Left ventricular ejection fraction is estimated at 50 %. Right Ventricle Right Atrium Left Atrium Mitral Valve Aortic Valve Tricuspid Valve Pulmonic Valve Pericardium Aorta IVC CONCLUSIONS Limited echo Normal left ventricular size, systolic function and wall thickness, there appeared to be anterior wall hypokinesis, septal bounce which could be due to interventricular conduction delay or postoperative state. Left ventricular ejection fraction is estimated at 50 %. There is no pericardial effusion. Paulina Webb MD (Electronically Signed) Final Date: 22 August 2025 15:01 S
== END 2025-08-22 06:24 | disposition home or self-care (01) ==
LOC: RAD 06:27
PROVIDERS: PCP Family Medicine; Visit Provider Internal Medicine Cardiovascular Disease
DX: R93.1 Abnormal findings on diagnostic imaging of heart and coronary circulation (principal); I25.10 Atherosclerotic heart disease of native coronary artery without angina pectoris; I50.9 Heart failure, unspecified
CPT/HCPCS: 93308